=== PATIENT | male | born 1975 | race Two or more races ===

== ENCOUNTER 2020-07-02 16:34 | Outpatient (REF) | payer MEDICAID, SELFPAY | END 2020-07-02 16:35 | disposition home or self-care (01) | LOC: HO.LAB 16:34 | PROVIDERS: Visit Provider Internal Medicine | DX: Z20.828 Contact with and (suspected) exposure to other viral communicable diseases (principal) | CPT/HCPCS: C9803; U0003 ==

== ENCOUNTER → 2020-09-21 10:27 | Outpatient (BNV) | payer MEDICAID, SELFPAY | PROVIDERS: PCP Registered Nurse; Visit Provider Internal Medicine | DX: D86.9 Sarcoidosis, unspecified (principal); Z85.72 Personal history of non-Hodgkin lymphomas | CPT/HCPCS: 99213 ==

== ENCOUNTER 2021-03-05 08:11 | Inpatient (IN) | payer MEDICAID, SELFPAY ==
[2021-03-05] VITALS (8 sets, daily range): BP systolic 138–142; BP diastolic 86–88; PULSE 89–99; RESP 15–18; TEMP 36.8–37.1; O2SAT 88–95; BMI 34.2
--- NOTE | ~2021-03-05 | XR_ITS ---
EXAMINATION: XR CHEST CLINICAL INFORMATION: Chills, body aches, productive cough, shortness of breath COMPARISON: Chest radiographs 11/30/2017, 11/23/2017, CT chest 08/27/2017. TECHNIQUE: Portable upright AP view of the chest was obtained. FINDINGS: There is subtle bronchiolar thickening medial right upper zone and right infrahilar region similar to prior chest radiographs 11/2017. There is no correlate on CT chest 08/27/2017. There is no lobar or segmental airspace consolidation or new groundglass opacity. No effusion. The costophrenic sulci are clear. The heart is normal in size. The hilar and mediastinal contours and bony structures are unremarkable. XR/XR chest 1V IMPRESSION: Subtle coarsening bronchiolar markings medial right upper zone and right infrahilar region similar to chest radiographs November 2017. No airspace consolidation or effusion.
--- NOTE | ~2021-03-05 | CT_ITS ---
EXAMINATION: CT ANGIOGRAM OF THE CHEST WITH AND WITHOUT CONTRAST (CT PULMONARY ANGIOGRAM FOR PE) CLINICAL INFORMATION: Reason for Exam pt c hx of cancer/thrombosis c cough/sob ? PE COMPARISON: Prior CT examinations of the chest, most recently 08/27/2017. TECHNIQUE: Prior to contrast administration, noncontrast localization images were obtained. Subsequently, multidetector volumetric imaging was performed from the thoracic inlet to below the diaphragms following the administration of 80 mL Omnipaque 350 intravenous contrast. No contrast reaction reported Sagittal, coronal, and MIP oblique sagittal reformatted images were obtained on the CT workstation, uploaded to PACS, and reviewed. This CT examination was performed using dose optimization techniques as appropriate, variously including the following: *Automated exposure control *Adjustment of mA and/or kV according to patient size (this includes techniques or standardized protocols for targeted exams where dose is matched to indication/reason for exam; i.e. extremities or head) *Use of iterative reconstruction technique Total exam dose-length product 433 mGy-cm FINDINGS: QUALITY OF STUDY/CONTRAST BOLUS: Satisfactory. PULMONARY ARTERIES: No central or segmental pulmonary emboli. THORACIC AORTA: No aneurysm or dissection. LUNG: No focal consolidation, nodules or masses. PLEURA: No pleural effusion or pneumothorax. MEDIASTINUM: Normal heart size. No pericardial effusion. There is an enlarged subcarinal lymph node measuring 4.4 x 2.3 cm (5:26). On the CT examination of 08/27/2017, this measured 4.7 x 1.6 cm. There is a 2.0 x 1.8 cm right hilar lymph node. (5:23). This is decreased from prior measurements on 08/27/2017 of 2.4 x 2.3 cm (2:24). There are further shotty, nonpathologically enlarged mediastinal and left hilar lymph nodes. No evidence of septal bowing or right heart strain. CHEST WALL/AXILLA: There are multiple shotty, nonpathologically enlarged bilateral axillary lymph nodes. No axillary or internal mammary lymphadenopathy. OSSEOUS STRUCTURES: There is multi-level thoracic and upper lumbar spondylosis. No acute or aggressive osseous abnormality is seen. UPPER ABDOMEN: There is hepatic steatosis. A small exophytic mid left renal probable cyst is incompletely included in the [id number]. This is unchanged from 07/08/2012 (2:228), and it is considered benign. No reflux of contrast into the hepatic veins to suggest elevated right heart pressures. CT/CT angio chest PE protocol IMPRESSION: 1. No pulmonary embolus or thoracic aortic aneurysm or dissection is seen. 2. The lungs appear clear. 3. There is persistent mediastinal and right hilar lymphadenopathy, with dimensions diminished, as detailed above. 4. There are degenerative changes of the thoracolumbar spine. 5. There is hepatic steatosis. VTE: negative
[2021-03-05] MEDS: Albuterol Sulfate (0.083%) 2.5 MG/3 ML VIAL.NEB 10 MG INHALE (09:07)
[2021-03-05 09:11] LABS: MANUAL DIFF FLAG NO
[2021-03-05] MEDS: guaiFEN/Codeine SF 200/20/10ML 10 ML LIQUID PO (09:13)
[2021-03-05 09:14] LABS: Basophils Percent Auto 0.3 % (0-2); Eosinophils Absolute Auto 0.2 X10*3/uL (0.0-0.4); Hematocrit 46.3 % (42-52); Hemoglobin 15.7 g/dl (14.0-18.0); Imm Gran Abs Auto 0.04 X10*3/uL (0.00-0.03); Imm Gran Pct Auto 0.4 % (0.0-0.4); Lymphocytes Absolute Auto 0.8 X10*3/uL (1.2-4.9); Lymphocytes Percent Auto 7.8 % (20-40); Mean Corpuscular HGB Conc 33.9 g/dl (31.0-36.0); Mean Corpuscular Hemoglobin 29.5 pg (27.0-33.0); Mean Corpuscular Volume 86.9 fL (80-98); Mean Platelet Volume 9.8 fL (9.4-12.4); Monocytes Absolute Auto 0.9 X10*3/uL (0.1-1.2); Monocytes Percent Auto 9.2 % (2-11); Neutrophils Percent Auto 80.3 % (45-73); Platelet Count 166 X10*3/uL (160-400); Red Blood Count 5.33 X10*6/uL (4.60-5.80); Red Cell Distribution Width 13.6 % (11.0-16.0)
[2021-03-05 09:22] LABS: Strep A Nucleic Acid Negative (Negative)
[2021-03-05 09:37] LABS: Glucose Urine UA NEG (NEG); Leukocyte Esterase Urine NEG (NEG); Nitrite Urine NEG (NEG); Specific Gravity - Urine 1.025 (1.005-1.025); Urine Blood NEG (NEG); Urine Ketones NEG (NEG); Urine Protein NEG (NEG-TRACE)
[2021-03-05 09:39] LABS: Appearance Urine CLEAR; Color Urine YELLOW
[2021-03-05 09:48] LABS: Alanine Aminotransferase 41 U/L (0-40); Albumin Level 4.3 g/dL (3.5-5.0); Alkaline Phosphatase 124 U/L (39-117); Anion Gap 13 (12-20); Aspartate Amino Transferase 21 U/L (5-37); Bilirubin Total 0.9 mg/dL (0.0-1.0); Blood Urea Nitrogen 10 mg/dL (9-16); Calcium 9.1 mg/dL (8.4-10.2); Carbon Dioxide 26 mmol/L (22-29); Chloride 105 mmol/L (96-108); Estimated Glomerular Filt Rate > 60; Glucose Random 92 mg/dL (60-115); Magnesium 1.7 mg/dL (1.6-2.6); Sodium 140 mmol/L (135-145); Total Protein 6.8 g/dL (6.5-8.0)
[2021-03-05 09:49] LABS: B Type Natriuretic Peptide 77 pg/mL (<100)
[2021-03-05 09:59] LABS: Influenza A PCR NEGATIVE (Negative); Influenza B PCR NEGATIVE (Negative); Resp Syncy Virus RNA Qual PCR NEGATIVE (Negative); SARS COV2 PCR INHOUSE NEGATIVE (Negative)
--- NOTE | 2021-03-05 11:03 | ED.URI ---
HPI - URI/Sore Throat General Chief Complaint: General Medical Stated Complaint: flu like symptoms Time Seen by Provider: 03/05/21 08:34 Source: patient Mode of arrival: ambulatory Limitations: no limitations History of Present Illness HPI Narrative: 46-year-old male with a past medical history of B-cell lymphoma currently in remission, thrombosis, acid reflux, anxiety and asthma presenting to the ED with complaints of subjective fevers, chills, body aches, fatigue, sneezing, sore throat, nasal congestion, rhinorrhea, productive cough with chest tightness and shortness of breath for the past few days worse today. 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 Denies recent travel or sick contacts. Denies any headaches, dizziness, change in vision, nausea/vomiting, neck pain/stiffness, palpitations, chest pain, dyspnea on exertion, orthopnea, extremity edema, abdominal pain, diarrhea, constipation, black or bloody stools, dysuria, hematuria or any other symptoms complaints or concerns at this time. MD elicited complaint: fever, cough, sore throat, rhinorrhea and nasal congestion Pertinent past history: asthma Onset (ago): day(s) Consistency: constant and progressively worsening Severity: moderate Description of mucous: clear, watery, yellow and green Able to tolerate fluids by mouth: Yes Exacerbating factors: swallowing and deep breaths Relieving factors: nothing Associated symptoms: fever, chills, myalgias, rhinorrhea, nasal congestion, sore throat, cough and shortness of breath Treatments prior to arrival: cold medicine (No symptomatic relief) Related Data Home Medications Medication Instructions Recorded Confirmed albuterol sulfate 90 mcg/actuation 2 puff INHALATION Q4-6H PRN 09/21/20 09/21/20 aerosol inhaler (ProAir HFA) cholecalciferol (vitamin D3) 25 25 mcg PO DAILY 09/21/20 09/21/20 mcg (1,000 unit) capsule (Vitamin D3) clonazepam 1 mg tablet 1 mg PO Q6-8H PRN 09/21/20 09/21/20 gabapentin 300 mg tablet 300 mg PO BEDTIME 09/21/20 09/21/20 loratadine 10 mg capsule 10 mg PO DAILY 09/21/20 09/21/20 omeprazole 20 mg tablet,delayed 20 mg PO DAILY 09/21/20 09/21/20 release Allergies Allergy/AdvReac Type Severity Reaction Status Date / Time allantoin [From BLISTEX] Allergy Unknown LIP Unverified 04/05/20 15:07 SWELLING homosalate [From BLISTEX] Allergy Unknown LIP Unverified 04/05/20 15:07 SWELLING menthol [From BLISTEX] Allergy Unknown LIP Unverified 04/05/20 15:07 SWELLING octinoxate [From BLISTEX] Allergy Unknown LIP Unverified 04/05/20 15:07 SWELLING octyl salicylate Allergy Unknown LIP Unverified 04/05/20 15:07 [From BLISTEX] SWELLING oxybenzone [From BLISTEX] Allergy Unknown LIP Unverified 04/05/20 15:07 SWELLING padimate O [From BLISTEX] Allergy Unknown LIP Unverified 04/05/20 15:07 SWELLING sodium chloride Allergy Unknown GUM Unverified 04/05/20 15:07 SWELLING TO TABLE SALT ibuprofen [IBUPROFEN] AdvReac Unknown STOMACH Unverified 04/05/20 15:07 UPSET From BLISTEX Allergy Unknown LIP Uncoded 04/05/20 15:07 SWELLING ibuprofen Allergy Unknown gi upset Uncoded 09/18/17 00:00 Review of Systems Review of Systems: Constitutional : Positive malaise/fatigue/chills/subjective fevers, No Weight loss, No Night Sweats ENT/Mouth : Positive Sore throat/rhinorrhea/nasal congestion, Hearing loss, No Ear Pain, No Sinus Pain, No Hoarseness, No Swallowing Difficulty Eyes: No Eye Pain, No Swelling, No Redness, No Foreign Body, No Discharge, No Vision Changes Cardiovascular : Positive SOB, No Dyspnea on Exertion, No Orthopnea, No Edema, No Palpitations, No Chest Pain Respiratory : Positive Cough with sputum production and wheezing, No Smoke Exposure Gastrointestinal : No Nausea, No Vomiting, No Diarrhea, No Constipation, No abdominal Pain, No Hematochezia, No Melena Genitourinary : no irregular bleeding, No Dysuria, No Urinary Frequency, No Hematuria, No Urinary Incontinence, No Urgency, No Flank Pain, No Urinary Flow Changes, No Hesitancy Musculoskeletal : Positive myalgias, No joint pain, No Joint Swelling Skin : No Skin Lesions, No rash Neuro : No Weakness, No Numbness, No Paresthesias, No Loss of Consciousness, No Dizziness, No Headache Psych : No Anxiety/Panic, No Depression, No SI/HI/AH/VH, No Social Issues, Heme/Lymph: No Bruising, No Bleeding,No Lymphadenopathy Endocrine : No Polyuria, No Polydipsia, No Temperature Intolerance Yes all other systems are reviewed and are negative [facility] Past Medical History Attestation statement: The following information was validated with the patient. Medical History Acid reflux Anxiety B-cell chronic lymphocytic leukemia History of asthma Thrombosis Family History Family History Mother Liver cirrhosis Family/Other Thyroid cancer Breast cancer Social History Social History Alcohol intake: never Smoked in Last 30 Days: No Use of substances other than those prescribed or required for medical reasons: No Advance Directives: No Advance Directives Information Provided: No Physical Exam Vital Signs: Vital Signs: Last Vital Signs Temp 98.8 F 03/05/21 08:53 Pulse 99 03/05/21 12:41 Resp 15 03/05/21 08:53 BP 142/86 H 03/05/21 08:53 Pulse Ox 88 L 03/05/21 13:37 Body Mass Index 34.2 vital signs have been reviewed as normal and appeared to be correct. Blood pressure normal. Heart rate normal. Respiration rate normal. Temperature normal. Oxygen saturation normal. Appearance: Alert. Oriented X3. No acute distress. Head: Normal external exam. Normocephalic. Atraumatic. Eyes: PERRLA. EOMI. Conjunctiva and sclera normal. Eyelids normal. ENT: EAC normal. TM's Normal. Posterior pharynx erythematous although no exudate is noted. Uvula midline. Moist mucous membranes. No trismus noted. No drooling noted. No muffled voice noted. Neck: Normal inspection. Neck supple. FROM. No adenopathy. Thyroid Normal. No meningeal signs. No neck mass noted. CVS: Normal heart rate and rhythm. Heart sound normal. Pulses normal throughout. No murmurs/rales/gallops. Respiratory: No respiratory distress. Painless inspiration. Breath sounds normal. No wheezes/rales/rhonchi noted. Chest nontender. No accessory muscle usage noted or decreased air movement noted. Abdomen: Soft and nontender. Bowel sounds normal in all 4 quadrants. No distention noted. No organomegaly noted. No visible injury noted. Back: Full range of motion noted. No rashes/lesion/induration/fluctuance or signs of infection noted. Skin: Skin warm and dry. Normal skin color. Normal skin turgor. No rashes/lesions/lacerations noted. Extremities: No lower extremity edema. No calf tenderness npted. Extremities exhibit normal range of motion. Extremities nontender. Neuro: Oriented X 3. No motor deficit. No sensory deficit. Reflexes normal. Normal steady gait. No focal neuro deficits noted. Vascular: + radial pulses/+ 2 distal pedal pulses/+2 dorsalis pedis b/l. Normal cap refill. No cyanosis noted to upper extremity nails and lower extremity toes nails. Course Course Course Narrative: 8:35am - 46-year-old male with a past medical history of B-cell lymphoma currently in remission, thrombosis, acid reflux, anxiety and asthma presenting to the ED with complaints of subjective fevers, chills, body aches, fatigue, sneezing, sore throat, nasal congestion, rhinorrhea, productive cough with chest tightness and shortness of breath for the past few days worse today. Plan:Labs, chest x-ray, COVID/RSV/flu swab, rapid strep swab. Provided 10 mg of Robitussin with codeine and an hour long breathing treatment and re-evaluate. Reevaluation(s) Reevaluation #1: - labs reviewed and patient's ALT at 41. Alkaline phosphate 124. Otherwise all other labs are within normal limits. UA within normal limits no evidence of UTI. Patient negative for COVID/RSV/flu. Patient negative for strep. - CXR revealed Subtle coarsening bronchiolar markings medial right upper zone and right infrahilar region similar to chest radiographs November 2017. No airspace consolidation or effusion. - With walking pulse ox test patient's oxygen saturation stays at 92-94% on room air although patient reports no symptomatic relief after the hour long breathing treatment therefore will give IV Solu-Medrol and plan to admit for bronchitis with acute asthma exacerbation. - I attempted to admit although the hospitalist decline at this time and reported that the patient should receive another breathing treatment along with IV steroids and magnesium and should be sent home with a Z-Hugo will give another breathing treatment along with IV steroids and magnesium and re-evaluate. Time: 11:21 Reevaluation #2: - patient reported he was not feeling better and his oxygen saturation while he was sitting in his bed dropped to 88% while on room air with a good waveform despite receiving a 2nd breathing treatment along with 125 mg of Solu-Medrol IV and 2 g of magnesium IV - I added a respiratory panel and patient is positive for Entero/Rhino Virus - patient is in remission for B-cell lymphoma and has a history of thrombosis therefore I will obtain a CT of his chest to evaluate for possible PE - plan would be to attempt to admit to Dr. Franco Time: 13:42 MDM - URI/Sore Throat Medical Records Attestation: I reviewed the patient's medical records. Lab Data Attestation: I reviewed the patient's lab results. Result diagrams: 03/05/21 09:00 03/05/21 09:00 Labs: Lab Results 03/05/21 03/05/21 03/05/21 Range/Units 09:00 09:00 09:00 WBC 10.0 (4.8-10.8) X10*3/uL RBC 5.33 (4.60-5.80) X10*6/uL Hgb 15.7 (14.0-18.0) g/dl Hct 46.3 (42-52) % MCV 86.9 (80-98) fL MCH 29.5 (27.0-33.0) pg MCHC 33.9 (31.0-36.0) g/dl RDW 13.6 (11.0-16.0) % Plt Count 166 (160-400) X10*3/uL MPV 9.8 (9.4-12.4) fL Immature Gran % (Auto) 0.4 (0.0-0.4) % Neut % (Auto) 80.3 H (45-73) % Lymph % (Auto) 7.8 L (20-40) % [place] % (Auto) 9.2 (2-11) % Eos % (Auto) 2.0 (0-4) % Baso % (Auto) 0.3 (0-2) % Lymph # (Auto) 0.8 L (1.2-4.9) X10*3/uL [place] # (Auto) 0.9 (0.1-1.2) X10*3/uL Eos # (Auto) 0.2 (0.0-0.4) X10*3/uL Baso # (Auto) 0.0 (0.0-0.2) X10*3/uL Abs Immat Gran (auto) 0.04 H (0.00-0.03) X10*3/uL Absolute Neuts (auto) 8.0 (2.0-8.3) X10*3/uL Absolute Nucleated RBC 0.000 (0.0-0.012) X10*3/uL Nucleated RBC % (auto) 0.0 (0.0-0.2) /100WBC Hold Purple Top Sodium (135-145) mmol/L Potassium (3.3-5.1) mmol/L Chloride (96-108) mmol/L Carbon Dioxide (22-29) mmol/L Anion Gap (12-20) BUN (9-16) mg/dL Creatinine (0.5-1.4) mg/dL Estim Creat Clear Calc Estimated GFR Random Glucose (60-115) mg/dL Calcium (8.4-10.2) mg/dL Magnesium (1.6-2.6) mg/dL Total Bilirubin (0.0-1.0) mg/dL AST (5-37) U/L ALT (0-40) U/L Alkaline Phosphatase (39-117) U/L B-Natriuretic Peptide (<100) pg/mL Total Protein (6.5-8.0) g/dL Albumin (3.5-5.0) g/dL Urine Color Urine Appearance Urine pH (5.0-8.0) Ur Specific [place] (1.005-1.025) Urine Protein (NEG-TRACE) MG/DL Urine Glucose (UA) (NEG) MG/DL Urine Ketones (NEG) MG/DL Urine Blood (NEG) Urine Nitrite (NEG) Ur Leukocyte Esterase (NEG) Respiratory Panel [place] Adenovirus (Rapid PCR) (Not Detect.) B.pert (TEM-PCR) (Not Detect.) B.parapertussis DNA PCR (Not Detect.) C. pneumoniae DNA (PCR) (Not Detect.) Coronavirus (PCR) NEGATIVE (Negative) Coronavirus OC43 (PCR) (Not Detect.) Coronavirus HKU1 (PCR) (Not Detect.) Coronavirus 229E (PCR) (Not Detect.) Coronavirus NL63 (PCR) (Not Detect.) Human Metapneumovir PCR (Not Detect.) Influenza A (RT-PCR) (Not Detect.) Influenza Type A (PCR) NEGATIVE (Negative) Influenza B (RT-PCR) (Not Detect.) Influenza Type B (PCR) NEGATIVE (Negative) M. pneumoniae (PCR) (Not Detect.) Parainfluenza 1 (PCR) (Not Detect.) Parainfluenza 2 (PCR) (Not Detect.) Parainfluenza 3 (PCR) (Not Detect.) Parainfluenza 4 (PCR) (Not Detect.) RSV (PCR) (Not Detect.) RSV RNA Qual (PCR) NEGATIVE (Negative) Entero/Rhino (PCR) (Not Detect.) SARS-CoV-2 RNA (RT-PCR) (Not Detect.) S. pyogenes GrpA KURT Negative (Negative) 03/05/21 03/05/21 03/05/21 Range/Units 09:00 09:00 09:00 WBC (4.8-10.8) X10*3/uL RBC (4.60-5.80) X10*6/uL Hgb (14.0-18.0) g/dl Hct (42-52) % MCV (80-98) fL MCH (27.0-33.0) pg MCHC (31.0-36.0) g/dl RDW (11.0-16.0) % Plt Count (160-400) X10*3/uL MPV (9.4-12.4) fL Immature Gran % (Auto) (0.0-0.4) % Neut % (Auto) (45-73) % Lymph % (Auto) (20-40) % [place] % (Auto) (2-11) % Eos % (Auto) (0-4) % Baso % (Auto) (0-2) % Lymph # (Auto) (1.2-4.9) X10*3/uL [place] # (Auto) (0.1-1.2) X10*3/uL Eos # (Auto) (0.0-0.4) X10*3/uL Baso # (Auto) (0.0-0.2) X10*3/uL Abs Immat Gran (auto) (0.00-0.03) X10*3/uL Absolute Neuts (auto) (2.0-8.3) X10*3/uL Absolute Nucleated RBC (0.0-0.012) X10*3/uL Nucleated RBC % (auto) (0.0-0.2) /100WBC Hold Purple Top SEE NOTE Sodium 140 (135-145) mmol/L Potassium 4.0 (3.3-5.1) mmol/L Chloride 105 (96-108) mmol/L Carbon Dioxide 26 (22-29) mmol/L Anion Gap 13 (12-20) BUN 10 (9-16) mg/dL Creatinine 0.81 (0.5-1.4) mg/dL Estim Creat Clear Calc 125.0 Estimated GFR > 60 Random Glucose 92 (60-115) mg/dL Calcium 9.1 D (8.4-10.2) mg/dL Magnesium 1.7 (1.6-2.6) mg/dL Total Bilirubin 0.9 (0.0-1.0) mg/dL AST 21 (5-37) U/L ALT 41 H (0-40) U/L Alkaline Phosphatase 124 H (39-117) U/L B-Natriuretic Peptide 77 (<100) pg/mL Total Protein 6.8 (6.5-8.0) g/dL Albumin 4.3 (3.5-5.0) g/dL Urine Color Urine Appearance Urine pH (5.0-8.0) Ur Specific [place] (1.005-1.025) Urine Protein (NEG-TRACE) MG/DL Urine Glucose (UA) (NEG) MG/DL Urine Ketones (NEG) MG/DL Urine Blood (NEG) Urine Nitrite (NEG) Ur Leukocyte Esterase (NEG) Respiratory Panel [place] Adenovirus (Rapid PCR) (Not Detect.) B.pert (TEM-PCR) (Not Detect.) B.parapertussis DNA PCR (Not Detect.) C. pneumoniae DNA (PCR) (Not Detect.) Coronavirus (PCR) (Negative) Coronavirus OC43 (PCR) (Not Detect.) Coronavirus HKU1 (PCR) (Not Detect.) Coronavirus 229E (PCR) (Not Detect.) Coronavirus NL63 (PCR) (Not Detect.) Human Metapneumovir PCR (Not Detect.) Influenza A (RT-PCR) (Not Detect.) Influenza Type A (PCR) (Negative) Influenza B (RT-PCR) (Not Detect.) Influenza Type B (PCR) (Negative) M. pneumoniae (PCR) (Not Detect.) Parainfluenza 1 (PCR) (Not Detect.) Parainfluenza 2 (PCR) (Not Detect.) Parainfluenza 3 (PCR) (Not Detect.) Parainfluenza 4 (PCR) (Not Detect.) RSV (PCR) (Not Detect.) RSV RNA Qual (PCR) (Negative) Entero/Rhino (PCR) (Not Detect.) SARS-CoV-2 RNA (RT-PCR) (Not Detect.) S. pyogenes GrpA KURT (Negative) 03/05/21 03/05/21 Range/Units 09:00 09:31 WBC (4.8-10.8) X10*3/uL RBC (4.60-5.80) X10*6/uL Hgb (14.0-18.0) g/dl Hct (42-52) % MCV (80-98) fL MCH (27.0-33.0) pg MCHC (31.0-36.0) g/dl RDW (11.0-16.0) % Plt Count (160-400) X10*3/uL MPV (9.4-12.4) fL Immature Gran % (Auto) (0.0-0.4) % Neut % (Auto) (45-73) % Lymph % (Auto) (20-40) % [place] % (Auto) (2-11) % Eos % (Auto) (0-4) % Baso % (Auto) (0-2) % Lymph # (Auto) (1.2-4.9) X10*3/uL [place] # (Auto) (0.1-1.2) X10*3/uL Eos # (Auto) (0.0-0.4) X10*3/uL Baso # (Auto) (0.0-0.2) X10*3/uL Abs Immat Gran (auto) (0.00-0.03) X10*3/uL Absolute Neuts (auto) (2.0-8.3) X10*3/uL Absolute Nucleated RBC (0.0-0.012) X10*3/uL Nucleated RBC % (auto) (0.0-0.2) /100WBC Hold Purple Top Sodium (135-145) mmol/L Potassium (3.3-5.1) mmol/L Chloride (96-108) mmol/L Carbon Dioxide (22-29) mmol/L Anion Gap (12-20) BUN (9-16) mg/dL Creatinine (0.5-1.4) mg/dL Estim Creat Clear Calc Estimated GFR Random Glucose (60-115) mg/dL Calcium (8.4-10.2) mg/dL Magnesium (1.6-2.6) mg/dL Total Bilirubin (0.0-1.0) mg/dL AST (5-37) U/L ALT (0-40) U/L Alkaline Phosphatase (39-117) U/L B-Natriuretic Peptide (<100) pg/mL Total Protein (6.5-8.0) g/dL Albumin (3.5-5.0) g/dL Urine Color YELLOW Urine Appearance CLEAR Urine pH 6.0 (5.0-8.0) Ur Specific [place] 1.025 (1.005-1.025) Urine Protein NEG (NEG-TRACE) MG/DL Urine Glucose (UA) NEG (NEG) MG/DL Urine Ketones NEG (NEG) MG/DL Urine Blood NEG (NEG) Urine Nitrite NEG (NEG) Ur Leukocyte Esterase NEG (NEG) Respiratory Panel [place] See Note Adenovirus (Rapid PCR) Not Detected (Not Detect.) B.pert (TEM-PCR) Not Detected (Not Detect.) B.parapertussis DNA PCR Not Detected (Not Detect.) C. pneumoniae DNA (PCR) Not Detected (Not Detect.) Coronavirus (PCR) (Negative) Coronavirus OC43 (PCR) Not Detected (Not Detect.) Coronavirus HKU1 (PCR) Not Detected (Not Detect.) Coronavirus 229E (PCR) Not Detected (Not Detect.) Coronavirus NL63 (PCR) Not Detected (Not Detect.) Human Metapneumovir PCR Not Detected (Not Detect.) Influenza A (RT-PCR) Not Detected (Not Detect.) Influenza Type A (PCR) (Negative) Influenza B (RT-PCR) Not Detected (Not Detect.) Influenza Type B (PCR) (Negative) M. pneumoniae (PCR) Not Detected (Not Detect.) Parainfluenza 1 (PCR) Not Detected (Not Detect.) Parainfluenza 2 (PCR) Not Detected (Not Detect.) Parainfluenza 3 (PCR) Not Detected (Not Detect.) Parainfluenza 4 (PCR) Not Detected (Not Detect.) RSV (PCR) Not Detected (Not Detect.) RSV RNA Qual (PCR) (Negative) Entero/Rhino (PCR) Detected A (Not Detect.) SARS-CoV-2 RNA (RT-PCR) Not Detected (Not Detect.) S. pyogenes GrpA KURT (Negative) Imaging Data Chest x-ray: Attestation: I personally reviewed and interpreted this imaging study as follows: Radiologist's impression: FINDINGS: There is subtle bronchiolar thickening medial right upper zone and right infrahilar region similar to prior chest radiographs 11/2017. There is no correlate on CT chest 08/27/2017. There is no lobar or segmental airspace consolidation or new groundglass opacity. No effusion. The costophrenic sulci are clear. The heart is normal in size. The hilar and mediastinal contours and bony structures are unremarkable. XR/XR chest 1V IMPRESSION: Subtle coarsening bronchiolar markings medial right upper zone and right infrahilar region similar to chest radiographs November 2017. No airspace consolidation or effusion. ? CTA of chest : Attestation: I personally reviewed and interpreted this imaging study as follows: Radiologist's impression: FINDINGS: QUALITY OF STUDY/CONTRAST BOLUS: Satisfactory. PULMONARY ARTERIES: No central or segmental pulmonary emboli.? THORACIC AORTA: No aneurysm or dissection. LUNG: No focal consolidation, nodules or masses. PLEURA: No pleural effusion or pneumothorax. MEDIASTINUM: Normal heart size.? No pericardial effusion. There is an enlarged subcarinal lymph node measuring 4.4 x 2.3 cm (5:26). On the CT examination of 08/27/2017, this measured 4.7 x 1.6 cm. There is a 2.0 x 1.8 cm right hilar lymph node. (5:23). This is decreased from prior measurements on 08/27/2017 of 2.4 x 2.3 cm (2:24). There are further shotty, nonpathologically enlarged mediastinal and left hilar lymph nodes.? No evidence of septal bowing or right heart strain. CHEST WALL/AXILLA: There are multiple shotty, nonpathologically enlarged bilateral axillary lymph nodes. No axillary or internal mammary lymphadenopathy. OSSEOUS STRUCTURES: There is multi-level thoracic and upper lumbar spondylosis. No acute or aggressive osseous abnormality is seen.? UPPER ABDOMEN: There is hepatic steatosis. A small exophytic mid left renal probable cyst is incompletely included in the [id number]. This is unchanged from 07/08/2012 (2:228), and it is considered benign. No reflux of contrast into the hepatic veins to suggest elevated right heart pressures. CT/CT angio chest PE protocol IMPRESSION: ? 1. No pulmonary embolus or thoracic aortic aneurysm or dissection is seen. ? 2. The lungs appear clear. ? 3. There is persistent mediastinal and right hilar lymphadenopathy, with dimensions diminished, as detailed above. ? 4. There are degenerative changes of the thoracolumbar spine. ? 5. There is hepatic steatosis. ? VTE: negative ECG Data Attestation: I personally reviewed and interpreted this ECG as follows: ECG interpretation date: 03/05/21 ECG interpretation time: 12:19 Interpretation: Normal sinus rhythm with a ventricular rate of 93 with minimal voltage criteria for LVH nonspecific ST abnormalities no acute ischemic changes are noted. Similar when compared to prior EKG 03/25/2015. Critical Care Time Critical Care Time Critical Care Time: Yes Total Critical Care Time: 60 Attestation: I personally attest to this time spent taking care of the patient Discharge Plan Discharge Clinical Impression: Bronchitis, Asthma exacerbation, Acute viral syndrome Patient Disposition: Admitted As Inpatient
--- NOTE | 2021-03-05 11:27 | ECG_ITS ---
Test Reason : SOB Blood Pressure : / mmHG Vent. Rate : 093 BPM Atrial Rate : 093 BPM P-R Int : 144 ms QRS Dur : 094 ms QT Int : 356 ms P-R-T Axes : 050 031 -04 degrees QTc Int : 442 ms Normal sinus rhythm Minimal voltage criteria for LVH, may be normal variant T wave abnormality, consider inferior ischemia Abnormal ECG When compared with ECG of 25-MAR-2015 08:35, No significant change was found Referred By: Dottie Mitchell Electronically Signed By:TRICIA JACKSON
[2021-03-05 11:36] LABS: Adenovirus PCR Not Detected (Not Detect.); Bordetella parapertussis PCR Not Detected (Not Detect.); Bordetella pertussis PCR Not Detected (Not Detect.); Chlamydia pneumoniae PCR Not Detected (Not Detect.); Coronavirus 229E PCR Not Detected (Not Detect.); Coronavirus HKU1 PCR Not Detected (Not Detect.); Coronavirus NL63 PCR Not Detected (Not Detect.); Coronavirus OC43 PCR Not Detected (Not Detect.); Human metapneumovirus PCR Not Detected (Not Detect.); Influenza A PCR Not Detected (Not Detect.); Influenza B PCR Not Detected (Not Detect.); Mycoplasma pneumoniae PCR Not Detected (Not Detect.); Parainfluenza 1 PCR Not Detected (Not Detect.); Parainfluenza 2 PCR Not Detected (Not Detect.); Parainfluenza 3 PCR Not Detected (Not Detect.); Parainfluenza 4 PCR Not Detected (Not Detect.); RSV PCR Not Detected (Not Detect.); SARS-CoV-2 PCR Not Detected (Not Detect.)
[2021-03-05] MEDS: methylPREDNISolone Sod Succ 125 MG/2 ML VIAL IVPUSH (12:35)
[2021-03-05] MEDS: Magnesium Sulfate/H2O 2 GM/50 ML PIGGYBACK IV (12:38)
[2021-03-05] MEDS: Albuterol Sulfate (0.083%) 2.5 MG/3 ML VIAL.NEB 5 MG INHALE (12:41)
[2021-03-05 13:34] LABS: Rhino/Enterovirus PCR Detected (Not Detect.)
--- NOTE | 2021-03-05 14:17 | PC.NURSE ---
earlier pt sat 88% on room air. pt woken up, sat up in bed and sat henry to 96%. pt placed on 2l nc and maintaining 94% plus
[2021-03-05] MEDS: iohexoL 350 MG/ML 100 ML INFUS..BTL 71 ML IV (15:00)
--- NOTE | 2021-03-05 16:25 | P.HPHOSP_ITS ---
History of Present Illness Date of Service: 03/05/21 Chief Complaint: sob 46-year-old male history of asthma, anxiety, history of B-cell lymphoma recently in remission as per patient- Who came to the hospital because having few days of history of shortness of breath, productive cough, urinary and feverish feeling- patient is found to have up toxic on 88%, patient was given nebs, steroids and oxygen and admission was given due to asthma exacerbation, URI: Patient shortness of breath improving with the nebs, steroids, oxygen-ED added procalcitonin levels, blood cultures. CTA negative for pulmonary embolism, has lymphadenopathy question related to lymphoma. Patient denies any nausea or vomiting or abdominal pain or diarrhea or headache or chest pain or weakness or numbness. Past medical history as above, in addition GERD. Past surgical history: None. Allergy: Says he he has allergy to NSAIDs?-stomach upset. Please see allergy section for more details. Social history: Denies any alcohol or smoking, any recreational drug use. Lives with his father. Denies any sick contacts . Review of Systems Review of Systems: As above in HPI, Denies any rash or cyanosis. Denies any muscle pain Subjective feverish feeling Appears somewhat short of breath, speaking inch poor short sentences Patient denies any nausea or vomiting or abdominal pain or diarrhea or headache or chest pain or weakness or numbness. [facility] Medical History Acid reflux Anxiety B-cell chronic lymphocytic leukemia History of asthma Thrombosis Family History Mother Liver cirrhosis Family/Other Thyroid cancer Breast cancer Social History Household Members: Family Household Members Other:: father Housing: Apartment Do you presently have visiting nurse or other home services: No Alcohol intake: never Patient Tobacco Use Status: Current everyday Tobacco user Tobacco use type: Cigarette Cigarettes Per Day: 5 Years Smoked: 18 Smoked in Last 30 Days: Yes Patient Interested in Nicotine Replacement: Yes Patient Given Instructions on How to Stop Smoking: No Second Hand Smoke Exposure: No Use of substances other than those prescribed or required for medical reasons: No Currently Displaying Signs/Symptoms of Drug Intoxication Withdrawal: No Have you been hit, kicked, punched, or otherwise hurt by someone within the past year? If so, by whom?: No Do you feel safe in your current relationship?: Yes Is there a partner from a previous relationship who is making you feel unsafe now?: No Are you made to feel afraid or neglected: No Advance Directives: No Advance Directives Information Provided: No Do you have thoughts of harming others: None Do you have a plan to hurt others: No Plan Recently lost weight without trying: No How much weight loss: Not applicable Eating poorly because of decreased appetite: No Nutrition screen score: 0 Nutrition Risks: No Nutritional Risk Poor oral hygiene: No Meds Allergies Allergy/AdvReac Type Severity Reaction Status Date / Time allantoin [From BLISTEX] Allergy Unknown LIP Unverified 04/05/20 15:07 SWELLING homosalate [From BLISTEX] Allergy Unknown LIP Unverified 04/05/20 15:07 SWELLING menthol [From BLISTEX] Allergy Unknown LIP Unverified 04/05/20 15:07 SWELLING octinoxate [From BLISTEX] Allergy Unknown LIP Unverified 04/05/20 15:07 SWELLING octyl salicylate Allergy Unknown LIP Unverified 04/05/20 15:07 [From BLISTEX] SWELLING oxybenzone [From BLISTEX] Allergy Unknown LIP Unverified 04/05/20 15:07 SWELLING padimate O [From BLISTEX] Allergy Unknown LIP Unverified 04/05/20 15:07 SWELLING sodium chloride Allergy Unknown GUM Unverified 04/05/20 15:07 SWELLING TO TABLE SALT ibuprofen [IBUPROFEN] AdvReac Unknown STOMACH Unverified 04/05/20 15:07 UPSET From BLISTEX Allergy Unknown LIP Uncoded 04/05/20 15:07 SWELLING ibuprofen Allergy Unknown gi upset Uncoded 09/18/17 00:00 Active Medications: Current Medications Generic Name Dose Route Start Last Admin Trade Name Freq PRN Reason Stop Dose Admin Albuterol/Ipratropium 3 ml 03/05/21 16:20 Albuterol/Iprat 2.5/0.5mg 3 Ml Ampul.Neb INHALE Q3H PRN Shortness of Breath Albuterol/Ipratropium 3 ml 03/05/21 16:30 Albuterol/Iprat 2.5/0.5mg 3 Ml Ampul.Neb INHALE Q4H CHERYL Enoxaparin Sodium 40 mg 03/05/21 17:00 Enoxaparin Sodium 40 Mg/0.4 Ml Syringe SUBCUT Q24H [facility] Methylprednisolone Sodium Succinate 40 mg 03/05/21 21:00 Methylprednisolone Sod Succ 40 Mg/Ml Vial IVPUSH BID [facility] Pharmacy Consult 1 each 03/05/21 16:19 Consult Rx Perform Med Rec MISCELLANE ONCE PRN Consult order Sodium Chloride 3 ml 03/06/21 00:00 0.9 % Sodium Chloride Flush 3 Ml Syringe IVFLUSH QSHIFT [facility] Home Medications Medication Instructions Recorded Confirmed Last Taken Type albuterol sulfate 90 mcg/actuation 2 puff INHALATION Q4-6H PRN 09/21/20 03/05/21 03/05/21 History aerosol inhaler (ProAir HFA) clonazepam 1 mg tablet 1 tab PO DAILY PRN 03/05/21 03/05/21 Unknown History esomeprazole magnesium 20 mg 1 cap PO DAILY 03/05/21 03/05/21 Unknown History capsule,delayed release fluticasone propionate 110 2 puff INHALATION BID 03/05/21 03/05/21 Unknown History mcg/actuation HFA aerosol inhaler (Flovent HFA) fluticasone propionate 50 1 spray INTRANASAL BID 03/05/21 03/05/21 Unknown History mcg/actuation nasal spray,suspension gabapentin 300 mg capsule 3 cap PO BEDTIME 03/05/21 03/05/21 Unknown History levocetirizine 5 mg tablet 1 tab PO QPM 03/05/21 03/05/21 Unknown History Physical Exam Vital Signs and Narrative: Vital Signs: Last Vital Signs Temp 98.8 F 03/05/21 08:53 Pulse 99 03/05/21 12:41 Resp 15 03/05/21 08:53 BP 142/86 H 03/05/21 08:53 Pulse Ox 88 L 03/05/21 13:37 Body Mass Index 34.2 Physical exam: Constitutional : Positive malaise/fatigue/chills/subjective fevers. ENT/Mouth : Positive Sore throat/rhinorrhea/nasal congestion. Eyes: No Eye Pain, No RednessNo Discharge, No Vision Changes Cvs: rrr, [id number] , no murmur res: Grossly air entry diminished, has wheezing. abd: no rebound or guarding ,nt, bs present. ext pulses present , no cyanosis neuro: axo3 , nonfocal. ms: No pain, no deformity. Results Labs CBC and Chem 7: 03/05/21 09:00 03/05/21 09:00 Labs: Laboratory Results - last 24 hr 03/05/21 03/05/21 03/05/21 09:00 09:00 09:00 MCV 86.9 MCH 29.5 MCHC 33.9 RDW 13.6 Plt Count 166 MPV 9.8 Immature Gran % (Auto) 0.4 Neut % (Auto) 80.3 H Lymph % (Auto) 7.8 L [place] % (Auto) 9.2 Eos % (Auto) 2.0 Baso % (Auto) 0.3 Lymph # (Auto) 0.8 L [place] # (Auto) 0.9 Eos # (Auto) 0.2 Baso # (Auto) 0.0 Abs Immat Gran (auto) 0.04 H Absolute Neuts (auto) 8.0 Absolute Nucleated RBC 0.000 Nucleated RBC % (auto) 0.0 Hold Purple Top Anion Gap Estim Creat Clear Calc Estimated GFR Random Glucose Calcium Magnesium Total Bilirubin AST ALT Alkaline Phosphatase B-Natriuretic Peptide Total Protein Albumin Urine Color Urine Appearance Urine pH Ur Specific [place] Urine Protein Urine Glucose (UA) Urine Ketones Urine Blood Urine Nitrite Ur Leukocyte Esterase Respiratory Panel [place] Adenovirus (Rapid PCR) B.pert (TEM-PCR) B.parapertussis DNA PCR C. pneumoniae DNA (PCR) Coronavirus (PCR) NEGATIVE Coronavirus OC43 (PCR) Coronavirus HKU1 (PCR) Coronavirus 229E (PCR) Coronavirus NL63 (PCR) Human Metapneumovir PCR Influenza A (RT-PCR) Influenza Type A (PCR) NEGATIVE Influenza B (RT-PCR) Influenza Type B (PCR) NEGATIVE M. pneumoniae (PCR) Parainfluenza 1 (PCR) Parainfluenza 2 (PCR) Parainfluenza 3 (PCR) Parainfluenza 4 (PCR) RSV (PCR) RSV RNA Qual (PCR) NEGATIVE Entero/Rhino (PCR) SARS-CoV-2 RNA (RT-PCR) S. pyogenes GrpA KURT Negative 03/05/21 03/05/21 03/05/21 09:00 09:00 09:00 MCV MCH MCHC RDW Plt Count MPV Immature Gran % (Auto) Neut % (Auto) Lymph % (Auto) [place] % (Auto) Eos % (Auto) Baso % (Auto) Lymph # (Auto) [place] # (Auto) Eos # (Auto) Baso # (Auto) Abs Immat Gran (auto) Absolute Neuts (auto) Absolute Nucleated RBC Nucleated RBC % (auto) Hold Purple Top SEE NOTE Anion Gap 13 Estim Creat Clear Calc 125.0 Estimated GFR > 60 Random Glucose 92 Calcium 9.1 D Magnesium 1.7 Total Bilirubin 0.9 AST 21 ALT 41 H Alkaline Phosphatase 124 H B-Natriuretic Peptide 77 Total Protein 6.8 Albumin 4.3 Urine Color Urine Appearance Urine pH Ur Specific [place] Urine Protein Urine Glucose (UA) Urine Ketones Urine Blood Urine Nitrite Ur Leukocyte Esterase Respiratory Panel [place] Adenovirus (Rapid PCR) B.pert (TEM-PCR) B.parapertussis DNA PCR C. pneumoniae DNA (PCR) Coronavirus (PCR) Coronavirus OC43 (PCR) Coronavirus HKU1 (PCR) Coronavirus 229E (PCR) Coronavirus NL63 (PCR) Human Metapneumovir PCR Influenza A (RT-PCR) Influenza Type A (PCR) Influenza B (RT-PCR) Influenza Type B (PCR) M. pneumoniae (PCR) Parainfluenza 1 (PCR) Parainfluenza 2 (PCR) Parainfluenza 3 (PCR) Parainfluenza 4 (PCR) RSV (PCR) RSV RNA Qual (PCR) Entero/Rhino (PCR) SARS-CoV-2 RNA (RT-PCR) S. pyogenes GrpA KURT 03/05/21 03/05/21 09:00 09:31 MCV MCH MCHC RDW Plt Count MPV Immature Gran % (Auto) Neut % (Auto) Lymph % (Auto) [place] % (Auto) Eos % (Auto) Baso % (Auto) Lymph # (Auto) [place] # (Auto) Eos # (Auto) Baso # (Auto) Abs Immat Gran (auto) Absolute Neuts (auto) Absolute Nucleated RBC Nucleated RBC % (auto) Hold Purple Top Anion Gap Estim Creat Clear Calc Estimated GFR Random Glucose Calcium Magnesium Total Bilirubin AST ALT Alkaline Phosphatase B-Natriuretic Peptide Total Protein Albumin Urine Color YELLOW Urine Appearance CLEAR Urine pH 6.0 Ur Specific [place] 1.025 Urine Protein NEG Urine Glucose (UA) NEG Urine Ketones NEG Urine Blood NEG Urine Nitrite NEG Ur Leukocyte Esterase NEG Respiratory Panel [place] See Note Adenovirus (Rapid PCR) Not Detected B.pert (TEM-PCR) Not Detected B.parapertussis DNA PCR Not Detected C. pneumoniae DNA (PCR) Not Detected Coronavirus (PCR) Coronavirus OC43 (PCR) Not Detected Coronavirus HKU1 (PCR) Not Detected Coronavirus 229E (PCR) Not Detected Coronavirus NL63 (PCR) Not Detected Human Metapneumovir PCR Not Detected Influenza A (RT-PCR) Not Detected Influenza Type A (PCR) Influenza B (RT-PCR) Not Detected Influenza Type B (PCR) M. pneumoniae (PCR) Not Detected Parainfluenza 1 (PCR) Not Detected Parainfluenza 2 (PCR) Not Detected Parainfluenza 3 (PCR) Not Detected Parainfluenza 4 (PCR) Not Detected RSV (PCR) Not Detected RSV RNA Qual (PCR) Entero/Rhino (PCR) Detected A SARS-CoV-2 RNA (RT-PCR) Not Detected S. pyogenes GrpA KURT Imaging Radiologist's Impressions: Impressions Chest X-Ray 03/05/21 08:52 IMPRESSION: Subtle coarsening bronchiolar markings medial right upper zone and right infrahilar region similar to chest radiographs November 2017. No airspace consolidation or effusion. Chest CTA 03/05/21 13:19 IMPRESSION: 1. No pulmonary embolus or thoracic aortic aneurysm or dissection is seen. 2. The lungs appear clear. 3. There is persistent mediastinal and right hilar lymphadenopathy, with dimensions diminished, as detailed above. 4. There are degenerative changes of the thoracolumbar spine. 5. There is hepatic steatosis. VTE: negative Assessment and Plan (1) Asthma exacerbation: Status: Acute (2) URI (upper respiratory infection): Status: Acute (3) Acute hypoxemic respiratory failure: Status: Acute 1. Acute hypoxemic respiratory failure secondary to asthma exacerbation/URI. Started on nebs, steroids, supplement oxygen Supportive care Procalcitonin level, blood culture pending. Will hold off antibiotics since no fever or leukocytosis, and CT is does not show any pneumonia. 2.: Anxiety: Home per medication reconciliation is still pending. 3. GERD: Continue omeprazole. dvt prophylax: lovenox. Quality Stroke Does the patient have a stroke diagnosis?: No VTE Prior VTE?: Yes VTE Risk Level:: Medical - moderate - high VTE Device Contraindication: N/A - Device Ordered VTE Drug Contraindication: N/A - Med Ordered
[2021-03-05 16:28] LABS: Procalcitonin 0.04 ng/mL
--- NOTE | 2021-03-05 17:30 | PHA.MEDREC ---
Pharmacy Consult ? Medication Reconciliation Pharmacy has completed the medication reconciliation.
[2021-03-05] MEDS: Albuterol/Iprat 2.5/0.5MG 3 ML AMPUL.NEB INHALE (20:31)
--- NOTE | 2021-03-05 21:31 | PC.NURSE ---
report called to inpt RN Alison, pt transported to floor in stable condition w/ all belongings, 2L O2 NC
[2021-03-05] MEDS: methylPREDNISolone Sod Succ 40 MG/ML VIAL IVPUSH (22:31)
[2021-03-05] MEDS: Omeprazole 20 MG CAPSULE.DR PO (22:31)
[2021-03-05] MEDS: Enoxaparin Sodium 40 MG/0.4 ML SYRINGE SUBCUT (22:31)
[2021-03-05] MEDS: 0.9 % Sodium Chloride Flush 3 ML SYRINGE IVFLUSH (22:31)
[2021-03-05 22:50] LABS: D Dimer 492 NG/ML
[2021-03-06] VITALS (7 sets, daily range): BP systolic 117–146; BP diastolic 61–93; PULSE 76–92; RESP 16–20; TEMP 36–36.4; O2SAT 93–95
[2021-03-06] MEDS: Acetaminophen 325 MG TABLET 650 MG PO (01:56)
[2021-03-06] MEDS: 0.9 % Sodium Chloride Flush 3 ML SYRINGE IVFLUSH (07:17)
[2021-03-06] MEDS: Albuterol/Iprat 2.5/0.5MG 3 ML AMPUL.NEB INHALE ×2 (07:56→11:32)
--- NOTE | 2021-03-06 09:53 | MHC.CM.PN ---
EMR REVIEWED, PT ADMITTED W/ACUTE HYPOXEMIA AND RESPIRATORY FAILURE SEC TO ASTHMA EXAC, CM MET W/PT WHO IS A&0X4, PT REPORTS HE IS INDEPENDENT W/ALL CARE, NO DME AFTER CPAP HAD TO BE RETURNED D/T PT NOT USING IT WHILE HE WAS SICK, PT REPORTS HE WAS TOLD AFTER HE USES IT FOR TWO STRAIGHT WKS, HE WOULD BE ABLE TO KEEP IT HOWEVER AFTER ONE WEEK PT BECAME SICK AND REPORTS HE WAS HAVING DIFFICULTY BREATHING W/MASK ON, PT REPORTS HE WAS TOLD HE WOULD NEED A NEW SLEEP STUDY TO GET A NEW CPAP, PT REPORTS HE USES INHALERS FOR ASTHMA, PT DOES NOT HAVE A NEBULIZER AT HOME, PT CURRENTLY ON 2L O2 VIA NC AND APPEARS COMFORTABLE. PCP REPORTS HIS PCP AT [facility] LEFT PRACTICE AND HE WAS ASSIGNED A NEW ONE WHO IS ALSO LEAVING SO PT UNSURE WHO PCP WILL BE, CM CANVASS MANAGER WILL CALL AND VERIFY, PT DOES VERIFY HCP AND COPY HAS BEEN REQUESTED. D/C PLAN: HOME SELF-CARE, FAMILY FOR TRANSPORT PCP: SALLIE LEUKEMIA: DR RODRIGUEZ HCP: DOMINIQUE KAUFMAN [phone] ALTERNATE: BRAYAN CHU [phone]
[2021-03-06] MEDS: methylPREDNISolone Sod Succ 40 MG/ML VIAL IVPUSH (10:29)
--- NOTE | 2021-03-06 13:31 | PM.DS ---
DS: Providers Provider Date of Service: 03/06/21 Date of admission: 03/05/21 16:16 Date of discharge: 03/06/21 Primary care physician: Unknown Physician DS: Diagnosis Discharge Diagnosis (1) Asthma exacerbation: Status: Acute (2) URI (upper respiratory infection): Status: Acute (3) Acute hypoxemic respiratory failure: Status: Acute DS: Medications Discharge Medications Home Medications: Home Medications Medication Instructions Recorded Confirmed albuterol sulfate 90 mcg/actuation 2 puff INHALATION Q4-6H PRN 09/21/20 03/05/21 aerosol inhaler (ProAir HFA) clonazepam 1 mg tablet 1 tab PO DAILY PRN 03/05/21 03/05/21 esomeprazole magnesium 20 mg 1 cap PO DAILY 03/05/21 03/05/21 capsule,delayed release fluticasone propionate 110 2 puff INHALATION BID 03/05/21 03/05/21 mcg/actuation HFA aerosol inhaler (Flovent HFA) fluticasone propionate 50 1 spray INTRANASAL BID 03/05/21 03/05/21 mcg/actuation nasal spray,suspension gabapentin 300 mg capsule 3 cap PO BEDTIME 03/05/21 03/05/21 levocetirizine 5 mg tablet 1 tab PO QPM 03/05/21 03/05/21 Previous Rx's Medication Instructions Recorded azithromycin 250 mg tablet See Rx Instructions PO .COMPLEX #5 03/06/21 (Zithromax) tab prednisone 20 mg tablet 40 mg PO DAILY #8 tab 03/06/21 DS: Summary Hospital Course Hospital Course: Patient came with acute hypoxemic respiratory failure secondary to status asthma exacerbation/also has viral URI: Treated with supportive care including nebs, steroids-seems to be improving. Upon discharge patient is going home with p.o. steroids and Z-Hugo. Further management outpatient as per PCP. Status at Discharge Cognitive/behavioral status at discharge: Acute hypoxemic respiratory failure secondary to asthma exacerbation/URI: Time Spent with Patient Time attestation: Total time spent providing and/or coordinating discharge services: Discharge coordination time: Greater than 30 minutes Quality: Stroke Does the patient have a stroke diagnosis?: No Physical Exam Vital Signs: Vital Signs: Last Vital Signs Temp 97.6 F 03/06/21 11:23 Pulse 92 03/06/21 11:32 Resp 18 03/06/21 11:23 BP 117/63 03/06/21 11:23 Pulse Ox 93 03/06/21 12:45 Body Mass Index 34.2 ENT/Mouth :rhinorrhea/nasal congestion seems improving. Eyes: No Eye Pain, No RednessNo Discharge, No Vision Changes Cvs: rrr, [id number] , no murmur res:? air entry seems to be improved now, no rales or wheezing. abd: no rebound or guarding ,nt, bs present. ext pulses present , no cyanosis neuro: axo3 , nonfocal. ms:? No pain, no deformity. DS: Data Data Completed and Pending Labs on day of discharge: Laboratory Results - last 24 hr 03/05/21 03/05/21 03/05/21 09:00 09:00 22:20 D-Dimer 492 Procalcitonin 0.04 Respiratory Panel [place] See Note Adenovirus (Rapid PCR) Not Detected B.pert (TEM-PCR) Not Detected B.parapertussis DNA PCR Not Detected C. pneumoniae DNA (PCR) Not Detected Coronavirus OC43 (PCR) Not Detected Coronavirus HKU1 (PCR) Not Detected Coronavirus 229E (PCR) Not Detected Coronavirus NL63 (PCR) Not Detected Human Metapneumovir PCR Not Detected Influenza A (RT-PCR) Not Detected Influenza B (RT-PCR) Not Detected M. pneumoniae (PCR) Not Detected Parainfluenza 1 (PCR) Not Detected Parainfluenza 2 (PCR) Not Detected Parainfluenza 3 (PCR) Not Detected Parainfluenza 4 (PCR) Not Detected RSV (PCR) Not Detected Entero/Rhino (PCR) Detected A SARS-CoV-2 RNA (RT-PCR) Not Detected Discharge Plan Discharge Patient Disposition: Home, Self-Care Discharge Diagnosis: asthma excerebation Referrals: Physician,Unknown [Primary Care Provider] - 1 Week Discharge Medications: New prednisone 20 mg tablet 40 mg PO DAILY Qty: 8 RF: 0 azithromycin [Zithromax] 250 mg tablet See Rx Instructions PO .COMPLEX Qty: 5 RF: 0 Continued clonazepam 1 mg tablet 1 tab PO DAILY PRN (Reason: Allergy Symptoms) RF: 0 gabapentin 300 mg capsule 3 cap PO BEDTIME RF: 0 fluticasone propionate 50 mcg/actuation spray,suspension 1 spray intranasal BID RF: 0 Flovent HFA 110 mcg/actuation HFA aerosol inhaler 2 puff inhalation BID RF: 0 esomeprazole magnesium 20 mg capsule,delayed release(DR/EC) 1 cap PO DAILY RF: 0 levocetirizine 5 mg tablet 1 tab PO QPM RF: 0 albuterol sulfate [ProAir HFA] 90 mcg/actuation Hfa Aerosol Inhaler 2 puff INHALATION Q4-6H PRN (Reason: Wheezing) RF: 0 Discharge Orders: Discharge Order (Routine); Ordered 03/06/21 Ordered By: Tan Razo Diet: advance to usual diet Activity on Discharge: As tolerated Stand Alone Forms: Patient Portal Discharge page Care Plan Goals: Patient came with acute aspects anemic failure secondary to status asthma exacerbation/also has viral URI: Treated with supportive care including nebs, steroids-seems to be improving. Upon discharge patient is going home with p.o. steroids and Z-Hugo. Further management outpatient as per PCP. Health Concerns: As above. Plan of Treatment: As above. Assessment: As above. Discharge Date/Time: 03/06/21 14:32
--- NOTE | 2021-03-06 14:12 | MHC.CM.PN ---
PT DISCHARGING HOME SELF-CARE, FAMILY FOR TRANSPORT
== END 2021-03-06 14:32 | disposition home or self-care (01) | DRG 113 ==
LOC: HO.ED 11:38 → HO.EDOVER 16:28 → HO.S3 20:08
PROVIDERS: Physician Assistant Medical; Admitting Provider Internal Medicine; Emergency Provider Internal Medicine; PCP Registered Nurse; Visit Provider Internal Medicine
DX: J06.9 Acute upper respiratory infection, unspecified (principal); J96.01 Acute respiratory failure with hypoxia; J45.901 Unspecified asthma with (acute) exacerbation; K21.9 Gastro-esophageal reflux disease without esophagitis; Z20.822 Contact with and (suspected) exposure to COVID-19; Z85.72 Personal history of non-Hodgkin lymphomas; Z88.6 Allergy status to analgesic agent; Z79.899 Other long term (current) drug therapy
CPT/HCPCS: 0241U; 36415; 71045; 71275; 80053; 81003; 83735; 83880; 84145; 85025; 85379; 87040; 87633; 87651; 93005; 94640; 94644; 96365; 96366; 96375; 99218; 99285; 99291; J1650; J2920; J2930; J3475; Q9967

== ENCOUNTER 2021-06-13 20:59 | Emergency (ER) | payer MEDICAID, SELFPAY ==
--- NOTE | ~2021-06-13 | XR_ITS ---
EXAMINATION: XR LUMBOSACRAL SPINE CLINICAL INFORMATION: Lower back pain COMPARISON: 09/11/2016 TECHNIQUE: Three views of the lumbosacral spine. FINDINGS: Normal alignment and lumbar lordosis. Mild multilevel degenerative disc disease with small anterior endplate osteophytes. No significant change. No suspicious bone lesion or soft tissue calcification. XR/XR lumbar spine 2-3V IMPRESSION: Normal alignment with mild multilevel degenerative disc disease, not significantly changed.
[2021-06-13 21:02] VITALS: BP 146/81; PULSE 88; RESP 18; TEMP 36.8; O2SAT 98; BMI 36.3
--- NOTE | 2021-06-13 21:18 | ED.BACK ---
HPI - Back Pain/Injury General Chief Complaint: Back Pain/Injury Stated Complaint: back pain Time Seen by Provider: 06/13/21 21:18 Source: patient Mode of arrival: ambulatory Limitations: no limitations History of Present Illness HPI Narrative: patient has remote history of low back injury when he was in high school noticed pain in the lower back 4 days ago when he was trying to put his pants complaining of pain in the left lower back radiating to the left thigh no bladder or bowel involvement Related Data Home Medications Medication Instructions Recorded Confirmed albuterol sulfate 90 mcg/actuation 2 puff INHALATION Q4-6H PRN 09/21/20 03/05/21 aerosol inhaler (ProAir HFA) clonazepam 1 mg tablet 1 tab PO DAILY PRN 03/05/21 03/05/21 esomeprazole magnesium 20 mg 1 cap PO DAILY 03/05/21 03/05/21 capsule,delayed release fluticasone propionate 110 2 puff INHALATION BID 03/05/21 03/05/21 mcg/actuation HFA aerosol inhaler (Flovent HFA) fluticasone propionate 50 1 spray INTRANASAL BID 03/05/21 03/05/21 mcg/actuation nasal spray,suspension gabapentin 300 mg capsule 3 cap PO BEDTIME 03/05/21 03/05/21 levocetirizine 5 mg tablet 1 tab PO QPM 03/05/21 03/05/21 Previous Rx's Medication Instructions Recorded azithromycin 250 mg tablet See Rx Instructions PO .COMPLEX #5 03/06/21 (Zithromax) tab prednisone 20 mg tablet 40 mg PO DAILY #8 tab 03/06/21 cyclobenzaprine 10 mg tablet 10 mg PO Q8H #20 tab 06/13/21 oxycodone-acetaminophen 5 mg-325 1 tab PO Q6H PRN #20 tab 06/13/21 mg tablet (Percocet) Allergies Allergy/AdvReac Type Severity Reaction Status Date / Time allantoin [From BLISTEX] Allergy Unknown LIP Verified 06/13/21 21:02 SWELLING homosalate [From BLISTEX] Allergy Unknown LIP Verified 06/13/21 21:02 SWELLING menthol [From BLISTEX] Allergy Unknown LIP Verified 06/13/21 21:02 SWELLING octinoxate [From BLISTEX] Allergy Unknown LIP Verified 06/13/21 21:02 SWELLING octyl salicylate Allergy Unknown LIP Verified 06/13/21 21:02 [From BLISTEX] SWELLING oxybenzone [From BLISTEX] Allergy Unknown LIP Verified 06/13/21 21:02 SWELLING padimate O [From BLISTEX] Allergy Unknown LIP Verified 06/13/21 21:02 SWELLING sodium chloride Allergy Unknown GUM Verified 06/13/21 21:02 SWELLING TO TABLE SALT ibuprofen [IBUPROFEN] AdvReac Unknown STOMACH Verified 06/13/21 21:02 UPSET From BLISTEX Allergy Unknown LIP Uncoded 04/05/20 15:07 SWELLING ibuprofen Allergy Unknown gi upset Uncoded 09/18/17 00:00 Review of Systems Review of Systems: Yes all other systems are reviewed and are negative [facility] Past Medical History Medical History Acid reflux Anxiety B-cell chronic lymphocytic leukemia History of asthma Thrombosis Family History Family History Mother Liver cirrhosis Family/Other Thyroid cancer Breast cancer Social History Social History Household Members: Family Household Members Other:: father Housing: Apartment Do you presently have visiting nurse or other home services: No Alcohol intake: never Patient Tobacco Use Status: Current everyday Tobacco user Tobacco use type: Cigarette Cigarettes Per Day: 5 Years Smoked: 18 Second Hand Smoke Exposure: No Advance Directives: No Advance Directives Information Provided: Yes service: No Current occupational status: employed Physical Exam Vital Signs: Vital Signs: Last Vital Signs Temp 98.2 F 06/13/21 21:02 Pulse 88 06/13/21 21:02 Resp 18 06/13/21 21:02 BP 146/81 H 06/13/21 21:02 Pulse Ox 98 06/13/21 21:02 Body Mass Index 36.3 Const: General: no acute distress and well developed Orientation/consciousness: patient oriented x3 HENMT: Head: Yes normocephalic and Yes atraumatic Eyes: General: appearance normal, both eyes and all related structures Resp: Effort & Inspection: normal respiratory effort Auscultation: clear to auscultation bilaterally Cardio: Palpation: normal PMI Rate: regular rate Rhythm: regular rhythm Heart sounds: S1 normal heart sound present and S2 normal heart sound present GI: Inspection: Yes normal to inspection Palpation (GI): Soft to palpation and nontender Back/Spine/Pelvis: Back/spine/pelvis image: 1. tender left paraspinal area no focal spinal tenderness SLR positive at 60 degrees on left side , sacral sensations intact Neuro: General: patient oriented x3 and no focal motor deficits MDM - Back Pain/Injury MDM Narrative Medical decision making narrative: patient with left sciatica findings x-ray negative for any acute fracture discharge patient home on pain management and muscle relaxers Discharge Plan Discharge Clinical Impression: Strain of lumbar region Patient Disposition: Home, Self-Care Instructions: Acute Low Back Pain (ED) Additional Instructions: rest at home take pain medication as prescribed follow-up with PCP if not better Prescriptions: New cyclobenzaprine 10 mg tablet 10 mg PO Q8H Qty: 20 RF: 0 oxycodone-acetaminophen [Percocet] 5-325 mg tablet 1 tab PO Q6H PRN (Reason: pain) Qty: 20 RF: 0 No Action clonazepam 1 mg tablet 1 tab PO DAILY PRN (Reason: Allergy Symptoms) RF: 0 gabapentin 300 mg capsule 3 cap PO BEDTIME RF: 0 fluticasone propionate 50 mcg/actuation spray,suspension 1 spray intranasal BID RF: 0 Flovent HFA 110 mcg/actuation HFA aerosol inhaler 2 puff inhalation BID RF: 0 esomeprazole magnesium 20 mg capsule,delayed release(DR/EC) 1 cap PO DAILY RF: 0 levocetirizine 5 mg tablet 1 tab PO QPM RF: 0 prednisone 20 mg tablet 40 mg PO DAILY Qty: 8 RF: 0 azithromycin [Zithromax] 250 mg tablet See Rx Instructions PO .COMPLEX Qty: 5 RF: 0 albuterol sulfate [ProAir HFA] 90 mcg/actuation Hfa Aerosol Inhaler 2 puff INHALATION Q4-6H PRN (Reason: Wheezing) RF: 0 Interventions: ED Discharge Assessment Last Done: 06/13/21 22:27 Discharge Date/Time: 06/13/21 22:32
[2021-06-13] MEDS: Cyclobenzaprine HCl 10 MG TABLET PO (22:12)
[2021-06-13] MEDS: dexAMETHasone 2 MG TABLET 10 MG PO (22:12)
[2021-06-13] MEDS: oxyCODONE HCl Immed Release 5 MG TABLET 10 MG PO (22:12)
== END 2021-06-13 22:32 | disposition home or self-care (01) ==
PROVIDERS: Emergency Provider Internal Medicine
DX: M54.50 Low back pain, unspecified (principal); F17.210 Nicotine dependence, cigarettes, uncomplicated; Z71.6 Tobacco abuse counseling; Z79.899 Other long term (current) drug therapy
CPT/HCPCS: 72100; 99283; 99284; J8540

== ENCOUNTER 2021-07-16 09:13 | Outpatient (REF) | payer MEDICAID, SELFPAY ==
--- NOTE | ~2021-07-16 | XR_ITS ---
EXAMINATION: XR CHEST CLINICAL INFORMATION: Patient asymptomatic with positive quant COMPARISON: 03/05/2021 also 11/30/2017 TECHNIQUE: 2 views of the chest were obtained. FINDINGS: No acute finding. The lung markings are similar to previous. Likely chronic markings. No convincing evidence for an acute superimposed process. The cardiac silhouette is felt to be within normal limits. The hilar regions do not appear pathologically enlarged. XR/XR chest 2V IMPRESSION: No acute finding. Some chronic markings are noted
== END 2021-07-16 09:14 | disposition home or self-care (01) ==
LOC: HO.XRAY 09:13
PROVIDERS: PCP Nurse Practitioner Family; Visit Provider Nurse Practitioner Family
DX: R76.12 Nonspecific reaction to cell mediated immunity measurement of gamma interferon antigen response without active tuberculosis (principal)
CPT/HCPCS: 71046

== ENCOUNTER 2022-03-18 16:00 | Outpatient (REF) | payer MEDICAID, SELFPAY ==
--- NOTE | ~2022-03-18 | XR_ITS ---
EXAMINATION: XR FINGER, RIGHT CLINICAL INFORMATION: Pain in right finger. COMPARISON: No similar priors. TECHNIQUE: Three views of the right index finger. FINDINGS: Questionable very subtle nondisplaced fracture of the tuft of the distal second phalanx. No displaced fractures. No significant degenerative changes. Normal soft tissues. XR/XR finger RT min 2V IMPRESSION: Query nondisplaced fracture of the tuft of the distal second phalanx, correlate with point tenderness.
== END 2022-03-18 16:01 | disposition home or self-care (01) ==
LOC: HO.XRAY 16:00
PROVIDERS: PCP Nurse Practitioner Family; Visit Provider Nurse Practitioner Family
DX: M79.644 Pain in right finger(s) (principal)
CPT/HCPCS: 73140

== ENCOUNTER 2022-05-14 15:23 | Outpatient (REF) | payer MEDICAID, SELFPAY ==
--- NOTE | ~2022-05-14 | XR_ITS ---
EXAMINATION: XR HIP, RIGHT CLINICAL INFORMATION: Pain in the right hip. COMPARISON: None TECHNIQUE: Two views of the right hip. FINDINGS: Bones and soft tissues are normal. No fracture. Alignment is anatomic. Hip joint space is maintained. XR/XR hip RT min 2V IMPRESSION: Normal right hip.
== END 2022-05-14 15:24 | disposition home or self-care (01) ==
LOC: HO.XRAY 15:23
PROVIDERS: PCP Family Medicine; Visit Provider Family Medicine
DX: M25.551 Pain in right hip (principal)
CPT/HCPCS: 73502

== ENCOUNTER → 2022-10-13 12:56 | Outpatient (BNVA) | payer MEDICAID, SELFPAY | PROVIDERS: PCP Family Medicine; Visit Provider Nurse Practitioner Family | DX: N40.1 Benign prostatic hyperplasia with lower urinary tract symptoms (principal); R35.1 Nocturia; R35.0 Frequency of micturition | CPT/HCPCS: 51798; 99202 ==

== ENCOUNTER 2022-11-02 11:58 | Emergency (ER) | payer MEDICAID, SELFPAY ==
--- NOTE | ~2022-11-02 | CT_ITS ---
EXAMINATION: CT ABDOMEN AND PELVIS WITH CONTRAST CLINICAL INFORMATION: Low-back pain and dysuria COMPARISON: None available. TECHNIQUE: Multidetector volumetric images were obtained from the superior aspect of the liver through the pubic symphysis following administration 85 mL of Omnipaque 350 intravenous contrast. Sagittal and coronal reformatted images were obtained on the technologist's workstation. Oral contrast: No This CT examination was performed using dose optimization techniques as appropriate, variously including the following: *Automated exposure control *Adjustment of mA and/or kV according to patient size (this includes techniques or standardized protocols for targeted exams where dose is matched to indication/reason for exam; i.e. extremities or head) *Use of iterative reconstruction technique DLP: 7:15 mGy-cm FINDINGS: LUNG BASES: The visualized lung bases are unremarkable. LIVER, GALLBLADDER, AND BILIARY TREE: The liver is normal in size, shape, and attenuation. No focal hepatic lesion or biliary ductal dilatation is present. The gallbladder is unremarkable with no evidence of radiopaque gallstones, gallbladder wall thickening, or obvious pericholecystic inflammatory changes. PANCREAS: Unremarkable. SPLEEN: Spleen measured 15.2 cm, enlarged ADRENAL GLANDS: Unremarkable. KIDNEYS AND URETERS: 0.9 cm exophytic cyst in cortex of left kidney BLADDER: Unremarkable. GASTROINTESTINAL TRACT: The small and large bowel are unremarkable. The appendix is not identified ABDOMINAL WALL: No significant hernia is appreciated. LYMPH NODES: There are scattered subcentimeter mesenteric and retroperitoneal lymphadenopathy VASCULAR: Unremarkable. PELVIC VISCERA: The prostate is heterogeneous with hypertrophy of middle lobe OSSEOUS STRUCTURES: Unremarkable. CT/CT abdomen pelvis w IV con IMPRESSION: 1. No explanation for back pain. 2. Splenomegaly. 3. Small cyst in the left kidney. 4. Prostate hypertrophy. Fleischner guidelines were followed.
[2022-11-02 12:21] VITALS: BP 148/91; PULSE 82; RESP 16; TEMP 36.8; O2SAT 97; BMI 33.2
--- NOTE | 2022-11-02 12:23 | ED.BACK ---
HPI - Back Pain/Injury General Chief Complaint: General Medical <RICHARD Collins - Last Filed: 11/02/22 12:28> Stated Complaint: waist pain <RICHARD Collins - Last Filed: 11/02/22 12:28> Time Seen by Provider: 11/02/22 16:04 <RICHARD Collins - Last Filed: 11/02/22 12:28> Source: patient, RN notes reviewed and old records reviewed <Casper Arredondo - Last Filed: 11/02/22 17:07> Mode of arrival: ambulatory <Casper Arredondo - Last Filed: 11/02/22 17:07> Limitations: no limitations <aCsper Arredondo - Last Filed: 11/02/22 17:07> History of Present Illness HPI Narrative: 47-year-old male presents for evaluation of pain to his lower abdomen and back He reports for last 2 weeks he has had pain he describes a ?band like area around my waist. ? He states that he has tried taking Tylenol without any improvement of symptoms. Denies any nausea vomiting, diarrhea, constipation. He does endorse some burning with urination He also reports that he thinks he can feel a ?lump in my left lower abdomen. Patient reports his pain is 8/10, sharp, stabbing and constant <Casper Arredondo - Last Filed: 11/02/22 17:07> Related Data Home Medications: Home Medications Medication Instructions Recorded Confirmed albuterol sulfate 90 mcg/actuation 2 puff inhalation Q4-6H PRN 09/21/20 09/23/22 aerosol inhaler (ProAir HFA) Wheezing clonazepam 1 mg tablet 1 tab PO DAILY PRN Allergy Symptoms 03/05/21 09/23/22 esomeprazole magnesium 20 mg 1 cap PO DAILY 03/05/21 09/23/22 capsule,delayed release (Nexium) fluticasone propionate 110 2 puff inhalation BID 03/05/21 09/23/22 mcg/actuation HFA aerosol inhaler (Flovent HFA) fluticasone propionate 50 1 spray intranasal BID 03/05/21 09/23/22 mcg/actuation nasal spray,suspension gabapentin 300 mg capsule 3 cap PO BEDTIME 03/05/21 09/23/22 levocetirizine 5 mg tablet (24HR 1 tab PO QPM 03/05/21 09/23/22 Allergy Relief) Previous Rx's Medication Instructions Recorded cyclobenzaprine 10 mg tablet 10 mg PO Q8H #20 tabs 06/13/21 tamsulosin 0.4 mg capsule (Flomax) 0.4 mg PO BEDTIME 30 days #30 tabs 10/13/22 tramadol 50 mg tablet 50 mg PO TID PRN severe pain 11/02/22 (scale score 7-10) #14 tabs <RICHARD Collins - Last Filed: 11/02/22 12:28> Allergies/Adverse Reactions: Allergies Allergy/AdvReac Type Severity Reaction Status Date / Time allantoin [From BLISTEX] Allergy Unknown LIP Verified 11/02/22 12:21 SWELLING homosalate [From BLISTEX] Allergy Unknown LIP Verified 11/02/22 12:21 SWELLING menthol [From BLISTEX] Allergy Unknown LIP Verified 11/02/22 12:21 SWELLING octinoxate [From BLISTEX] Allergy Unknown LIP Verified 11/02/22 12:21 SWELLING octyl salicylate Allergy Unknown LIP Verified 11/02/22 12:21 [From BLISTEX] SWELLING oxybenzone [From BLISTEX] Allergy Unknown LIP Verified 11/02/22 12:21 SWELLING padimate O [From BLISTEX] Allergy Unknown LIP Verified 11/02/22 12:21 SWELLING sodium chloride Allergy Unknown GUM Verified 11/02/22 12:21 SWELLING TO TABLE SALT ibuprofen [IBUPROFEN] AdvReac Unknown STOMACH Verified 11/02/22 12:21 UPSET From BLISTEX Allergy Unknown LIP Uncoded 11/02/22 12:21 SWELLING ibuprofen Allergy Unknown gi upset Uncoded 11/02/22 12:21 <RICHARD Collins - Last Filed: 11/02/22 12:28> Review of Systems Constitutional: Constitutional: Reports as per HPI, Denies chills, Denies fatigue, Denies fever(s) and Denies headache(s) <Casper Arredondo - Last Filed: 11/02/22 17:07> ENT: Denies headache(s) <Casper Arredondo - Last Filed: 11/02/22 17:07> Cardiovascular: Cardiovascular: Denies chest pain and Denies dyspnea <Casper Miranda Last Filed: 11/02/22 17:07> Respiratory: Respiratory: Denies cough and Denies dyspnea <Casper Arredondo - Last Filed: 11/02/22 17:07> Gastrointestinal: Gastrointestinal: Denies constipation and Denies vomiting <Casper Arredondo - Last Filed: 11/02/22 17:07> Genitourinary: Genitourinary: Denies difficulty urinating <Casper Arredondo - Last Filed: 11/02/22 17:07> Neurologic: Denies headache(s) and Denies focal weakness <Casper Arredondo - Last Filed: 11/02/22 17:07> Endocrine: Endocrine: Denies fatigue <Casper Arredondo - Last Filed: 11/02/22 17:07> [facility] Past Medical History Medical History: Medical History Acid reflux Anxiety B-cell chronic lymphocytic leukemia History of asthma Thrombosis <RICHARD Collins - Last Filed: 11/02/22 12:28> Family History Family History: Family History Mother Liver cirrhosis Family/Other Thyroid cancer Breast cancer <RICHARD Collins - Last Filed: 11/02/22 12:28> Social History Social History: Social History Household Members: Family Household Members Other:: father Housing: Apartment Do you presently have visiting nurse or other home services: No Alcohol intake: current Alcohol intake frequency: a few times a month Patient Tobacco Use Status: Current everyday Tobacco user Tobacco use type: Cigarette Years Smoked: 18 Smoked in Last 30 Days: Yes Second Hand Smoke Exposure: No Use of substances other than those prescribed or required for medical reasons: No Advance Directives: No Advance Directives Information Provided: No service: No Current occupational status: employed <RICHARD Collins - Last Filed: 11/02/22 12:28> Physical Exam Vital Signs: Vital Signs: Last Vital Signs Temp 97.6 F 11/02/22 15:43 Pulse 75 11/02/22 15:43 Resp 17 11/02/22 15:43 BP 147/91 H 11/02/22 15:43 Pulse Ox 98 11/02/22 15:43 O2 Del Method Room Air 11/02/22 15:43 BMI result Body Mass Index 33.2 <RICHARD Collins - Last Filed: 11/02/22 12:28> Vital Signs: Last Vital Signs Temp 97.6 F 11/02/22 15:43 Pulse 75 11/02/22 15:43 Resp 17 11/02/22 15:43 BP 147/91 H 11/02/22 15:43 Pulse Ox 98 11/02/22 15:43 O2 Del Method Room Air 11/02/22 15:43 BMI result Body Mass Index 33.2 <Casper Arredondo - Last Filed: 11/02/22 17:07> Const: General: healthy appearing, comfortable, no acute distress, alert and awake <Casper Arredondo - Last Filed: 11/02/22 17:07> Nutritional Appearance: well nourished <Casper Arredondo - Last Filed: 11/02/22 17:07> Orientation/consciousness: patient oriented x3 <Casper Gannony - Last Filed: 11/02/22 17:07> HEENT: Head: Yes normocephalic and Yes atraumatic <Casper Arredondo - Last Filed: 11/02/22 17:07> Throat: Yes posterior oropharynx normal <Casper Arredondo - Last Filed: 11/02/22 17:07> Eyes: Eyelids: Yes eyelids normal <Casper Arredondo - Last Filed: 11/02/22 17:07> Conjunctivae: conjunctivae normal <Casper Gannony - Last Filed: 11/02/22 17:07> Sclerae: sclerae normal <Casper HaganMoise - Last Filed: 11/02/22 17:07> Corneas: corneas normal <Casper [place] - Last Filed: 11/02/22 17:07> Pupils: Equal, round and reactive pupils present <Casper Arredondo - Last Filed: 11/02/22 17:07> EOM: EOMs intact bilaterally <Casper Arredondo - Last Filed: 11/02/22 17:07> Neck: Neck: Yes full ROM <Casper [place] - Last Filed: 11/02/22 17:07> Resp: Effort & Inspection: normal respiratory effort, able to speak in complete sentences, no audible wheezes and not labored <Casper BentleyMoise - Last Filed: 11/02/22 17:07> Auscultation: clear to auscultation bilaterally <[place] - Last Filed: 11/02/22 17:07> Cardio: Rate: regular rate <[place] - Last Filed: 11/02/22 17:07> Rhythm: regular rhythm <Moise - Last Filed: 11/02/22 17:07> GI: Other: Palpable left inguinal hernia <Casper [place] Market[place] - Last Filed: 11/02/22 17:07> Inspection: No distended < - Last Filed: 11/02/22 17:07> Palpation (GI): Soft to palpation, not firm, nontender, no guarding and not rigid <Moise - Last Filed: 11/02/22 17:07> Auscultation: normoactive bowel sounds <[place]ise - Last Filed: 11/02/22 17:07> Skin: General skin exam: no rashes or lesions noted and elasticity normal <Moise - Last Filed: 11/02/22 17:07> Neuro: General: patient oriented x3 <Casper [place] - Last Filed: 11/02/22 17:07> Cranial nerves: Yes CN's II-XII intact bilaterally, Yes Equal, round and reactive pupils present and Yes Bilaterally intact EOM present <Casper BentleyMoise - Last Filed: 11/02/22 17:07> Cognition (Neuro): normal cognition <Casper [place] - Last Filed: 11/02/22 17:07> Course Course Course Narrative: RME-12:24 - 47yoM with a PMHx of asthma, anxiety, and history of B-cell lymphoma in remission, BPH who was started on Flomax being followed by Urology Aminah Jarrell last seen on 10/13/2022 who is presenting to the ER with complaints of waist pain that radiates around his entire back that has been present for the past 2 weeks with dysuria. He feels like there are 2 weight on his waist. He denies any fevers, abdominal pain, abnormal penile discharge or any other symptoms complaints or concerns at this time Plan: Labs, UA, CT scan abdomen pelvis with IV contrast ordered at this time. Patient sent back to the waiting room to be evaluated the ED. <RICHARD Collins - Last Filed: 11/02/22 12:28> Medications Administered Discontinued Medications Generic Name Dose Route Start Last Admin Trade Name Freq PRN Reason Stop Dose Admin Iohexol 100 ml 11/02/22 15:35 11/02/22 15:36 Iohexol 350 Mg/Ml 100 Ml Infus..Btl IV 11/02/22 15:36 85 ml ONCE ONE Administration Tramadol HCl 50 mg 11/02/22 16:10 11/02/22 16:38 Tramadol Hcl 50 Mg Tablet PO 11/02/22 16:11 50 mg ONCE ONE Administration <RICHARD Collins - Last Filed: 11/02/22 12:28> Medications Administered Discontinued Medications Generic Name Dose Route Start Last Admin Trade Name Freq PRN Reason Stop Dose Admin Iohexol 100 ml 11/02/22 15:35 11/02/22 15:36 Iohexol 350 Mg/Ml 100 Ml Infus..Btl IV 11/02/22 15:36 85 ml ONCE ONE Administration Tramadol HCl 50 mg 11/02/22 16:10 11/02/22 16:38 Tramadol Hcl 50 Mg Tablet PO 11/02/22 16:11 50 mg ONCE ONE Administration <Casper Arredondo - Last Filed: 11/02/22 17:07> Medical Decision Making Medical Decision Making MDM Narrative: 47-year-old male presents for evaluation of abdominal pain. No numbness, tingling, injury to suggest cauda equina syndrome. There is no lower extremity weakness. The patient was started on Flomax recently likely for BPH. There is no significant abdominal distention or tenderness. The patient does apparently have a left inguinal hernia palpable on exam. This could explain to the patient discomfort. Patient's labs are without significant abnormalities. UA did not appear to show infection. CT scan did not show any acute intra-abdominal abnormality. However he could have a small inguinal hernia that self reduces that was not picked up on CT scan. The patient will be referred to General surgery. He was treated with tramadol in the ER <Casper HaganRasy - Last Filed: 11/02/22 17:07> Differential Diagnosis Abdominal pain Back pain Radiculopathy Will hernia Constipation BPH Obstructive uropathy <Casper Arredondo - Last Filed: 11/02/22 17:07> Lab Data MDM Lab Attestation statement: I reviewed the patient's lab results. <Casper MacarioMoise - Last Filed: 11/02/22 17:07> Result Diagrams: 11/02/22 12:47 11/02/22 12:47 <RICHARD Collins - Last Filed: 11/02/22 12:28> Labs: Lab Results 11/02/22 11/02/22 11/02/22 Range/Units 12:47 12:47 12:47 WBC 7.3 (4.8-10.8) X10*3/uL RBC 5.58 (4.60-5.80) X10*6/uL Hgb 16.1 (14.0-18.0) g/dl Hct 48.1 (42.0-52.0) % MCV 86.2 (80.0-98.0) fL MCH 28.9 (27.0-33.0) pg MCHC 33.5 (31.0-36.0) g/dl RDW 13.3 (11.0-16.0) % Plt Count 210 (160-400) X10*3/uL MPV 9.2 L (9.4-12.4) fL Immature Gran % (Auto) 0.4 (0.0-0.4) % Neut % (Auto) 69.1 (45-73) % Lymph % (Auto) 19.9 L (20-40) % [place] % (Auto) 7.6 (2-11) % Eos % (Auto) 2.5 (0-4) % Baso % (Auto) 0.5 (0-2) % Lymph # (Auto) 1.5 (1.2-4.9) X10*3/uL [place] # (Auto) 0.6 (0.1-1.2) X10*3/uL Eos # (Auto) 0.2 (0.0-0.4) X10*3/uL Baso # (Auto) 0.0 (0.0-0.2) X10*3/uL Abs Immat Gran (auto) 0.03 (0.00-0.03) X10*3/uL Absolute Neuts (auto) 5.1 (2.0-8.3) x10*3/uL Absolute Nucleated RBC 0.000 (0.0-0.012) X10*3/uL Nucleated RBC % (auto) 0.0 (0.0-0.2) /100WBC PT 10.3 (10.0-13.1) SEC INR 0.9 (0.9-1.1) Sodium 141 (135-145) mmol/L Potassium 4.2 (3.3-5.1) mmol/L Chloride 107 (96-108) mmol/L Carbon Dioxide 26 (22-29) mmol/L Anion Gap 12 (12-20) BUN 11 (9-16) mg/dL Creatinine 0.78 (0.5-1.4) mg/dL Estim Creat Clear Calc 130.7 Estimated GFR > 60 Random Glucose 96 (60-115) mg/dL Calcium 9.2 (8.4-10.2) mg/dL Magnesium 1.8 (1.6-2.6) mg/dL Total Bilirubin 0.5 (0.0-1.0) mg/dL AST 26 (5-37) U/L ALT 51 H (0-40) U/L Alkaline Phosphatase 109 (39-117) U/L Total Protein 6.7 (6.5-8.0) g/dL Albumin 4.3 (3.5-5.0) g/dL Lipase 16 (8-78) U/L Urine Color Urine Appearance Urine pH (5.0-9.0) Ur Specific [place] (1.005-1.025) Urine Protein (Neg-Trace) mg/dL Urine Glucose (UA) (Negative) mg/dL Urine Ketones (Negative) mg/dL Urine Blood (Negative) Urine Nitrite (Negative) Ur Leukocyte Esterase (Negative) Urine RBC (0-2) /HPF Urine WBC (0-5) /HPF Ur Squamous Epith Cells (0-2) /HPF Urine Bacteria (None Seen) Hyaline Casts (0-2) /LPF 04/16/23 Range/Units 12:47 WBC (4.8-10.8) X10*3/uL RBC (4.60-5.80) X10*6/uL Hgb (14.0-18.0) g/dl Hct (42.0-52.0) % MCV (80.0-98.0) fL MCH (27.0-33.0) pg MCHC (31.0-36.0) g/dl RDW (11.0-16.0) % Plt Count (160-400) X10*3/uL MPV (9.4-12.4) fL Immature Gran % (Auto) (0.0-0.4) % Neut % (Auto) (45-73) % Lymph % (Auto) (20-40) % [place] % (Auto) (2-11) % Eos % (Auto) (0-4) % Baso % (Auto) (0-2) % Lymph # (Auto) (1.2-4.9) X10*3/uL [place] # (Auto) (0.1-1.2) X10*3/uL Eos # (Auto) (0.0-0.4) X10*3/uL Baso # (Auto) (0.0-0.2) X10*3/uL Abs Immat Gran (auto) (0.00-0.03) X10*3/uL Absolute Neuts (auto) (2.0-8.3) x10*3/uL Absolute Nucleated RBC (0.0-0.012) X10*3/uL Nucleated RBC % (auto) (0.0-0.2) /100WBC PT (10.0-13.1) SEC INR (0.9-1.1) Sodium (135-145) mmol/L Potassium (3.3-5.1) mmol/L Chloride (96-108) mmol/L Carbon Dioxide (22-29) mmol/L Anion Gap (12-20) BUN (9-16) mg/dL Creatinine (0.5-1.4) mg/dL Estim Creat Clear Calc Estimated GFR Random Glucose (60-115) mg/dL Calcium (8.4-10.2) mg/dL Magnesium (1.6-2.6) mg/dL Total Bilirubin (0.0-1.0) mg/dL AST (5-37) U/L ALT (0-40) U/L Alkaline Phosphatase (39-117) U/L Total Protein (6.5-8.0) g/dL Albumin (3.5-5.0) g/dL Lipase (8-78) U/L Urine Color Yellow Urine Appearance Clear Urine pH 5.5 (5.0-9.0) Ur Specific [place] 1.020 (1.005-1.025) Urine Protein Negative (Neg-Trace) mg/dL Urine Glucose (UA) Negative (Negative) mg/dL Urine Ketones Negative (Negative) mg/dL Urine Blood Negative (Negative) Urine Nitrite Negative (Negative) Ur Leukocyte Esterase Trace H (Negative) Urine RBC 0-2 (0-2) /HPF Urine WBC 0-5 (0-5) /HPF Ur Squamous Epith Cells 0-2 (0-2) /HPF Urine Bacteria None Seen (None Seen) Hyaline Casts 0-2 (0-2) /LPF <RICHARD Collins - Last Filed: 11/02/22 12:28> Lab Results 11/02/22 11/02/22 11/02/22 Range/Units 12:47 12:47 12:47 WBC 7.3 (4.8-10.8) X10*3/uL RBC 5.58 (4.60-5.80) X10*6/uL Hgb 16.1 (14.0-18.0) g/dl Hct 48.1 (42.0-52.0) % MCV 86.2 (80.0-98.0) fL MCH 28.9 (27.0-33.0) pg MCHC 33.5 (31.0-36.0) g/dl RDW 13.3 (11.0-16.0) % Plt Count 210 (160-400) X10*3/uL MPV 9.2 L (9.4-12.4) fL Immature Gran % (Auto) 0.4 (0.0-0.4) % Neut % (Auto) 69.1 (45-73) % Lymph % (Auto) 19.9 L (20-40) % [place] % (Auto) 7.6 (2-11) % Eos % (Auto) 2.5 (0-4) % Baso % (Auto) 0.5 (0-2) % Lymph # (Auto) 1.5 (1.2-4.9) X10*3/uL [place] # (Auto) 0.6 (0.1-1.2) X10*3/uL Eos # (Auto) 0.2 (0.0-0.4) X10*3/uL Baso # (Auto) 0.0 (0.0-0.2) X10*3/uL Abs Immat Gran (auto) 0.03 (0.00-0.03) X10*3/uL Absolute Neuts (auto) 5.1 (2.0-8.3) x10*3/uL Absolute Nucleated RBC 0.000 (0.0-0.012) X10*3/uL Nucleated RBC % (auto) 0.0 (0.0-0.2) /100WBC PT 10.3 (10.0-13.1) SEC INR 0.9 (0.9-1.1) Sodium 141 (135-145) mmol/L Potassium 4.2 (3.3-5.1) mmol/L Chloride 107 (96-108) mmol/L Carbon Dioxide 26 (22-29) mmol/L Anion Gap 12 (12-20) BUN 11 (9-16) mg/dL Creatinine 0.78 (0.5-1.4) mg/dL Estim Creat Clear Calc 130.7 Estimated GFR > 60 Random Glucose 96 (60-115) mg/dL Calcium 9.2 (8.4-10.2) mg/dL Magnesium 1.8 (1.6-2.6) mg/dL Total Bilirubin 0.5 (0.0-1.0) mg/dL AST 26 (5-37) U/L ALT 51 H (0-40) U/L Alkaline Phosphatase 109 (39-117) U/L Total Protein 6.7 (6.5-8.0) g/dL Albumin 4.3 (3.5-5.0) g/dL Lipase 16 (8-78) U/L Urine Color Urine Appearance Urine pH (5.0-9.0) Ur Specific [place] (1.005-1.025) Urine Protein (Neg-Trace) mg/dL Urine Glucose (UA) (Negative) mg/dL Urine Ketones (Negative) mg/dL Urine Blood (Negative) Urine Nitrite (Negative) Ur Leukocyte Esterase (Negative) Urine RBC (0-2) /HPF Urine WBC (0-5) /HPF Ur Squamous Epith Cells (0-2) /HPF Urine Bacteria (None Seen) Hyaline Casts (0-2) /LPF 11/02/22 Range/Units 12:47 WBC (4.8-10.8) X10*3/uL RBC (4.60-5.80) X10*6/uL Hgb (14.0-18.0) g/dl Hct (42.0-52.0) % MCV (80.0-98.0) fL MCH (27.0-33.0) pg MCHC (31.0-36.0) g/dl RDW (11.0-16.0) % Plt Count (160-400) X10*3/uL MPV (9.4-12.4) fL Immature Gran % (Auto) (0.0-0.4) % Neut % (Auto) (45-73) % Lymph % (Auto) (20-40) % [place] % (Auto) (2-11) % Eos % (Auto) (0-4) % Baso % (Auto) (0-2) % Lymph # (Auto) (1.2-4.9) X10*3/uL [place] # (Auto) (0.1-1.2) X10*3/uL Eos # (Auto) (0.0-0.4) X10*3/uL Baso # (Auto) (0.0-0.2) X10*3/uL Abs Immat Gran (auto) (0.00-0.03) X10*3/uL Absolute Neuts (auto) (2.0-8.3) x10*3/uL Absolute Nucleated RBC (0.0-0.012) X10*3/uL Nucleated RBC % (auto) (0.0-0.2) /100WBC PT (10.0-13.1) SEC INR (0.9-1.1) Sodium (135-145) mmol/L Potassium (3.3-5.1) mmol/L Chloride (96-108) mmol/L Carbon Dioxide (22-29) mmol/L Anion Gap (12-20) BUN (9-16) mg/dL Creatinine (0.5-1.4) mg/dL Estim Creat Clear Calc Estimated GFR Random Glucose (60-115) mg/dL Calcium (8.4-10.2) mg/dL Magnesium (1.6-2.6) mg/dL Total Bilirubin (0.0-1.0) mg/dL AST (5-37) U/L ALT (0-40) U/L Alkaline Phosphatase (39-117) U/L Total Protein (6.5-8.0) g/dL Albumin (3.5-5.0) g/dL Lipase (8-78) U/L Urine Color Yellow Urine Appearance Clear Urine pH 5.5 (5.0-9.0) Ur Specific [place] 1.020 (1.005-1.025) Urine Protein Negative (Neg-Trace) mg/dL Urine Glucose (UA) Negative (Negative) mg/dL Urine Ketones Negative (Negative) mg/dL Urine Blood Negative (Negative) Urine Nitrite Negative (Negative) Ur Leukocyte Esterase Trace H (Negative) Urine RBC 0-2 (0-2) /HPF Urine WBC 0-5 (0-5) /HPF Ur Squamous Epith Cells 0-2 (0-2) /HPF Urine Bacteria None Seen (None Seen) Hyaline Casts 0-2 (0-2) /LPF <Casper Arredondo - Last Filed: 11/02/22 17:07> Discharge Plan Discharge Clinical Impression: Inguinal hernia <RICHARD Collins - Last Filed: 11/02/22 12:28> Patient Disposition: Home, Self-Care <RICHARD Collins - Last Filed: 11/02/22 12:28> Instructions: Inguinal Hernia (ED) <RICHARD Collins - Last Filed: 11/02/22 12:28> Additional Instructions: Your blood work did not show any significant abnormalities. Your urine sample did not appear to show infection Your CT scan did not show any significant abnormalities On exam it appears that you have a left inguinal hernia. You can follow this up with General surgery, Dr. Doty You may take tramadol for severe or breakthrough pain. This may make you sleepy, did not drink alcohol or drive after taking <RICHARD Collins - Last Filed: 11/02/22 12:28> Prescriptions: New tramadol 50 mg tablet 50 mg PO TID PRN (Reason: severe pain (scale score 7-10)) Qty: 14 0RF No Action clonazepam 1 mg tablet 1 tab PO DAILY PRN (Reason: Allergy Symptoms) gabapentin 300 mg capsule 3 cap PO BEDTIME fluticasone propionate 50 mcg/actuation spray,suspension 1 spray intranasal BID fluticasone propionate [Flovent HFA] 110 mcg/actuation HFA aerosol inhaler 2 puff inhalation BID esomeprazole magnesium [Nexium] 20 mg capsule,delayed release(DR/EC) 1 cap PO DAILY levocetirizine [24HR Allergy Relief] 5 mg tablet 1 tab PO QPM albuterol sulfate [ProAir HFA] 90 mcg/actuation Hfa Aerosol Inhaler 2 puff INHALATION Q4-6H PRN (Reason: Wheezing) cyclobenzaprine 10 mg tablet 10 mg PO Q8H Qty: 20 0RF tamsulosin [Flomax] 0.4 mg capsule 0.4 mg PO BEDTIME 30 Days Qty: 30 1RF <RICHARD Collins - Last Filed: 11/02/22 12:28> Referrals: Siva Doty MD [Physician] - (left inguinal hernia) <RICHARD Collins - Last Filed: 11/02/22 12:28>
[2022-11-02 12:52] LABS: MANUAL DIFF FLAG NO
[2022-11-02 12:54] LABS: Appearance Urine Clear; Color Urine Yellow; Glucose Urine UA Negative (Negative); Leukocyte Esterase Urine Trace (Negative); Nitrite Urine Negative (Negative); PH 5.5 (5.0-9.0); UMIC TRIGGER UACC YES; Urine Blood Negative (Negative); Urine Ketones Negative (Negative); Urine Protein Negative (Neg-Trace)
[2022-11-02 12:56] LABS: Bacteria Urine None Seen (None Seen); Hyaline Casts Urine 0-2 /LPF (0-2); RBC Urine 0-2 /HPF (0-2); Squamous Epithelial Cell Urine 0-2 /HPF (0-2); WBC Urine 0-5 /HPF (0-5)
[2022-11-02 12:58] LABS: INTERNATIONAL NORM RATIO 0.9 (0.9-1.1); Prothrombin Time 10.3 SEC (10.0-13.1)
[2022-11-02 13:02] LABS: Basophils Percent Auto 0.5 % (0-2); Eosinophils Absolute Auto 0.2 X10*3/uL (0.0-0.4); Eosinophils Percent Auto 2.5 % (0-4); Hematocrit 48.1 % (42.0-52.0); Hemoglobin 16.1 g/dl (14.0-18.0); Imm Gran Abs Auto 0.03 X10*3/uL (0.00-0.03); Imm Gran Pct Auto 0.4 % (0.0-0.4); Lymphocytes Absolute Auto 1.5 X10*3/uL (1.2-4.9); Lymphocytes Percent Auto 19.9 % (20-40); Mean Corpuscular HGB Conc 33.5 g/dl (31.0-36.0); Mean Corpuscular Hemoglobin 28.9 pg (27.0-33.0); Mean Corpuscular Volume 86.2 fL (80.0-98.0); Mean Platelet Volume 9.2 fL (9.4-12.4); Monocytes Absolute Auto 0.6 X10*3/uL (0.1-1.2); Monocytes Percent Auto 7.6 % (2-11); Neutrophils Absolute Auto 5.1 x10*3/uL (2.0-8.3); Neutrophils Percent Auto 69.1 % (45-73); Platelet Count 210 X10*3/uL (160-400); Red Blood Count 5.58 X10*6/uL (4.60-5.80); Red Cell Distribution Width 13.3 % (11.0-16.0); White Blood Count 7.3 X10*3/uL (4.8-10.8)
[2022-11-02 13:10] LABS: Alanine Aminotransferase 51 U/L (0-40); Albumin Level 4.3 g/dL (3.5-5.0); Alkaline Phosphatase 109 U/L (39-117); Anion Gap 12 (12-20); Aspartate Amino Transferase 26 U/L (5-37); Bilirubin Total 0.5 mg/dL (0.0-1.0); Blood Urea Nitrogen 11 mg/dL (9-16); Calcium 9.2 mg/dL (8.4-10.2); Carbon Dioxide 26 mmol/L (22-29); Chloride 107 mmol/L (96-108); Creatinine Clr Calc Pharmacy 130.7; Estimated Glomerular Filt Rate > 60; Glucose Random 96 mg/dL (60-115); Lipase 16 U/L (8-78); Magnesium 1.8 mg/dL (1.6-2.6); Potassium 4.2 mmol/L (3.3-5.1); Sodium 141 mmol/L (135-145); Total Protein 6.7 g/dL (6.5-8.0)
[2022-11-02] MEDS: iohexoL 350 MG/ML 100 ML INFUS..BTL IV (15:36)
--- NOTE | 2022-11-02 15:41 | PC.NURSE ---
Patient complaining of pain that wraps around his waist. Patient has had lower back pain in the past and was diagnosed with degenerative disk disease. Patient sitting on side of stretcher looking uncomfortable, calm and cooperative.
[2022-11-02 15:43] VITALS: BP 147/91; PULSE 75; RESP 17; TEMP 36.4; O2SAT 98
[2022-11-02] MEDS: traMADoL HCL 50 MG TABLET PO (16:38)
[2022-11-02 17:31] VITALS: BP 139/96; PULSE 78; RESP 16; O2SAT 97
== END 2022-11-02 17:34 | disposition home or self-care (01) ==
PROVIDERS: Physician Assistant Medical; Emergency Provider Internal Medicine; PCP Family Medicine
DX: K40.90 Unilateral inguinal hernia, without obstruction or gangrene, not specified as recurrent (principal); R10.30 Lower abdominal pain, unspecified; M54.50 Low back pain, unspecified; F17.210 Nicotine dependence, cigarettes, uncomplicated; Z71.6 Tobacco abuse counseling; Z79.899 Other long term (current) drug therapy
CPT/HCPCS: 36415; 74177; 80053; 81001; 83690; 83735; 85025; 85610; 99284; Q9967

== ENCOUNTER → 2022-11-07 12:21 | Outpatient (BNVA) | payer MEDICAID, SELFPAY | PROVIDERS: PCP Family Medicine; Visit Provider Surgery | DX: M54.9 Dorsalgia, unspecified (principal); E66.9 Obesity, unspecified; C85.10 Unspecified B-cell lymphoma, unspecified site; C91.10 Chronic lymphocytic leukemia of B-cell type not having achieved remission; D86.9 Sarcoidosis, unspecified; I82.90 Acute embolism and thrombosis of unspecified vein; N40.0 Benign prostatic hyperplasia without lower urinary tract symptoms; Z68.34 Body mass index [BMI] 34.0-34.9, adult | CPT/HCPCS: 99202 ==

== ENCOUNTER 2022-11-12 14:54 | Outpatient (REF) | payer MEDICAID, SELFPAY ==
[2022-11-12 16:53] LABS: Prostate Specific Antigen 2.93 ng/mL (<0.05-4.0)
== END 2022-11-12 14:55 | disposition home or self-care (01) ==
LOC: HO.LAB 14:54
PROVIDERS: PCP Family Medicine; Visit Provider Nurse Practitioner Family
DX: Z12.5 Encounter for screening for malignant neoplasm of prostate (principal); N40.0 Benign prostatic hyperplasia without lower urinary tract symptoms; R35.0 Frequency of micturition; R35.1 Nocturia
CPT/HCPCS: 36415; 84153

== ENCOUNTER 2022-11-14 15:07 | Outpatient (REF) | payer MEDICAID, SELFPAY ==
--- NOTE | ~2022-11-14 | US_ITS ---
EXAMINATION: US RETROPERITONEAL COMPLETE (RENAL) CLINICAL INFORMATION: Benign prostatic hyperplasia without lower urinary tract symptoms. COMPARISON: CT abdomen and pelvis 11/02/2022. Renal ultrasound 05/06/2018. TECHNIQUE: Real-time imaging of the kidneys and bladder. FINDINGS: RIGHT KIDNEY: 12.2 x 4.5 x 5.8 cm (SAG x AP x TRV). The kidney is normal in size, contour, and echogenicity. Renal cortical thickness is normal. No calculi or focal parenchymal lesions. No hydronephrosis. LEFT KIDNEY: 10.9 x 5.1 x 5.0 cm (SAG x AP x TRV). The kidney is normal in size, contour, and echogenicity. Renal cortical thickness is normal. No calculi or focal parenchymal lesions. No hydronephrosis. BLADDER: Well distended and normal. Bilateral ureteral jets are demonstrated. Prevoid bladder volume is 195 mL. Postvoid bladder volume is 44.9 mL. ADDITIONAL FINDINGS: Prostate is enlarged with a volume of 58.0 mL. US/US retroperitoneal comp IMPRESSION: 1. Unremarkable kidneys. 2. Moderate prostate enlargement with small to moderate postvoid residual bladder volume. 3. Normal bilateral ureteral jets.
== END 2022-11-14 15:08 | disposition home or self-care (01) ==
LOC: HO.US 15:07
PROVIDERS: PCP Family Medicine; Visit Provider Nurse Practitioner Family
DX: N40.0 Benign prostatic hyperplasia without lower urinary tract symptoms (principal); R35.0 Frequency of micturition; R35.1 Nocturia
CPT/HCPCS: 76770

== ENCOUNTER → 2022-11-24 15:25 | Outpatient (BNVA) | payer MEDICAID, SELFPAY | PROVIDERS: PCP Family Medicine; Visit Provider Nurse Practitioner Family | DX: N40.1 Benign prostatic hyperplasia with lower urinary tract symptoms (principal); R35.0 Frequency of micturition; R35.1 Nocturia | CPT/HCPCS: 51798; 99212 ==

== ENCOUNTER 2023-04-16 06:58 | Outpatient (REF) | payer MEDICAID, SELFPAY ==
[2023-04-16 08:20] LABS: PSA,Total (Free>4and<10) 2.01 ng/mL (0.00-4.00)
== END 2023-04-16 06:59 | disposition home or self-care (01) ==
LOC: HO.LAB 06:58
PROVIDERS: PCP Family Medicine; Visit Provider Nurse Practitioner Family
DX: R35.1 Nocturia (principal); R35.0 Frequency of micturition; N40.0 Benign prostatic hyperplasia without lower urinary tract symptoms
CPT/HCPCS: 36415; 84153

== ENCOUNTER 2023-04-17 14:29 | Outpatient (AMB) | payer MEDICAID, SELFPAY ==
--- NOTE | 2023-04-17 14:32 | MHC.OFFVIS ---
Intake Intake Visit Reasons: 6m/PVR Intake Note: Patient is present for follow up BPH/psa labs (PSA ) Urology Medications: tamsulosin Blood Thinner: none PVR: Supervisory Historian Required: No Accompanied by: Self / Same As Patient Allergies allantoin [From BLISTEX] Allergy (Unknown, Verified 04/17/23 21:02) LIP SWELLING homosalate [From BLISTEX] Allergy (Unknown, Verified 04/17/23 21:02) LIP SWELLING menthol [From BLISTEX] Allergy (Unknown, Verified 04/17/23 21:02) LIP SWELLING octinoxate [From BLISTEX] Allergy (Unknown, Verified 04/17/23 21:02) LIP SWELLING octyl salicylate [From BLISTEX] Allergy (Unknown, Verified 04/17/23 21:02) LIP SWELLING oxybenzone [From BLISTEX] Allergy (Unknown, Verified 04/17/23 21:02) LIP SWELLING padimate O [From BLISTEX] Allergy (Unknown, Verified 04/17/23 21:02) LIP SWELLING sodium chloride Allergy (Unknown, Verified 04/17/23 21:02) GUM SWELLING TO TABLE SALT ibuprofen [IBUPROFEN] Adverse Reaction (Unknown, Verified 04/17/23 21:02) STOMACH UPSET From BLISTEX Allergy (Unknown, Uncoded 04/17/23 21:02) LIP SWELLING ibuprofen Allergy (Unknown, Uncoded 04/17/23 21:02) gi upset Medication List - Last Reconciled 04/17/23 by VIJI De La Cruz-PHILIPP clonazepam 1 tab PO DAILY PRN cyclobenzaprine 10 mg PO Q8H esomeprazole magnesium (Nexium) 1 cap PO DAILY finasteride 5 mg PO DAILY 90 days fluticasone propionate 110 mcg/actuation (Flovent HFA) 2 puffs inhalation BID fluticasone propionate 50 mcg/actuation 1 spray intranasal BID gabapentin 3 caps PO BEDTIME levocetirizine (24HR Allergy Relief) 1 tab PO QPM HPI HPI Comments History of Present Illness Details Brendan is a pleasant 48-year-old male patient of Dr. Pantoja with a past medical history of asthma, anxiety, and history of B-cell lymphoma in remission. He resents to the office today for follow-up. Of note, patient was previously seen approximately 4 months ago at which time he was started on Flomax and finasteride. When asked patient reports to be doing and feeling well. He reports feeling urinary symptoms are much improved. He reports previously experiencing urinary frequency and nocturia. He discusses at times feeling his urinary system is to relaxed . He also discusses noting urinary symptoms worsen when drinking coffee. Discussed at length bladder triggers/irritants. Recent PSA results reviewed with the patient today. PSAs are as follows: 11/09--2.9 04/11--2.0 Previous workup has included a retroperitoneal ultrasound noting bilateral kidneys with no calculi, lesions, and or hydronephrosis noted. The bladder is distended and normal. Pre void bladder volume is 195 mL. Postvoid bladder volume is 45 mL. Prostate is enlarged with a volume of 58 mL. In office urinalysis results reviewed with the patient today. PVR 32ml's. When asked he denies hematuria, dysuria, foul smelling urine, changes to urinary stream, flank pain, fever, and or chills. Patient otherwise denies any bothersome urinary issues or concerns at this time. [facility] Medical History Thrombosis Acid reflux Anxiety History of asthma B-cell chronic lymphocytic leukemia Family History Mother Liver cirrhosis Family/Other Thyroid cancer Breast cancer Social History Household Members: Family Household Members Other:: father Housing: Apartment Do you presently have visiting nurse or other home services: No Alcohol intake: current Alcohol intake frequency: a few times a month Patient Tobacco Use Status: Current everyday Tobacco user Tobacco use type: Cigarette Years Smoked: 18 Second Hand Smoke Exposure: No service: No Current occupational status: employed Review of Systems Const All systems reviewed & are unremarkable except as noted in HPI and below Reports as per HPI Eyes Reports no additional complaints ENT Reports no additional complaints Card Reports no additional complaints Resp Reports no additional complaints GI Reports no additional complaints Reports as per HPI Musc Reports no additional complaints Neuro Reports no additional complaints Psych Reports no additional complaints Endo Reports no additional complaints Lawrence/Lymph Reports as per HPI Aller/Immun Reports no additional complaints Physical Exam Const General: cooperative, healthy appearing, comfortable, no acute distress, well developed, alert and awake Orientation/consciousness: patient oriented x3 Limitations: no limitations HEENT Head: Yes normal to inspection, Yes normocephalic and Yes atraumatic Ears: hearing grossly normal bilaterally Eyes General: appearance normal, both eyes and all related structures Neck Neck: Yes normal visual inspection and Yes trachea midline Chest Chest palpation & inspection: normal inspection of the chest Resp Effort & Inspection: normal respiratory effort and able to speak in complete sentences Cardio Rate: regular rate GI Inspection: Yes normal to inspection Rectal Exam - Male: Yes deferred General: Yes no CVA tenderness Back/Spine/Pelvis Back: no CVA tenderness Skin General skin exam: no rashes or lesions noted Neuro General: patient oriented x3 Extrem General: Yes normal to inspection Psych Appearance: grossly normal and well kempt Mental Status: mental status grossly normal Speech and movement: Normal speech and movement present and Clear speech present Affect: normal affect Attitude: cooperative Thought process: Normal thought process present Thought content: Normal thought content present Office Procedures Post Void Residual Post Residual Void Post Void Residual (PVR): 32 [id number] Void Residual by ultrasound Results AMB Urinalysis, Automated UA Leukoctes 0 Ciara/uL Last Edit by [employer] on 04/17/23 15:00 UA Nitrite Negative Last Edit by [employer] on 04/17/23 15:00 UA Urobilinogen 0.2 mg/dL Last Edit by [employer] on 04/17/23 15:00 UA Protein 0 mg/dL Last Edit by [employer] on 04/17/23 15:00 UA pH 7.0 Last Edit by [employer] on 04/17/23 15:00 UA Blood 0 Phuc/uL Last Edit by [employer] on 04/17/23 15:00 UA Specific [place] 1.015 Last Edit by [employer] on 04/17/23 15:00 UA Ketone Negative Last Edit by [employer] on 04/17/23 15:00 UA Bilirubin 0 mg/dL Last Edit by [employer] on 04/17/23 15:00 UA Glucose 0 mg/dL Last Edit by [employer] on 04/17/23 15:00 Results Reviewed Results Reviewed: Laboratory Last Values Urine pH (Auto) 7.0 04/17/23 14:34 Specific [place] (Auto) 1.015 04/17/23 14:34 Urine Protein (Auto) 0 mg/dL 04/17/23 14:34 Glucose (UA)(Auto) 0 mg/dL 04/17/23 14:34 Urine Ketones (Auto) Negative 04/17/23 14:34 Urine Blood (Auto) 0 Phuc/uL 04/17/23 14:34 Urine Nitrite (Auto) Negative 04/17/23 14:34 Urine Bilirubin (Auto) 0 mg/dL 04/17/23 14:34 Urine Urobilinogen (Auto) 0.2 mg/dL 04/17/23 14:34 Leukocyte Esterase (Auto) 0 Ciara/uL 04/17/23 14:34 Assessment & Plan Assessment & Plan (1) Urinary frequency: Code(s): R35.0 - Frequency of micturition (2) Nocturia: Code(s): R35.1 - Nocturia (3) Enlarged prostate: Code(s): N40.0 - Benign prostatic hyperplasia without lower urinary tract symptoms Plan In office urinalysis results reviewed with the patient today PVR 32 mL. Continue finasteride as discussed and prescribed. Stop Flomax Discussed at length bladder triggers/irritants. Recent PSA results reviewed with the patient today. Follow-up in 3 months with PVR; or sooner with any issues, concerns, and or questions. Orders: Orders AMB Urinalysis Automated Today Z13.9 - Encounter for screening, unspecified AMB Post Void Residual by ultrasound Today R35.0 - Frequency of micturition Medications: Discontinued tamsulosin (Flomax) Discontinued Reason: Doctor's Order 0.4 mg PO BEDTIME 90 days 90 tabs 1RF Coding Level of Care Code Est Pt Level 3 (17298) Diagnoses Urinary frequency R35.0 Nocturia R35.1 Enlarged prostate N40.0 CPT Codes Post Residual Void - PVR CPT Code: 42601-Rftn Void Residual by ultrasound ([id number])
== END 2023-04-17 15:11 | disposition home or self-care (01) ==
PROVIDERS: PCP Family Medicine; Visit Provider Nurse Practitioner Family
DX: R35.0 Frequency of micturition (principal); R35.1 Nocturia; N40.0 Benign prostatic hyperplasia without lower urinary tract symptoms
CPT/HCPCS: 99213

== ENCOUNTER → 2023-04-17 14:29 | Outpatient (BNVA) | payer MEDICAID, SELFPAY | PROVIDERS: Visit Provider Nurse Practitioner Family | DX: N40.1 Benign prostatic hyperplasia with lower urinary tract symptoms (principal); R35.0 Frequency of micturition; R35.1 Nocturia | CPT/HCPCS: 51798; 81003; 99212 ==

== ENCOUNTER 2023-07-15 13:52 | Outpatient (AMB) | payer MEDICAID, SELFPAY ==
--- NOTE | 2023-07-15 14:06 | MHC.OFFVIS ---
Intake Intake Visit Reasons: 3M PVR Intake Note: Patient is present for follow up BPH/PVR Urology Medications: finasteride Blood Thinner: none PVR: 36ml's Switchboard Operator Assistant Required: No Accompanied by: Self / Same As Patient Allergies allantoin [From BLISTEX] Allergy (Unknown, Verified 07/15/23 15:42) LIP SWELLING homosalate [From BLISTEX] Allergy (Unknown, Verified 07/15/23 15:42) LIP SWELLING menthol [From BLISTEX] Allergy (Unknown, Verified 07/15/23 15:42) LIP SWELLING octinoxate [From BLISTEX] Allergy (Unknown, Verified 07/15/23 15:42) LIP SWELLING octyl salicylate [From BLISTEX] Allergy (Unknown, Verified 07/15/23 15:42) LIP SWELLING oxybenzone [From BLISTEX] Allergy (Unknown, Verified 07/15/23 15:42) LIP SWELLING padimate O [From BLISTEX] Allergy (Unknown, Verified 07/15/23 15:42) LIP SWELLING sodium chloride Allergy (Unknown, Verified 07/15/23 15:42) GUM SWELLING TO TABLE SALT ibuprofen [IBUPROFEN] Adverse Reaction (Unknown, Verified 07/15/23 15:42) STOMACH UPSET From BLISTEX Allergy (Unknown, Uncoded 07/15/23 15:42) LIP SWELLING ibuprofen Allergy (Unknown, Uncoded 07/15/23 15:42) gi upset Medication List - Last Reconciled 07/15/23 by VIJI De La Cruz-BC clonazepam 1 tab PO DAILY PRN cyclobenzaprine 10 mg PO Q8H esomeprazole magnesium (Nexium) 1 cap PO DAILY finasteride 5 mg PO DAILY 90 days fluticasone propionate 110 mcg/actuation (Flovent HFA) 2 puffs inhalation BID fluticasone propionate 50 mcg/actuation 1 spray intranasal BID gabapentin 3 caps PO BEDTIME levocetirizine (24HR Allergy Relief) 1 tab PO QPM terazosin 5 mg PO BEDTIME 30 days HPI HPI Comments History of Present Illness Details Brendan is a pleasant 48-year-old male patient of Dr. Pantoja with a past medical history of asthma, anxiety, and history of B-cell lymphoma in remission. He resents to the office today for follow-up. Of note, patient was previously seen approximately 3 months ago at which time Flomax was discontinued as patient was reporting urinary symptoms had improved significantly however remained on finasteride given previous retroperitoneal ultrasound noting enlarged prostate with a volume of 58 mL. In discussion with the patient today he reports feeling urinary symptoms have returned and he has since started his self back on tamsulosin for the last week however feels it has not been helpful at this time. He reports weak urinary stream. In office urinalysis results reviewed with the patient today. PVR 36 mL. Discussed further assessment evaluation with in office cystoscopy. Will trial 5 mg of terazosin and discontinue Flomax. He otherwise denies hematuria, dysuria, foul-smelling urine, flank pain, fever, and or chills. He also discusses noting urinary symptoms worsen when drinking coffee. Discussed at length bladder triggers/irritants. PSAs are as follows: 11/09--2.9 04/11--2.0 Previous workup has included a retroperitoneal ultrasound noting bilateral kidneys with no calculi, lesions, and or hydronephrosis noted. The bladder is distended and normal. Pre void bladder volume is 195 mL. Postvoid bladder volume is 45 mL. Prostate is enlarged with a volume of 58 mL. Discussed obtaining redraw of PSA. He otherwise offers no other issues or concerns at this time. [facility] Medical History Thrombosis Acid reflux Anxiety History of asthma B-cell chronic lymphocytic leukemia Family History Mother Liver cirrhosis Family/Other Thyroid cancer Breast cancer Social History Household Members: Family Household Members Other:: father Housing: Apartment Do you presently have visiting nurse or other home services: No Alcohol intake: current Alcohol intake frequency: a few times a month Patient Tobacco Use Status: Current everyday Tobacco user Tobacco use type: Cigarette Years Smoked: 18 Second Hand Smoke Exposure: No service: No Current occupational status: employed Review of Systems Const All systems reviewed & are unremarkable except as noted in HPI and below Reports as per HPI Eyes Reports no additional complaints ENT Reports no additional complaints Card Reports no additional complaints Resp Reports no additional complaints GI Reports no additional complaints Reports as per HPI Musc Reports no additional complaints Neuro Reports no additional complaints Psych Reports no additional complaints Endo Reports no additional complaints Lawrence/Lymph Reports as per HPI Aller/Immun Reports no additional complaints Physical Exam Const General: cooperative, healthy appearing, comfortable, no acute distress, well developed, alert and awake Orientation/consciousness: patient oriented x3 Limitations: no limitations HEENT Head: Yes normal to inspection, Yes normocephalic and Yes atraumatic Ears: hearing grossly normal bilaterally Eyes General: appearance normal, both eyes and all related structures Neck Neck: Yes normal visual inspection and Yes trachea midline Chest Chest palpation & inspection: normal inspection of the chest Resp Effort & Inspection: normal respiratory effort and able to speak in complete sentences Cardio Rate: regular rate GI Inspection: Yes normal to inspection Rectal Exam - Male: Yes deferred General: Yes no CVA tenderness Back/Spine/Pelvis Back: no CVA tenderness Skin General skin exam: no rashes or lesions noted Neuro General: patient oriented x3 Extrem General: Yes normal to inspection Psych Appearance: grossly normal and well kempt Mental Status: mental status grossly normal Speech and movement: Normal speech and movement present and Clear speech present Affect: normal affect Attitude: cooperative Thought process: Normal thought process present Thought content: Normal thought content present Insight: Fair insight present (Psych) Judgement: Fair judgement present (Psych) Office Procedures Post Void Residual Post Residual Void Post Void Residual (PVR): 36 [id number] Void Residual by ultrasound Results AMB Urinalysis, Automated UA Leukoctes 0 Ciara/uL Last Edit by [employer] on 07/15/23 14:32 UA Nitrite Negative Last Edit by [employer] on 07/15/23 14:32 UA Urobilinogen 0.2 mg/dL Last Edit by [employer] on 07/15/23 14:32 UA Protein 15 mg/dL Last Edit by [employer] on 07/15/23 14:32 UA pH 6.0 Last Edit by [employer] on 07/15/23 14:32 UA Blood 0 Phuc/uL Last Edit by [employer] on 07/15/23 14:32 UA Specific [place] 1.030 Last Edit by [employer] on 07/15/23 14:32 UA Ketone Negative Last Edit by [employer] on 07/15/23 14:32 UA Bilirubin 0 mg/dL Last Edit by Jacobo Dos Santos on 07/15/23 14:32 UA Glucose 0 mg/dL Last Edit by Jacobo Dos Santos on 07/15/23 14:32 Results Reviewed Results Reviewed: Laboratory Last Values Urine pH (Auto) 6.0 07/15/23 14:08 Specific [place] (Auto) 1.030 07/15/23 14:08 Urine Protein (Auto) 15 mg/dL 07/15/23 14:08 Glucose (UA)(Auto) 0 mg/dL 07/15/23 14:08 Urine Ketones (Auto) Negative 07/15/23 14:08 Urine Blood (Auto) 0 Phuc/uL 07/15/23 14:08 Urine Nitrite (Auto) Negative 07/15/23 14:08 Urine Bilirubin (Auto) 0 mg/dL 07/15/23 14:08 Urine Urobilinogen (Auto) 0.2 mg/dL 07/15/23 14:08 Leukocyte Esterase (Auto) 0 Ciara/uL 07/15/23 14:08 Assessment & Plan Assessment & Plan (1) BPH (benign prostatic hyperplasia): Code(s): N40.0 - Benign prostatic hyperplasia without lower urinary tract symptoms (2) Enlarged prostate: Code(s): N40.0 - Benign prostatic hyperplasia without lower urinary tract symptoms (3) Urinary frequency: Code(s): R35.0 - Frequency of micturition (4) Nocturia: Code(s): R35.1 - Nocturia (5) Elevated PSA: Code(s): R97.20 - Elevated prostate specific antigen [PSA] Plan In office urinalysis results reviewed with the patient today; as noted above PVR 36ml's Continue Finasteride Stop flomax Start Terazosin 5mg as discussed and prescribed Will arrange for in office cystoscopy for further assessment and evaluation. Discussed bladder triggers/irritants. Will obtain PSA for further assessment and evaluation; discussed history of elevated PSA given patients age discussed prostate biopsy versus continuation of Finasteride and surveillance monitoring Follow up in 6 weeks with PVR and PSA to be completed prior; or sooner with any issues, concerns, or questions. Orders: Orders AMB Urinalysis Automated Today Z13.9 - Encounter for screening, unspecified AMB Post Void Residual by ultrasound Today R35.0 - Frequency of micturition Prostate Specific Antigen Today N40.0 - Benign prostatic hyperplasia without lower urinary tract symptoms Medications: New terazosin 5 mg PO BEDTIME 30 days 30 caps 1RF N40.1 - Benign prostatic hyperplasia with lower urinary tract symptoms, R35.0 - Frequency of micturition Patient Instructions: The patient had an opportunity to ask questions regarding the treatment plan. All questions were answered. Physical exam, labs, and imaging were discussed and reviewed in detail. As well as risks, benefits, and discussion of treatment choices. No major barriers to understanding were identified. The patient expressed understanding and agreement with the above treatment plan. The patient was made aware they should contact our office by phone for worsening of their current condition, the appearance of new symptoms, or with any questions or concerns. Compliance is encouraged with any medications and follow up testing that is ordered. It is a privilege to be allowed the opportunity to participate in? your urological care.? Again, if you have any questions or concerns If you have any questions or concerns please do not hesitate to contact me. The office is [phone]. This note is constructed using voice recognition software. While every effort has been made to ensure accuracy survey research analyst errors may have been included. Yours sincerely, MIKE De La Cruz Coding Level of Care Code Est Pt Level 4 (65372) Diagnoses BPH (benign prostatic hyperplasia) N40.0 Enlarged prostate N40.0 Urinary frequency R35.0 Nocturia R35.1 Elevated PSA R97.20 CPT Codes Post Residual Void - PVR CPT Code: 42164-Xutf Void Residual by ultrasound ([id number])
== END 2023-07-15 15:43 | disposition home or self-care (01) ==
PROVIDERS: PCP Family Medicine; Visit Provider Nurse Practitioner Family
DX: N40.0 Benign prostatic hyperplasia without lower urinary tract symptoms (principal); R35.0 Frequency of micturition; R35.1 Nocturia; R97.20 Elevated prostate specific antigen [PSA]; Z13.9 Encounter for screening, unspecified
CPT/HCPCS: 99214

== ENCOUNTER → 2023-07-15 13:52 | Outpatient (BNVA) | payer MEDICAID, SELFPAY | PROVIDERS: PCP Family Medicine; Visit Provider Nurse Practitioner Family | DX: N40.1 Benign prostatic hyperplasia with lower urinary tract symptoms (principal); R35.0 Frequency of micturition; R35.1 Nocturia; R97.20 Elevated prostate specific antigen [PSA] | CPT/HCPCS: 51798; 81003; 99212 ==

== ENCOUNTER 2023-08-20 15:38 | Outpatient (REF) | payer MEDICAID, SELFPAY ==
[2023-08-20 16:44] LABS: Prostate Specific Antigen 1.95 ng/mL (<0.05-4.0)
== END 2023-08-20 15:39 | disposition home or self-care (01) ==
LOC: HO.LAB 15:38
PROVIDERS: PCP Family Medicine; Visit Provider Nurse Practitioner Family
DX: Z12.5 Encounter for screening for malignant neoplasm of prostate (principal); N40.0 Benign prostatic hyperplasia without lower urinary tract symptoms
CPT/HCPCS: 36415; 84153

== ENCOUNTER 2023-08-26 15:02 | Outpatient (AMB) | payer MEDICAID, SELFPAY ==
--- NOTE | 2023-08-26 15:41 | MHC.OFFVIS ---
Intake Intake Visit Reasons: 6w/PSA/PVR Intake Note: Patient is present for follow up BPH/PVR/labs PSA: 2.0 Urology Medications: finasteride, terazosin Blood Thinner: none PVR: 37ml's Toolroom Clerk Required: No Accompanied by: Self / Same As Patient Allergies allantoin [From BLISTEX] Allergy (Unknown, Verified 08/30/23 13:38) LIP SWELLING homosalate [From BLISTEX] Allergy (Unknown, Verified 08/30/23 13:38) LIP SWELLING menthol [From BLISTEX] Allergy (Unknown, Verified 08/30/23 13:38) LIP SWELLING octinoxate [From BLISTEX] Allergy (Unknown, Verified 08/30/23 13:38) LIP SWELLING octyl salicylate [From BLISTEX] Allergy (Unknown, Verified 08/30/23 13:38) LIP SWELLING oxybenzone [From BLISTEX] Allergy (Unknown, Verified 08/30/23 13:38) LIP SWELLING padimate O [From BLISTEX] Allergy (Unknown, Verified 08/30/23 13:38) LIP SWELLING sodium chloride Allergy (Unknown, Verified 08/30/23 13:38) GUM SWELLING TO TABLE SALT ibuprofen [IBUPROFEN] Adverse Reaction (Unknown, Verified 08/30/23 13:38) STOMACH UPSET From BLISTEX Allergy (Unknown, Uncoded 08/30/23 13:38) LIP SWELLING ibuprofen Allergy (Unknown, Uncoded 08/30/23 13:38) gi upset Medication List - Last Reconciled 08/30/23 by VIJI De La Cruz-PHILIPP clonazepam 1 tab PO DAILY PRN cyclobenzaprine 10 mg PO Q8H esomeprazole magnesium (Nexium) 1 cap PO DAILY finasteride 5 mg PO DAILY 90 days fluticasone propionate 110 mcg/actuation (Flovent HFA) 2 puffs inhalation BID fluticasone propionate 50 mcg/actuation 1 spray intranasal BID gabapentin 3 caps PO BEDTIME levocetirizine (24HR Allergy Relief) 1 tab PO QPM terazosin 5 mg PO BEDTIME 90 days HPI HPI Comments History of Present Illness Details Brendan is a pleasant 48-year-old male patient of Dr. Pantoja with a past medical history of asthma, anxiety, and history of B-cell lymphoma in remission. He resents to the office today for follow-up. In discussion with the patient today reports to be doing and feeling well. He reports compliance with terazosin and finasteride as prescribed. Recent PSA results reviewed with the patient today as noted and trended below. Previous workup has included a retroperitoneal ultrasound noting enlarged prostate with a volume of 58 mL. Bilateral kidneys with no calculi, lesions, and or hydronephrosis. The bladder is well distended and normal. Bilateral ureteral jets are demonstrated. Prevoid bladder volume is approximately 200 mL. Postvoid bladder volume is approximately 45 mL. In office urinalysis results reviewed with the patient today. PVR 37mls'. He does continue to report weak urinary stream. Discussed further assessment evaluation with in office cystoscopy. He otherwise denies hematuria, dysuria, foul-smelling urine, flank pain, fever, and or chills. He also discusses noting urinary symptoms worsen when drinking coffee. Discussed at length bladder triggers/irritants. Discussed continuation of Finasteride versus prostate biopsy given PSA remains same in 3 months and patient reports compliance with medication. Discussed risks and benefits of prostate biopsy versus continuation of finasteride. Previously trialed Flomax at 0.4 and 0.8 mg with somewhat improvement in lower urinary tract symptoms. He otherwise denies any other issues or concerns at this time. PSAs are as follows: 11/09--2.9 04/11--2.0 07/11--2.0 PFSH Medical History Thrombosis Acid reflux Anxiety History of asthma B-cell chronic lymphocytic leukemia Family History Mother Liver cirrhosis Family/Other Thyroid cancer Breast cancer Social History Household Members: Family Household Members Other:: father Housing: Apartment Do you presently have visiting nurse or other home services: No Alcohol intake: current Alcohol intake frequency: a few times a month Patient Tobacco Use Status: Current everyday Tobacco user Tobacco use type: Cigarette Years Smoked: 18 Second Hand Smoke Exposure: No service: No Current occupational status: employed Review of Systems Const All systems reviewed & are unremarkable except as noted in HPI and below Reports as per HPI Eyes Reports no additional complaints ENT Reports no additional complaints Card Reports no additional complaints Resp Reports no additional complaints GI Reports no additional complaints Reports as per HPI Musc Reports no additional complaints Neuro Reports no additional complaints Psych Reports no additional complaints Endo Reports no additional complaints Lawrence/Lymph Reports as per HPI Aller/Immun Reports no additional complaints Physical Exam Const General: cooperative, healthy appearing, comfortable, no acute distress, well developed, alert and awake Orientation/consciousness: patient oriented x3 Limitations: no limitations HEENT Head: Yes normal to inspection, Yes normocephalic and Yes atraumatic Ears: hearing grossly normal bilaterally Eyes General: appearance normal, both eyes and all related structures Neck Neck: Yes normal visual inspection and Yes trachea midline Chest Chest palpation & inspection: normal inspection of the chest Resp Effort & Inspection: normal respiratory effort and able to speak in complete sentences Cardio Rate: regular rate GI Inspection: Yes normal to inspection Rectal Exam - Male: Yes deferred General: Yes no CVA tenderness Back/Spine/Pelvis Back: no CVA tenderness Skin General skin exam: no rashes or lesions noted Neuro General: patient oriented x3 Extrem General: Yes normal to inspection Psych Appearance: grossly normal and well kempt Mental Status: mental status grossly normal Speech and movement: Normal speech and movement present and Clear speech present Affect: normal affect Attitude: cooperative Thought process: Normal thought process present Thought content: Normal thought content present Insight: Fair insight present (Psych) Judgement: Fair judgement present (Psych) Office Procedures Post Void Residual Post Residual Void Post Void Residual (PVR): 37 [id number] Void Residual by ultrasound Results AMB Urinalysis, Automated UA Leukoctes 0 Ciara/uL Last Edit by Raising [employer] on 08/26/23 15:58 UA Nitrite Negative Last Edit by Raising [employer] on 08/26/23 15:58 UA Urobilinogen 0.2 mg/dL Last Edit by Raising [employer] on 08/26/23 15:58 UA Protein 15 mg/dL Last Edit by Raising [employer] on 08/26/23 15:58 UA pH 6.0 Last Edit by Raising [employer] on 08/26/23 15:58 UA Blood 0 Phuc/uL Last Edit by Raising [employer] on 08/26/23 15:58 UA Specific [place] 1.020 Last Edit by Raising [employer] on 08/26/23 15:58 UA Ketone Negative Last Edit by Jacobo Dos Santos on 08/26/23 15:58 UA Bilirubin 0 mg/dL Last Edit by Jacobo Dos Santos on 08/26/23 15:58 UA Glucose 0 mg/dL Last Edit by Jacobo Dos Santos on 08/26/23 15:58 Results Reviewed Results Reviewed: Laboratory Last Values Urine pH (Auto) 6.0 08/26/23 15:46 Specific [place] (Auto) 1.020 08/26/23 15:46 Urine Protein (Auto) 15 mg/dL 08/26/23 15:46 Glucose (UA)(Auto) 0 mg/dL 08/26/23 15:46 Urine Ketones (Auto) Negative 08/26/23 15:46 Urine Blood (Auto) 0 Phuc/uL 08/26/23 15:46 Urine Nitrite (Auto) Negative 08/26/23 15:46 Urine Bilirubin (Auto) 0 mg/dL 08/26/23 15:46 Urine Urobilinogen (Auto) 0.2 mg/dL 08/26/23 15:46 Leukocyte Esterase (Auto) 0 Ciara/uL 08/26/23 15:46 Assessment & Plan Assessment & Plan (1) BPH (benign prostatic hyperplasia): Code(s): N40.0 - Benign prostatic hyperplasia without lower urinary tract symptoms (2) Enlarged prostate: Code(s): N40.0 - Benign prostatic hyperplasia without lower urinary tract symptoms (3) Urinary frequency: Code(s): R35.0 - Frequency of micturition (4) Nocturia: Code(s): R35.1 - Nocturia (5) Elevated PSA: Code(s): R97.20 - Elevated prostate specific antigen [PSA] (6) Weak urinary stream: Code(s): R39.12 - Poor urinary stream Plan In office urinalysis results reviewed with the patient today; as noted above PVR 37ml's Continue Finasteride and terazosin as discussed and prescribed. Discussed at length bladder triggers/irritants. Recent PSA results reviewed with the patient today; as noted above. Discussed continuation of finasteride versus prostate biopsy; this is discussed at length; risks and benefits of these interventions were discussed. Follow-up in office cystoscopy for further assessment evaluation; or sooner with any issues, concerns, and or questions. Orders: Orders AMB Urinalysis Automated 08/26/23 Z13.9 - Encounter for screening, unspecified AMB Post Void Residual by ultrasound 08/26/23 R35.0 - Frequency of micturition Medications: Refilled terazosin 5 mg PO BEDTIME 30 days 30 caps 1RF N40.1 - Benign prostatic hyperplasia with lower urinary tract symptoms, R35.0 - Frequency of micturition finasteride 5 mg PO DAILY 90 days 90 tabs 1RF N32.0 - Bladder-neck obstruction Patient Instructions: The patient had an opportunity to ask questions regarding the treatment plan. All questions were answered. Physical exam, labs, and imaging were discussed and reviewed in detail. As well as risks, benefits, and discussion of treatment choices. No major barriers to understanding were identified. The patient expressed understanding and agreement with the above treatment plan. The patient was made aware they should contact our office by phone for worsening of their current condition, the appearance of new symptoms, or with any questions or concerns. Compliance is encouraged with any medications and follow up testing that is ordered. It is a privilege to be allowed the opportunity to participate in? your urological care.? Again, if you have any questions or concerns If you have any questions or concerns please do not hesitate to contact me. The office is [phone]. This note is constructed using voice recognition software. While every effort has been made to ensure accuracy race and sports book writer errors may have been included. Yours sincerely, SHABANA De La Cruz Coding Level of Care Code Est Pt Level 3 (25542) Diagnoses BPH (benign prostatic hyperplasia) N40.0 Enlarged prostate N40.0 Urinary frequency R35.0 Nocturia R35.1 Elevated PSA R97.20 Weak urinary stream R39.12 CPT Codes Post Residual Void - PVR CPT Code: 49103-Haou Void Residual by ultrasound ([id number])
== END 2023-08-26 16:18 | disposition home or self-care (01) ==
PROVIDERS: PCP Family Medicine; Visit Provider Nurse Practitioner Family
DX: N40.0 Benign prostatic hyperplasia without lower urinary tract symptoms (principal); R35.0 Frequency of micturition; R35.1 Nocturia; R97.20 Elevated prostate specific antigen [PSA]; R39.12 Poor urinary stream
CPT/HCPCS: 99213

== ENCOUNTER → 2023-08-26 15:02 | Outpatient (BNVA) | payer MEDICAID, SELFPAY | PROVIDERS: PCP Family Medicine; Visit Provider Nurse Practitioner Family | DX: N40.1 Benign prostatic hyperplasia with lower urinary tract symptoms (principal); R35.0 Frequency of micturition; R35.1 Nocturia; R39.12 Poor urinary stream; R97.20 Elevated prostate specific antigen [PSA] | CPT/HCPCS: 51798; 81003; 99212 ==

== ENCOUNTER 2023-09-16 14:51 | Outpatient (AMB) | payer MEDICAID, SELFPAY ==
--- NOTE | 2023-09-16 15:09 | MHC.OFFVIS ---
Intake Intake Visit Reasons: cysto(Confirmed) Intake Note: Patient presents today for a Cysto Meds- Terazosin, Finasteride Allergies to Antibiotic- No Known Allergies Blood Thinner- None Urinalysis test clear for Cysto? Yes Disposable Uro-G Cystoscope Cannula: Lot: [id number] Exp: 11/30/2024 Ball Truing Machine Operator Required: No Accompanied by: Self / Same As Patient Allergies allantoin [From BLISTEX] Allergy (Unknown, Verified 09/16/23 15:17) LIP SWELLING homosalate [From BLISTEX] Allergy (Unknown, Verified 09/16/23 15:17) LIP SWELLING menthol [From BLISTEX] Allergy (Unknown, Verified 09/16/23 15:17) LIP SWELLING octinoxate [From BLISTEX] Allergy (Unknown, Verified 09/16/23 15:17) LIP SWELLING octyl salicylate [From BLISTEX] Allergy (Unknown, Verified 09/16/23 15:17) LIP SWELLING oxybenzone [From BLISTEX] Allergy (Unknown, Verified 09/16/23 15:17) LIP SWELLING padimate O [From BLISTEX] Allergy (Unknown, Verified 09/16/23 15:17) LIP SWELLING sodium chloride Allergy (Unknown, Verified 09/16/23 15:17) GUM SWELLING TO TABLE SALT ibuprofen [IBUPROFEN] Adverse Reaction (Unknown, Verified 09/16/23 15:17) STOMACH UPSET From BLISTEX Allergy (Unknown, Uncoded 09/16/23 15:17) LIP SWELLING ibuprofen Allergy (Unknown, Uncoded 09/16/23 15:17) gi upset HPI HPI Comments History of Present Illness Details Brendan is a pleasant male. He is a patient of Dr. Perkins. He seen for the following urologic conditions - lower urinary tract symptoms Here for cystoscopy Trilobar prostate Offered GreenLight laser Currently on combination therapy Lower urinary tract symptoms Progressive weakness of stream Noted to have enlarged prostate Trial of combination therapy Renal bladder ultrasound prostate volume 60 cc Cystoscopy with a large prostate PSA 11/09 2.8 PFSH Medical History Thrombosis Acid reflux Anxiety History of asthma B-cell chronic lymphocytic leukemia Family History Mother Liver cirrhosis Family/Other Thyroid cancer Breast cancer Social History Household Members: Family Household Members Other:: father Housing: Apartment Do you presently have visiting nurse or other home services: No Alcohol intake: current Alcohol intake frequency: a few times a month Patient Tobacco Use Status: Current everyday Tobacco user Tobacco use type: Cigarette Years Smoked: 18 Second Hand Smoke Exposure: No service: No Current occupational status: employed Review of Systems Const Denies chills and Denies fever(s) Card Reports no additional complaints and Denies syncope Resp Denies cough GI Denies abdominal pain and Denies heartburn Reports as per HPI and Denies change in libido Neuro Denies syncope Psych Denies change in libido Endo Denies change in libido Physical Exam Const General: cooperative, healthy appearing, comfortable and no acute distress Orientation/consciousness: patient oriented x3 HEENT Face and sinus: Yes normal facial exam Mouth: moist mucous membranes Neck Neck: Yes normal visual inspection, Yes full ROM and Yes trachea midline Chest Chest palpation & inspection: normal inspection of the chest Resp Effort & Inspection: normal respiratory effort, able to speak in complete sentences and no respiratory distress GI Inspection: Yes normal to inspection Back/Spine/Pelvis Cervical Spine: normal cervical lordosis Thoracic/Lumbar Spine: thoracic and lumbar spine normal to inspection Skin General skin exam: no rashes or lesions noted Neuro General: patient oriented x3, gait normal, tone normal and moves all extremities Extrem General: Yes normal to inspection and Yes capillary refill normal Office Procedures Cystoscopy Consent Discussed risk and benefit or proposed procedure with the patient. Information consent for procedure given to the patient. Discussed technical aspects, risks, benefits and alternatives in full. Addressed all of the patient's questions and concerns regarding the procedure. The patient demonstrated knowledge and understanding. They wish to proceed with this procedure. Preparation The patient was prepped in the usual manner. A coat check attendant was present and in the room. Genitalia was prepped with betadine solution in a sterile manner. Lidocaine Jelly 2% was placed into the urethra and 16Fr flexible Olympus cystoscope was inserted into the meatus after adequate lubrication. Procedure Meatus normal position Urethra anterior and posterior urethra normal Prostatic Urethra trilobar hypertrophy Bladder examination with retroflexion of cystoscope Bladder Orifices normal shape and position Bladder Capacity medium Trabeculations - Cellule Formation - Diverticulum Formation - Mucosal Erythema - Bladder Tumor - [id number]-[id number] DISPOSABLE SCOPE URO-G FLEXIBLE SCOPE Procedure code (CPT) selection complete Office Meds lidocaine HCl 2 % mucosal jelly in applicator Performing Provider: Russell Lopez MD Performing Location: [facility] Administered by: James Smith LPN on 09/16/23 15:15 Dose Route Admin Location Dispensed Lot Number Expiration Date ND Stock House Worker 10 mL intra-urethral 10 mL nitrofurantoin monohydrate/macrocrystals 100 mg capsule Performing Provider: Russell Lopez MD Performing Location: [facility] Administered by: James Smith LPN on 09/16/23 15:15 Dose Route Admin Location Dispensed Lot Number Expiration Date ND Stock House Worker 100 mg PO 1 cap naproxen 500 mg tablet Performing Provider: Russell Lopez MD Performing Location: [facility] Administered by: James Smith LPN on 09/16/23 15:15 Dose Route Admin Location Dispensed Lot Number Expiration Date ND Stock House Worker 500 mg PO 1 tab Results AMB Urinalysis, Automated UA Leukoctes 0 Ciara/uL Last Edit by Jayde Sawant [facility] on 09/16/23 15:19 UA Nitrite Negative [facility] on 09/16/23 15:19 UA Urobilinogen 0.2 mg/dL Last Edit by Jayde Sawantestefani Sawant [facility] on 09/16/23 15:19 UA Protein 0 mg/dL [facility] on 09/16/23 15:19 UA pH 6.0 [facility] on 09/16/23 15:19 UA Blood 0 Phuc/uL Last Edit by Jayde Sawantestefani Sawant [facility] on 09/16/23 15:19 UA Specific [place] 1.015 Last Edit by Jayde Sawantestefani Sawant [facility] on 09/16/23 15:19 UA Ketone Negative Last Edit by Jayde Sawantestefani Sawatn [facility] on 09/16/23 15:19 UA Bilirubin 0 mg/dL Last Edit by Jayde Sawantestefani Sawant [facility] on 09/16/23 15:19 UA Glucose 0 mg/dL Last Edit by Jayde Sawantestefani Sawant [facility] on 09/16/23 15:19 Assessment & Plan Assessment & Plan (1) Elevated PSA: Code(s): R97.20 - Elevated prostate specific antigen [PSA] (2) Enlarged prostate: Code(s): N40.0 - Benign prostatic hyperplasia without lower urinary tract symptoms Plan We discussed the nature of the decision and reasonable options for performing a prostate intervention. Interventions include TURP, GreenLight laser enucleation of the prostate, GreenLight laser ablation of the prostate, transurethral incision of the prostate, and I-Tend prostate procedure. Options such as medical therapy were discussed. The relative uncertainties and benefits related to each alternate procedure were adequately discussed. General surgical risks including, but not limited to, pain, bleeding, infection, myocardial infarction, pulmonary embolus, deep vein thrombosis and cerebrovascular accident which may result in further hospitalization were discussed. Full disclosure of the procedure as well as all major risks, benefits and complications were discussed including but not limited to damage to the urethra or bladder neck, recurrent BPH, retrograde ejaculation, bladder infection, urge, de jose manuel frequency, incomplete emptying, dysuria, remote chance of erectile dysfunction, epididymitis, and meatal stenosis. The success rate of the procedure was discussed. Success of the procedure in the short-term does not necessarily guarantee that long-term success will be maintained. Suitable follow up will need to be maintained. The patient showed understanding of discussion. An opportunity was provided for questions to be answered and wishes to proceed with the following procedure. - GreenLight laser prostate Orders: Orders AMB Urinalysis Automated Today R33.9 - Retention of urine, unspecified AMB Cystoscopy Today N40.0 - Benign prostatic hyperplasia without lower urinary tract symptoms, R35.0 - Frequency of micturition, R35.1 - Nocturia Patient Instructions: Imaging studies, laboratory and physical exam results were discussed and reviewed in detail. No major barriers to patient understanding were identified. An opportunity to ask questions regarding the treatment plan was provided. All questions were answered. The patient expressed understanding and agreement with the above treatment plan. The patient is aware they should contact our office by phone for worsening of their current condition or the appearance of new urologic symptoms. Compliance is encouraged with any medications and followup testing that is ordered. It is a privilege to participate in the urologic care of your patient. If you have any questions or concerns regarding treatment for the above conditions, or other urologic issues, please do not hesitate to contact me. The office telephone contact is [phone]. This note is constructed using voice recognition software. While every effort has been made to ensure accuracy hide sorter errors may have been included. Yours sincerely, Dr Russell Lopez MD, [facility] - Urology Providers of Expert, Compassionate Care for the Genitourinary System Coding Level of Care Code Est Pt Level 4 (69094) Diagnoses Elevated PSA R97.20 Enlarged prostate N40.0 CPT Codes Cystoscopy - CPT: 74352-[id number] ([id number])
== END 2023-09-16 15:41 | disposition home or self-care (01) ==
PROVIDERS: PCP Family Medicine; Visit Provider Urology
DX: N40.0 Benign prostatic hyperplasia without lower urinary tract symptoms (principal); R97.20 Elevated prostate specific antigen [PSA]; R39.12 Poor urinary stream
CPT/HCPCS: 52000; 99214

== ENCOUNTER → 2023-09-16 14:51 | Outpatient (BNVA) | payer MEDICAID, SELFPAY | PROVIDERS: PCP Family Medicine; Visit Provider Urology | DX: N40.0 Benign prostatic hyperplasia without lower urinary tract symptoms (principal); R97.20 Elevated prostate specific antigen [PSA] | CPT/HCPCS: 52000; 81003; 99212 ==

== ENCOUNTER 2023-10-11 22:32 | Emergency (ER) | payer MEDICAID, SELFPAY ==
--- NOTE | ~2023-10-11 | XR_ITS ---
EXAMINATION: XR LUMBOSACRAL SPINE CLINICAL INFORMATION: Low back pain. COMPARISON: None available. TECHNIQUE: Three views of the lumbosacral spine. FINDINGS: The alignment is within normal limits. There is mild diffuse thoracolumbar disc degenerative change with mild loss of disc space, mild endplate change and mild osteophyte formation. The bone mineralization is normal. There is no fracture. The soft tissues are unremarkable. XR/XR lumbar spine 2-3V IMPRESSION: Mild degenerative disc disease. No fracture.
[2023-10-11 22:35] VITALS: BP 132/84; PULSE 75; RESP 18; TEMP 36.6; O2SAT 98; BMI 35.8
--- NOTE | 2023-10-12 02:05 | PC.NURSE ---
Pt noted to be ambulating to and from wheelchair in bathroom area with steady gait
--- NOTE | 2023-10-12 02:40 | PC.NURSE ---
Pt remains in ED at this time - LWBS worksheet completed in error by this RN
--- NOTE | 2023-10-12 03:42 | ED_ITS ---
HPI - General Adult General Chief complaint: Back Pain/Injury Stated complaint: lwr nack pain/leg numb/just happened pinched nerve Time Seen by Provider: 10/12/23 03:31 History of Present Illness HPI narrative: The patient is a 48-year-old male with a history of low back pain who says that he has been having worsening low back pain over the last 3 days. He says that this evening things got much worse when he bent over from a standing position to pick something up off a chair. He says that he felt something pop in his lower back and then had severe pain and felt a sense of numbness in both legs. Related Data Home Medications Medication Instructions Recorded Confirmed clonazepam 1 mg tablet 1 tab PO DAILY PRN Allergy Symptoms 03/05/21 09/30/23 esomeprazole magnesium 20 mg 1 cap PO DAILY 03/05/21 09/30/23 capsule,delayed release (Nexium) fluticasone propionate 110 2 puff inhalation BID 03/05/21 09/30/23 mcg/actuation HFA aerosol inhaler (Flovent HFA) fluticasone propionate 50 1 spray intranasal BID 03/05/21 09/30/23 mcg/actuation nasal spray,suspension gabapentin 300 mg capsule 3 cap PO BEDTIME 03/05/21 09/30/23 levocetirizine 5 mg tablet (24HR 1 tab PO QPM 03/05/21 09/30/23 Allergy Relief) Previous Rx's Medication Instructions Recorded cyclobenzaprine 10 mg tablet 10 mg PO Q8H #20 tabs 06/13/21 finasteride 5 mg tablet 5 mg PO DAILY 90 days #90 tabs 08/26/23 terazosin 5 mg capsule 5 mg PO BEDTIME 90 days #90 caps 08/27/23 Allergies Allergy/AdvReac Type Severity Reaction Status Date / Time allantoin [From BLISTEX] Allergy Unknown LIP Verified 10/11/23 22:39 SWELLING homosalate [From BLISTEX] Allergy Unknown LIP Verified 10/11/23 22:39 SWELLING menthol [From BLISTEX] Allergy Unknown LIP Verified 10/11/23 22:39 SWELLING octinoxate [From BLISTEX] Allergy Unknown LIP Verified 10/11/23 22:39 SWELLING octyl salicylate Allergy Unknown LIP Verified 10/11/23 22:39 [From BLISTEX] SWELLING oxybenzone [From BLISTEX] Allergy Unknown LIP Verified 10/11/23 22:39 SWELLING padimate O [From BLISTEX] Allergy Unknown LIP Verified 10/11/23 22:39 SWELLING sodium chloride Allergy Unknown GUM Verified 10/11/23 22:39 SWELLING TO TABLE SALT ibuprofen [IBUPROFEN] AdvReac Unknown STOMACH Verified 10/11/23 22:39 UPSET From BLISTEX Allergy Unknown LIP Uncoded 09/30/23 15:42 SWELLING Review of Systems Review of Systems: Yes all other systems are reviewed and are negative [facility] Past Medical History Medical History Thrombosis Acid reflux Anxiety History of asthma B-cell chronic lymphocytic leukemia Family History Family History Mother Liver cirrhosis Family/Other Thyroid cancer Breast cancer Social History Social History Household Members: Family Household Members Other:: father Housing: Apartment Do you presently have visiting nurse or other home services: No Alcohol intake: current Alcohol intake frequency: a few times a month Patient Tobacco Use Status: Current everyday Tobacco user Tobacco use type: Cigarette Years Smoked: 18 Smoked in Last 30 Days: No Second Hand Smoke Exposure: No Use of substances other than those prescribed or required for medical reasons: No Advance Directives: No Advance Directives Information Provided: No service: No Current occupational status: employed Physical Exam ED Vital Signs: Vital Signs - 24 hr 10/11/23 22:35 10/12/23 06:29 10/12/23 07:38 Temperature 97.9 F 98.6 F 97.2 F Pulse Rate 75 76 61 Respiratory Rate 18 18 14 Blood Pressure 132/84 135/90 H 121/81 Pulse Oximetry 98 99 94 Oxygen Delivery Method Room Air Room Air Room Air BMI result Body Mass Index 35.8 Const Other: The patient is a somewhat chronically ill-appearing 48-year-old. He is awake and alert. He looks somewhat uncomfortable HENMT Other: Face is symmetrical. Mucous membranes moist Eyes Other: Pupils are round equal, conjunctivae are clear Neck Other: Moving his neck easily Resp Effort & Inspection: normal respiratory effort Auscultation: clear to auscultation bilaterally Cardio Rate: regular rate Rhythm: regular rhythm Heart sounds: S1 normal heart sound present and S2 normal heart sound present GI Other: Abdomen is soft and nontender Back/Spine/Pelvis Other: The patient is diffusely tender in the region of the lower lumbar spine and surrounding paraspinous tissues. Skin Other: Skin is dry and unremarkable Neuro Other: The patient is awake and alert with a normal mental status. Cranial nerves are grossly intact. He is able to move both of his legs but movement seems to some degree limited by pain rather than weakness. He is 2+ reflexes of the knees and ankles. Toes go down bilaterally. Sensation is intact in the lower extremities and also in the region. The patient was able to walk a little bit but seemed extremely uncomfortable. No footdrop. Extrem Other: No peripheral edema. No calf swelling or tenderness. Able to move the knees and ankles and hips. Medications Administered Discontinued Medications Generic Name Dose Route Start Last Admin Trade Name Freq PRN Reason Stop Dose Admin Acetaminophen 975 mg 10/12/23 03:40 10/12/23 04:19 Acetaminophen 325 Mg Tablet PO 10/12/23 03:41 975 mg ONCE ONE Administration Diazepam 5 mg 10/12/23 06:21 10/12/23 06:34 Diazepam 2 Mg Tablet PO 10/12/23 06:22 5 mg ONCE ONE Administration Hydromorphone HCl 1 mg 10/12/23 03:38 10/12/23 04:19 Hydromorphone Hcl 1 Mg/Ml Syringe IM 10/12/23 03:39 1 mg ONCE ONE Administration Protocol Ketorolac Tromethamine 30 mg 10/12/23 03:37 10/12/23 04:19 Ketorolac Tromethamine 30 Mg/Ml Vial IM 10/12/23 03:38 30 mg ONCE ONE Administration Lidocaine 2 patch 10/12/23 07:36 10/12/23 07:46 Lidocaine 4 % Patch Adh..Patch TRANSDERMA 10/12/23 07:37 2 patch ONCE ONE Administration Protocol Oxycodone HCl 5 mg 10/12/23 06:21 10/12/23 06:34 Oxycodone Hcl Immed Release 5 Mg Tablet PO 10/12/23 06:22 5 mg ONCE ONE Administration Oxycodone HCl 5 mg 10/12/23 07:33 10/12/23 07:43 Oxycodone Hcl Immed Release 5 Mg Tablet PO 10/12/23 07:34 5 mg ONCE ONE Administration Medical Decision Making Medical Decision Making [facility] Narrative: The patient presents for an acute exacerbation of low back pain that occurred when he bent while standing to pick something off a chair. There was no significant amount of force involved in the activity. He described having a sense of pain going down both legs. He has not showing any findings suggestive of cauda equina syndrome. He is able to void. A bladder scan was done with 140 mL volume. He then voided and his postvoid residual was essentially 0. He has no saddle anesthesia. Some weakness of the lower extremities that seems to be related more to pain than actual weakness. He has no associated fevers. He does not use IV drugs. The patient has ibuprofen listed as an allergy. He has not actually allergic to ibuprofen. He says that in 1996 he had been taking a lot of ibuprofen because of frequent headaches and he had a GI bleed. The patient was given an injection of IM ketorolac as well as an injection of IM hydromorphone as well as oral acetaminophen. He had only moderate improvement in his pain. He was then given 5 mg of diazepam orally and 5 mg of oxycodone orally. This again seemed to help somewhat but not to the point where he was able to walk easily. He was given another 5 mg of oxycodone and lidocaine patches. I have ordered a physical therapy consult because the patient lives in an apartment 1 floor up and I think it is not clear he would be able to function given his degree of pain. Also a case management consult. The patient will be signed out to the oncoming emergency physician pending a physical therapy evaluation. Lab Data Labs: Lab Results 10/12/23 Range/Units 06:41 Urine Color Dark Yellow Urine Appearance Clear Urine pH 5.5 (5.0-9.0) Ur Specific [place] >= 1.030 H (1.005-1.025) Urine Protein Negative (Neg-Trace) mg/dL Urine Glucose (UA) Negative (Negative) mg/dL Urine Ketones Negative (Negative) mg/dL Urine Blood Negative (Negative) Urine Nitrite Negative (Negative) Ur Leukocyte Esterase Negative (Negative) Discharge Plan Discharge Clinical Impression: Severe low back pain Patient Disposition: Still a Patient Prescriptions: No Action terazosin 5 mg capsule 5 mg PO BEDTIME 90 Days Qty: 90 0RF clonazepam 1 mg tablet 1 tab PO DAILY PRN (Reason: Allergy Symptoms) gabapentin 300 mg capsule 3 cap PO BEDTIME fluticasone propionate 50 mcg/actuation spray,suspension 1 spray intranasal BID fluticasone propionate [Flovent HFA] 110 mcg/actuation HFA aerosol inhaler 2 puff inhalation BID esomeprazole magnesium [Nexium] 20 mg capsule,delayed release(DR/EC) 1 cap PO DAILY levocetirizine [24HR Allergy Relief] 5 mg tablet 1 tab PO QPM cyclobenzaprine 10 mg tablet 10 mg PO Q8H Qty: 20 0RF finasteride 5 mg tablet 5 mg PO DAILY 90 Days Qty: 90 1RF Interventions: LWBS Worksheet Last Done: 10/12/23 02:35
[2023-10-12] MEDS: Ketorolac Tromethamine 30 MG/ML VIAL IM ×2 (04:19→09:38)
[2023-10-12] MEDS: Acetaminophen 325 MG TABLET 975 MG PO (04:19)
[2023-10-12] MEDS: HYDROmorphone HCl 1 MG/ML SYRINGE IM (04:19)
[2023-10-12 06:29] VITALS: BP 135/90; PULSE 76; RESP 18; TEMP 37; O2SAT 99
[2023-10-12] MEDS: oxyCODONE HCl Immed Release 5 MG TABLET PO ×2 (06:34→07:43)
[2023-10-12] MEDS: diazePAM 2 MG TABLET 5 MG PO (06:34)
[2023-10-12 07:20] LABS: Appearance Urine Clear; Color Urine Dark Yellow; Glucose Urine UA Negative (Negative); Leukocyte Esterase Urine Negative (Negative); Nitrite Urine Negative (Negative); PH 5.5 (5.0-9.0); Specific Gravity - Urine >= 1.030 (1.005-1.025); Urine Blood Negative (Negative); Urine Ketones Negative (Negative); Urine Protein Negative (Neg-Trace)
[2023-10-12 07:38] VITALS: BP 121/81; PULSE 61; RESP 14; TEMP 36.2; O2SAT 94
[2023-10-12] MEDS: Lidocaine 4 % Patch ADH..PATCH 2 PATCH TRANSDERMA (07:46)
--- NOTE | 2023-10-12 09:33 | PC.NURSE ---
sleeping and easily woken, states pain still severe with any movement
[2023-10-12 09:43] VITALS: BP 109/69; PULSE 61; RESP 19; O2SAT 91
[2023-10-12 10:22] LABS: COVID-19 Test Negative (Negative); IDNOW Serial# 152EDE1D
[2023-10-12 12:02] VITALS: BP 121/67; PULSE 69; RESP 20; TEMP 36.4; O2SAT 98
[2023-10-12 12:58] VITALS: BP 121/67; PULSE 69; RESP 20; TEMP 36.4; O2SAT 98
--- NOTE | 2023-10-12 13:17 | MHC.CM.ED ---
Received case management consult from Dr Foster. Patient came to the ER due to back pain. Work up essentially negative. Physical therapy eval completed. Outpatient therapy is recommended. Attempted to meet with patient in regards to discharge planning. Patient already d/c'd from ER. dietetic assistant has been asked to arragne follow up PCP appointment so that outpatient physical therapy can be arranged. Continue to monitor for d/c needs.
== END 2023-10-12 12:59 | disposition home or self-care (01) ==
PROVIDERS: Emergency Provider Emergency Medicine; PCP Family Medicine
DX: M54.50 Low back pain, unspecified (principal); Z11.52 Encounter for screening for COVID-19
CPT/HCPCS: 72100; 81003; 87635; 96372; 97161; 99285; J1170; J1885

== ENCOUNTER 2023-12-02 14:55 | Outpatient (AMB) | payer MEDICAID, SELFPAY ==
--- NOTE | 2023-12-02 14:55 | A.OFFVIS_ITS ---
Intake Visit Reasons: H&P [facility] Intake Note: Patient is presents today via telephone for a follow up [facility]P [facility] Medications: finasteride, terazosin Blood Thinner: none Direct Marketing Executive Required: No Accompanied by: Self / Same As Patient Allergies allantoin [From BLISTEX] Allergy (Unknown, Verified 12/07/23 06:21) LIP SWELLING homosalate [From BLISTEX] Allergy (Unknown, Verified 12/07/23 06:21) LIP SWELLING menthol [From BLISTEX] Allergy (Unknown, Verified 12/07/23 06:21) LIP SWELLING octinoxate [From BLISTEX] Allergy (Unknown, Verified 12/07/23 06:21) LIP SWELLING octyl salicylate [From BLISTEX] Allergy (Unknown, Verified 12/07/23 06:21) LIP SWELLING oxybenzone [From BLISTEX] Allergy (Unknown, Verified 12/07/23 06:21) LIP SWELLING padimate O [From BLISTEX] Allergy (Unknown, Verified 12/07/23 06:21) LIP SWELLING sodium chloride Allergy (Unknown, Verified 12/07/23 06:21) GUM SWELLING TO TABLE SALT ibuprofen [IBUPROFEN] Adverse Reaction (Unknown, Verified 12/07/23 06:21) STOMACH UPSET From BLISTEX Allergy (Unknown, Uncoded 12/07/23 06:21) LIP SWELLING HPI Comments Details: Brendan is a pleasant male. He is a patient of Dr. Perkins. He seen for the following urologic conditions - lower urinary tract symptoms Telemedicine Evaluation 15 min Consultation [employer] James Video Findings on cystoscopy - Trilobar prostate He would like to be scheduled for GreenLight laser Lower urinary tract symptoms Progressive weakness of stream Noted to have enlarged prostate Trial of combination therapy Renal bladder ultrasound prostate volume 60 cc Cystoscopy with a large prostate PSA 11/09 2.8 PFSH Medical History (Updated 01/11/24 @ 21:30 by Russell Lopez MD) BPH (benign prostatic hyperplasia) Hyperlipidemia Sleep apnea Thrombosis Acid reflux Anxiety History of asthma B-cell chronic lymphocytic leukemia Surgical History History of bronchoscopy Family History Mother Liver cirrhosis Family/Other Thyroid cancer Breast cancer Social History Household Members: Family Household Members Other:: father Housing: Apartment Do you presently have visiting nurse or other home services: No Alcohol intake: current Alcohol intake frequency: holidays/special occasions only Patient Tobacco Use Status: Former Tobacco user Tobacco use type: Cigarette Years Smoked: 18 Second Hand Smoke Exposure: No service: No Current occupational status: employed Review of Systems Const All systems reviewed & are unremarkable except as noted in HPI and below Reports no additional complaints Resp Reports no additional complaints GI Reports no additional complaints Reports as per HPI Musc Reports no additional complaints Physical Exam Telemedicine evaluation Appropriate responses Regular breathing rate and rhythm HEENT Head: Yes normal to inspection Ears: hearing grossly normal bilaterally Eyes General: appearance normal, both eyes and all related structures Neck Neck: Yes normal visual inspection Chest Chest palpation & inspection: normal inspection of the chest Resp Effort & Inspection: normal respiratory effort and able to speak in complete sentences Telehealth Telehealth Telehealth Platform: [facility] Location of provider rendering services: practice address Location of patient: address on file Patient Identification confirmed using: Name, : Yes Telehealth method: video Patient verbally consented to treatment: Yes Patient verbally consented to billing insurance company: Yes Patient informed of any privacy concerns related to visit: Yes Minutes spent on Phone/Video with Pt.: 15 Assessment & Plan Assessment & Plan (1) Weak urinary stream: Code(s): R39.12 - Poor urinary stream Category: Medical (2) Elevated PSA: Code(s): R97.20 - Elevated prostate specific antigen [PSA] Category: Medical (3) Bladder outlet obstruction: Code(s): N32.0 - Bladder-neck obstruction Category: Medical Plan We discussed the nature of the decision and reasonable options for performing a prostate intervention. Interventions include TURP, GreenLight laser enucleation of the prostate, GreenLight laser ablation of the prostate, transurethral incision of the prostate, and I-Tend prostate procedure. Options such as medical therapy were discussed. The relative uncertainties and benefits related to each alternate procedure were adequately discussed. General surgical risks including, but not limited to, pain, bleeding, infection, myocardial infarction, pulmonary embolus, deep vein thrombosis and cerebrovascular accident which may result in further hospitalization were discussed. Full disclosure of the procedure as well as all major risks, benefits and complications were discussed including but not limited to damage to the urethra or bladder neck, recurrent BPH, retrograde ejaculation, bladder infection, urge, de jose amnuel frequency, incomplete emptying, dysuria, remote chance of erectile dysf unction, epididymitis, and meatal stenosis. The success rate of the procedure was discussed. Success of the procedure in the short-term does not necessarily guarantee that long-term success will be maintained. Suitable follow up will need to be maintained. The patient showed understanding of discussion. An opportunity was provided for questions to be answered and wishes to proceed with the following procedure. - GreenLight laser Patient Instructions: Imaging studies, laboratory and physical exam results were discussed and reviewed in detail. No major barriers to patient understanding were identified. An opportunity to ask questions regarding the treatment plan was provided. All questions were answered. The patient expressed understanding and agreement with the above treatment plan. The patient is aware they should contact our office by phone for worsening of their current condition or the appearance of new urologic symptoms. Compliance is encouraged with any medications and followup testing that is ordered. It is a privilege to participate in the urologic care of your patient. If you have any questions or concerns regarding treatment for the above conditions, or other urologic issues, please do not hesitate to contact me. The office telephone contact is [phone]. This note is constructed using voice recognition software. While every effort has been made to ensure accuracy hoop maker helper machine errors may have been included. Yours sincerely, Dr Russell Lopez MD, [facility] - Urology Providers of Expert, Compassionate Care for the Genitourinary System Coding Level of Care Code Tele Est Pt Level 4 (50776) Diagnoses Weak urinary stream R39.12 Elevated PSA R97.20 Bladder outlet obstruction N32.0
== END 2023-12-02 15:42 | disposition home or self-care (01) ==
LOC: HO.HUSH 14:55
PROVIDERS: PCP Family Medicine; Visit Provider Urology
DX: R39.12 Poor urinary stream (principal); R97.20 Elevated prostate specific antigen [PSA]; N32.0 Bladder-neck obstruction
CPT/HCPCS: 99213

== ENCOUNTER → 2023-12-02 14:55 | Outpatient (BNVA) | payer MEDICAID, SELFPAY | PROVIDERS: PCP Family Medicine; Visit Provider Urology ==

== ENCOUNTER 2023-12-03 15:24 | Outpatient (REF) | payer MEDICAID, SELFPAY ==
--- NOTE | ~2023-12-03 | MR_ITS ---
EXAMINATION: MR LUMBAR SPINE WITHOUT CONTRAST CLINICAL INFORMATION: Low back pain COMPARISON: MRI lumbar spine on 12/25/2009 TECHNIQUE: MRI of the lumbar spine was obtained using routine sequences without contrast. FINDINGS: The visualized lumbar vertebrae are intact with normal alignment. No focal bone lesion with abnormal signal can be seen. Evaluation of the intervertebral discs show: T12/L1: Intervertebral disc height is normal, with normal T2 signal. No focal disc herniation is seen. Bilateral T12/L1 neuroforamina are patent. Bilateral apophyseal joints are intact with normal alignment. L-1/L-2: Intervertebral disc height is normal, with normal T2 signal. No focal disc herniation is seen. Bilateral L1-L2 neuroforamina are patent. Bilateral apophyseal joints are intact with normal alignment. L2/L3: Intervertebral disc height is normal, with normal T2 signal. No focal disc herniation is seen. Bilateral L2-L3 neuroforamina are patent. Bilateral apophyseal joints are intact with normal alignment. L3/L4: Intervertebral disc height is mildly decreased, with mild loss of T2 signal. Mild posterior disc protrusion is seen. Bilateral L3-L4 neuroforamina are patent. Bilateral apophyseal joints are intact with normal alignment. L4/L5: Intervertebral disc height is normal, with normal T2 signal. No focal disc herniation is seen. Bilateral L4-L5 neuroforamina are markedly stenosed. Bilateral apophyseal joints are intact with normal alignment. Bilateral apophyseal joints show loss of joint space, sclerosis, facet hypertrophy and osteophytosis. L5/S1: Intervertebral disc height is normal, with moderate loss of T2 signal. Mild posterior disc protrusion is seen. Bilateral L5-S1 neuroforamina are patent. Bilateral apophyseal joints are intact with normal alignment. Conus medullaris is seen normally at L1 level. MR/MR lumbar spine wo con IMPRESSION: 1. Interval development of Mild degenerative disc disease at L3-L4 and L5-S1. 2. Interval development of Marked bilateral L4-L5 neural foraminal stenosis. 3. 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
== END 2023-12-03 15:25 | disposition home or self-care (01) ==
LOC: HO.MRI 15:24
PROVIDERS: PCP Family Medicine; Visit Provider Internal Medicine
DX: M54.50 Low back pain, unspecified (principal); G89.29 Other chronic pain
CPT/HCPCS: 72148

== ENCOUNTER 2023-12-07 06:06 | Day surgery (SDC) | payer MEDICAID, SELFPAY ==
[2023-12-03 08:09] VITALS: BMI 35.8
--- NOTE | 2023-12-03 13:55 | P.CONAN_ITS ---
HPI - Anesthesia Eval Consult details Narrative: 48yo M for Laser Ablation Prostate w/Green Light [place] [facility] [place] for: 1.) Small lymphocytic leukemia SLL, presenting with neck adenopathy in 2008, status post treatment with R-CVP regimen. He is doing well and remains asymptomatic. No evidence of disease recurrence. 2.) Sarcoidosis presenting as diffuse mediastinal lymphadenopathy. EBUS at [facility], biopsy showed nonnecrotizing granuloma in a subcarinal lymph node suggestive of sarcoidosis. Flow cytometry and immunophenotype did not show evidence of lymphoproliferative disorder. Last imaging in February 2021 shows stable mediastinal lymphadenopathy. [facility] Active Problems Active Problems: All Active Problems Weak urinary stream (Acute) Elevated PSA (Acute) Enlarged prostate (Acute) Obesity (BMI 30-39.9) (Acute) Back pain (Acute) Sarcoidosis (Acute) BPH (benign prostatic hyperplasia) (Acute) Urinary frequency (Acute) Nocturia (Acute) Acute hypoxemic respiratory failure (Acute) URI (upper respiratory infection) (Acute) Acute viral syndrome (Acute) Asthma exacerbation (Acute) Bronchitis (Acute) B-cell lymphoma (Chronic) Thrombosis (Acute) History of asthma (Acute) B-cell chronic lymphocytic leukemia (Acute) Anxiety (Acute) Acid reflux (Acute) Past Medical History Medical History Hyperlipidemia Sleep apnea Thrombosis Acid reflux Anxiety History of asthma B-cell chronic lymphocytic leukemia Family History Family History Mother Liver cirrhosis Family/Other Thyroid cancer Breast cancer Surgical History Surgical History History of bronchoscopy Social History Social History Household Members: Family Household Members Other:: father Housing: Apartment Do you presently have visiting nurse or other home services: No Alcohol intake: current Alcohol intake frequency: holidays/special occasions only Patient Tobacco Use Status: Former Tobacco user Quit Date: 4mos ago (Aug 2023) Tobacco use type: Cigarette Years Smoked: 18 Second Hand Smoke Exposure: No service: No Current occupational status: employed Meds Allergies Allergy/AdvReac Type Severity Reaction Status Date / Time allantoin [From BLISTEX] Allergy Unknown LIP Verified 12/07/23 06:21 SWELLING homosalate [From BLISTEX] Allergy Unknown LIP Verified 12/07/23 06:21 SWELLING menthol [From BLISTEX] Allergy Unknown LIP Verified 12/07/23 06:21 SWELLING octinoxate [From BLISTEX] Allergy Unknown LIP Verified 12/07/23 06:21 SWELLING octyl salicylate Allergy Unknown LIP Verified 12/07/23 06:21 [From BLISTEX] SWELLING oxybenzone [From BLISTEX] Allergy Unknown LIP Verified 12/07/23 06:21 SWELLING padimate O [From BLISTEX] Allergy Unknown LIP Verified 12/07/23 06:21 SWELLING sodium chloride Allergy Unknown GUM Verified 12/07/23 06:21 SWELLING TO TABLE SALT ibuprofen [IBUPROFEN] AdvReac Unknown STOMACH Verified 12/07/23 06:21 UPSET From BLISTEX Allergy Unknown LIP Uncoded 12/07/23 06:21 SWELLING Home Medications ?Medication ?Instructions ?Recorded ?Confirmed ?Last Taken ?Type clonazepam 1 mg tablet 1 tab PO DAILY PRN Allergy Symptoms 03/05/21 12/07/23 Unknown History esomeprazole magnesium 20 mg 1 cap PO DAILY 03/05/21 12/07/23 Unknown History capsule,delayed release (Nexium) fluticasone propionate 110 2 puff inhalation BID 03/05/21 12/07/23 Unknown History mcg/actuation HFA aerosol inhaler (Flovent HFA) fluticasone propionate 50 1 spray intranasal BID 03/05/21 12/07/23 Unknown History mcg/actuation nasal spray,suspension gabapentin 300 mg capsule 3 cap PO BEDTIME 03/05/21 12/07/23 Unknown History levocetirizine 5 mg tablet (24HR 1 tab PO QPM 03/05/21 12/07/23 Unknown History Allergy Relief) Exam Height,Weight and Vital Signs: Height 5 ft 6 in Weight 100.698 kg Pertinent Lab Results Pertinent Lab Results: Laboratory Tests 09/30/23 15:38 WBC 8.3 Hgb 15.2 Hct 43.4 Plt Count 201 Sodium 139 Potassium 3.9 Chloride 106 Carbon Dioxide 27 BUN 15 Creatinine 0.74 Assessment and Plan Assessment Anesthesia Assessment: Chart Reviewed
[2023-12-07 06:36] VITALS: BMI 35.5
[2023-12-07 06:37] VITALS: BP 137/79; PULSE 82; RESP 18; TEMP 36.9; O2SAT 96
[2023-12-07] MEDS: Lactated Ringers 1,000 ML 100 ML IVCONT (06:50)
--- NOTE | 2023-12-07 07:35 | MHC.SHP ---
Pre-Procedural Eval Section A - 24 Hr Update-Section A only Date of Service: 12/07/23 The patient is an INPATIENT: No Changes since office visit: No Cold of Flu in the past 2 weeks, No New Medical Problems, No Changes in Medication and No Patient answered all questions The patient has been examined within 24 hours of the surgical procedure. The History & Physical has been completed within 30 days and I have reviewed it.: Yes Section B - Complete if H&P > 30 days Chief Complaint: Benign prostatic hyperplasia without lower urinary Allergies: Allergies Allergy/AdvReac Type Severity Reaction Status Date / Time allantoin [From BLISTEX] Allergy Unknown LIP Verified 12/07/23 06:21 SWELLING homosalate [From BLISTEX] Allergy Unknown LIP Verified 12/07/23 06:21 SWELLING menthol [From BLISTEX] Allergy Unknown LIP Verified 12/07/23 06:21 SWELLING octinoxate [From BLISTEX] Allergy Unknown LIP Verified 12/07/23 06:21 SWELLING octyl salicylate Allergy Unknown LIP Verified 12/07/23 06:21 [From BLISTEX] SWELLING oxybenzone [From BLISTEX] Allergy Unknown LIP Verified 12/07/23 06:21 SWELLING padimate O [From BLISTEX] Allergy Unknown LIP Verified 12/07/23 06:21 SWELLING sodium chloride Allergy Unknown GUM Verified 12/07/23 06:21 SWELLING TO TABLE SALT ibuprofen [IBUPROFEN] AdvReac Unknown STOMACH Verified 12/07/23 06:21 UPSET From BLISTEX Allergy Unknown LIP Uncoded 12/07/23 06:21 SWELLING Plan Diagnosis/Plan: Unchanged (GreenLight laser prostate enucleation) I have reviewed the history and physical and performed a pertinent physical examination on my patient. No changes have occurred unless specified. Time Spent With Patient Time: Total time managing care of this patient today ____ minutes.
--- NOTE | 2023-12-07 08:06 | P.CONAN_ITS ---
[facility] Active Problems Active Problems: All Active Problems Weak urinary stream (Acute) Elevated PSA (Acute) Enlarged prostate (Acute) Obesity (BMI 30-39.9) (Acute) Back pain (Acute) Sarcoidosis (Acute) BPH (benign prostatic hyperplasia) (Acute) Urinary frequency (Acute) Nocturia (Acute) Acute hypoxemic respiratory failure (Acute) URI (upper respiratory infection) (Acute) Acute viral syndrome (Acute) Asthma exacerbation (Acute) Bronchitis (Acute) B-cell lymphoma (Chronic) Thrombosis (Acute) History of asthma (Acute) B-cell chronic lymphocytic leukemia (Acute) Anxiety (Acute) Acid reflux (Acute) Past Medical History Medical History Hyperlipidemia Sleep apnea Thrombosis Acid reflux Anxiety History of asthma B-cell chronic lymphocytic leukemia Functional capacity: independent ambulation Family History Family History Mother Liver cirrhosis Family/Other Thyroid cancer Breast cancer Family history of problems with anesthesia: No Surgical History Surgical History History of bronchoscopy History of Problems with Anesthesia: No Social History Social History Household Members: Family Household Members Other:: father Housing: Apartment Do you presently have visiting nurse or other home services: No Alcohol intake: current Alcohol intake frequency: holidays/special occasions only Patient Tobacco Use Status: Former Tobacco user Quit Date: 4mos ago (Aug 2023) Tobacco use type: Cigarette Years Smoked: 18 Second Hand Smoke Exposure: No Use of substances other than those prescribed or required for medical reasons: No Are you DNR?: No Advance Directives: No Advance Directives Information Provided: Yes service: No Current occupational status: employed Meds Allergies Allergy/AdvReac Type Severity Reaction Status Date / Time allantoin [From BLISTEX] Allergy Unknown LIP Verified 12/07/23 06:21 SWELLING homosalate [From BLISTEX] Allergy Unknown LIP Verified 12/07/23 06:21 SWELLING menthol [From BLISTEX] Allergy Unknown LIP Verified 12/07/23 06:21 SWELLING octinoxate [From BLISTEX] Allergy Unknown LIP Verified 12/07/23 06:21 SWELLING octyl salicylate Allergy Unknown LIP Verified 12/07/23 06:21 [From BLISTEX] SWELLING oxybenzone [From BLISTEX] Allergy Unknown LIP Verified 12/07/23 06:21 SWELLING padimate O [From BLISTEX] Allergy Unknown LIP Verified 12/07/23 06:21 SWELLING sodium chloride Allergy Unknown GUM Verified 12/07/23 06:21 SWELLING TO TABLE SALT ibuprofen [IBUPROFEN] AdvReac Unknown STOMACH Verified 12/07/23 06:21 UPSET From BLISTEX Allergy Unknown LIP Uncoded 12/07/23 06:21 SWELLING Active Medications: Current Medications Albuterol Sulfate (Albuterol Sulfate (0.083%) 2.5 Mg/3 Ml Vial.Neb) 2.5 mg INHALE ONCE PRN PRN Reason: Shortness of Breath/Wheezing Lactated Ringer's (Lr) 1,000 mls @ 100 mls/hr IVCONT .Q10H CHERYL Last Admin: 12/07/23 06:50 Dose: 100 mls/hr Levofloxacin (Levaquin) 500 mg in 100 mls @ 100 mls/hr IV PREOP ONE Stop: 12/07/23 08:33 Home Medications ?Medication ?Instructions ?Recorded ?Confirmed ?Last Taken ?Type clonazepam 1 mg tablet 1 tab PO DAILY PRN Allergy Symptoms 03/05/21 12/07/23 Unknown History esomeprazole magnesium 20 mg 1 cap PO DAILY 03/05/21 12/07/23 Unknown History capsule,delayed release (Nexium) fluticasone propionate 110 2 puff inhalation BID 03/05/21 12/07/23 Unknown History mcg/actuation HFA aerosol inhaler (Flovent HFA) fluticasone propionate 50 1 spray intranasal BID 03/05/21 12/07/23 Unknown History mcg/actuation nasal spray,suspension gabapentin 300 mg capsule 3 cap PO BEDTIME 03/05/21 12/07/23 Unknown History levocetirizine 5 mg tablet (24HR 1 tab PO QPM 03/05/21 12/07/23 Unknown History Allergy Relief) Exam Height,Weight and Vital Signs: Height 5 ft 6 in Weight 99.79 kg Last Vital Signs Temp 98.5 F 12/07/23 06:37 Pulse 82 12/07/23 06:37 Resp 18 12/07/23 06:37 BP 137/79 12/07/23 06:37 Pulse Ox 96 12/07/23 06:37 O2 Del Method Room Air 12/07/23 06:37 Airway Mallampati Class: III TM Dist: >3cm Neck ROM: Full Heart: RRR Lungs: CTA Assessment and Plan Assessment Anesthesia Assessment: Anesthesia Plan Discussed Final Anesthetic Review Family History of Problems with Anesthesia: No History of Problems with Anesthesia: No ASA Class: III Final Preanesthetic Review: Meds/Allgs Chart Reviewed, Consent Obtained/Reviewed and Anes Risks/Benef Reviewed Patient Risk: Intermediate Procedure Risk: Low Anesthetic Plan Anesthetic Plan: GA Disposition: Standard PACU
--- NOTE | 2023-12-07 08:34 | W.PM.OPN ---
Operative Note Operative Note Date of Service: 12/07/23 Narrative: PreOperative Diagnosis: Bladder outlet obstruction Post Operative Diagnosis: Bladder outlet obstruction Procedure: GreenLight Laser Enucleation of the prostate CPT 05355 Surgeon: Dr Russell Lopez Anesthesia: General History of bladder outlet obstruction. Treated with alpha-loki and other medications. Still with symptoms. On cystoscopy in office has trilobar prostate 60gm. Recommendation for prostate procedure with laser enucleation of prostate. Risks and benefits have been discussed. Focus was placed on development of retrograde ejaculation which is a normal part of this procedure. Procedure: After informed consent was verified the patient was brought to the operating room and placed in a supine position. Anesthesia was administered per protocol. Patient was placed in modified dorsal lithotomy position and prepped and draped in a sterile fashion. Safety pause time-out was confirmed. Antibiotics have been given. A Twenty-four Austrian laser cystoscope was inserted per urethra. No abnormalities were found of the anterior and bulbar urethra. The bladder was examined and both ureteric orifices were seen in their normal positions away from the area of interest. Using a GreenLight laser with settings of 80 w incisions were made at the 5 and 7 o'clock position. The incisions were taken down from the bladder neck down to the level of the veru. These were gradually deepened in order to define the lateral aspects of the median lobe area. Once clearly defined they will also extended in the lateral directions in order to create a deep groove. The median lobe was then ablated and enucleated tissue released into the bladder with the laser power increased to 120 W. Once the median lobe area had been cleared attention was directed to the lateral lobes. Starting with the patient's left lateral lobe. First the 05:00 o'clock groove was further developed. This was moved in the lateral direction to undermine the tissue on the lateral side running from the bladder neck to the prostate apex. Focus was then placed on the laser at the 1 o'clock position to developing a secondary groove down to the level of bladder fibers. The creation of a second deep groove defined a segment of intervening tissue similar to a slice of orange. At the apex of the prostate the 2 grooves were linked the us releasing the intervening tissue. This tissue was then removed with a combination of enucleation and ablation working from the apex toward the bladder neck. A similar procedure was repeated on the patient's right-hand side. The only differences being the position of the lateral groove at he 7 'oclock positioin and the secondary groove at the 11 o'clock position, Otherwise the procedure was developed in a mirror fashion. After the majority of tissue had been debulked remnant tissue was ablated with the side fire laser and the curve of the prostate followed up each side wall clearly defining the anterior remnant strip that remained between the 11 and 1 o'clock positions. When this was had been completed debris and pieces of prostate were removed from the bladder with irrigation. Both ureteric orifices were reviewed again in shown to be patent in away from any areas of energy damage. The apical area was reviewed in any stray ooze was controlled. A 22 Austrian 30 cc balloon Olguin catheter was placed over a stylet into the bladder. Clear efflux was obtained upopn irrigation with a Pillo piston syringe. 30 cc was placed in the balloon and gentle traction was placed. A snap was used to hold tension on the catheter to control bleeding during patient moved and transported. A drainage bag was placed. Once transportation is complete to the PACU the snap will be removed. The patient tolerated the procedure well, he was extubated in the operating and transferred in a stable condition to the recovery area. Total Power 124 kW Lasing time 18:51 Pathology: Prostate tissue Drains: Olguin catheter
[2023-12-07 08:43] VITALS: BP 117/76; PULSE 113; RESP 16; TEMP 36.7; O2SAT 95
[2023-12-07 08:48] VITALS: BP 114/84; PULSE 98; RESP 18; O2SAT 96
[2023-12-07 08:53] VITALS: BP 135/80; PULSE 100; RESP 18; O2SAT 96
[2023-12-07 08:58] VITALS: BP 142/82; PULSE 98; RESP 18; O2SAT 97
[2023-12-07 09:15] VITALS: BP 136/84; PULSE 85; RESP 18; O2SAT 95
--- NOTE | 2023-12-07 14:57 | HO.POSTANES ---
Post Anesthesia Evaluation Post Anesthesia Evaluation Date of Service: 12/07/23 Vital Signs: Vital Signs Temp Pulse Resp BP Pulse Ox O2 Del Method 12/07/23 09:15 85 18 136/84 95 Room Air 12/07/23 08:58 98 18 142/82 H 97 12/07/23 08:53 100 18 135/80 96 12/07/23 08:48 98 18 114/84 96 Room Air 12/07/23 08:43 98.1 F 113 H 16 117/76 95 Room Air 12/07/23 06:37 98.5 F 82 18 137/79 96 Room Air Anesthesia: General LMA Mental Status: Awake Pain Control: Satisfactory Nausea/Vomiting: None Hydration: Adequate Anesthesia-Related Issues: No Anes. Related Issues
== END 2023-12-07 10:17 | disposition home or self-care (01) ==
PROVIDERS: PCP Family Medicine; Visit Provider Urology
PROC: (CPT 52648; principal; 2023-12-07 07:30)
DX: N40.0 Benign prostatic hyperplasia without lower urinary tract symptoms (principal); N32.0 Bladder-neck obstruction; C91.10 Chronic lymphocytic leukemia of B-cell type not having achieved remission; Z79.899 Other long term (current) drug therapy; Z88.6 Allergy status to analgesic agent; Z88.8 Allergy status to other drugs, medicaments and biological substances
CPT/HCPCS: 52649; 88305; J1100; J1956; J2250; J2405; J2704; J3010

== ENCOUNTER → 2023-12-07 06:06 | Outpatient (BNV) | payer MEDICAID, SELFPAY | PROVIDERS: PCP Family Medicine; Visit Provider Urology | DX: N32.0 Bladder-neck obstruction (principal) | CPT/HCPCS: 52649 ==

== ENCOUNTER → 2023-12-10 08:47 | Outpatient (BNVA) | payer MEDICAID, SELFPAY | PROVIDERS: PCP Family Medicine; Visit Provider Urology | DX: N40.0 Benign prostatic hyperplasia without lower urinary tract symptoms (principal) | CPT/HCPCS: 51700; 51798 ==

== ENCOUNTER 2023-12-31 15:29 | Outpatient (REF) | payer MEDICAID, SELFPAY ==
[2023-12-31 16:26] LABS: Estimated Average Glucose 111 mg/dL; Hemoglobin A1c % 5.5 % (<6.0)
[2023-12-31 16:35] LABS: Alanine Aminotransferase 43 U/L (0-40); Albumin Level 4.2 g/dL (3.5-5.0); Alkaline Phosphatase 112 U/L (39-117); Anion Gap 11 (12-20); Aspartate Amino Transferase 24 U/L (5-37); Bilirubin Total 0.5 mg/dL (0.0-1.0); Blood Urea Nitrogen 14 mg/dL (9-16); Calcium 9.3 mg/dL (8.4-10.2); Carbon Dioxide 27 mmol/L (22-29); Chloride 106 mmol/L (96-108); Cholesterol 176 mg/dL (<200); Estimated Glomerular Filt Rate > 60; Glucose Random 119 mg/dL (60-115); HDL Cholesterol 50 mg/dL (>40); LDL Cholesterol Calculated 92 mg/dL (<100); Potassium 4.5 mmol/L (3.3-5.1); Sodium 139 mmol/L (135-145); Total Protein 7.1 g/dL (6.5-8.0); Triglycerides 174 mg/dL (<150)
[2023-12-31 16:49] LABS: TSH reflex Free T4 1.32 uIU/mL (0.32-4.0)
[2023-12-31 17:43] LABS: Reflex LDLD? No
== END 2023-12-31 15:30 | disposition home or self-care (01) ==
LOC: HO.HHCL 15:29
PROVIDERS: Visit Provider Family Medicine
DX: E78.2 Mixed hyperlipidemia (principal)
CPT/HCPCS: 36415; 80053; 80061; 83036; 84443

== ENCOUNTER 2024-02-03 15:28 | Outpatient (AMB) | payer MEDICAID, SELFPAY ==
--- NOTE | 2024-02-03 16:00 | MHC.OFFVIS ---
Intake Visit Reasons: PVR-GreenLight(12/06) Intake Note: Patient is Present for PVR/ Urology Med:Terazosin, Finasteride Antibiotic Allergy: None Blood Thinner: None Todays PVR: 29 Rubber Compounder Mixer Required: No Allergies allantoin [From BLISTEX] Allergy (Unknown, Verified 02/03/24 16:01) LIP SWELLING homosalate [From BLISTEX] Allergy (Unknown, Verified 02/03/24 16:01) LIP SWELLING menthol [From BLISTEX] Allergy (Unknown, Verified 02/03/24 16:01) LIP SWELLING octinoxate [From BLISTEX] Allergy (Unknown, Verified 02/03/24 16:01) LIP SWELLING octyl salicylate [From BLISTEX] Allergy (Unknown, Verified 02/03/24 16:01) LIP SWELLING oxybenzone [From BLISTEX] Allergy (Unknown, Verified 02/03/24 16:01) LIP SWELLING padimate O [From BLISTEX] Allergy (Unknown, Verified 02/03/24 16:01) LIP SWELLING sodium chloride Allergy (Unknown, Verified 02/03/24 16:01) GUM SWELLING TO TABLE SALT ibuprofen [IBUPROFEN] Adverse Reaction (Unknown, Verified 02/03/24 16:01) STOMACH UPSET From BLISTEX Allergy (Unknown, Uncoded 02/03/24 16:01) LIP SWELLING HPI Comments Details: Brendan is a pleasant male. He is a patient of Dr. Perkins. He seen for the following urologic conditions - lower urinary tract symptoms Recent GreenLight laser Six week follow-up PVR 30 cc May stop medications 6m f/u Lower urinary tract symptoms Progressive weakness of stream Noted to have enlarged prostate Trial of combination therapy Renal bladder ultrasound prostate volume 60 cc Cystoscopy with a large prostate PSA 11/09 2.8 [facility] Medical History BPH (benign prostatic hyperplasia) Hyperlipidemia Sleep apnea Thrombosis Acid reflux Anxiety History of asthma B-cell chronic lymphocytic leukemia Surgical History History of bronchoscopy Family History Mother Liver cirrhosis Family/Other Thyroid cancer Breast cancer Social History (Reviewed 02/03/24 @ 16:01 by BUDDY Cabrera Household Members: Family Household Members Other:: father Housing: Apartment Do you presently have visiting nurse or other home services: No Alcohol intake: current Alcohol intake frequency: holidays/special occasions only Patient Tobacco Use Status: Former Tobacco user Tobacco use type: Cigarette Years Smoked: 18 Second Hand Smoke Exposure: No service: No Current occupational status: employed Review of Systems Const Denies chills and Denies fever(s) Card Reports no additional complaints and Denies syncope Resp Denies cough GI Denies abdominal pain and Denies heartburn Reports as per HPI and Denies change in libido Neuro Denies syncope Psych Denies change in libido Endo Denies change in libido Physical Exam Const General: cooperative, healthy appearing, comfortable and no acute distress Orientation/consciousness: patient oriented x3 HEENT Face and sinus: Yes normal facial exam Mouth: moist mucous membranes Neck Neck: Yes normal visual inspection, Yes full ROM and Yes trachea midline Chest Chest palpation & inspection: normal inspection of the chest Resp Effort & Inspection: normal respiratory effort, able to speak in complete sentences and no respiratory distress GI Inspection: Yes normal to inspection Back/Spine/Pelvis Cervical Spine: normal cervical lordosis Thoracic/Lumbar Spine: thoracic and lumbar spine normal to inspection Skin General skin exam: no rashes or lesions noted Neuro General: patient oriented x3, gait normal, tone normal and moves all extremities Extrem General: Yes normal to inspection and Yes capillary refill normal Office Procedures Post Void Residual Post Residual Void Post Void Residual (PVR): 29 29113-Cdmo Void Residual by ultrasound Assessment & Plan Assessment & Plan (1) Bladder outlet obstruction: Code(s): N32.0 - Bladder-neck obstruction Category: Medical (2) Weak urinary stream: Code(s): R39.12 - Poor urinary stream Category: Medical Plan 6m f/u PVR and PSA Orders: Orders AMB Post Void Residual by ultrasound 02/03/24 R39.12 - Poor urinary stream Prostate Specific Antigen 6 Months N32.0 - Bladder-neck obstruction Patient Instructions: Imaging studies, laboratory and physical exam results were discussed and reviewed in detail. No major barriers to patient understanding were identified. An opportunity to ask questions regarding the treatment plan was provided. All questions were answered. The patient expressed understanding and agreement with the above treatment plan. The patient is aware they should contact our office by phone for worsening of their current condition or the appearance of new urologic symptoms. Compliance is encouraged with any medications and followup testing that is ordered. It is a privilege to participate in the urologic care of your patient. If you have any questions or concerns regarding treatment for the above conditions, or other urologic issues, please do not hesitate to contact me. The office telephone contact is [phone]. This note is constructed using voice recognition software. While every effort has been made to ensure accuracy geology instructor errors may have been included. Yours sincerely, Dr Russell Lopez MD, [facility] - Urology Providers of Expert, Compassionate Care for the Genitourinary System Coding Level of Care Code Est Pt Level 3 (69343) Diagnoses Bladder outlet obstruction N32.0 Weak urinary stream R39.12 CPT Codes Post Residual Void - PVR CPT Code: 95177-Xgjt Void Residual by ultrasound ([id number])
== END 2024-02-03 16:25 | disposition home or self-care (01) ==
PROVIDERS: PCP Family Medicine; Referring Provider Family Medicine; Visit Provider Urology
DX: N32.0 Bladder-neck obstruction (principal); R39.12 Poor urinary stream
CPT/HCPCS: 99024

== ENCOUNTER → 2024-02-03 15:28 | Outpatient (BNVA) | payer MEDICAID, SELFPAY | PROVIDERS: PCP Family Medicine; Visit Provider Urology | DX: N32.0 Bladder-neck obstruction (principal); R39.12 Poor urinary stream; Z79.899 Other long term (current) drug therapy | CPT/HCPCS: 51798; 99212 ==

== ENCOUNTER 2024-08-02 06:54 | Outpatient (REF) | payer MEDICAID, SELFPAY ==
[2024-08-02 09:08] LABS: Prostate Specific Antigen 0.84 ng/mL (<0.05-4.0)
[2024-08-05 17:38] LABS: TS Negative Control Passed; TS Panel A 0; TS Panel B 0; TS Positive Control Passed; TSpotTB Negative (Negative)
== END 2024-08-02 06:55 | disposition home or self-care (01) ==
LOC: HO.LAB 06:54
PROVIDERS: Absent Provider Family Medicine; PCP Family Medicine; Visit Provider Nurse Practitioner Family
DX: N32.0 Bladder-neck obstruction (principal); R76.12 Nonspecific reaction to cell mediated immunity measurement of gamma interferon antigen response without active tuberculosis
CPT/HCPCS: 36415; 84153; 86481

== ENCOUNTER 2024-08-03 15:15 | Outpatient (AMB) | payer MEDICAID, SELFPAY ==
--- NOTE | 2024-08-03 15:48 | MHC.OFFVIS ---
Intake Visit Reasons: 6m/PSA/PVR Intake Note: Pt presents to the office today for a 6 month/PSA/PVR. PVR:16mL Allergies allantoin [From BLISTEX] Allergy (Unknown, Verified 08/03/24 19:52) LIP SWELLING homosalate [From BLISTEX] Allergy (Unknown, Verified 08/03/24 19:52) LIP SWELLING menthol [From BLISTEX] Allergy (Unknown, Verified 08/03/24 19:52) LIP SWELLING octinoxate [From BLISTEX] Allergy (Unknown, Verified 08/03/24 19:52) LIP SWELLING octyl salicylate [From BLISTEX] Allergy (Unknown, Verified 08/03/24 19:52) LIP SWELLING oxybenzone [From BLISTEX] Allergy (Unknown, Verified 08/03/24 19:52) LIP SWELLING padimate O [From BLISTEX] Allergy (Unknown, Verified 08/03/24 19:52) LIP SWELLING sodium chloride Allergy (Unknown, Verified 08/03/24 19:52) GUM SWELLING TO TABLE SALT ibuprofen [IBUPROFEN] Adverse Reaction (Unknown, Verified 08/03/24 19:52) STOMACH UPSET From BLISTEX Allergy (Unknown, Uncoded 08/03/24 19:52) LIP SWELLING Medication List - Last Reconciled 08/03/24 by MIKE De La Cruz clonazepam 1 tab PO DAILY PRN cyclobenzaprine 10 mg PO TID PRN esomeprazole magnesium (Nexium) 1 cap PO DAILY fluticasone propionate 110 mcg/actuation (Flovent HFA) 2 puffs inhalation BID fluticasone propionate 50 mcg/actuation 1 spray intranasal BID gabapentin 3 caps PO BEDTIME ketorolac 10 mg PO TID PRN 5 days levocetirizine (24HR Allergy Relief) 1 tab PO QPM lidocaine 5% 1 patch topical DAILY HPI Comments Details: Brendan is a very pleasant 49-year-old male patient of Dr. Perkins. He has a past medical history of BPH, hyperlipidemia, sleep apnea, acid reflux, anxiety, asthma, and B-cell chronic lymphatic leukemia. He presents to the office today for follow-up. Of note, patient underwent GreenLight laser procedure with Dr. Lopez 12/10. In discussion with the patient today he reports he has been doing and feeling well. He denies any bothersome urological issues or concerns. He discusses his main concern is his ongoing back pain and arthritis he was recently diagnosed with. He does report compliance with finasteride and terazosin as prescribed. We discussed discontinuation of these medications given patient has had surgical procedure and having no bothersome urinary issues or concerns. In office urinalysis results reviewed with the patient today. 2+ proteinuria noted however patient reports to be following up with stenographer secretary in [place]. He reports typically he follows up every 6 months and had recently had a visit with his stenographer secretary. PSAs are as follows: 11/09 2.9, 09/12 2.0, 08/12 0.8 When asked he denies urinary urgency, urinary frequency, incontinence, nocturia, hematuria, dysuria, foul smelling urine, changes to urinary stream, flank pain, fever, and or chills. He is happy with his current voiding parameters. [facility] Medical History BPH (benign prostatic hyperplasia) Hyperlipidemia Sleep apnea Thrombosis Acid reflux Anxiety History of asthma B-cell chronic lymphocytic leukemia Surgical History History of bronchoscopy Family History Mother Liver cirrhosis Family/Other Thyroid cancer Breast cancer Social History Household Members: Family Household Members Other:: father Housing: Apartment Do you presently have visiting nurse or other home services: No Alcohol intake: current Alcohol intake frequency: holidays/special occasions only Patient Tobacco Use Status: Former Tobacco user Tobacco use type: Cigarette Years Smoked: 18 Second Hand Smoke Exposure: No service: No Current occupational status: employed Review of Systems Const All systems reviewed & are unremarkable except as noted in HPI and below Reports as per HPI Eyes Reports no additional complaints ENT Reports no additional complaints Card Reports no additional complaints Resp Reports no additional complaints GI Reports no additional complaints Reports as per HPI Musc Reports no additional complaints Neuro Reports no additional complaints Psych Reports no additional complaints Endo Reports no additional complaints Lawrence/Lymph Reports as per HPI Aller/Immun Reports no additional complaints Physical Exam Const General: cooperative, healthy appearing, comfortable, no acute distress, well developed, alert and awake Orientation/consciousness: patient oriented x3 Limitations: no limitations HEENT Head: Yes normal to inspection, Yes normocephalic and Yes atraumatic Ears: hearing grossly normal bilaterally Eyes General: appearance normal, both eyes and all related structures Neck Neck: Yes normal visual inspection and Yes trachea midline Chest Chest palpation & inspection: normal inspection of the chest Resp Effort & Inspection: normal respiratory effort and able to speak in complete sentences Cardio Rate: regular rate GI Inspection: Yes normal to inspection Rectal Exam - Male: Yes deferred General: Yes no CVA tenderness Back/Spine/Pelvis Back: no CVA tenderness Skin General skin exam: no rashes or lesions noted Neuro General: patient oriented x3 Extrem General: Yes normal to inspection Psych Appearance: grossly normal and well kempt Mental Status: mental status grossly normal Speech and movement: Normal speech and movement present and Clear speech present Affect: normal affect Attitude: cooperative Thought process: Normal thought process present Thought content: Normal thought content present Insight: Fair insight present (Psych) Judgement: Fair judgement present (Psych) Office Procedures Post Void Residual Post Residual Void Post Void Residual (PVR): 16 [id number] Void Residual by ultrasound Results AMB Urinalysis, Automated UA Leukoctes 0 Ciara/uL Last Edit by Mili Albright CMA on 08/03/24 15:55 UA Nitrite Negative Last Edit by Mili Albright CMA on 08/03/24 15:55 UA Urobilinogen 0.2 mg/dL Last Edit by Mili Albright CMA on 08/03/24 15:55 UA Protein 100 mg/dL Last Edit by Mili Albright CMA on 08/03/24 15:55 UA pH 6.0 Last Edit by Mili Albright CMA on 08/03/24 15:55 UA Blood 200 Phuc/uL Last Edit by Mili Albright CMA on 08/03/24 15:55 UA Specific [place] 1.025 Last Edit by Mili Albright CMA on 08/03/24 15:55 UA Ketone Positive Last Edit by Mili Albright CMA on 08/03/24 15:55 UA Bilirubin 1 mg/dL Last Edit by Mili Albrihgt CMA on 08/03/24 15:55 UA Glucose 0 mg/dL Last Edit by Mili Albright CMA on 08/03/24 15:55 Results Reviewed Results Reviewed: Laboratory Last Values Urine pH (Auto) 6.0 08/03/24 15:49 Specific [place] (Auto) 1.025 08/03/24 15:49 Urine Protein (Auto) 100 mg/dL 08/03/24 15:49 Glucose (UA)(Auto) 0 mg/dL 08/03/24 15:49 Urine Ketones (Auto) Positive 08/03/24 15:49 Urine Blood (Auto) 200 Phuc/uL 08/03/24 15:49 Urine Nitrite (Auto) Negative 08/03/24 15:49 Urine Bilirubin (Auto) 1 mg/dL 08/03/24 15:49 Urine Urobilinogen (Auto) 0.2 mg/dL 08/03/24 15:49 Leukocyte Esterase (Auto) 0 Ciara/uL 08/03/24 15:49 Assessment & Plan Assessment & Plan (1) Bladder outlet obstruction: Code(s): N32.0 - Bladder-neck obstruction Category: Medical (2) Weak urinary stream: Code(s): R39.12 - Poor urinary stream Category: Medical (3) Elevated PSA: Code(s): R97.20 - Elevated prostate specific antigen [PSA] Category: Medical (4) Enlarged prostate: Code(s): N40.0 - Benign prostatic hyperplasia without lower urinary tract symptoms Category: Medical (5) Urinary frequency: Code(s): R35.0 - Frequency of micturition Category: Medical (6) Nocturia: Code(s): R35.1 - Nocturia Category: Medical Plan In office urinalysis results reviewed with the patient today; as noted above. PVR 16 mL. Continue to follow-up with nephrology regarding proteinuria. Patient currently denies any bothersome urinary issues or concerns. He reports be happy with current voiding parameters. Recent PSA results with the patient today; as noted above. Stop finasteride stopped terazosin. Follow-up in 6 months with PVR; or sooner with any issues, concerns, and or questions. Orders: Orders Prostate Specific Antigen 08/02/24 N32.0 - Bladder-neck obstruction AMB Urinalysis Automated Today N32.0 - Bladder-neck obstruction AMB Post Void Residual by ultrasound Today N32.0 - Bladder-neck obstruction Medications: Discontinued terazosin Discontinued Reason: Doctor's Order 5 mg PO BEDTIME 90 days 90 caps 0RF N40.1 - Benign prostatic hyperplasia with lower urinary tract symptoms, R35.0 - Frequency of micturition finasteride Discontinued Reason: Doctor's Order 5 mg PO DAILY 90 days 90 tabs 1RF N32.0 - Bladder-neck obstruction Patient Instructions: The patient had an opportunity to ask questions regarding the treatment plan. All questions were answered. Physical exam, labs, and imaging were discussed and reviewed in detail. As well as risks, benefits, and discussion of treatment choices. No major barriers to understanding were identified. The patient expressed understanding and agreement with the above treatment plan. The patient was made aware they should contact our office by phone for worsening of their current condition, the appearance of new symptoms, or with any questions or concerns. Compliance is encouraged with any medications and follow up testing that is ordered. It is a privilege to be allowed the opportunity to participate in? your urological care.? Again, if you have any questions or concerns If you have any questions or concerns please do not hesitate to contact me. The office is [phone]. This note is constructed using voice recognition software. While every effort has been made to ensure accuracy crm marketing specialist errors may have been included. Yours sincerely, MIKE De La Cruz Coding Level of Care Code Est Pt Level 3 (12924) Diagnoses Bladder outlet obstruction N32.0 Weak urinary stream R39.12 Elevated PSA R97.20 Enlarged prostate N40.0 Urinary frequency R35.0 Nocturia R35.1 CPT Codes Post Residual Void - PVR CPT Code: 77359-[id number] Void Residual by ultrasound ([id number])
== END 2024-08-03 16:22 | disposition home or self-care (01) ==
PROVIDERS: PCP Family Medicine; Visit Provider Nurse Practitioner Family
DX: N32.0 Bladder-neck obstruction (principal); R39.12 Poor urinary stream; R97.20 Elevated prostate specific antigen [PSA]; N40.0 Benign prostatic hyperplasia without lower urinary tract symptoms; R35.0 Frequency of micturition; R35.1 Nocturia
CPT/HCPCS: 99213

== ENCOUNTER → 2024-08-03 15:15 | Outpatient (BNVA) | payer MEDICAID, SELFPAY | PROVIDERS: PCP Family Medicine; Visit Provider Nurse Practitioner Family | DX: R80.9 Proteinuria, unspecified (principal); N40.1 Benign prostatic hyperplasia with lower urinary tract symptoms; N32.0 Bladder-neck obstruction; R39.12 Poor urinary stream; R97.20 Elevated prostate specific antigen [PSA]; R35.0 Frequency of micturition; R35.1 Nocturia | CPT/HCPCS: 51798; 81003; 99212 ==

== ENCOUNTER 2024-08-23 14:37 | Outpatient (AMB) | payer MEDICAID, SELFPAY ==
--- NOTE | 2024-08-23 14:39 | A.OFFVIS_ITS ---
Vital Signs 08/23/24 14:40 Height 5 ft 6 in Weight 223 lb 1.725 oz BMI 36.0 BP 122/62 Blood Pressure Location Rt brachial Position Sitting Pulse 92 Pulse Source Pulse Oximeter Pulse Oximetry (%) 96 Oxygen Delivery Method Room Air Intake Visit Reasons: Colonoscopy screening Intake Note: NEW PATIENT for Initial colo screening Chief Complaint; No GI concerns per pt Hose Finisher Required: No Accompanied by: Self / Same As Patient Allergies allantoin [From BLISTEX] Allergy (Unknown, Verified 08/23/24 14:40) LIP SWELLING homosalate [From BLISTEX] Allergy (Unknown, Verified 08/23/24 14:40) LIP SWELLING menthol [From BLISTEX] Allergy (Unknown, Verified 08/23/24 14:40) LIP SWELLING octinoxate [From BLISTEX] Allergy (Unknown, Verified 08/23/24 14:40) LIP SWELLING octyl salicylate [From BLISTEX] Allergy (Unknown, Verified 08/23/24 14:40) LIP SWELLING oxybenzone [From BLISTEX] Allergy (Unknown, Verified 08/23/24 14:40) LIP SWELLING padimate O [From BLISTEX] Allergy (Unknown, Verified 08/23/24 14:40) LIP SWELLING sodium chloride Allergy (Unknown, Verified 08/23/24 14:40) GUM SWELLING TO TABLE SALT ibuprofen [IBUPROFEN] Adverse Reaction (Unknown, Verified 08/23/24 14:40) STOMACH UPSET HPI HPI Colonoscopy screening: Details: 47 year old? male with past medical history of prediabetes, hyperlipidemia, GERD, asthma, sarcoidosis, B-cell lymphoma, thrombosis, sleep apnea, BPH, status post partial prostatectomy is here today for pre colonoscopy screening.? Patient was sent to us by his PCP.? This is his first colonoscopy screening.? Patient reports severe acid reflux and dyspepsia, placed on PPI twice a day. Reports that symptoms better, however occasionally patient continues to have epigastric pain and acid reflux depending on what he eats. Patient usually 3-4 bowel movements a day now patient reports bowel movements once or twice a day, feels like he is not emptying his bowels completely. Denies any personal or family history of gastrointestinal disease, colon polyps, or CRC.? Denies history of difficulty with sedation or anesthesia in the past.? History of sleep apnea.? Denies any history of cardiac, renal, pulmonary, or hepatic disease.?? No history of infectious? diseases like hepatitis A, B, C, HIV or tuberculosis.? Patient is not on any anticoagulation [facility] Medical History (Updated 08/25/24 @ 16:20 by Carrie Minor [facility]) BPH (benign prostatic hyperplasia) Hyperlipidemia Sleep apnea Thrombosis Acid reflux Anxiety History of asthma B-cell chronic lymphocytic leukemia Surgical History (Updated 08/23/24 @ 14:53 by JEFFERY Harman) History of prostate surgery (~11/2023) History of bronchoscopy Family History Mother Liver cirrhosis Family/Other Thyroid cancer Breast cancer Social History Household Members: Family Household Members Other:: father Housing: Apartment Do you presently have visiting nurse or other home services: No Alcohol intake: current Alcohol intake frequency: holidays/special occasions only Patient Tobacco Use Status: Former Tobacco user Tobacco use type: Cigarette Years Smoked: 18 Second Hand Smoke Exposure: No service: No Current occupational status: employed Review of Systems Const Denies weight gain and Denies weight loss ENT Reports no additional complaints, Denies dysphagia and Denies odynophagia Card Reports no additional complaints Resp Reports no additional complaints GI Reports abdominal pain (Epigastric), Denies belching, Denies melena, Reports bloating, Denies change in bowel habits, Reports constipation, Denies dysphagia, Denies excessive flatus, Reports dyspepsia, Reports heartburn, Denies diarrhea, Denies loose stools, Denies nausea, Denies odynophagia and Denies vomiting Reports no additional complaints Musc Reports no additional complaints Neuro Reports no additional complaints Psych Reports no additional complaints Endo Reports no additional complaints Physical Exam Vital Signs: Last Vital Signs Pulse 92 08/23/24 14:40 BP 122/62 08/23/24 14:40 Pulse Ox 96 08/23/24 14:40 Oxygen Delivery Method Room Air 08/23/24 14:40 BMI result Body Mass Index 36.0 Const General: healthy appearing and no acute distress Nutritional Appearance: obese Orientation/consciousness: patient oriented x3 Resp Effort & Inspection: normal respiratory effort, able to speak in complete sentences, no tracheal deviation and symmetric chest movement Auscultation: clear to auscultation bilaterally Cardio Rate: regular rate GI Inspection: Yes normal to inspection, No distended and Yes obesity Palpation (GI): Soft to palpation, not firm, nontender and No hepatosplenomegaly present Auscultation: normal bowel sounds General: Yes no CVA tenderness Back/Spine/Pelvis Back: no CVA tenderness Skin General skin exam: elasticity normal, turgor normal and dry skin Neuro General: patient oriented x3 Psych Appearance: grossly normal Mental Status: mental status grossly normal Assessment & Plan Assessment & Plan (1) Screen for colon cancer: Code(s): Z12.11 - Encounter for screening for malignant neoplasm of colon (2) Acid reflux: Code(s): K21.9 - Gastro-esophageal reflux disease without esophagitis Category: Medical Qualifiers: Esophagitis presence: esophagitis presence not specified Qualified Code(s): K21.9 - Gastro-esophageal reflux disease without esophagitis (3) Postprandial epigastric pain: Code(s): R10.13 - Epigastric pain (4) Abdominal bloating: Code(s): R14.0 - Abdominal distension (gaseous) (5) Constipation: Code(s): K59.00 - Constipation, unspecified Qualifiers: Constipation type: slow transit constipation Qualified Code(s): K59.01 - Slow transit constipation Plan Patient denies any cardiac or respiratory symptoms.? Denies any issues with anesthesia in the past.? No history infectious diseases in the past or prese nt.? Not on any anticoagulation therapy.? Patient reports epigastric pain and acid reflux postprandially. Will send for upper GI with barium swallow. Check for celiac and chronic pancreatitis. Will check liver and lipid panel. Patient will continue taking his PPI at this time. Avoid dietary triggers and late night snacking. Staying upright for minimum 3 hours after meals discussed with patient. Patient will take Senokot daily to help him move his bowels better. Increase fluid intake and activity to promote better bowel motility. Patient will return in the office in 2-3 months to discuss going for colonoscopy and upper endoscopy. Message sent to surgical schedulers to book upper endoscopy and colonoscopy for patient. He will call our office if he will have any GI concerning symptoms. Patient is agreeable to this plan and verbalizes understanding of instructions. He was given the opportunity to ask questions and all questions answered. Thank you for allowing me to participate in his care Orders: Orders Transglutaminase IgA 08/23/24 R10.9 - Unspecified abdominal pain Liver Panel 08/23/24 R74.01 - Elevation of levels of liver transaminase levels [place] upper GI w Ba Swallow 08/23/24 K21.9 - Gastro-esophageal reflux disease without esophagitis Lipase 08/23/24 R10.9 - Unspecified abdominal pain Lipid Panel 08/23/24 I25.10 - Atherosclerotic heart disease of [place] coronary artery without angina pectoris Medications: New sennosides (Natural Senna Laxative) 17.2 mg (2 x 8.6 mg) PO BEDTIME 60 tabs 3RF constipation K59.00 - Constipation, unspecified Coding Level of Care Code New Pt Level 4 (63375) Diagnoses Screen for colon cancer Z12.11 Gastroesophageal reflux disease, unspecified whether esophagitis present K21.9 Esophagitis presence: esophagitis presence not specified Postprandial epigastric pain R10.13 Abdominal bloating R14.0 Slow transit constipation K59.01 Constipation type: slow transit constipation Time Spent (min) 45 Comment 35 minutes spent with patient and additional 10 minutes spent reviewing his records
--- NOTE | 2024-08-23 14:39 | MHC.OFFVIS ---
Vital Signs 08/23/24 14:40 Height 5 ft 6 in Weight 223 lb 1.725 oz BMI 36.0 BP 122/62 Blood Pressure Location Rt brachial Position Sitting Pulse 92 Pulse Source Pulse Oximeter Pulse Oximetry (%) 96 Oxygen Delivery Method Room Air Intake Visit Reasons: Colonoscopy screening Intake Note: NEW PATIENT for Initial colo screening Chief Complaint; No GI concerns per pt Chicle Grinder Feeder Required: No Accompanied by: Self / Same As Patient Allergies allantoin [From BLISTEX] Allergy (Unknown, Verified 08/23/24 14:40) LIP SWELLING homosalate [From BLISTEX] Allergy (Unknown, Verified 08/23/24 14:40) LIP SWELLING menthol [From BLISTEX] Allergy (Unknown, Verified 08/23/24 14:40) LIP SWELLING octinoxate [From BLISTEX] Allergy (Unknown, Verified 08/23/24 14:40) LIP SWELLING octyl salicylate [From BLISTEX] Allergy (Unknown, Verified 08/23/24 14:40) LIP SWELLING oxybenzone [From BLISTEX] Allergy (Unknown, Verified 08/23/24 14:40) LIP SWELLING padimate O [From BLISTEX] Allergy (Unknown, Verified 08/23/24 14:40) LIP SWELLING sodium chloride Allergy (Unknown, Verified 08/23/24 14:40) GUM SWELLING TO TABLE SALT ibuprofen [IBUPROFEN] Adverse Reaction (Unknown, Verified 08/23/24 14:40) STOMACH UPSET HPI HPI Colonoscopy screening: Details: 47 year old? male with past medical history of prediabetes, hyperlipidemia, GERD, asthma, BPH, status post mastectomy is here today for pre colonoscopy screening.? Patient was sent to us by his PCP.? This is his first colonoscopy screening.? Patient reports severe acid reflux and dyspepsia, placed on PPI twice a day. Reports that symptoms better, however occasionally patient continues to have epigastric pain and acid reflux depending on what he eats. Patient usually 3-4 bowel movements a day now patient reports bowel movements once or twice a day, feels like he is not emptying his bowels completely. Denies any personal or family history of gastrointestinal disease, colon polyps, or CRC.? Denies history of difficulty with sedation or anesthesia in the past.? Negative for history of sleep apnea.? Denies any history of cardiac, renal, pulmonary, or hepatic disease.?? No history of infectious? diseases like hepatitis A, B, C, HIV or tuberculosis.? Patient is not on any anticoagulation [facility] Medical History BPH (benign prostatic hyperplasia) Hyperlipidemia Sleep apnea Thrombosis Acid reflux Anxiety History of asthma B-cell chronic lymphocytic leukemia Surgical History (Updated 08/23/24 @ 14:53 by JEFFERY Harman) History of prostate surgery (~11/2023) History of bronchoscopy Family History Mother Liver cirrhosis Family/Other Thyroid cancer Breast cancer Social History Household Members: Family Household Members Other:: father Housing: Apartment Do you presently have visiting nurse or other home services: No Alcohol intake: current Alcohol intake frequency: holidays/special occasions only Patient Tobacco Use Status: Former Tobacco user Tobacco use type: Cigarette Years Smoked: 18 Second Hand Smoke Exposure: No service: No Current occupational status: employed Physical Exam Vital Signs: Last Vital Signs Pulse 92 08/23/24 14:40 BP 122/62 08/23/24 14:40 Pulse Ox 96 08/23/24 14:40 Oxygen Delivery Method Room Air 08/23/24 14:40 BMI result Body Mass Index 36.0 Assessment & Plan Assessment & Plan (1) Screen for colon cancer: Code(s): Z12.11 - Encounter for screening for malignant neoplasm of colon Plan Patient denies any cardiac or respiratory symptoms.? Denies any issues with anesthesia in the past.? Denies any history of sleep apnea.? No history infectious diseases in the past or present.? Not on any anticoagulation therapy.? Orders: Orders Transglutaminase IgA Today R10.9 - Unspecified abdominal pain Liver Panel Today R74.01 - Elevation of levels of liver transaminase levels FL upper GI w Ba Swallow Today K21.9 - Gastro-esophageal reflux disease without esophagitis Lipase Today R10.9 - Unspecified abdominal pain Lipid Panel Today I25.10 - Atherosclerotic heart disease of alutiiq coronary artery without angina pectoris Medications: New sennosides (Natural Senna Laxative) 17.2 mg (2 x 8.6 mg) PO BEDTIME 60 tabs 3RF constipation K59.00 - Constipation, unspecified Coding Diagnoses Screen for colon cancer Z12.11
--- OUTSIDE RECORDS SUMMARY | 2024-08-23 14:39 | XMS_ITS | Encounter Summary ---
Author Organization [employer] Address [address] [facility] [address] [place] [address] Care Team Providers Care Director Of Respiratory Therapy Name Role Phone Izzy Pantoja MD Primary Care Provider [phone] Ilana Gaming Unavailable Unavailable Tomeka Mclain RN Unavailable [phone] Reason for Visit * Reason Onset Date Comments Referral 08/20/2022 Encounter Details Date Type Department Care Team (Late st Contact Info) Description 08/20/2022 Telephone [facility] [address] [place], [place] [phone] Izzy Pantoja MD [address] [place], [place] [phone] Referral Social History Tobacco Use Types Packs/Day Years Used Date Smoking Tobacco: Every Day Cigarettes Passive Smoke Exposure: Current Smokeless Tobacco: Never Depression Answer Date Recorded Patient Health Questionnaire-2 Score 2 08/11/2022 Sex and Gender Information Value Date Recorded Sex Assigned at Male 05/19/2022 10:14 AM EDT Legal Sex Male 10:14 AM EDT Gender Identity Male 05/19/2022 10:14 AM EDT Sexual Orientation Straight 05/19/2022 10 :14 AM EDT COVID-19 Exposure Response Date Recorded In the last 10 days, have yo u been in contact with someone who was confirmed or suspected to have Coronavirus/COVID-19? No / Unsure 08/11/2022 3:05 PM EST documented as of this encounter Miscellaneous Notes * Telephone Encounter - Mickey Ferrera - 08/20/2022 10:46 AM EST Tc from pt requesting a [facility] documented in this encounter Plan of Treatment Not on file documented as of this encounter Visit Diagnoses Not on filedocumented in this encounter Care Teams Director Of Respiratory Therapy Relationship Specialty Start Date End Date Izzy Pantoja MD [address] [place] [id number] PCP - General Family Medicine 03/17/22 Ilana Gaming Community Health Worker 10/26/23 Tomeka Mclain RN [address] [place] [id number] Sdc Teacher 10/26/23 01/24/24 documented as of this encounter
--- OUTSIDE RECORDS SUMMARY | 2024-08-23 14:39 | XMS_ITS | Encounter Summary ---
Author Organization [employer] Address [address] [facility] [address] [place] [address] Care Team Providers Care Court Registry Officer Name Role Phone Izzy Pantoja MD Primary Care Provider Ilana Gaming Unavailable Unavailable Encounter Details Date Type Department Care Team (Late st Contact Info) Description 07/26/2024 3:15 PM EST Office Visit [facility] [address], [place] [phone] Izzy Pantoja MD [address] [place], [place] [phone] Obstructive sleep apnea syndrome (Primary Dx); Benign prostatic hyperplasia with urinary obstruction; Lower urinary tract symptoms (LUTS); Gastroesophageal reflux disease, unspecified whether esophagitis present; Chronic lymphocytic leukemia (CMS/HCC); Mixed hyperlipidemia; Tobacco use disorder; Chronic bilateral low back pain, unspecified whether sciatica present; Bilateral tinnitus; 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; Encounter for immunization; Dietary counseling; Exercise counseling; Class 2 obesity due to excess calories with body mass index (BMI) of 39.0 to 39.9 in adult, unspecified whether serious comorbidity present; Moderate persistent asthma without complication; Pulmonary sarcoidosis (CMS/HCC); Elevated BP without diagnosis of hypertension; Meniere's disease of left ear Social History Tobacco Use Types Packs/Day Years Used Date Smoking Tobacco: Former Cigarettes Passive Smoke Exposure: Past Smokeless Tobacco: Never Depression Answer Date Recorded Patient Health Questionnaire-9 Score 1 07/26/2024 Patient Health Questionnaire-9 Score 1 07/26/2024 Last PHQ-9: Questionnaire Data Not on file 0 07/26/2024 Housing Stability Answer Date Recorded What is your housing situation today? I have [facility] 10/21/[address] you li ve. Do you have problems with any of the following? None of the above 10/21/2023 Food Insecurity Answer Date Recorded Within the past 12 months, y ou worried that your food would run out before you got money to buy more: Never True 10/21/2023 Within the past 12 months,th e food you bought just didn't last and you didn't have enough money to get more: Never True 09/2023 Transportation Answer Date Recorded In the past 12 months, has l ack of transportation kept you from medical appts, meetings, work or from getting things needed for daily living? No 10/21/2023 Utilities Answer Date Recorded In the past 12 months, has t he electric, gas, oil or water company threatened to shut off services in your home? No 10/21/2023 Depression Answer Date Recorded Patient Health Questionnaire-2 Score 1 07/26/2024 Sex and Gender Information Value Date Recorded Sex Assigned at Male 05/19/2022 10:14 AM EDT Legal Sex Male 10:14 AM EDT Gender Identity Male 05/19/2022 10:14 AM EDT Sexual Orientation Straight 05/19/2022 10 :14 AM EDT documented as of this encounter Last Filed Vital Signs Vital Sign Reading Time Taken Comments Blood Pressure 134/86 07/26/2024 3:21 PM EST Pulse 81 07/26/2024 3:21 PM EST Temperature 36.3 ??C (97.3 ??F) 07/26/2024 3:21 PM ES T Respiratory Rate 15 07/26/2024 3:21 PM EST Oxygen Saturation 97% 07/26/2024 3:21 PM EST Inhaled Oxygen Concentration - - Weight 103 kg (227 lb 9.6 oz) 07/26/2024 3:21 PM EST Height - - Body Mass Index 36.96 12/24/2023 11:03 AM EDT documented in this encounter Progress Notes * Izzy Pantoja MD - 07/26/2024 3:15 PM EST Subjective Brendan Ferrera is a 49 y.o. male who has asthma, LEANDRA, CLL on remission, pulmonary sarcoidosis, and BPH with LUTS, and patient presents for follow up of chronic conditions. Background: Our last encounter was 12/24/2023. He reported some improvement in his leg and back pain. He had beenkeeping up with appointments with specialists. He had not smoked cigarettes since Jul 2023. He wanted to have a humidification with CPAP. Referred to GI for GERD and colon cancer screening, and PT for back pain. Interval history: Following with Dr. Howard at [facility] closely. Lattice degeneration of bilateral retinas, chorioretinal scar of bilateral eyes, RPE mottling of macula, bilateral dry eyes, severe myopia of bilateral eyes. Seen by urologist, Dr. Lopez, on 02/03/24. BPH. LUTS. S/p GreenLight Laser treatment. May stop terazosin and finasteride. 6 mo follow up for cystoscopy. Seen by ENT in Mar 2024 for left sided tinnitus, hearing loss, and dizziness. Possible Meniere's disease. Scheduled a follow up with Dr. Donovan in Jul 2024. Considering MRI evaluation and recommendedamplification. Today: Patient presents today for follow up. His past history of tinnitus was discussed as he has had somerecent dizziness and headaches with his auditory symptoms. He states he has an upcoming appointmentwith ENT specialist. Patient has a history of heartburn and has rescheduled colonoscopy multiple times. He currently notes his acid reflux symptoms are still present, but less bothersome. Patient points out remarkable itching and swelling of a finger and notes increased use of hand garnetter. Patient has a history of sarcoidosis and has not seen lung specialist since his biopsy. Review of Systems Constitutional: Negative for activity change, appetite change and fever. Respiratory: Negative for shortness of breath. Cardiovascular: Negative for chest pain. Objective Vitals: 07/26/24 1521 BP: 134/86 Pulse: 81 Resp: 15 Temp: 97.3 ??F (36.3 ??C) TempSrc: Temporal SpO2: 97% Weight: 227 lb 9.6 oz (103 kg) Physical Exam Constitutional: General: He is not in acute distress. Appearance: Normal appearance. He is not ill-appearing. HENT: Head: Normocephalic and atraumatic. Mouth/Throat: Mouth: Mucous membranes are moist. Eyes: Extraocular Movements: Extraocular movements intact. Pupils: Pupils are equal, round, and reactive to light. Cardiovascular: Rate and Rhythm: Normal rate and regular rhythm. Heart sounds: No murmur heard. Pulmonary: Effort: Pulmonary effort is normal. No respiratory distress. Breath sounds: Normal breath sounds. No wheezing or rhonchi. Skin: General: Skin is warm. Neurological: Mental Status: He is alert. Mental status is at baseline. Psychiatric: Mood and Affect: Mood normal. Results: Recent Results (from the past 18 weeks) PSA,Total Collection Time: 08/02/24 7:03 AM Result Value Ref Range Prostate Specific Antigen 0.84 <0.05 - 4.0 ng/mL Lab Results Component Value Date NA 139 12/31/2023 K 4.5 12/31/2023 CL 106 12/31/2023 CO2 27 12/31/2023 BUN 14 12/31/2023 CREATININE 0.93 12/31/2023 CRCLCALCPH 130.7 11/02/2022 EGFR >60 12/31/2023 GLUCOSE 119 (H) 12/31/2023 TOTALBILIRUB 0.5 12/31/2023 AST 24 12/31/2023 ALT 43 (H) 12/31/2023 TOTPROTEIN 7.1 12/31/2023 ALB 4.2 12/31/2023 ALP 112 12/31/2023 Lab Results Component Value Date TRIG 174 (H) 12/31/2023 CHOL 176 12/31/2023 LDLCHOLCAL 92 12/31/2023 HDL 50 12/31/2023 Lab Results Component Value Date HGBA1C 5.5 12/31/2023 MICROALBUR 3.6 07/01/2021 CREATUR 206 07/01/2021 Lab Results Component Value Date WBC 7.3 11/02/2022 HGB 16.1 11/02/2022 HCT 48.1 11/02/2022 PLT 210 11/02/2022 MCV 86.2 11/02/2022 The 10-year ASCVD risk score (Shabnam ROY, et al., 2019) is: 2.5% Values used to calculate the score: Age: 49 years Sex: Male Is Non- : No Diabetic: No Tobacco smoker: No Systolic Blood Pressure: 134 mmHg Is BP treated: No HDL Cholesterol: 50 mg/dL Total Cholesterol: 176 mg/dL Screening and Health Care Maintenance: PHQ-2/9 Score: Patient Health Questionnaire-9 Score: 1 (07/26/2024 4:08 PM) Patient Health Questionnaire-2 Score: 1 (07/26/2024 4:08 PM) Thoughts that you would be better off or hurting yourself in some way: Not at all (07/26/2024 4:08 PM) BRIDGETTE-7 Score: BRIDGETTE-7 Total Score: 0 (07/26/2024 4:08 PM) Health Maintenance Due Topic Date Due Colorectal Cancer Screening Never done Zoster Vaccines (1 of 2) Never done Assessment/Plan 1. Obstructive sleep apnea syndrome (Primary) Assessment & Plan: - last sleep study in Apr 2021, Sleep Medicine clinic in [place] - recommended auto-PAP 5-15 cm H2O - patient has a CPAP. Will check if patient can have a humidification device, especially during dryseason. 2. Benign prostatic hyperplasia with urinary obstruction Assessment & Plan: - Following with urologist - BPH with KING (bladder outlet obstruction) - currently on finasteride and terazosin 3. Lower urinary tract symptoms (LUTS) Assessment & Plan: - following with urologist at [facility]. Last seen in November 2023. KING Upcoming appointment in Jul 2024 - continue tamsulosin 4. Gastroesophageal reflux disease, unspecified whether esophagitis present Assessment & Plan: Continue esomeprazole Add famotidine Upcoming appt with GI for colonoscopy and possible EGD evaluation Avoid irritants, especially smoking 5. Chronic lymphocytic leukemia (CMS/HCC) Assessment & Plan: -Dx October 2008 -Oncology, [facility]. Last seen by Dr. Lee in September 2023, annual follow up. -Tx 6 cycles of R-CVP, completed in Jul 2009 -No sign of recurrence 6. Mixed hyperlipidemia Assessment & Plan: Current medication: atorvastatin 10 mg qhs Check lipid profile Orders: - Hemoglobin A1c; Future - Comprehensive Metabolic Panel; Future - Lipid Panel with Reflex to Direct LDL; Future - Hemoglobin A1c - Comprehensive Metabolic Panel - Lipid Panel with Reflex to Direct LDL 7. Tobacco use disorder Assessment & Plan: Quit date 08/04/23 Continue smoking cessation effort and remain a non-smoker 8. Chronic bilateral low back pain, unspecified whether sciatica present Assessment & Plan: - MRI on 12/03/23 1. Interval development of Mild degenerative disc disease at L3-L4 and L5-S1. 2. Interval development of Marked bilateral L4-L5 neural foraminal stenosis. 3. 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 - refer to PT - continue judicious use of muscle relaxant - continue staying physically active 9. Bilateral tinnitus 10. 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 Encounter for immunization - COVID-19 VACCINE ([employer]) [phone] 12 yrs + - FLU VACCINE TRIVALENT ([employer]) 6 mo + 12. Dietary counseling 13. Exercise counseling 14. Class 2 obesity due to excess calories with body mass index (BMI) of 39.0 to 39.9 in adult, unspecified whether serious comorbidity present - TSH with Reflex to Free T4; Future - Hemoglobin A1c; Future - TSH with Reflex to Free T4 - Hemoglobin A1c 15. Moderate persistent asthma without complication Assessment & Plan: - Continue Flovent 110 2 puffs BID, with Albuterol MDI 2 puffs every 4 hours as needed - Consider switching to ICS / LABA prn - Began smoking cessation on 08/04/2023, continue to work on smoking cessation 16. Pulmonary sarcoidosis ([facility]/HCC) Assessment & Plan: - Following with [facility] pulmonology, currently asymptomatic - Most recent CT scan in January 2022 showed no mediastinal lymphadenopathy 17. Elevated BP without diagnosis of hypertension Assessment & Plan: -Goal BP < 140/90 per JNC-8 and < 130/80 per ACC/AHA guideline (Treatment threshold >=140/90) -BP borderline -Continue working on lifestyle modifications -Recommended self-monitoring BP. -Patient is taking terazosin for BPH with KING -Follow up in 3-6 mo, sooner if any problem arises 18. Meniere's disease of left ear Assessment & Plan: - following with ENT - possible Meniere's disease Other orders - triamcinolone (Kenalog) 0.1 % cream; Apply topically if needed in the morning and at bedtime (pain and swelling). - Blood Pressure Monitor misc; Check BP daily Allergies Allergen Reactions Blistex Medicated [Cold Sore Products] Ibuprofen Other reaction(s): Discomfort Low-Salt Diet Current Outpatient Medications Medication Instructions Acetaminophen 500 MG capsule take 2 capsule by oral route every 6 hours as needed albuterol (Ventolin HFA) 108 (90 Base) MCG/ACT inhaler INHALE 2 PUFFS BY INHALATION ROUTE EVERY 4 HOURS IF NEEDED atorvastatin (LIPITOR) 10 mg, Oral, Nightly Blood Pressure Monitor misc Check BP daily cholecalciferol (Vitamin D-3) 50 MCG (1999 UT) capsule take 1 by oral route every day clonazePAM (KlonoPIN) 1 MG tablet take 1 tab by mouth daily as needed for anxiety cyclobenzaprine (FLEXERIL) 10 mg, Oral, Nightly diclofenac (CATAFLAM) 50 mg, Oral, 3 times daily esomeprazole (NexIUM) [address] capsule take 1 capsule by oral route every day at least 1 hour before a meal swallowing whole. Do not crush or chew granules. famotidine (PEPCID) 20 mg, Oral, Nightly fluticasone (Flonase) 50 MCG/ACT nasal spray Administer 1 spray into each nostril 1 (one) time eachday fluticasone (Flovent) 110 MCG/ACT inhaler take 2 puffs by Inhalation route 2 times every day gabapentin (Neurontin) 300 MG capsule take 3 capsule by oral route at bedtime levocetirizine (Xyzal) 5 MG tablet take 1 tablet by oral route every day in the evening nicotine polacrilex (Commit) 2 MG lozenge take 1 tablet by oral route every 8 hours dissolved slowly in the mouth as needed omeprazole (PRILOSEC) 40 mg, Oral, 2 times daily triamcinolone (Kenalog) 0.1 % cream Topical, 2 times daily PRN Follow-up: 3 months or sooner if any problem arises. Scribe attestation: Charu Olivares, am serving as a scribe to document services personally performed by Izzy Pulliam on the patient's response to questions by provider and providers statements to me. Physicians Attestation: Izzy Olivares, have reviewed the information by the scribe, Charu Ness, for accuracy and agree with its content. documented in this encounter Miscellaneous Notes * Assessment & Plan Note - Izzy Pantoja MD - 08/05/2024 11:33 AM ESTAssociated Problem(s): Meniere's disease of left ear - following with ENT - possible Meniere's disease * Assessment & Plan Note - Izzy Pantoja MD - 08/05/2024 11:32 AM ESTAssociated Problem(s): Elevated BP without diagnosis of hypertension -Goal BP < 140/90 per JNC-8 and < 130/80 per ACC/AHA guideline (Treatment threshold >=140/90) -BP borderline -Continue working on lifestyle modifications -Recommended self-monitoring BP. -Patient is taking terazosin for BPH with KING -Follow up in 3-6 mo, sooner if any problem arises * Assessment & Plan Note - Izzy Pantoja MD - 08/05/2024 11:26 AM ESTAssociated Problem(s): Asthma - Continue Flovent 110 2 puffs BID, with Albuterol MDI 2 puffs every 4 hours as needed - Consider switching to ICS / LABA prn - Began smoking cessation on 08/04/2023, continue to work on smoking cessation * Assessment & Plan Note - Izzy Pantoja MD - 08/05/2024 11:26 AM ESTAssociated Problem(s): Pulmonary sarcoidosis (CMS/HCC) - Following with [facility] pulmonology, currently asymptomatic - Most recent CT scan in January 2022 showed no mediastinal lymphadenopathy * Assessment & Plan Note - Charu Ness - 07/29/2024 5:34 AM ESTAssociated Problem(s): Chronic bilateral low back pain - MRI on 12/03/23 1. Interval development of Mild degenerative disc disease at L3-L4 and L5-S1. 2. Interval development of Marked bilateral L4-L5 neural foraminal stenosis. 3. 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 - refer to PT - continue judicious use of muscle relaxant - continue staying physically active * Assessment & Plan Note - Charu Ness - 07/29/2024 5:34 AM ESTAssociated Problem(s): Chronic lymphocytic leukemia (CMS/HCC) -Dx October 2008 -Oncology, [facility]. Last seen by Dr. Lee in September 2023, annual follow up. -Tx 6 cycles of R-CVP, completed in Jul 2009 -No sign of recurrence * Assessment & Plan Note - Charu Ness - 07/29/2024 5:34 AM ESTAssociated Problem(s): Hyperlipidemia Current medication: atorvastatin 10 mg qhs Check lipid profile * Assessment & Plan Note - Charu Ness - 07/29/2024 5:34 AM ESTAssociated Problem(s): Tobacco use disorder Quit date 08/04/23 Continue smoking cessation effort and remain a non-smoker * Assessment & Plan Note - Charu Ness - 07/29/2024 5:33 AM ESTAssociated Problem(s): BPH (benign prostatic hyperplasia) - Following with urologist - BPH with KING (bladder outlet obstruction) - currently on finasteride and terazosin * Assessment & Plan Note - Charu Ness - 07/29/2024 5:33 AM ESTAssociated Problem(s): Lower urinary tract symptoms (LUTS) - following with urologist at [facility]. Last seen in November 2023. KING Upcoming appointment in Jul 2024 - continue tamsulosin * Assessment & Plan Note - Charu Ness - 07/29/2024 5:33 AM ESTAssociated Problem(s): Gastroesophageal reflux disease Continue esomeprazole Add famotidine Upcoming appt with GI for colonoscopy and possible EGD evaluation Avoid irritants, especially smoking * Assessment & Plan Note - Charu Ness - 07/29/2024 5:33 AM ESTAssociated Problem(s): Obstructive sleep apnea syndrome - last sleep study in Apr 2021, Sleep Medicine clinic in [place] - recommended auto-PAP 5-15 cm H2O - patient has a CPAP. Will check if patient can have a humidification device, especially during dryseason. documented in this encounter Plan of Treatment Scheduled Orders Name Type Priority Associated Diagnoses Orde r Schedule TSH with Reflex to Free T4 Lab Routine Class 2 obesity due to excess calories with body mass index (BMI) of 39.0 to 39.9 in adult, unspecified whether serious comorbidity present Expected: 08/05/2024 (Approximate), Expires: 08/05/2025 Hemoglobin A1c Lab Routine Mixed hyperlipidemia Class 2 obesity due to excess calories with body mass index (BMI) of 39.0 to 39.9 in adult, unspecified whether serious comorbidity present Expected: 08/05/2024 (Approximate), Expires: 08/05/2025 Comprehensive Metabolic Panel Lab Routine Mixed hyperlipidemia Expected: 08/05/2024 (Approximate), Expires: 08/05/2025 Lipid Panel with Reflex to Direct LDL Lab Routine Mixed hyperlipidemia Expected: 08/05/2024 (Approximate), Expires: 08/05/2025 documented as of this encounter Procedures Procedure Name Priority Date/Time Associated Diagnosis Comments T-SPOT(R).TB Routine 08/02/2024 7:03 AM EST 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 tuberculosis). Patients with recentexposure to TB infected individuals exhibiting anegative T-SPOT.TB result should be considered forretesting within 6 weeks or if other relevant clinicalsymptoms indicate. Results from T-SPOT.TB testing mustbe used in conjunction with each individual'sepidemiological history, current medical status,and results of other diagnostic evaluations.The T-SPOT.TB test is qualitative and results arereported as positive, borderline, or negative, giventhat the test controls perform as expected. In linewith the Centers for Disease Control and Prevention's2010 recommendation to report quantitative measurementsalongside the qualitative result, the laboratoryprovides spot counts for informational purposes only.The T-SPOT.TB test should not be interpreted as aquantitative test. TS PANEL A 0 [facility] TS PANEL B 0 [facility] Negative Control Passed [facility] Positive Control Passed [facility] Comment:For additional infor neha, please refer tohttp://education.[employer]/faq/IQT806(This link is being provided for informational/educational purposes only.)THIS TEST WAS PERFORMED AT:[id number] [place] [id number] DONOVAN MD,PHD 08/02/2024 7:03 AM EST 08/02/2024 7:07 AM EST Izzy Pantoja MD LAB BLOOD ORDERABLES Final Resul t [facility] [address] [place] [phone] documented in this encounter Visit Diagnoses Diagnosis Obstructive sleep apnea syndrome- Primary Obstructive sleep apnea (adult) (pediatric) Benign prostatic hyperplasia with urinary obstruction Lower urinary tract symptoms (LUTS) Gastroesophageal reflux disease, unspecified whether esophagitis present Chronic lymphocytic leukemia (CMS/HCC) Chronic lymphoid leukemia, without mention of having achieved remission Mixed hyperlipidemia Tobacco use disorder Chronic bilateral low back pain, unspecified whether sciatica present Bilateral tinnitus 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 Encounter for immunization Dietary counseling Dietary surveillance and counseling Exercise counseling Class 2 obesity due to excess calories with body mass index (BMI) of 39.0 to 39.9 in adult, unspecified whether serious comorbidity present Moderate persistent asthma without complication Pulmonary sarcoidosis (CMS/HCC) Sarcoidosis Elevated BP without diagnosis of hypertension Meniere's disease of left ear documented in this encounter Additional Health Concerns Assessment Noted Time PHQ-9 Depression Total Score: 1 07/26/19 25 4:08 PM EST documented as of this encounter Care Teams Court Registry Officer Relationship Specialty Start Date End Date Izzy Pantoja MD [address] [place] [id number] PCP - General Family Medicine 03/17/22 Ilana Gaming Community Health Worker 10/26/23 documented as of this encounter
[2024-08-23 14:40] VITALS: BP 122/62; PULSE 92; O2SAT 96; BMI 36.0
--- OUTSIDE RECORDS SUMMARY | 2024-08-23 14:40 | XMS_ITS | Data Portability ---
Author Organization [place] - [facility], Allergy Address [address] [address] Care Team Providers Care Grab Driver Name Role Phone [facility] Primary Care Provider Assessment Encounter Date Assessment Date Assessment LastModified by Organization Details LastModified Time 04/08/2024 04/08/2024 49-year-old male presents for evaluation of left-sided tinnitus, fluctuating hearing loss, and dizziness. On exam, bilateral tympanic membranes are intact with well aerated middle ear spaces. Audiometric testing demonstrated normal sloping to mild high-frequency sensorineural hearing loss on the right and moderately severe low-frequency rising to mild sloping to severe sensorineural hearing loss on the left. Patient's history and audiogram are concerning for Meniere's disease. Recommended low-sodium diet less than 2000 mg per day and avoidance of caffeine and alcohol. Masking techniques recommended for tinnitus. I also recommended MRI of the IACs to rule out retrocochlear pathology. We will arrange consult with Dr. Donovan with repeat audiometric testing at that time. Patient would benefit from left sided amplification and he will consider this. [email or web address] Not available 04/08/2024 15:17:00 08/09/2024 08/09/2024 Patient with apparent left-sided M??ni??re's type phenomenon associated with fluctuating tinnitus, fluctuating low-frequency hearing loss and episodic vertigo. Fortunately his vertigo spells are quite short-lived. There is also the possibility that this could be an underlying cochlear migraine phenomenon. Audiometric testing today shows significant improvement in the low-frequency sensorineural hearing loss in comparison to his last audiogram back in March. Today we went over the M??ni??re's disease brochure in detail. We discussed the importance of maintaining low-sodium diet between 1500 and 2000 mg a day. We discussed the importance of eliminating caffeine and alcohol. All of these measures will hopefully lead to stability in his hearing and tinnitus. Recommend follow-up in 6 months. If the patient continues to have significant flareups of fluctuating hearing loss, tinnitus, and vertigo we could consider adding triamterene/hydr ochlorothiazide to his medication regimen, but this would need to be managed in the context of his current blood pressure medication regimen. [email or web address] Not available 08/09/2024 15:01:02 Plan of Treatment Reminders Order Date Submit Date Provider Last Modified By Organization Details Last Modified Time Details Appointments Hearing Test 2024 03:00P M Hearing Test Not available Not available Not available Establish ed 10 2024 03:30P M TAYLOR DONOVAN MD Not available Not available Not available Lab None recorded. Referral None recorded. Procedures None recorded. Surgeries None recorded. Imaging MRI, brain + internal auditory canal, w/wo contrast - next available ....IAC protocol 2023 024 [facility] ([facility]), [address], [place], [address], 04/20/2024 15:14:22 Medication Orders None recorded. Patient TargetsNo targets recorded. Patient InstructionsNo instructions recorded. Reason for Referral None Reported. Results Created Date Observation Date Name Description Value Unit Range Abnormal Flag Note LastModifiedBy Organization Detail LastModifiedTime 04/12/20 24 audio gram No observ ation record ed. [email or web address] Not Available 03/21 12:02:44 04/20/2004/18/2024 MRI, brain + brain stem, w/wo contr ast [facility] Access ion Number : [id number] Darion rodriguez Name: Brendan Ferrera rodri Record Number : [id number] Date of : 1974 Date of Exam: 2023 Referr ing Physic clinton: Elida Nava [facility] d [address], [address] [facility] [place] [address] Exam: MR Brain (C-/C+ ) CPT 94349 Room Descri ption: [place] GE Pion 3T INDICA TION: Sensor ineura l hearin g loss, worse on the left. TECHNI QUE: Multip lanar multis equenc e MRI of the brain using an IAC protoc ol was perfor med before and after the admini strati on of 20 mL of Dotare m. COMPAR ARIES: No prior FINDIN GS: The bilate ral crania l nerves VII and VIII comple xes are symmet maria victoria. There is normal T2 signal in the bilate ral cochle a and semici rcular canals . The bilate ral security intern al audito ry canals are not enlarg ed. The cister nal segmen ts of the trigem inal nerves are symmet maria victoria. The bilate ral Meckel caves are normal . There is no eviden ce of mass or abnorm al enhanc ement. The cerebe llopon rigo angle cister ns are normal . The visual ized brain is unrema rkable . The midlin e the struct ures, main vascul ar flow voids, and basal cister ns are normal . There are low-ly ing cerebe llar tonsil s. The orbits and globes are unrema rkable . There is patchy mucosa l thicke baljinder of the parana rebecca sinuse s. A small amount of fluid in inferi or right and trace of fluid in inferi or left mastoi d air cells is noted. The extrac ranial soft tissue s, calvar ium, and skull base are normal . IMPRES GIA: Unrema rkable bilate ral security intern al audito ry canals . No mass or abnorm al enhanc ement. Parana rebecca sinus diseas e as descri bed. Electr onical ly Signed By: Mary [email or web address] [facility] ([facility]) [address], [place], [address], 04/20/2024 16:11:08 04/20/20 24 04/18/2024 MRI, brain + inter nal audit ory canal , w/wo contr ast No observ ation record ed. [email or web address] [facility] ([facility]) [address] [place], [address], 04/21/2024 09:28:36 08/10/19 25 audio gram No observ ation record ed. BARCODE Not Available 2024 13:53:07 Result Notes None recorded. Problems Name Problem SNOMED Code Status Onset Date Resolution Date Notes Provider Name and Address Organization Details Recorded Time Sensorineur al hearing loss of bilateral ears 333415587 Active 2023 HONORIO BETNON , ТАТЬЯНА [address] [facility],[place] [address], [place], [address], [facility] - [facility] 4 13:24:12 Tinnitus of left ear 2168665306504 Active 2023 ELIDA BLAKE PA-C [address] [place] [address], [place], [address], [facility] - [facility] 4 14:43:22 Dizziness and giddiness 914665044 [facility] 2023 ELIDA BLAKE PA-C [address] [place] [address],[place] [address], [place], [address], [facility] - [facility] 4 14:43:26 Meniere's disease of left inner ear 0124305100367 107 Active 2024 TAYLOR DONOVAN MD [address] [facility],[place] [address], [place], [address], [facility] - [facility] 5 14:58:02 Problem Notes None recorded. Procedures Surgical History Date Name Laterality Status Provider Name and Address Organization Details Recorded Time 08/09/2024 Comp Audio with Tymps (50394 & 48522) completed DANI SANCHEZ, AUD [address] [facility],[address], [address], [facility] - [facility] 08/09/2024 14:14:08 04/08/2024 Comp Audio with Tymps (02897 & 86396) completed HONORIO BENTON, AUD [address] [facility],[address], [address], [facility] - [facility] 04/08/2024 13:24:03 Imaging Results Imaging Date Name Status LastModified by Organiz ation Details LastModified Time 04/12/2024 audiogram completed [email or web address] Information n ot available 04/12/2024 12:02:44 04/18/2024 MRI, brain + brain stem, w/wo contrast completed [email or web address] [facility] ([facility]) [address], [place], [address], 04/20/2024 16:11:08 04/18/2024 MRI, brain + internal auditory canal, w/wo contrast completed [email or web address] [facility] ([facility]) [address], [place], [address], 04/21/2024 09:28:36 08/10/2024 audiogram completed BARCODE Information no t available 08/10/2024 13:53:07 Procedure Notes None recorded. Medical Equipment None Reported. Allergies No known drug allergies Medications Name Sig Start Date Stop Date Status Note LastModified by Organization Details LastModified Time atorvastatin 10 mg tablet Take 1 tablet every day by oral route. active Not Available Not Available No t Available clonazepam 1 mg tablet Take 1 tablet 3 times a day by oral route. active Not Available Not Available No t Available omeprazole 40 mg capsule,hardeep yed release TAKE 1 CAPSULE (40 MG TOTAL) BY MOUTH IN THE MORNING AND 1 CAPSULE (40 MG TOTAL) IN THE EVENING. active Not Available Not Available No t Available Mapap (acetaminoph en) 500 mg capsule Take 2 capsules every 6 hours by oral route. active Not Available Not Available Not Available Flovent 110 mcg/actuatio n aerosol inhaler Inhale 1 puff twice a day by inhalation route. active Not Available Not Available No t Available gabapentin 300 mg capsule Take 1 capsule 3 times a day by oral route. active Not Available Not Available No t Available albuterol sulfate active Not Available Not Available Not Available multivitamin active Not Available Not Available Not Available blood pressure test kit-large cuff USE TO CHECK BLOOD PRESSURE DAILY active Not Available Not Available No t Available Vitals Date Recorded Body height Body mass index (BMI) Body weight Provider Name and Address Organization Details Last Updated DateTime 04/08/2024 168.91 cm 35.8 kg/m2 778931.28 g Janell Oracio [place] - [facility] 04/08/2024 13:37:32 Date Recorded Body height Body weight Provider Name and Address Organization Details Last Updated DateTime 08/09/2024 168.91 cm 979949.28 g Shelly Jack [place] - [facility] 08/09/2024 14:31:33 Social History None recorded. Functional Status None recorded. Mental Status None recorded. Family History Nothing Reported. Medical History Condition Response Cancer Y Arthritis Y Anxiety Y Depression Y Asthma Y Past Encounters Encounter ID Performer Location Encounter Start Date Encounter Closed Date Diagnosis/Indication Diagnosis SNOMED-CT Code Diagnosis ICD10 Code Diagnosis Note [id number] ELIDA BLAKE PA-C [facility] [address] [address] 04/08/2024 12:27:29 04/08/2024 14:25:45 Sensorineural hearing loss of bilateral ears 254549238 H90.3 Audiologic al evaluation results: Right ear: {{Normal* Normal through 2 kHz Mild M oderate Mo derately-s evere Tania re Profoun d}} {{hearing sloping to a mild* slop ing to a moderate s loping to moderately severe slo ping to severe slo ping to profound f lat high frequency low frequency mid frequency cookie bite beltre curve}} {{with sen sorineural hearing loss with* cond uctive hearing loss with mixed hearing loss with}} {{excellen t* good fa ir poor no measurable }} word recognitio n. Left ear: {{Normal N ormal through 2 kHz Mild M oderate Mo derately-s evere Tania re Profoun d Moderate ly-severe low frequency SNHL rising to mild #}} {{hearing sloping to a mild slopi ng to a moderate s loping to moderately severe slo ping to severe* sl oping to profound f lat high frequency low frequency mid frequency cookie bite beltre curve}} {{with sen sorineural hearing loss with* cond uctive hearing loss with mixed hearing loss with}} {{excellen t* good fa ir poor no measurable }} word recognitio n. Tympanomet ry: Right Ear:{{Type A* Type As Type Ad Type C Type C, shallow & rounded Ty pe B Type B with large volume Cou ld not maintain a hermetic seal}} Left Ear:{{Type A* Type As Type Ad Type C Type C, shallow & rounded Ty pe B Type B with large volume Cou ld not maintain a hermetic seal}} Tinnitus of left ear 084 4871836 106 H93.12 Dizziness and giddiness 272041828 R42 [id number] TAYLOR DONOVAN MD [facility] [address] [place] [address] 08/09/2024 13:47:00 08/09/2024 15:01:35 Sensorineural hearing loss of bilateral ears 035517776 H90.3 Audiologic al evaluation results: 08/09/2024 Right ear: {{Normal* Normal through 2 kHz Mild M oderate Mo derately-s evere Tania re Profoun d}} {{hearing hearing. s loping to a mild* slop ing to a moderate s loping to moderately severe slo ping to severe slo ping to profound f lat high frequency low frequency mid frequency cookie bite beltre curve}} {{with sen sorineural hearing loss with* cond uctive hearing loss with mixed hearing loss with}} {{excellen t* good fa ir poor no measurable }} word recognitio n. Left ear: {{Normal N ormal through 2 kHz Mild M oderate Mo derately-s evere Tania re Profoun d Borderli ne normal#}} {{hearing hearing. s loping to a mild slopi ng to a moderate* sloping to moderately severe slo ping to severe slo ping to profound f lat high frequency low frequency mid frequency cookie bite beltre curve}} {{with sen sorineural hearing loss with* cond uctive hearing loss with mixed hearing loss with}} {{excellen t* good fa ir poor no measurable }} word recognitio n. Tympanomet ry: Right Ear:{{Type A Type As Type Ad* Type C Type C, shallow & rounded Ty pe B Type B with large volume Cou ld not maintain a hermetic seal}} Left Ear:{{Type A Type As Type Ad* Type C Type C, shallow & rounded Ty pe B Type B with large volume Cou ld not maintain a hermetic seal}} Tinnitus of left ear 587 9531540 106 H93.12 Meniere's disease of left inner ear 5816763538 507220 H81.02 Health Concerns Section Related Observation LastModified by Organization Detai ls LastModified Time None Recorded Concern Status LastModified by Organization Details LastModified Time None Recorded Advance Directives Directive None Recorded Payers Encounter Date Sequence Insurance Name Policy Number Policy Chirinos Covered Member ID Chirinos Member ID Guarantor Name 04/08/2024 1 [place] [facility] Brendan Ferrera [id number] Brendan Ferrera 08/09/2024 1 [place] [facility] Brendan Ferrera [id number] Brendan Ferrera Notes Date Note Type Note Provider Name and Address Organization Details Recorded Time 04/08/2024 text/html 49-year-old male presents for evaluation of hearing loss. He reports longstanding hearing loss that has gradually worsened L>R. He also notes longstanding tinnitus that has now become constant in the left ear. Admits to episodes of dizziness that are not described as room spinning, fluctuating hearing loss on the left, and aural fullness. He reports history of chronic ear infections as a child but not as an adult. Denies otalgia and otorrhea. He reports his mother and father both have hearing loss. His mother had otologic surgery for hearing loss in her 40s. ELIDA BLAKE PA-C [address] [place] [address], [address], [facility] 04/08/2024 15:19:07 08/09/2024 text/html 49-year-old male previously seen by Elida Blake PA-C patient has fluctuating left-sided tinnitus hearing loss and episodic dizziness with some concern for left-sided M??ni??re's disease. MRI scan of the brain and internal auditory canals was ordered, and was negative for retrocochlear pathology. Patient was given recommendations to maintain low-sodium diet, and avoid caffeine and alcohol. Patient returns for follow-up audiometric testing and assessment of response to above-mentioned recommendations. He did not work on low-sodium diet. He drinks 1 cup of coffee a day. Alcohol use on the weekends only.Since his last visit, he had 2 very short-lived episodes of dizziness lasting only a few seconds at a time. He thinks the hearing is better on the left but the tinnitus persists. Patient also has diagnosis of sarcoidosis as well as chronic lymphocytic leukemia. TAYLOR DONOVAN MD [address] [place] [address], [place], [address], [facility] - [facility] 08/09/2024 15:01:26
--- OUTSIDE RECORDS SUMMARY | 2024-08-23 14:40 | XMS_ITS | Encounter Summary ---
Author Organization [employer] Address [address] [place] [address] Care Team Providers Care Fiberglasser Name Role Phone Izzy Pantoja MD Primary Care Provider [phone] Ilana Gaming Unavailable Unavailable Encounter Details Date Type Department Care Team ([facility] st Contact Info) Description 08/02/2024 Orders Only GENERIC EXTERNAL DATA DEPARTMENT Provider, Generic External Data Social History Tobacco Use Types Packs/Day Years [...] AM EDT documented as of this encounter Plan of Treatment Not on file documented as of this encounter Procedures Procedure Name Priority Date/Time Associated Diagnosis Comments PSA, TOTAL Routine 08/02/2024 7:03 AM EST documented in this encounter Results * PSA,Total (08/02/2024 7:03 AM EST) Prostate Specific Antigen 0.84 <0.05 - 4.0 ng/mL [facility] Comment:PSA methodology: Saima Crandall i ChemiluminescentMicroparticle Immunoassay (CMIA) 08/02/2024 7:03 AM EST 08/02/2024 7:07 AM EST us Generic External Data Provider LAB BLOOD ORDERAB LES Final Result [facility] [address] [place] [phone] documented in this encounter Visit Diagnoses Not on filedocumented in this encounter Additional Health Concerns Assessment Noted Time PHQ-9 Depression Total Score: 1 07/26/19 25 4:08 PM EST documented as of this encounter Care Teams Fiberglasser Relationship Specialty Start Date End Date Izzy Pantoja MD [address] [place] [address] PCP - General Family Medicine 03/17/22 Ilana Gaming Community Health Worker 10/26/23 documented as of this encounter
--- OUTSIDE RECORDS SUMMARY | 2024-08-23 14:40 | XMS_ITS | Encounter Summary ---
Author Organization [employer] Address [address] [place] [address] [address] Care Team Providers Care Cardiopulmonary Supervisor Name Role Phone Izzy Pantoja MD Primary Care Provider [phone] Ilana Gaming Unavailable Unavailable Tomeka Mclain RN Unavailable [phone] Encounter Details Date Type Department Care Team (Late st Contact Info) Description 06/03/2022 [facility] [employer] Information Management [address] [place], [place] [id number] Izzy Pantoja MD [address] [place] [address] Social History Tobacco Use Types Packs/Day Years Used Date Smoking Tobacco: Never Assessed Sex and Gender Information Value Date Recorded Sex Assigned at Male 05/19/2022 10:14 AM EDT Legal Sex Male 10:14 AM EDT Gender Identity Male 05/19/2022 10:14 AM EDT Sexual Orientation Straight 05/19/2022 10 :14 AM EDT documented as of this encounter Plan of Treatment Not on file documented as of this encounter Visit Diagnoses Not on filedocumented in this encounter Care Teams Cardiopulmonary Supervisor Relationship Specialty Start Date End Date Izzy Pantoja MD [address] [place], [place] [phone] PCP - General Family Medicine 03/17/22 Ilana Gaming Community Health Worker 10/26/23 Tomeka Mclain, MAURIZIO [address] [place] [address] Concessionist 10/26/23 01/24/24 documented as of this encounter
--- OUTSIDE RECORDS SUMMARY | 2024-08-23 14:40 | XMS_ITS | Clinical Summary ---
Author Organization [facility], Address [address] [place] [address] [place] [address] Phone Care Team Providers Care Cable Rigger Name Role Phone Izzy Pantoja MD Primary Care Provider [phone] Allergies Active Allergy Reactions Criticality Noted Date Comments Ibuprofen Other (see comments) 02/02/2020 discomfort Medications Acetaminophen (Tylenol) 325 MG capsule Take 1 capsule by mouth 4 (four) times a day Active loratadine (Claritin) 10 MG tablet Take 1 tablet by mouth 1 (one) time each day Active albuterol HFA (ProAir HFA) 108 (90 Base) MCG/ACT inhaler Acti ve clonazePAM (KlonoPIN) 1 MG tablet Take 1 mg by mouth 1 (one) time each day Active fluticasone (FLONASE) 50 MCG/ACT nasal spray Administer 1 spray into each nostril 1 (one) time each day Active gabapentin (NEURONTIN) 300 MG capsule Take 300 mg by mouth 3 (three) times a day Take 3 tabs at bedtime if needed Active Cholecalciferol (Vitamin D) 25 MCG (1000 UT) tablet Take by mouth Active atorvastatin (LIPITOR) 10 MG tablet Take 10 mg by mouth 4 Active cyclobenzaprine (FLEXERIL) 10 MG tablet Take 10 mg by mouth 4 Active omeprazole (PriLOSEC) [address] capsule Take 1 capsule (40 mg total) by mouth in the morning and 1 capsule (40 mg total) in the evening. 180 capsule 3 4 Active Diclofenac Sodium 1 % cream Apply 1 Dose topically 2 (two) times a day 30 g 1 4 Active Active Problems Problem Noted Date Diagnosed Date Vitamin D deficiency 05/20/2021 Chronic kidney disease stage 2 02/02/2020 Proteinuria 02/02/2020 Resolved Problems Problem Noted Date Diagnosed Date Resolved Date Asthma 02/02/2020 05/20/2021 Depressive disorder 02/02/2020 05/20/20 21 Obesity 02/02/2020 05/20/2021 Gastroesophageal reflux disease 02/02/2020 05/20/2021 Leukemia 02/02/2020 05/20/2021 Encounters Date Type Department Care Team Description 07/06/2024 4:30 PM EST Office Visit [facility], [address] [place] [address] Simon Torres MD Chronic kidney disease stage 2 (Primary Dx) from Last 3 Months Family History Relation Status Comments Father Unknown Mother Unknown Social History Tobacco Use Types Packs/Day Years Used Date Smoking Tobacco: Every Day Cigarettes Tobacco Cessation:Ready to Q uit: Not Asked; Counseling Given: Not Answered Alcohol Use Standard Drinks/Week Comments No 0 (1 standard drink = 0.6 oz pur e alcohol) Sex and Gender Information Value Date Recorded Sex Assigned at Not on file Legal Sex Male 4:31 PM EST Gender Identity Not on file Sexual Orientation Not on file Last Filed Vital Signs Vital Sign Reading Time Taken Comments Blood Pressure 124/82 05/26/2022 4:57 PM EST Pulse 74 05/09/2019 12:00 PM EDT Temperature - - Respiratory Rate 16 05/09/2019 12:00 PM EDT Oxygen Saturation - - Inhaled Oxygen Concentration - - Weight 101 kg (222 lb) 05/26/2022 4:57 PM EST Height 167.6 cm (5' 6 ) 05/26/2022 4:57 PM EST Body Mass Index 35.83 05/26/2022 4:57 PM EST Plan of Treatment Health Maintenance Due Date Last Done Comments Hepatitis B Vaccine (1 of 3 - 19+ 3-dose series) 01/05/1995 02/10/2019, 03/07/2009, 01/10/2009 Influenza Vaccine (#1) 2024 2, 04/15/2021, 04/18/2020, Additional history exists Pneumococcal Vaccine: Pediat rics (0 to 5 Years) and At-Risk Patients (6 to 64 Years) Completed 08/11/2022, 05/20/2018, 07/08/2012, Additional history exists Insurance [place]ICAID [place] Care Teams Cable Rigger Relationship Specialty Start Date End Date Izzy Pantoja MD [address] [place] [id number] PCP - General Family Medicine 07/06/24
--- OUTSIDE RECORDS SUMMARY | 2024-08-23 14:40 | XMS_ITS | Clinical Summary ---
Author Organization [employer] Address [address] [facility] [address] [place] [address] Care Team Providers Care Sas Bi Developer Name Role Phone Izzy Pantoja MD Primary Care Provider [phone] Ilana Gaming Unavailable Unavailable Allergies Active Allergy Reactions Criticality Noted Date Comments Cold Sore Products 10/30/2023 Ibuprofen 05/29/2014 Other reaction(s): Discomfort Low-Salt Diet 10/30/2023 Medications cholecalciferol (Vitamin D-3) 50 MCG (2000 UT) capsule take 1 by oral route every day 2 Active clonazePAM (KlonoPIN) 1 MG tablet take 1 tab by mouth daily as needed for anxiety Active fluticasone (Flonase) 50 MCG/ACT nasal spray Administer 1 spray into each nostril 1 (one) time each day 2 Active fluticasone (Flovent) 110 MCG/ACT inhaler take 2 puffs by Inhalation route 2 times every day 2 Active gabapentin (Neurontin) 300 MG capsule take 3 capsule by oral route at bedtime Active nicotine polacrilex (Commit) 2 MG lozenge take 1 tablet by oral route every 8 hours dissolved slowly in the mouth as needed 2 Active famotidine (Pepcid) 20 MG tabletIndication s:Heartburn Take 1 tablet (20 mg) by mouth at bedtime. 90 tablet 3 3 Active albuterol (Ventolin HFA) 108 (90 Base) MCG/ACT inhaler INHALE 2 PUFFS BY INHALATION ROUTE EVERY 4 HOURS IF NEEDED 18 g 3 Active levocetirizine (Xyzal) 5 MG tablet take 1 tablet by oral route every day in the evening 90 tablet 1 3 Active esomeprazole (NexIUM) [address] capsule take 1 capsule by oral route every day at least 1 hour before a meal swallowing whole. Do not crush or chew granules. 90 capsule 1 3 Active diclofenac (Cataflam) 50 MG tabletIndication s:Chronic bilateral low back pain, unspecified whether sciatica present Take 1 tablet (50 mg) by mouth 3 times daily. 30 tablet 4 10/30/19 25 Active Acetaminophen 500 MG capsuleIndicatio ns:Pain take 2 capsule by oral route every 6 hours as needed 60 capsule 3 4 Active cyclobenzaprine (Flexeril) 10 MG tabletIndication s:Chronic bilateral low back pain, unspecified whether sciatica present Take 1 tablet (10 mg) by mouth at bedtime for 10 days. 10 tablet 4 Active omeprazole (PriLOSEC) [address] capsule Take 40 mg by mouth 2 times daily. 4 Active atorvastatin (Lipitor) 10 MG tablet Take 1 tablet (10 mg) by mouth at bedtime. 30 tablet 3 4 10/05/19 25 Active triamcinolone (Kenalog) 0.1 % cream Apply topically if needed in the morning and at bedtime (pain and swelling). 30 g 2 5 Active Blood Pressure Monitor misc Check BP daily 1 each 5 Active Active Problems Patient Care Coordination No te Formatting of this note migh t be different from the original. C3/CM Isis Orona RN, TC Progress Note Problem Noted Date Diagnosed Date Elevated BP without diagnosis of hypertension Assessment & Plan (08/05/2024 11:32 AM EST): -Goal BP < 140/90 per JNC-8 and < 130/80 per ACC/AHA guideline (Treatment threshold >=140/90) -BP borderline -Continue working on lifestyle modifications -Recommended self-monitoring BP. 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 Interval development of Mild degenerative disc disease at L3-L4 and L5-S1. 2. Interval development of Marked bilateral L4-L5 neural foraminal stenosis. 3. 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 - refer to PT - continue judicious use of muscle relaxant - continue staying physically active Assessment & Plan (12/27/2023 5:34 PM EDT): - MRI on 12/03/23 1. Interval development of Mild degenerative disc disease at L3-L4 and L5-S1. 2. Interval development of Marked bilateral L4-L5 neural foraminal stenosis. 3. 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 - refer to PT - continue judicious use of muscle relaxant - continue staying physically active Assessment & Plan (10/30/2023 3:29 PM EDT): Apply heat on affected area MRI ordered today Referral to pain management Muscle relaxare and diclofenac prescribed F/u with pain management and PCP Bilateral tinnitus 10/30/2023 Positive QuantiFERON-TB Gold test 08/15/2022 Assessment & Plan (08/15/2022 6:32 PM EST): - Seen by TB clinic provider, last appt on 05/06/22 - CXR and CT in January 2022 were normal - 2nd IGRA was negative - No LTBI and no need for Tx. Allergic rhinitis 08/15/2022 Assessment & Plan (08/15/2022 6:40 PM EST): continue levocetirizine Systemic venous anomaly 08/15/2022 Assessment & Plan (12/25/2023 3:34 PM EDT): Chest CT on 02/12/22 showed that there is reflux of contrast from a right upper extremity injection into multiple chest wall collaterals. Left-sided collaterals fill the left subclavian and brachiocephalic vein. Right-sided collaterals fill the SVC. The right subclavian and brachial veins are not well delineated. -Further evaluation with right upper extremity doppler was recommended. -Check the status of right UE venous doppler, which was ordered in Apr 2022 Assessment & Plan (08/15/2022 6:43 PM EST): Chest CT on 02/12/22 showed that there is reflux of contrast from a right upper extremity injection into multiple chest wall collaterals. Left-sided collaterals fill the left subclavian and brachiocephalic vein. Right-sided collaterals fill the SVC. The right subclavian and brachial veins are not well delineated. -Further evaluation with right upper extremity doppler was recommended. -Check the status of right UE venous doppler, which was ordered in Apr 2022 Lower urinary tract symptoms (LUTS) 08/15/2022 Assessment & Plan (08/05/2024 11:28 AM EST): - following with urologist at [facility]. Last seen in November 2023. 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 - consider trial of alpha loki Hyperlipidemia 07/03/2021 Assessment & Plan (07/29/2024 5:34 AM EST): Current medication: atorvastatin 10 mg qhs Check lipid profile Assessment & Plan (12/25/2023 3:35 PM EDT): Current medication: atorvastatin 10 mg qhs Check lipid profile Assessment & Plan (08/15/2022 6:42 PM EST): Current medication: atorvastatin 10 mg qhs Check lipid profile Pulmonary sarcoidosis 07/01/2021 Assessment & Plan (08/05/2024 11:26 AM EST): - Following with [facility] pulmonology, currently asymptomatic - Most recent CT scan in January 2022 showed no mediastinal lymphadenopathy Assessment & Plan (12/27/2023 5:27 PM EDT): - Following with [facility] pulmonology, currently asymptomatic - Most recent CT scan in January 2022 showed no mediastinal lymphadenopathy Assessment & Plan (08/15/2022 6:30 PM EST): - Most recent CT scan in January 2022 showed no mediastinal lymphadenopathy Obstructive sleep apnea syndrome 05/29/2021 Assessment & Plan (07/29/2024 5:33 AM EST): - last sleep study in Apr 2021, Sleep Medicine clinic in [place] - recommended auto-PAP 5-15 cm H2O - patient has a CPAP. Will check if patient can have a humidification device, especially during dry season. Assessment & Plan (12/27/2023 5:27 PM EDT): - last sleep study in Apr 2021, Sleep Medicine clinic in [place] - recommended auto-PAP 5-15 cm H2O - patient has a CPAP. Will check if patient can have a humidification device, especially during dry season. Assessment & Plan (08/15/2022 6:36 PM EST): - last sleep study in Apr 2021, Sleep Medicine clinic in [place] - recommended auto-PAP 5-15 cm H2O - pt is waiting for a new CPAP Tobacco use disorder 10/13/2012 Assessment & Plan (07/29/2024 5:34 AM EST): Quit date 08/04/23 Continue smoking cessation effort and remain a non-smoker Assessment & Plan (12/27/2023 5:04 PM EDT): Quit date 08/04/23 Continue smoking cessation effort and remain a non-smoker Assessment & Plan (08/15/2022 6:41 PM EST): Continue working on smoking cessation Referred to smoking cessation group Consider referral to [facility] Obesity 04/19/2012 Assessment & Plan (08/15/2022 6:41 PM EST): - LEANDRA - Continue working on lifestyle modification Gastroesophageal reflux disease 04/19/2012 Assessment & Plan (07/29/2024 5:33 AM EST): Continue esomeprazole Add famotidine Upcoming appt with GI for colonoscopy and possible EGD evaluation Avoid irritants, especially smoking Assessment & Plan (12/25/2023 3:34 PM EDT): Continue esomeprazole Add famotidine Upcoming appt with GI for colonoscopy and possible EGD evaluation Avoid irritants, especially smoking Assessment & Plan (08/15/2022 6:48 PM EST): Continue esomeprazole Add famotidine Upcoming appt with GI for colonoscopy and possible EGD evaluation Avoid irritants, especially smoking Chronic lymphocytic leukemia 04/19/2012 Assessment & Plan (07/29/2024 5:34 AM EST): -Dx October 2008 -Oncology, [facility]. Last seen by Dr. Lee in September 2023, annual follow up. -Tx 6 cycles of R-CVP, completed in Jul 2009 -No sign of recurrence Assessment & Plan (12/27/2023 5:33 PM EDT): -Dx October 2008 -Oncology, [facility]. Last seen by Dr. Lee in September 2023, annual follow up. 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 Lee, no sign of recurrence of CLL at this time. - Last seen 09/2021 Asthma 01/16/2012 Assessment & Plan (08/05/2024 11:26 AM EST): - Continue Flovent 110 2 puffs BID, with Albuterol MDI 2 puffs every 4 hours as needed - Consider switching to ICS / LABA prn - Began smoking cessation on 08/04/2023, continue to work on smoking cessation Assessment & Plan (12/25/2023 3:33 PM EDT): - Continue Flovent 110 2 puffs BID, with Albuterol MDI 2 puffs every 4 hours as needed - Consider switching to ICS / LABA prn - Began smoking cessation on 08/04/2023, continue to work on smoking cessation Assessment & Plan (08/15/2022 6:34 PM EST): - Continue Flovent 110 2 puffs BID, with Albuterol MDI 2 puffs every 4 hours as needed - Consider switching to ICS / LABA prn - work on smoking cessation Depressive disorder 01/16/2012 Assessment & Plan (08/15/2022 6:38 PM EST): - current [facility] provider: [facility] - continue judicious and responsible use of gabapentin and clonazepam Encounters Date Type Department Care Team Description 08/02/2024 Orders Only GENERIC EXTERNAL DATA DEPARTMENT Provider, Generic External Data 07/26/2024 3:15 PM EST Office Visit [facility] [address] [place] [phone] Izzy Pantoja MD Obstructive sleep apnea syndrome (Primary Dx); Benign [...] of hypertension; Meniere's disease of left ear 07/26/2024 Travel 07/06/2024 Refill [facility] [address] [place] [address] Izzy Pantoja MD 06/01/2024 Outside Procedure [facility] [address] [place] [address] Kristen Howard, OD Myopia of both eyes (Primary Dx); Regular astigmatism of both eyes from Last 3 Months Immunizations Name Administration Dates Next Due Hep B, adult 02/10/2019,03/07/2009,01/10/2009 Influenza injectable quadriv alent IIV4 with preservative 08/27/2017,05/07/2016 Influenza injectable quadriv alent preservative free 05/12/2022,04/15/2021,04/18/2020,06/01,04/02/2015 Influenza, IIV3, injectable 06/05/2011 Influenza, Split (incl. alex fied surface antigen) 04/19/2012 Influenza, seasonal, injecta ble, preservative free 07/26/2024 Moderna Covid-19 Vaccine 6+ Bivalent 08/11/2022 Pfizer Covid-19 Vaccine 12+ 07/26/2024, 4 Pneumococcal Conjugate PCV 20 08/11/2022 Pneumococcal Polysaccharide PPSV23 05/20/2018,,01/10/2009 TD (adult), 2 Lf tetanus tox oid, preservative free, adsorbed 05/12/2022,01/10/2009,04/09/1999 Tdap 04/19/2012 Family History Medical History Relation Name Comments Hypertension Father Cirrhosis Mother Stroke Mother's Brother Relation Name Status Comments Father Mother Mother's Brother Social History Tobacco Use Types Packs/Day Years Used Date Smoking Tobacco: Former Cigarettes Passive Smoke Exposure: Past Smokeless Tobacco: Never Tobacco Cessation:Counseling Given: Not Answered Depression Answer Date Recorded Patient Health Questionnaire-9 [...] Orientation Straight 05/19/2022 10 :14 AM EDT Last Filed Vital Signs Vital Sign Reading [...] 9.6 oz) 07/26/2024 3:21 PM EST Height 167.1 cm (5' 5.8 ) 12/24/2023 11:03 AM ED T Body Mass Index 36.96 12/24/2023 11:03 AM EDT Plan of Treatment Health Maintenance Due Date Last Done Comments CT Colonography 1976 Colonoscopy 1976 Colorectal Cancer Screening 1976 FIT DNA/Cologuard 1976 FIT 1976 FOBT 1976 Sigmoidoscopy 1976 Family Planning (PISQ) 01/05/1991 Zoster Vaccines (1 of 2) 01/05/1995 COVID-19 Vaccine ( season) 2024 07/26/2024, 12/24/2023, 08/11/2022, Additional history exists SDOH Screening 10/25/2024 10/26/2023 Alcohol/Substance Use Screening 12/23/2024 12/24/2023 Depression Screening 07/26/2025 07/26/2024, 07/26/19 Tobacco Screening 08/05/2025 08/05/2024 Lipid Panel 12/30/2028 12/31/2023, 07/21, 07/01/2021 DTaP/Tdap/Td Vaccines (3 - Td or Tdap) 05/12/2032 05/12/2022, 04/19/2012, 01/10/2009, Additional history exists RSV Patients and Patients Aged 60 years or older (1 - 1-dose 75+ series) 01/05/2051 Hepatitis B Vaccines Completed 02/10/2019, 03/07/2009, 01/10/2009 HIV Screening Completed 07/01/2021 Hepatitis C Screening Completed 07/01/2021 Pneumococcal Vaccine: Pediatrics (0 to 5 Years) and At-Risk Patients (6 to 49) Years) Completed 08/11/2022, 05/20/2018, 07/08/2012, Additional history exists Influenza Vaccine Completed 07/26/2024, , 04/15/2021, Additional history exists HIB Vaccines Aged Out No longer eligi ble based on patient's age to complete this topic HPV Vaccines Aged Out No longer eligi ble based on patient's age to complete this topic Hepatitis A Vaccines Aged Out No long er eligible based on patient's age to complete this topic IPV Vaccines Aged Out No longer eligi ble based on patient's age to complete this topic Meningococcal Vaccine Aged Out No janie ester eligible based on patient's age to complete this topic RSV under 20 months Aged Out No longe r eligible based on patient's age to complete this topic Rotavirus Vaccines Aged Out No longer eligible based on patient's age to complete this topic Procedures Procedure Name Priority Date/Time Associated Diagnosis Comments PSA, TOTAL Routine 08/02/2024 7:03 AM EST T-SPOT(R).TB Routine 08/02/2024 7:03 AM EST 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 LIPID PANEL WITH REFLEX TO DIRECT LDL Routine 12/31/2023 3:31 PM EDT Mixed hyperlipidemia ZZZ HISTORICAL HEPATITIS C AB W/REFL TO HCV RNA, QN, PCR Routine 07/01/2021 3:34 PM EST HIV 1/2 ANTIGEN/ANTIBODY, FOURTH GENERATION W/RFL Routine 07/01/2021 3:34 PM EST from Last 3 Months or Most Recently Relevant to Health Maintenance Results * T-SPOT??.TB (08/02/2024 7:03 AM EST) [facility] T Spot TB Negative Negative [facility] Comment:A negative test resu lt does [...] as aquantitative test. TS PANEL A 0 [facility] TS PANEL B 0 [facility] Negative Control Passed [facility] Positive Control Passed [facility] Comment:For additional infor neha, please refer tohttp://education.Buzztala/faq/MYO627(This link is being provided for informational/educational purposes only.)THIS TEST WAS PERFORMED AT:[employer]/TRAN [id number] [place] [id number] Beth DONOVAN MD,PHD 08/02/2024 7:03 AM EST 08/02/2024 7:07 AM EST us Izzy Pantoja MD LAB BLOOD ORDERABLES Final Resul t Performing Organization Address [facility] Co de Phone Number [facility] [address] [place] [phone] * PSA,Total (08/02/2024 7:03 AM EST) Prostate Specific Antigen 0.84 <0.05 - 4.0 ng/mL [facility] Comment:PSA methodology: Saima Crandall i ChemiluminescentMicroparticle Immunoassay (CMIA) 08/02/2024 7:03 AM EST 08/02/2024 7:07 AM EST us Generic External Data Provider LAB BLOOD ORDERAB LES Final Result Performing Organization Address [facility]/ZIP Co de Phone Number [facility] [address] [place] [phone] * (ABNORMAL) Lipid Panel with Reflex to Direct LDL (12/31/2023 3:31 PM EDT) Triglycerides 174(H) <150 mg/dL [facility] Comment:Desirable Triglyceri de: less than 150 mg/dLBorderline High Triglyceride 150-199 mg/dLHigh Triglyceride: 200-499 mg/dLVery High Triglyceride: greater than or equal to 5OO mg/dL Cholesterol 176 <200 mg/dL [facility] Comment:Desirable Cholestero l: less than 200 mg/dLBorderline High Cholesterol: 200-239 mg/dLHigh Cholesterol: greater than 239 mg/dL LDL Cholesterol Calculated 92 <100 mg/dL [facility] Comment:Desirable LDL: less than 100 mg/dLNear Optimal/Above Optimal LDL: 110- 129 mg/dLBorderline High LDL: 130-159 mg/dLHigh LDL: 160-189 mg/dLVery High LDL: greater than or equal to 190 mg/dL HDL Cholesterol 50 >40 mg/dL [facility] Comment:Desirable HDL: great er than 40 mg/dL Note: This HDL assay may give artificially low results in patients with liver disease. Blood 12/31/2023 3:31 PM EDT 12/31/2023 3:51 PM EDT Izzy Pantoja MD LAB BLOOD ORDERABLES Final Resul t Performing Organization Address City/[facility]/ZIP Co de Phone Number [facility] [address] [place] [phone] * HEPATITIS C AB W/REFL TO HCV RNA, QN, PCR (07/01/2021 3:34 PM EST) HEPATITIS C ANTIBODY NON-REACT JIMENEZ NON-REACT JIMENEZ [facility] INDEX 0.02 <1.00 [facility] Comment: ?? HCV antibody was non-reactive. There is no laboratory ?? evidence of HCV infection. ?? In most cases, no further action is required. However, if recent HCV exposure is suspected, a test for HCV RNA (test code 14772) is suggested. ?? For additional information please refer to http://education.[employer].MEDNAX/faq/XRF53k8 (This link is being provided for informational/ educational purposes only.) ?? 07/01/2021 3:34 PM EST us Loulou [facility] HISTORICAL/NON ORDERABLE LABS Final Result [facility] [address] [place] [address], * HIV 1/2 ANTIGEN/ANTIBODY,FOURTH GENERATION W/RFL (07/01/2021 3:34 PM EST) HIV-1/2 ANTIGEN AND ANTIBODIES, 4TH GENERATION W/ REFLEX NON-REACT JIMENEZ NON-REACT JIMENEZ [facility] Comment: HIV-1 antigen and HIV-1/HIV-2 antibodies were not detected. There is no laboratory evidence of HIV infection. ?? PLEASE NOTE: This information has been disclosed to you from records whose confidentiality may be protected by state law. ??If your state requires such protection, then the state law prohibits you from making any further disclosure of the information without the specific written consent of the person to whom it pertains, or as otherwise permitted by law. A general authorization for the release of medical or other information is NOT sufficient for this purpose. ? For additional information please refer to http://education.Buzztala/faq/RBF860 (This link is being provided for informational/ educational purposes only.) ? The performance of this assay has not been clinically validated in patients less than 2 years old. ?? 07/01/2021 3:34 PM EST us Loulou Cruz [facility] LAB BLOOD ORDERABLES Final Res ult [facility] [address] from Last 3 Months or Most Recently Relevant to Health Maintenance Insurance [facility] C3 Care Teams Sas Bi Developer Relationship Specialty Start Date End Date Izzy Pantoja MD [address] [place] [phone] PCP - General Family Medicine 03/17/22 Ilana Gaming Community Health Worker 10/26/23
--- OUTSIDE RECORDS SUMMARY | 2024-08-23 14:40 | XMS_ITS | Encounter Summary ---
Author Organization [facility] Address [address] [place] [address] Phone Care Team Providers Care Court Officer Name Role Phone Izzy Pantoja MD Primary Care Provider [phone] Encounter Details Date Type Department Care Team (Late st Contact Info) Description 05/20/2022 Documentation Only [facility], [address] [place] [address] Tessa Alejandra PA Social History Tobacco Use Types Packs/Day Years Used Date Smoking Tobacco: Every Day Cigarettes Alcohol Use Standard Drinks/Week Comments No 0 (1 standard drink = 0.6 oz pur e alcohol) Sex and Gender Information Value Date Recorded Sex Assigned at Not on file Legal Sex Male 4:31 PM EST Gender Identity Not on file Sexual Orientation Not on file documented as of this encounter Plan of Treatment Not on file documented as of this encounter Visit Diagnoses Not on filedocumented in this encounter Care Teams Court Officer Relationship Specialty Start Date End Date Izzy Pantoja MD [address] [place] [phone] PCP - General Family Medicine 07/06/24 documented as of this encounter
--- OUTSIDE RECORDS SUMMARY | 2024-08-23 14:40 | XMS_ITS | Encounter Summary ---
Author Organization [employer] Address [address] [place] [address] Care Team Providers Care Aircraft Cabin Cleaner Name Role Phone Izzy Pantoja MD Primary Care Provider [phone] Ilana Gaming Unavailable Unavailable Encounter Details Date Type Department Care Team (Latest Contact Info) Description 07/26/2024 Travel Social History Tobacco Use Types Packs/Day Years [...] documented as of this encounter Care Teams Aircraft Cabin Cleaner Relationship Specialty Start Date End Date Izzy Pantoja MD [address] [place] [address] PCP - General Family Medicine 03/17/22 Ilana Gaming Community Health Worker 10/26/23 documented as of this encounter
== END 2024-08-23 15:13 | disposition home or self-care (01) ==
PROVIDERS: PCP Family Medicine; Visit Provider Nurse Practitioner Family
DX: K21.9 Gastro-esophageal reflux disease without esophagitis (principal); K59.01 Slow transit constipation; R10.13 Epigastric pain; Z12.11 Encounter for screening for malignant neoplasm of colon
CPT/HCPCS: 99204

== ENCOUNTER → 2024-08-23 14:37 | Outpatient (BNVA) | payer MEDICAID, SELFPAY | PROVIDERS: PCP Family Medicine; Visit Provider Nurse Practitioner Family | DX: Z12.11 Encounter for screening for malignant neoplasm of colon (principal); K21.9 Gastro-esophageal reflux disease without esophagitis; K59.01 Slow transit constipation; R10.13 Epigastric pain; R14.0 Abdominal distension (gaseous) | CPT/HCPCS: 99212 ==

== ENCOUNTER 2024-10-31 07:53 | Outpatient (REF) | payer MEDICAID, SELFPAY ==
--- OUTSIDE RECORDS SUMMARY | 2024-10-31 07:56 | XMS_ITS | Encounter Summary ---
Author Organization [facility] Address 75 [facility] 7t [place] [address] Care Team Providers Care Clinical Biochemical Geneticist Name Role Phone Izzy Pantoja MD Primary Care Provider [phone] Ilana Gaming Unavailable Unavailable Tomeka Mclain RN Unavailable [phone] Reason for Visit * Reason Onset Date Comments Referral 08/20/2022 Encounter Details Date Type Department Care Team (Late st Contact Info) Description 08/20/2022 Telephone [facility] [address] [place], [place] [phone] Izzy Pantoja MD [address] [place], [place] [phone] Referral Social History Tobacco Use Types Packs/Day [...] documented in this encounter Plan of Treatment Upcoming Encounters Date Type Department Care Team (Late st Contact Info) Description 11/22/2024 3:15 PM EDT Office Visit [facility] [address] [place] [address] [phone] Izzy Pantoja MD [address] [place] [address] [phone] documented as of this encounter Visit Diagnoses Not on filedocumented in this encounter Care Teams Clinical Biochemical Geneticist Relationship Specialty Start Date End Date Izzy Pantoja MD [address] [place] [address] [phone] PCP - General Family Medicine 03/17/22 Ilana Gaming Community Health Worker 10/26/23 Tomeka Mclain, MAURIZIO [address] [place] [address] Plsql Developer 10/26/23 01/24/24 documented as of this encounter
--- OUTSIDE RECORDS SUMMARY | 2024-10-31 07:56 | XMS_ITS | Encounter Summary ---
Author Organization [employer] Address [address] [place] [address] [address] [address] Care Team Providers Care Paper Supervisor Name Role Phone Izzy Pantoja MD Primary Care Provider [phone] Ilana Gaming Unavailable Unavailable Tomeka Mclain RN Unavailable [phone] Encounter Details Date Type Department Care Team (Late st Contact Info) Description 06/03/2022 [facility] [employer] Management 230 [place], [place] [phone] Izzy Pantoja MD [address] [place] [address] [phone] Social History Tobacco Use Types Packs/Day Years Used Date Smoking Tobacco: Never Assessed Sex and Gender Information Value Date Recorded Sex Assigned at Male 05/19/2022 10:14 AM EDT Legal Sex Male 10:14 AM EDT Gender Identity Male 05/19/2022 10:14 AM EDT Sexual Orientation Straight 05/19/2022 10 :14 AM EDT documented as of this encounter Plan of Treatment Upcoming Encounters Date Type Department Care Team (Late st Contact Info) Description 11/22/2024 3:15 PM EDT Office Visit [facility] 230 [place], [place] [phone] Izzy Pantoja MD 230 [place] [address] documented as of this encounter Visit Diagnoses Not on filedocumented in this encounter Care Teams Paper Supervisor Relationship Specialty Start Date End Date Izzy Pantoja MD [address] [place] [phone] PCP - General Family Medicine 03/17/22 Ilana Gaming Community Health Worker 10/26/23 Tomeka Mclain RN [address] [place] [address] Turner Splitter Machine Operator 10/26/23 01/24/24 documented as of this encounter
--- OUTSIDE RECORDS SUMMARY | 2024-10-31 07:57 | XMS_ITS | Encounter Summary ---
Author Organization [facility] Address [address] [place] [address] Phone Care Team Providers Care Film Color Tester Name Role Phone Izzy Pantoja MD Primary Care Provider [phone] Encounter Details Date Type Department Care Team (Late st Contact Info) Description 05/20/2022 Documentation Only [facility], [address] [place] [address] Tessa Alejandra PA Social History [...] on filedocumented in this encounter Care Teams Film Color Tester Relationship Specialty Start Date End Date Izzy Pantoja MD [address] [place] [phone] PCP - General Family Medicine 07/06/24 documented as of this encounter
--- OUTSIDE RECORDS SUMMARY | 2024-10-31 07:57 | XMS_ITS | Data Portability ---
Author Organization [place] [facility] Address [address] [address] Care Team Providers Care Medical Records Receptionist Name Role Phone [facility] Primary Care Provider Assessment Encounter Date Assessment [...] sided amplification and he will consider this. 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 Fortunately his vertigo spells are quite short-lived. There is also the possibility that this could be an underlying cochlear migraine phenomenon. Audiometric testing today shows significant improvement in the low-frequency sensorineural hearing loss in comparison to his last audiogram back in March. Today we went over the M? ? ?ni? ? ?re's disease brochure in detail. We discussed the [...] of his current blood pressure medication regimen. [email or web address] Not available 08/09/2024 15:01:02 Plan of Treatment [...] - next available ....IAC protocol 2023 024 [facility] ([facility]), [address], [place], [address], 04/20/2024 15:14:22 Medication Orders None recorded. Patient TargetsNo targets recorded. Patient InstructionsNo instructions recorded. Reason for Referral None Reported. Results Created Date Observation Date Name Description Value Unit Range Abnormal Flag Note LastModifiedBy Organization Detail LastModifiedTime 04/12/20 24 audio gram No observ ation record ed. [email or web address] Not Available 03/21 12:02:44 04/20/2004/18/2024 MRI, brain + brain stem, w/wo contr ast [facility] Access ion Number : [id number] Darion rodriguez Name: Brendan Ferrera Record Number : [id number] Date of : 1974 Date of Exam: 2023 Referr ing Physic clinton: Elida Nava [facility] d [address], [address] [facility] [place] [address] Exam: MR Brain (C-/C+ ) CPT 83520 Room Descri ption: Monona GE Pion 3T INDICA TION: Sensor ineura [...] semici rcular canals . The bilate ral engineer intern al audito ry canals are not [...] . IMPRES GIA: Unrema rkable bilate ral engineer intern al audito ry canals . No mass or abnorm al enhanc ement. Parana rebecca sinus diseas e as descri bed. Electr onical ly Signed By: Mary [email or web address] [facility] ([facility]) [address] [place], [address], 04/20/2024 16:11:08 04/20/20 24 04/18/2024 MRI, brain + inter nal audit ory canal , w/wo contr ast No observ ation record ed. [facility] ([facility]) [address] [place], [address], 04/21/2024 09:28:36 08/10/19 25 audio gram No observ ation record ed. BARCODE Not Available 2024 13:53:07 Result Notes None recorded. Problems Name Problem SNOMED Code Status Onset Date Resolution Date Notes Provider Name and Address Organization Details Recorded Time Sensorineur al hearing loss of bilateral ears 464354045 Active 2023 HONORIO BENTON , ТАТЬЯНА [address], [address], [facility] 4 13:24:12 Tinnitus of left ear 6432921154780 Active 2023 ELIDA BLAKE PA-C [address] [place] [address], [phone], [facility] 4 14:43:22 Dizziness and giddiness 342580690 Active 2023 ELIDA BLAKE PA-C [address] [place] [address], [place], [address], [facility] - [facility] 4 14:43:26 Meniere's disease of left inner ear 4847295565375 107 Active 2024 TAYLOR DONOVAN MD [address], [address], [facility] - [facility] 5 14:58:02 Problem Notes None recorded. Procedures Surgical History Date Name Laterality Status Provider Name and Address Organization Details Recorded Time 08/09/2024 Comp Audio with Tymps (45984 & 66989) completed DANI SANCHEZ, AUD [address] [facility],[address], [address], [facility] 08/09/2024 14:14:08 04/08/2024 Comp Audio with Tymps (22778 & 05599) completed HONORIO BENTON, AUD [address] [employer],[address], [address], [facility] - [facility] 04/08/2024 13:24:03 Imaging Results Imaging Date Name Status LastModified by Organiz ation Details LastModified Time 04/12/2024 audiogram completed [email or web address] Information n ot available 04/12/2024 12:02:44 04/18/2024 MRI, brain + brain stem, w/wo contrast completed [email or web address] [facility] ([facility]) [address], [place], [address], 04/20/2024 16:11:08 04/18/2024 MRI, brain + internal auditory canal, w/wo contrast completed [facility] ([facility]) [address], [place], [address], 04/21/2024 09:28:36 08/10/2024 audiogram completed BARCODE Information [...] Updated DateTime 04/08/2024 168.91 cm 35.8 kg/m2 211856.28 g Janell Oracio [place] [facility] 04/08/2024 13:37:32 Date Recorded Body height Body weight Provider Name and Address Organization Details Last Updated DateTime 08/09/2024 168.91 cm 158864.28 g Shelly Armendarizues [place] [facility] 08/09/2024 14:31:33 Social History None recorded. Functional Status None recorded. Mental Status None recorded. Family History Nothing Reported. Medical History Condition Response Cancer Y Arthritis Y Anxiety Y Depression Y Asthma Y Past Encounters Encounter ID Performer Location Encounter Start Date Encounter Closed Date Diagnosis/Indication Diagnosis SNOMED-CT Code Diagnosis ICD10 Code Diagnosis Note [id number] ELIDA BLAKE PA-C [facility] [address] [address] 04/08/2024 12:27:29 04/08/2024 14:25:45 Sensorineural hearing loss of bilateral ears 689975020 H90.3 Audiologic al evaluation results: Right ear: [...] a hermetic seal}} Tinnitus of left ear 805 2420601 106 H93.12 Dizziness and giddiness 960371786 R42 [id number] TAYLOR DONOVAN MD [facility] [address] [place] [address] 08/09/2024 13:47:00 08/09/2024 15:01:35 Sensorineural hearing loss of bilateral ears 570535228 H90.3 Audiologic al evaluation results: 08/09/2024 Right [...] a hermetic seal}} Tinnitus of left ear 329 6248200 106 H93.12 Meniere's disease of left inner ear 2268936097 205523 H81.02 Health Concerns Section Related Observation LastModified by Organization Detai ls LastModified Time None Recorded Concern Status LastModified by Organization Details LastModified Time None Recorded Advance Directives Directive None Recorded Payers Encounter Date Sequence Insurance Name Policy Number Policy Chirinos Covered Member ID Chirinos Member ID Guarantor Name 04/08/2024 1 [place] [facility] Brendan Ferrera [id number] Brendan Ferrera 08/09/2024 1 [place] [facility] Brendan Ferrera [id number] Brendan Ferrera Notes Date Note Type Note [...] loss in her 40s. ELIDA BLAKE PA-C [address] [place] [address], [phone], [facility] 04/08/2024 15:19:07 08/09/2024 text/html 49-year-old male previously seen by Elida Blake PA-C patient has fluctuating left-sided tinnitus hearing loss and episodic dizziness with some concern for left-sided M? ? ?ni? ? ?re's disease. MRI scan of the brain and [...] as chronic lymphocytic leukemia. TAYLOR DONOVAN MD [address] [place] [address], [place], [address], [facility] 08/09/2024 15:01:26
--- OUTSIDE RECORDS SUMMARY | 2024-10-31 07:57 | XMS_ITS | Clinical Summary ---
Author Organization [employer] Address 75 [facility] 7t [place] [address] Care Team Providers Care Hydrogenation Operator Name Role Phone Izzy Pantoja MD Primary Care Provider [phone] Ilana Gaming Unavailable Unavailable Allergies Active Allergy [...] chew granules. 90 capsule 1 3 Active Acetaminophen 500 MG capsuleIndicatio ns:Pain take [...] mouth at bedtime. 30 tablet 3 4 Active triamcinolone (Kenalog) 0.1 % cream Apply topically if needed in the morning and at bedtime (pain and swelling). 30 g [address] [facility] Check BP daily 1 each 5 Active diclofenac (Cataflam) 50 MG tabletIndication s:Chronic bilateral low back pain, unspecified whether sciatica present Take 1 tablet (50 mg) by mouth 3 times daily. 30 tablet 4 10/30/19 25 Active Problems Patient Care Coordination No te [...] AM EST): - following with urologist at [facility]. Last seen in November 2023. KING Upcoming [...] (08/05/2024 11:26 AM EST): - Following with [facility] pulmonology, currently asymptomatic - Most recent CT scan in January 2022 showed no mediastinal lymphadenopathy Assessment & Plan (12/27/2023 5:27 PM EDT): - Following with [facility] pulmonology, currently asymptomatic - Most recent CT scan in January 2022 showed no mediastinal lymphadenopathy Assessment & Plan (08/15/2022 6:30 PM EST): - Most recent CT scan in January 2022 showed no mediastinal lymphadenopathy Obstructive sleep apnea syndrome 05/29/2021 Assessment & Plan (07/29/2024 5:33 AM EST): - last sleep study in Apr 2021, Sleep Medicine clinic in [place] - recommended auto-PAP 5-15 cm H2O - patient has a CPAP. Will check if patient can have a humidification device, especially during dry season. Assessment & Plan (12/27/2023 5:27 PM EDT): - last sleep study in Apr 2021, Sleep Medicine clinic in [place] - recommended auto-PAP 5-15 cm H2O - patient has a CPAP. Will check if patient can have a humidification device, especially during dry season. Assessment & Plan (08/15/2022 6:36 PM EST): - last sleep study in Apr 2021, Sleep Medicine clinic in [place] - recommended auto-PAP 5-15 cm H2O - [...] 5:34 AM EST): -Dx October 2008 -Oncology, [facility]. Last seen by Dr. Lee in September 2023, annual follow up. 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. Last seen by Dr. Lee in September [...] Plan (08/15/2022 6:38 PM EST): - current [facility] provider: [facility] - continue judicious and responsible use of gabapentin and clonazepam Encounters Date Type Department Care Team Description 09/30/2024 Population Health Risk Score [facility] Department [address] [facility] [address] [place] [address] Provider, Population Health Generic 09/09/[address] [facility] [address] [place] [address] Sirena Gaming [place] may recall 08/02/2024 Orders Only GENERIC EXTERNAL DATA DEPARTMENT Provider, Generic External Data from Last 3 Months Immunizations Name Administration Dates Next Due Hep B, adult 02/10/2019,03/07/2009,01/10/2009 Influenza injectable quadriv alent IIV4 with preservative 08/27/2017,05/07/2016 Influenza injectable quadriv alent preservative free 05/12/2022,04/15/2021,04/18/2020,06/01,04/02/2015 Influenza, IIV3, injectable 06/05/2011 Influenza, Split (incl. alex fied surface antigen) 04/19/2012 Influenza, seasonal, injecta ble, preservative free 07/26/2024 Moderna Covid-19 Vaccine 6+ Bivalent 08/11/2022 Pfizer Covid-19 Vaccine 12+ 07/26/2024, Pneumococcal Conjugate PCV 20 08/11/2022 Pneumococcal Polysaccharide [...] 12/24/2023 11:03 AM EDT Plan of Treatment Upcoming Encounters Date Type Department Care Team (Late st Contact Info) Description 11/22/2024 3:15 PM EDT Office Visit [facility] [address] [place] [address] Izzy Pantoja MD [address] [place] [address] Health Maintenance Due Date Last Done Comments [...] Results * T-SPOT??.TB (08/02/2024 7:03 AM EST) Pathologist [facility] T Spot TB Negative Negative [facility] Comment:A negative test resu lt [...] as aquantitative test. TS PANEL A 0 [facility] TS PANEL B 0 [facility] Negative Control Passed [facility] Positive Control Passed [facility] Comment:For additional infor neha, please refer tohttp://education.fitaborate/faq/ZOE682(This link is being provided for informational/educational purposes only.)THIS TEST WAS PERFORMED AT:[id number] [place] [address]SUDJASWDUSTIN DONOVAN MD,PHD 08/02/2024 7:03 AM EST 08/02/2024 7:07 AM EST us Izzy Pantoja MD LAB BLOOD ORDERABLES Final Resul t Performing Organization Address City/[facility]/ZIP Co de Phone Number [facility] [address] [place] [phone] * PSA,Total (08/02/2024 7:03 AM EST) Prostate Specific Antigen 0.84 <0.05 - 4.0 ng/mL [facility] Comment:PSA methodology: Saima Crandall i ChemiluminescentMicroparticle Immunoassay (CMIA) 08/02/2024 7:03 AM EST 08/02/2024 7:07 AM EST us Generic External Data Provider LAB BLOOD ORDERAB LES Final Result Performing Organization Address City/[facility]/ZIP Co de Phone Number [facility] [address] [place] [phone] * (ABNORMAL) Lipid Panel with Reflex to Direct LDL (12/31/2023 3:31 PM EDT) Triglycerides 174(H) <150 mg/dL [facility] Comment:Desirable Triglyceri de: less than 150 mg/dLBorderline High Triglyceride 150-199 mg/dLHigh Triglyceride: 200-499 mg/dLVery High Triglyceride: greater than or equal to 5OO mg/dL Cholesterol 176 <200 mg/dL [facility] Comment:Desirable Cholestero l: less than 200 mg/dLBorderline High Cholesterol: 200-239 mg/dLHigh Cholesterol: greater than 239 mg/dL LDL Cholesterol Calculated 92 <100 mg/dL [facility] Comment:Desirable LDL: less than 100 mg/dLNear Optimal/Above Optimal LDL: 110- 129 mg/dLBorderline High LDL: 130-159 mg/dLHigh LDL: 160-189 mg/dLVery High LDL: greater than or equal to 190 mg/dL HDL Cholesterol 50 >40 mg/dL [facility] Comment:Desirable HDL: great er than 40 mg/dL Note: This HDL assay may give artificially low results in patients with liver disease. Blood 12/31/2023 3:31 PM EDT 12/31/2023 3:51 PM EDT Izzy Pantoja MD LAB BLOOD ORDERABLES Final Resul t Performing Organization Address City/[facility]/ZIP Co de Phone Number [facility] [address] [place] [phone] * HEPATITIS C AB W/REFL TO HCV RNA, QN, PCR (07/01/2021 3:34 PM EST) HEPATITIS C ANTIBODY NON-REACT JIMENEZ NON-REACT JIMENEZ [facility] INDEX 0.02 <1.00 [facility] Comment: ?? HCV antibody was non-reactive. There is no laboratory ?? evidence of HCV infection. ?? In most cases, no further action is required. However, if recent HCV exposure is suspected, a test for HCV RNA (test code 83487) is suggested. ?? For additional information please refer to http://education.fitaborate/faq/INM58n0 (This link is being provided for informational/ educational purposes only.) ?? 07/01/2021 3:34 PM EST L[facility]ISTORICAL/NON ORDERABLE LABS Final Result Performing Organization Address City/[facility] Co de Phone Number [facility] [address] * HIV 1/2 ANTIGEN/ANTIBODY,FOURTH GENERATION W/RFL (07/01/2021 3:34 PM EST) HIV-1/2 ANTIGEN AND ANTIBODIES, 4TH GENERATION W/ REFLEX NON-REACT JIMENEZ NON-REACT JIMENEZ [facility] Comment: HIV-1 antigen and HIV-1/HIV-2 [...] ? For additional information please refer to http://Lumeta.fitaborate/faq/PXC566 (This link is being provided for informational/ educational purposes only.) ? The performance of this assay has not been clinically validated in patients less than 2 years old. ?? 07/01/2021 3:34 PM EST us Loulou Cruz [facility] LAB BLOOD ORDERABLES Final Res ult [facility] [address] from Last 3 Months or Most Recently Relevant to Health Maintenance Insurance C3 Care Teams Hydrogenation Operator Relationship Specialty Start Date End Date Izzy Pantoja MD [address] [place] [phone] PCP - General Family Medicine 03/17/22 Ilana Gaming Community Health Worker 10/26/23
--- OUTSIDE RECORDS SUMMARY | 2024-10-31 07:57 | XMS_ITS | Clinical Summary ---
Author Organization [facility], Address [address] [place] [address] [place] [address] Phone Care Team Providers Care Switchboard Operator Assistant Name Role Phone Izzy Pantoja MD Primary Care Provider [phone] Allergies Active Allergy Reactions Criticality Noted Date [...] reflux disease 02/02/2020 05/20/2021 Leukemia 02/02/2020 05/20/2021 Family History Relation Status Comments Father Unknown [...] series) 01/05/1995 02/10/2019, 03/07/2009, 01/10/2009 Influenza Vaccine (Season Ended) 2025 05/12/2022, 04/15/2021, 04/18/2020, Additional history exists Pneumococcal Vaccine: 50+ Years Discontinued 08/11/2022, 05/20/2018, 07/08/2012, Additional history exists Pneumococcal Vaccine: Peds ( 0 to 5 Years) and At-Risk Patients (6 to 49 Years) Completed 08/11/2022, 05/20/2018, 07/08/2012, Additional history exists Insurance Medicaid [place] Care Teams Switchboard Operator Assistant Relationship Specialty Start Date End Date Izzy Pantoja MD [address] [place] [phone] PCP - General Family Medicine 07/06/24
[2024-10-31 09:01] LABS: Estimated Average Glucose 117 mg/dL; Hemoglobin A1C 146.9206 umol/L; Hemoglobin A1c % 5.7 % (<6.0); Total Hemoglobin (HGBA1C) 3810.5149 umol/L
[2024-10-31 10:05] LABS: Alanine Aminotransferase 51 U/L (0-40); Alkaline Phosphatase 127 U/L (39-117); Anion Gap 10 (12-20); Aspartate Amino Transferase 25 U/L (5-37); Bilirubin Direct 0.1 mg/dL (0.0-0.5); Bilirubin Total 0.3 mg/dL (0.0-1.0); Blood Urea Nitrogen 13 mg/dL (9-16); Calcium 8.8 mg/dL (8.4-10.2); Carbon Dioxide 26 mmol/L (22-29); Chloride 110 mmol/L (96-108); Cholesterol 133 mg/dL (<200); Estimated Glomerular Filt Rate > 60; Glucose Random 112 mg/dL (60-115); HDL Cholesterol 49 mg/dL (>40); LDL Cholesterol Calculated 73 mg/dL (<100); Lipase 21 U/L (8-78); Potassium 3.8 mmol/L (3.3-5.1); Sodium 142 mmol/L (135-145); Total Protein 6.6 g/dL (6.5-8.0); Triglycerides 59 mg/dL (<150)
[2024-10-31 10:22] LABS: TSH reflex Free T4 2.07 uIU/mL (0.32-4.0)
[2024-10-31 10:49] LABS: Reflex LDLD? No
[2024-11-01 22:33] LABS: Transglutaminase IgA <1.0 U/mL
== END 2024-10-31 07:54 | disposition home or self-care (01) ==
LOC: HO.LAB 07:53
PROVIDERS: PCP Family Medicine; Visit Provider Nurse Practitioner Family
DX: R10.9 Unspecified abdominal pain (principal); R74.01 Elevation of levels of liver transaminase levels; E66.812 Obesity, class 2; E66.09 Other obesity due to excess calories; Z68.39 Body mass index [BMI] 39.0-39.9, adult; E78.2 Mixed hyperlipidemia; I25.10 Atherosclerotic heart disease of native coronary artery without angina pectoris
CPT/HCPCS: 36415; 80053; 80061; 80076; 82248; 83036; 83690; 84443; 86364

== ENCOUNTER 2024-11-01 15:03 | Outpatient (AMB) | payer MEDICAID, SELFPAY ==
[2024-11-01 15:08] VITALS: BP 138/82; PULSE 72; O2SAT 96; BMI 36.0
--- NOTE | 2024-11-01 15:08 | A.OFFVIS_ITS ---
Vital Signs 11/01/24 15:08 Height 5 ft 6 in Weight 223 lb 4 oz BMI 36.0 BP 138/82 Blood Pressure Location Lt brachial Position Sitting Pulse 72 Pulse Source Pulse Oximeter Pulse Oximetry (%) 96 Oxygen Delivery Method Room Air Intake Visit Reasons: Gerd Intake Note: ESTABLISHED PATIENT for mgmt of GERD. Called pt and reminded of appt and outstanding labs on 10/28/2024 Chief Complaint; C/O worsening reflux despite efforts in avoiding triggers as well as following current tx plan religiously . Pt reports that he seemed to be under better control when he was on nexium. Pt denies any additional sx at this time. Bundle Person Required: No Accompanied by: Self / Same As Patient Allergies allantoin [From BLISTEX] Allergy (Unknown, Verified 11/01/24 15:09) LIP SWELLING homosalate [From BLISTEX] Allergy (Unknown, Verified 11/01/24 15:09) LIP SWELLING menthol [From BLISTEX] Allergy (Unknown, Verified 11/01/24 15:09) LIP SWELLING octinoxate [From BLISTEX] Allergy (Unknown, Verified 11/01/24 15:09) LIP SWELLING octyl salicylate [From BLISTEX] Allergy (Unknown, Verified 11/01/24 15:09) LIP SWELLING oxybenzone [From BLISTEX] Allergy (Unknown, Verified 11/01/24 15:09) LIP SWELLING padimate O [From BLISTEX] Allergy (Unknown, Verified 11/01/24 15:09) LIP SWELLING sodium chloride Allergy (Unknown, Verified 11/01/24 15:09) GUM SWELLING TO TABLE SALT ibuprofen [IBUPROFEN] Adverse Reaction (Unknown, Verified 11/01/24 15:09) STOMACH UPSET HPI HPI Gerd: Details: LAST VISIT: Screen for colon cancer Acid reflux Postprandial epigastric pain Abdominal bloating Constipation Plan Patient denies any cardiac or respiratory symptoms.? Denies any issues with anesthesia in the past.? No history infectious diseases in the past or present.? Not on any anticoagulation therapy.? Patient reports epigastric pain and acid reflux postprandially. Will send for upper GI with barium swallow. Check for celiac and chronic pancreatitis. Will check liver and lipid panel. Patient will continue taking his PPI at this time. Avoid dietary triggers and late night snacking. Staying upright for minimum 3 hours after meals discussed with patient. Patient will take Senokot daily to help him move his bowels better. Increase fluid intake and activity to promote better bowel motility. Patient will return in the office in 2-3 months to discuss going for colonoscopy and upper endoscopy. Message sent to surgical schedulers to book upper endoscopy and colonoscopy for patient. He will call our office if he will have any GI concerning symptoms. Patient is agreeable to this plan and verbalizes understanding of instructions. He was given the opportunity to ask questions and all questions answered. ? Thank you for allowing me to participate in his care Orders Orders Transglutaminase IgA 08/23/24 R10.9 Liver Panel 08/23/24 R74.01 FL upper GI w Ba Swallow 08/23/24 K21.9 Lipase 08/23/24 R10.9 Lipid Panel 08/23/24 I25.10 Medications New sennosides (Natural Senna Laxative) 17.2 mg (2 x 8.6 mg) PO BEDTIME 60 tabs 3RF constipation K59.00 TODAY'S VISIT Patient is here today for follow-up. Patient reports that he continues to have acid reflux. PCP placed patient on omeprazole that he takes twice a day. He continues have symptoms. Reports postprandial acid reflux that is starts usua lly in the afternoon. Patient reports acid reflux and dyspepsia during the night. Patient does admit to eating late at night sometimes. Patient denies any melena, hematochezia, unintentional weight loss or ribbon like stools. Patient reports occasional dyspepsia without dysphagia or odynophagia. Patient reports that he is moving his bowels well now that he is taking Senokot daily. Reports abdominal bloating postprandially with almost anything that he eats. Patient is not on any particular diet. Eating [place] food for the most part. Admits to be eating fast food occasionally. [facility], [facility] Medical History BPH (benign prostatic hyperplasia) Hyperlipidemia Sleep apnea Thrombosis Acid reflux Anxiety History of asthma B-cell chronic lymphocytic leukemia Surgical History History of prostate surgery (~11/2023) History of bronchoscopy Family History Mother Liver cirrhosis Family/Other Thyroid cancer Breast cancer Social History Household Members: Family Household Members Other:: father Housing: Apartment Do you presently have visiting nurse or other home services: No Alcohol intake: current Alcohol intake frequency: holidays/special occasions only Patient Tobacco Use Status: Former Tobacco user Tobacco use type: Cigarette Years Smoked: 18 Second Hand Smoke Exposure: No service: No Current occupational status: employed Review of Systems Const Denies weight gain and Denies weight loss ENT Reports no additional complaints, Denies dysphagia and Denies odynophagia Card Reports no additional complaints Resp Reports no additional complaints GI Reports abdominal pain (Epigastric), Denies belching, Denies melena, Reports bloating, Denies change in bowel habits, Reports constipation, Denies dysphagia, Denies excessive flatus, Reports dyspepsia, Reports heartburn, Denies diarrhea, Denies loose stools, Denies nausea, Denies odynophagia and Denies vomiting Reports no additional complaints Musc Reports no additional complaints Neuro Reports no additional complaints Psych Reports no additional complaints Endo Reports no additional complaints Physical Exam Vital Signs: Last Vital Signs Pulse 72 11/01/24 15:08 BP 138/82 11/01/24 15:08 Pulse Ox 96 11/01/24 15:08 Oxygen Delivery Method Room Air 11/01/24 15:08 BMI result Body Mass Index 36.0 Const General: healthy appearing and no acute distress Nutritional Appearance: obese Orientation/consciousness: patient oriented x3 Resp Effort & Inspection: normal respiratory effort, able to speak in complete sentences, no tracheal deviation and symmetric chest movement Auscultation: clear to auscultation bilaterally Cardio Rate: regular rate GI Inspection: Yes normal to inspection, No distended and Yes obesity Palpation (GI): Soft to palpation, not firm, nontender and No hepatosplenomegaly present Auscultation: normal bowel sounds General: Yes no CVA tenderness Back/Spine/Pelvis Back: no CVA tenderness Skin General skin exam: elasticity normal, turgor normal and dry skin Neuro General: patient oriented x3 Psych Appearance: grossly normal Mental Status: mental status grossly normal Results Reviewed Results Reviewed: Laboratory Tests 09/30/24 10/31/24 15:27 08:00 AST 22 25 ALT 32 51 H Alkaline Phosphatase 122 H 127 H Assessment & Plan Assessment & Plan (1) Acid reflux: Code(s): K21.9 - Gastro-esophageal reflux disease without esophagitis Category: Medical Qualifiers: Esophagitis presence: esophagitis presence not specified Qualified Code(s): K21.9 - Gastro-esophageal reflux disease without esophagitis (2) Screen for colon cancer: Code(s): Z12.11 - Encounter for screening for malignant neoplasm of colon (3) Postprandial epigastric pain: Code(s): R10.13 - Epigastric pain (4) Abdominal bloating: Code(s): R14.0 - Abdominal distension (gaseous) (5) Constipation: Code(s): K59.00 - Constipation, unspecified Qualifiers: Constipation type: slow transit constipation Qualified Code(s): K59.01 - Slow transit constipation Plan Patient will start taking pantoprazole in the morning and stop omeprazole. Patient will take sucralfate at bedtime. Avoid dietary triggers and late night snacking. Staying upright for minimum 3 hours after meals discussed with patient. Continue taking Senokot daily. Increase fluid intake and activity to promote better bowel motility. Patient reports postprandial abdominal bloating. Patient will try to follow low FODMAP diet. List of food recommended as well as list of food to avoid given to patient. Patient will return in 3 months we will recheck liver enzymes. Patient was encouraged to try to lose weight, try to exercise. Follow low fat, low carb low-salt and high-protein diet. Patient is agreeable to current plan of care and verbalizes understanding of instructions. He was given the opportunity to ask questions and all questions answered. Thank you for allowing me to participate in his care (patient has upper GI series November 11 at 09:30). Medications: New pantoprazole take one tablet half an hour before breakfast 40 mg PO DAILY 30 tabs 3RF K21.9 - Gastro-esophageal reflux disease without esophagitis sucralfate 1 g PO BEDTIME 30 tabs 4RF R19.7 - Diarrhea, unspecified Coding Level of Care Code Est Pt Level 4 (83647) Complex EM visit Add On G2211 Diagnoses Gastroesophageal reflux disease, unspecified whether esophagitis present K21.9 Esophagitis presence: esophagitis presence not specified Screen for colon cancer Z12.11 Postprandial epigastric pain R10.13 Abdominal bloating R14.0 Slow transit constipation K59.01 Constipation type: slow transit constipation Time Spent (min) 35 Comment 25 minutes spent with patient and additional 10 minutes spent reviewing his records
--- OUTSIDE RECORDS SUMMARY | 2024-11-01 18:21 | XMS_ITS | Encounter Summary ---
Author Organization [email or web address] Address [address] [facility] 7t [place] [address] Care Team Providers Care Special Machine Operator Name Role Phone Izzy Pantoja MD Primary Care Provider [phone] Ilana Gaming Unavailable Unavailable Tomeka Mclain RN Unavailable [phone] Reason for Visit * Reason Onset Date Comments Referral 08/20/2022 Encounter Details Date Type Department Care Team (Late st Contact Info) Description 08/20/2022 Telephone [facility] [address] [place], [place] [phone] Izzy Pantoja MD [address] [place], [place] [phone] Referral Social History Tobacco Use Types Packs/Day [...] Description 11/22/2024 3:15 PM EDT Office Visit [facility] [address] [place] [address] [phone] Izzy Pantoja MD [address] [place] [address] [phone] documented as of this encounter Visit Diagnoses Not on filedocumented in this encounter Care Teams Special Machine Operator Relationship Specialty Start Date End Date Izzy Pantoja MD [address] [place] [address] [phone] PCP - General Family Medicine 03/17/22 Ilana Gaming Community Health Worker 10/26/23 Tomeka Mclain, MAURIZIO [address] [place] [phone] Ingot Car Operator 10/26/23 01/24/24 documented as of this encounter
--- OUTSIDE RECORDS SUMMARY | 2024-11-01 18:21 | XMS_ITS | Encounter Summary ---
Author Organization [facility] Address [address] [place] [address] Phone Care Team Providers Care Laser Machine Operator Name Role Phone Izzy Pantoja MD Primary Care Provider Encounter Details Date Type Department Care Team (Late st Contact Info) Description 05/20/2022 Documentation Only [facility] [place], [address] [place] [address] Tessa Alejandra PA Social History [...] on filedocumented in this encounter Care Teams Laser Machine Operator Relationship Specialty Start Date End Date Izzy Pantoja MD [address] [place] [phone] PCP - General Family Medicine 07/06/24 documented as of this encounter
--- OUTSIDE RECORDS SUMMARY | 2024-11-01 18:21 | XMS_ITS | Encounter Summary ---
Author Organization [employer] Address [address] [place] [address] [address], [place] [address] Care Team Providers Care Rn Radiation Oncology Name Role Phone Izzy Pantoja MD Primary Care Provider [phone] Ilana Gaming Unavailable Unavailable Tomeka Mclain RN Unavailable [phone] Encounter Details Date Type Department Care Team (Late st Contact Info) Description 06/03/2022 [facility] [employer] Information Management [address] [place], [place] [phone] Izzy Pantoja MD [address] [place] [address] [phone] Social History Tobacco Use Types Packs/Day Years [...] Description 11/22/2024 3:15 PM EDT Office Visit [facility] [address] [place], [place] [phone] Izzy Pantoja MD [address] [place] [address] documented as of this encounter Visit Diagnoses Not on filedocumented in this encounter Care Teams Rn Radiation Oncology Relationship Specialty Start Date End Date Izzy Pantoja MD [address] [place] [phone] PCP - General Family Medicine 03/17/22 Ilana Gaming Community Health Worker 10/26/23 Tomeka Mclain RN [address] [place] [address] Composition Tile Layer 10/26/23 01/24/24 documented as of this encounter
--- OUTSIDE RECORDS SUMMARY | 2024-11-01 18:21 | XMS_ITS | Clinical Summary ---
Author Organization [facility] [place], Address [address] [place] [address] [place] [address] Phone Care Team Providers Care Disc Ruler Operator Name Role Phone Izzy Pantoja MD Primary Care Provider [phone] Allergies Active Allergy Reactions Criticality Noted Date [...] history exists Insurance Medicaid [place] Care Teams Disc Ruler Operator Relationship Specialty Start Date End Date Izzy Pantoja MD [address] [place] [phone] PCP - General Family Medicine 07/06/24
--- OUTSIDE RECORDS SUMMARY | 2024-11-01 18:21 | XMS_ITS | Encounter Summary ---
Author Organization [employer] Address [address] [facility] [address] 7t [place] [address] Care Team Providers Care Horticultural Nursery Assistant Name Role Phone Izzy Pantoja MD Primary Care Provider [phone] Ilana Gaming Unavailable Unavailable Encounter Details Date Type Department Care Team ([facility] st Contact Info) Description 10/31/2024 Orders Only GENERIC EXTERNAL DATA DEPARTMENT Provider, [...] 11/22/2024 3:15 PM EDT Office Visit [facility] [address] [place] [address] Izzy Pantoja MD [address] [place], [place] [phone] documented as of this encounter Procedures Procedure Name Priority Date/Time Associated Diagnosis Comments TSH W/REFLEX TO FT4 Routine 10/31/2024 8 :00 AM EDT LIPID PANEL WITH REFLEX TO DIRECT LDL Routine 10/31/2024 8:00 AM EDT LIPASE Routine 10/31/2024 8:00 AM EDT HEPATIC FUNCTION PANEL Routine 10/31/2024 8:00 AM EDT documented in this encounter Results * TSH with Reflex to Free T4 (10/31/2024 8:00 AM EDT) TSH reflex Free T4 2.07 0.32 - 4.0 uIU/mL [facility] 10/31/2024 8:00 AM EDT 10/31/2024 8:05 AM EDT us Generic External Data Provider LAB BLOOD ORDERAB LES Final Result [facility] [address] [place] [phone] [phone] * Lipase (10/31/2024 8:00 AM EDT) Lipase 21 8 - 78 U/L [facility] 10/31/2024 8:00 AM EDT 10/31/2024 8:05 AM EDT Generic External Data Provider LAB BLOOD ORDERAB LES Final Result Performing Organization Address [facility] Co de Phone Number [facility] [address] [place] [phone] * Lipid Panel with Reflex to Direct LDL (10/31/2024 8:00 AM EDT) Triglycerides 59 <150 mg/dL [facility] Comment:Desirable Triglyceri de: less than 150 mg/dLBorderline High Triglyceride 150-199 mg/dLHigh Triglyceride: 200-499 mg/dLVery High Triglyceride: greater than or equal to 5OO mg/dL Cholesterol 133 <200 mg/dL [facility] Comment:Desirable Cholestero l: less than 200 mg/dLBorderline High Cholesterol: 200-239 mg/dLHigh Cholesterol: greater than 239 mg/dL LDL Cholesterol Calculated 73 <100 mg/dL [facility] Comment:Desirable LDL: less than 100 mg/dLNear Optimal/Above Optimal LDL: 110- 129 mg/dLBorderline High LDL: 130-159 mg/dLHigh LDL: 160-189 mg/dLVery High LDL: greater than or equal to 190 mg/dL HDL Cholesterol 49 >40 mg/dL [facility] Comment:Desirable HDL: great er than 40 mg/dL Note: This HDL assay may give artificially low results in patients with liver disease. 10/31/2024 8:00 AM EDT 10/31/2024 8:05 AM EDT us Generic External Data Provider LAB BLOOD ORDERAB LES Final Result Performing Organization Address [facility] Co de Phone Number [facility] [address] [place] [phone] * Hepatic Function Panel (10/31/2024 8:00 AM EDT) Bilirubin, Direct 0.1 0.0 - 0.5 mg/dL [facility] 10/31/2024 8:00 AM EDT 10/31/2024 8:05 AM EDT us Generic External Data Provider LAB BLOOD ORDERAB LES Final Result [facility] [address] [place] [phone] [phone] documented in this encounter Visit Diagnoses Not on filedocumented in this encounter Additional Health Concerns Assessment Noted Time PHQ-9 Depression Total Score: 1 07/26/19 25 4:08 PM EST documented as of this encounter Care Teams Horticultural Nursery Assistant Relationship Specialty Start Date End Date Izzy Pantoja MD [address] [place] [address] PCP - General Family Medicine 03/17/22 Ilana Gaming Community Health Worker 10/26/23 documented as of this encounter
--- OUTSIDE RECORDS SUMMARY | 2024-11-01 18:21 | XMS_ITS | Data Portability ---
Author Organization [place] [facility] Address [address] [address] Care Team Providers Care Translator Name Role Phone [facility] Primary Care Provider Assessment Encounter Date [...] sided amplification and he will consider this. [email or web address] Not available 04/08/2024 15:17:00 08/09/2024 08/09/2024 Patient [...] of his current blood pressure medication regimen. [email or web address] Not available 08/09/2024 15:01:02 Plan of Treatment [...] - next available ....IAC protocol 2023 024 [facility] ([facility]), [address], [place], [address], 04/20/2024 15:14:22 Medication Orders None recorded. Patient TargetsNo targets recorded. Patient InstructionsNo instructions recorded. Reason for Referral None Reported. Results Created Date Observation Date Name Description Value Unit Range Abnormal Flag Note LastModifiedBy Organization Detail LastModifiedTime 04/12/20 24 audio gram No observ ation record ed. [email or web address] Not Available 03/21 12:02:44 04/20/2004/18/2024 MRI, brain + brain stem, w/wo contr ast [facility] Access ion Number : [id number] Darion rodriguez Name: Brendan Ferrera Record Number : [id number] Date of : 1974 Date of Exam: 2023 Referr ing Physic clinton: Eilda Nava [facility] d [address], [address] [facility] [place] [address] Exam: MR Brain (C-/C+ ) CPT 94419 Room Descri ption: [place] GE Pion 3T INDICA TION: Sensor ineura [...] semici rcular canals . The bilate ral internet sales director al audito ry canals are not enlarg [...] . IMPRES GIA: Unrema rkable bilate ral internet sales director al audito ry canals . No mass or abnorm al enhanc ement. Parana rebecca sinus diseas e as descri bed. Electr onical ly Signed By: Mary [email or web address] [facility] ([facility]) [address] [place], [address], 04/20/2024 16:11:08 04/20/20 24 04/18/2024 MRI, brain + inter nal audit ory canal , w/wo contr ast No observ ation record ed. [facility] ([facility]) [address] [place], [address], 04/21/2024 09:28:36 08/10/19 25 audio gram No observ ation record ed. [email or web address] Not Available 2024 13:53:07 Result Notes None recorded. Problems Name Problem SNOMED Code Status Onset Date Resolution Date Notes Provider Name and Address Organization Details Recorded Time Sensorineur al hearing loss of bilateral ears 184060476 Active 2023 HONORIO BENTON , ТАТЬЯНА [address], [phone], [facility] 4 13:24:12 Tinnitus of left ear 3735582333211 Active 2023 ELIDA BLAKE PA-C [address] [place] [address], [phone], [facility] 4 14:43:22 Dizziness and giddiness 107741612 Active 2023 ELIDA BLKAE PA-C [address] [place] [address], [place], [address], [facility] 4 14:43:26 Meniere's disease of left inner ear 8651964690809 107 Active 2024 TAYLOR DONOVAN MD [address], [phone], [facility] 5 14:58:02 Problem Notes None recorded. Procedures Surgical History Date Name Laterality Status Provider Name and Address Organization Details Recorded Time 08/09/2024 Comp Audio with Tymps (35122 & 03838) completed DANI SANCHEZ, AUD 100 [facility],[address], [address], [facility] 08/09/2024 14:14:08 04/08/2024 Comp Audio with Tymps (72800 & 13044) completed HONORIO BENTON, AUD 100 [facility],[address], [address], [facility] - [facility] 04/08/2024 13:24:03 Imaging Results Imaging Date Name Status LastModified by Organiz ation Details LastModified Time 04/12/2024 audiogram completed [email or web address] Information n ot available 04/12/2024 12:02:44 04/18/2024 MRI, brain + brain stem, w/wo contrast completed [email or web address] [facility] ([facility]) [address], [place], [address], 04/20/2024 16:11:08 04/18/2024 MRI, brain + internal auditory canal, w/wo contrast completed [email or web address] [facility] ([facility]) [address], [place], [address], 04/21/2024 09:28:36 08/10/2024 audiogram completed BARCODE Information [...] Updated DateTime 04/08/2024 168.91 cm 35.8 kg/m2 784662.28 g Janell Oracio [place] [facility] 04/08/2024 13:37:32 Date Recorded Body height Body weight Provider Name and Address Organization Details Last Updated DateTime 08/09/2024 168.91 cm 449714.28 g Shelly Armendarizues [place] [facility] 08/09/2024 14:31:33 Social History None recorded. Functional Status None recorded. Mental Status None recorded. Family History Nothing Reported. Medical History Condition Response Cancer Y Arthritis Y Anxiety Y Depression Y Asthma Y Past Encounters Encounter ID Performer Location Encounter Start Date Encounter Closed Date Diagnosis/Indication Diagnosis SNOMED-CT Code Diagnosis ICD10 Code Diagnosis Note [id number] ELIDA BLAKE PA-C [facility] [address] [address] 04/08/2024 12:27:29 04/08/2024 14:25:45 Sensorineural hearing loss of bilateral ears 063180884 H90.3 Audiologic al evaluation results: Right ear: [...] a hermetic seal}} Tinnitus of left ear 248 4535908 106 H93.12 Dizziness and giddiness 259384863 R42 [id number] TAYLOR DONOVAN MD [facility] [address] [place] [address] 08/09/2024 13:47:00 08/09/2024 15:01:35 Sensorineural hearing loss of bilateral ears 725663975 H90.3 Audiologic al evaluation results: 08/09/2024 Right [...] a hermetic seal}} Tinnitus of left ear 824 0177284 106 H93.12 Meniere's disease of left inner ear [id number] 206552 H81.02 Health Concerns Section Related Observation LastModified by Organization Detai ls LastModified Time None Recorded Concern Status LastModified by Organization Details LastModified Time None Recorded Advance Directives Directive None Recorded Payers Encounter Date Sequence Insurance Name Policy Number Policy Chirinos Covered Member ID Chirinos Member ID Guarantor Name 04/08/2024 1 [place] [facility] Brendan Ferrera [id number] Brendan Ferrera 08/09/2024 1 [place] [facility] Brendan Ferrera [id number] Brendan Ferrera Notes Date Note Type Note [...] loss in her 40s. ELIDA BLAKE PA-C [address] [place] [address], [phone], [facility] 04/08/2024 15:19:07 08/09/2024 text/html 49-year-old male [...] as chronic lymphocytic leukemia. TAYLOR DONOVAN MD [address] [place] [address], [place], [address], [facility] 08/09/2024 15:01:26
--- OUTSIDE RECORDS SUMMARY | 2024-11-01 18:21 | XMS_ITS | Clinical Summary ---
Author Organization [facility] Address [address] 7t [place] [address] Care Team Providers Care Preschool Associate Teacher Name Role Phone Izzy Pantoja MD Primary Care Provider [phone] Ilana Gaming Unavailable Unavailable Allergies Active Allergy [...] g 2 5 Active Blood Pressure Monitor [facility] Check BP daily 1 each 5 Active [...] AM EST): - following with urologist at [facility]. Last seen in November 2023. [place] Upcoming [...] 11:26 AM EST): - Following with [facility] pulmonology, currently asymptomatic - Most recent CT scan in January 2022 showed no mediastinal lymphadenopathy Assessment & Plan (12/27/2023 5:27 PM EDT): - Following with [facility] pulmonology, currently asymptomatic - Most recent CT scan in January 2022 showed no mediastinal lymphadenopathy Assessment & Plan (08/15/2022 6:30 PM EST): - Most recent CT scan in January 2022 showed no mediastinal lymphadenopathy Obstructive sleep apnea syndrome 05/29/2021 Assessment & Plan (07/29/2024 5:33 AM EST): - last sleep study in Apr 2021, Sleep Medicine clinic in [place] - recommended auto-PAP 5-15 cm H2O - patient has a CPAP. Will check if patient can have a humidification device, especially during dry season. Assessment & Plan (12/27/2023 5:27 PM EDT): - last sleep study in Apr 2021, Sleep Medicine clinic in [place] - recommended auto-PAP 5-15 cm H2O - patient has a CPAP. Will check if patient can have a humidification device, especially during dry season. Assessment & Plan (08/15/2022 6:36 PM EST): - last sleep study in Apr 2021, Sleep Medicine clinic in [place] - recommended auto-PAP 5-15 cm H2O - [...] 5:34 AM EST): -Dx October 2008 -Oncology, [facility]. Last seen by Dr. Lee in September 2023, annual follow up. 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 Last seen by Dr. Lee in September 2023, annual follow up. 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 eLe, no sign of recurrence of CLL at [...] Plan (08/15/2022 6:38 PM EST): - current [facility] provider: [facility] - continue judicious and responsible use of gabapentin and clonazepam Encounters Date Type Department Care Team Description 10/31/2024 Orders Only GENERIC EXTERNAL DATA DEPARTMENT Provider, Generic External Data 09/30/2024 Population Health Risk Score [facility] Department [address] [place] [address] Provider, Population Health Generic 09/09/2024 Telephone [facility] [address] [place] [address] Sirena Gaming [place] may recall from Last 3 Months Immunizations Name Administration [...] Description 11/22/2024 3:15 PM EDT Office Visit [facility] [address] [place] [address] Izzy Pantoja MD [address] [place] [address] Health Maintenance Due Date Last Done Comments [...] 07/26/2025 07/26/2024, 07/26/19 Tobacco Screening 08/05/2025 08/05/2024 Diabetes: Hemoglobin A1C 10/31/2025 025, 12/31/2023, 08/11/2022, Additional history exists Lipid Panel 10/31/2029 10/31/2024, 12/18, 08/11/2022, Additional history exists DTaP/Tdap/Td Vaccines (3 - Td or Tdap) [...] FT4 Routine 10/31/2024 8 :00 AM EDT LIPASE Routine 10/31/2024 8:00 AM EDT LIPID PANEL WITH REFLEX TO DIRECT LDL Routine 10/31/2024 8:00 AM EDT HEPATIC FUNCTION PANEL Routine 10/31/2024 8:00 AM EDT COMPREHENSIVE METABOLIC PANEL Routine 10/31/2024 8:00 AM EDT Mixed hyperlipidemia HEMOGLOBIN A1C Routine 10/31/2024 8:00 AM EDT Mixed hyperlipidemia Class 2 obesity due to excess calories with body mass index (BMI) of 39.0 to 39.9 in adult, unspecified whether serious comorbidity present ZZZ HISTORICAL HEPATITIS C AB W/REFL TO HCV RNA, QN, PCR Routine 07/01/2021 3:34 PM EST HIV 1/2 ANTIGEN/ANTIBODY, FOURTH GENERATION W/RFL Routine 07/01/2021 3:34 PM EST from Last 3 Months or Most Recently Relevant to Health Maintenance Results * TSH with Reflex to Free T4 (10/31/2024 8:00 AM EDT) TSH reflex Free T4 2.07 0.32 - 4.0 uIU/mL [facility] 10/31/2024 8:00 AM EDT 10/31/2024 8:05 AM EDT us Generic External Data Provider LAB BLOOD ORDERAB LES Final Result [facility] [address] [place] [phone] * Lipid Panel with Reflex to Direct LDL (10/31/2024 8:00 AM EDT) Triglycerides 59 <150 mg/dL [facility] Comment:Desirable Triglyceri de: less than [...] 190 mg/dL HDL Cholesterol 49 >40 mg/dL [facility] Comment:Desirable HDL: great er than 40 mg/dL Note: This HDL assay may give artificially low results in patients with liver disease. 10/31/2024 8:00 AM EDT 10/31/2024 8:05 AM EDT us Generic External Data Provider LAB BLOOD ORDERAB LES Final Result Performing Organization Address City/[facility] Hospital/ZIP Co de Phone Number [facility] [address] [place] [phone] * Lipase (10/31/2024 8:00 AM EDT) Lipase 21 8 - 78 U/L [facility] 10/31/2024 8:00 AM EDT 10/31/2024 8:05 AM EDT Generic External Data Provider LAB BLOOD ORDERAB LES Final Result Performing Organization Address [facility]/ZIP Co de Phone Number [facility] [address] [place] [phone] * Hemoglobin A1c (10/31/2024 8:00 AM EDT) Hemoglobin A1c 5.7 <6.0 % [facility] Comment:Hemoglobin A1C Refer ence Range Adults: 4.8 - 6.0 % Non diabetic: < 6.0 % Goal: < 7.0 %Additional Action Suggested: > 8.0 %Note: Hemoglobin A1c results are invalid for patients with abnormal amounts of HbF. Blood transfusions may impact the HbA1c concentration in the patient sample. Estimated Average Glucose 117 mg/dL [facility] Comment:eAG = Estimated ave rage glucose which is %A1C expressed asaverage glucose, using the formula of the G2Q-OixmjcdEewoeoq Glucose study (ADAG), Diabetes Care, Vol.31,#8,Feb. 2007 Blood Venous blood specimen / Unknown 10/31/2024 8:00 AM EDT 10/31/2024 8:05 AM EDT us Izzy Pantoja MD LAB BLOOD ORDERABLES Final Resul t Performing Organization Address City/[facility] Hospital/ZIP Co de Phone Number [facility] [address] [place] [phone] * Hepatic Function Panel (10/31/2024 8:00 AM EDT) Bilirubin, Direct 0.1 0.0 - 0.5 mg/dL [facility] 10/31/2024 8:00 AM EDT 10/31/2024 8:05 AM EDT us Generic External Data Provider LAB BLOOD ORDERAB LES Final Result Performing Organization Address [facility]/ZIP Co de Phone Number [facility] [address] [place] [phone] * (ABNORMAL) Comprehensive Metabolic Panel (10/31/2024 8:00 AM EDT) Sodium 142 135 - 145 mmol/L [facility] Potassium 3.8 3.3 - 5.1 mmol/L [facility] Chloride 110(H) 96 - 108 mmol/L [facility] Carbon Dioxide 26 22 - 29 mmol/L [facility] Anion Gap 10(L) 12 - 20 [facility] Urea Nitrogen (BUN) 13 9 - 16 mg/dL [facility] Creatinine, Serum 0.76 0.5 - 1.4 mg/dL [facility] Estimated Glomerular Filt Rate >60 [facility] Comment:Chronic Kidney Disea se: Estimated GFR < 60 mL/min/1.85h4Efgrfv Kidney Disease: Estimated GFR < 15 mL/min/1.73m2 Glucose 112 60 - 115 mg/dL [facility] Calcium 8.8 8.4 - 10.2 mg/dL [facility] Bilirubin, Total 0.3 0.0 - 1.0 mg/dL [facility] Aspartate Amino Transferase 25 5 - 37 U/L [facility] Alanine Aminotransferase 51(H) 0 - 40 U/L [facility] Total Protein 6.6 6.5 - 8.0 g/dL [facility] Albumin Level 4.0 3.5 - 5.0 g/dL [facility] Alkaline Phosphatase 127(H) 39 - 117 U/L [facility] Blood Venous blood specimen / Unknown 10/31/2024 8:00 AM EDT 10/31/2024 8:05 AM EDT us Izzy Pantoja MD LAB BLOOD ORDERABLES Final Resul t [facility] [address] [place] [phone] * HEPATITIS C AB W/REFL TO HCV RNA, QN, PCR (07/01/2021 3:34 PM EST) HEPATITIS C ANTIBODY NON-REACT [facility] NON-REACT [facility] INDEX 0.02 <1.00 [facility] Comment: ?? HCV antibody was non-reactive. There is no laboratory ?? evidence of HCV infection. ?? In most cases, no further action is required. However, if recent HCV exposure is suspected, a test for HCV RNA (test code 10669) is suggested. ?? For additional information please refer to http://education.Framebridge/faq/DMD25k3 (This link is being provided for informational/ educational purposes only.) ?? 07/01/2021 3:[address] PM EST [address] VENDOR HISTORICAL/NON ORDERABLE LABS Final Result Performing Organization Address [facility] Phone Number [facility] [address] * HIV 1/2 ANTIGEN/ANTIBODY,FOURTH GENERATION W/RFL (07/01/2021 3:34 PM EST) HIV-1/2 ANTIGEN AND ANTIBODIES, 4TH GENERATION W/ REFLEX NON-REACT [facility] NON-REACT [facility]Z [facility] Comment: HIV-1 antigen and HIV-1/HIV-2 [...] ? For additional information please refer to http://education.[employer].doForms/faq/GEM549 (This link is being provided for informational/ educational purposes only.) ? The performance of this assay has not been clinically validated in patients less than 2 years old. ?? 07/01/2021 3:34 PM EST [address] VENDOR LAB BLOOD ORDERABLES Final Res ult Performing Organization Address [facility] de Phone Number [facility] [address] from Last 3 Months or Most Recently Relevant to Health Maintenance Insurance C3 Care Teams Preschool Associate Teacher Relationship Specialty Start Date End Date Izzy Pantoja MD [address] [place] [phone] PCP - General Family Medicine 03/17/22 Ilana Gaming Community Health Worker 10/26/23
== END 2024-11-01 15:38 | disposition home or self-care (01) ==
LOC: HO.HGI 15:03
PROVIDERS: PCP Family Medicine; Visit Provider Nurse Practitioner Family
DX: K21.9 Gastro-esophageal reflux disease without esophagitis (principal); K59.01 Slow transit constipation
CPT/HCPCS: 99213

== ENCOUNTER → 2024-11-01 15:03 | Outpatient (BNVA) | payer MEDICAID, SELFPAY | PROVIDERS: PCP Family Medicine; Visit Provider Nurse Practitioner Family | DX: K21.9 Gastro-esophageal reflux disease without esophagitis (principal); K59.01 Slow transit constipation; R19.7 Diarrhea, unspecified; R10.13 Epigastric pain; R14.0 Abdominal distension (gaseous) | CPT/HCPCS: 99212 ==

== ENCOUNTER 2024-11-15 07:13 | Outpatient (REF) | payer MEDICAID, SELFPAY ==
--- NOTE | ~2024-11-15 | FL_ITS ---
EXAMINATION: XR UPPER GI SERIES WITH SMALL BOWEL CLINICAL INFORMATION: Gastroesophageal reflux disease without esophagitis. COMPARISON: None available. TECHNIQUE: Routine upper GI air contrast study was performed in upright and lying position. FINDINGS: Following oral administration of thick barium and effervescent granules and upright view there is normal propagation bolus from the oral cavity through the pharynx, esophagus into stomach without any evidence of obstruction, narrowing or stricture. There is no extrinsic compression visualized. No laryngeal penetration or aspiration seen. No retention of barium in the valleculae or piriform sinuses. On placing patient in supine and prone lying course there are increased gastric secretions. The stomach is distended. No mucosal abnormality seen. The course and caliber is normal. The duodenal bulb and sweep is normal. Incidental finding of moderate gastroesophageal reflux without hiatal hernia is noted. On oral administration of barium tablet in upright lateral view there is spontaneous passage of tablet from the oral cavity through the pharynx into stomach without any evidence of obstruction, narrowing or stricture. FLUOROSCOPY TIME: 2 minutes and 7 seconds DOSE AREA PRODUCT: 2402 0 uGy-m2 (microgray-meter squared) FL/FL upper GI w air w Ba Swallow IMPRESSION: Moderate gastroesophageal reflux is unremarkable upper GI air contrast study and barium swallow. Electronically signed by: Zachery Babcock MD 11/15/2024 02:02 PM EDT
--- OUTSIDE RECORDS SUMMARY | 2024-11-15 07:15 | XMS_ITS | Data Portability ---
Author Organization [place] - [facility] Address [address] [address] Care Team Providers Care Skin Care Instructor Name Role Phone [facility] Primary Care Provider Assessment Encounter Date Assessment [...] sided amplification and he will consider this. [email or web address] Not available 04/08/2024 15:17:00 08/09/2024 08/09/2024 Patient [...] of his current blood pressure medication regimen. Not available 08/09/2024 15:01:02 Plan of Treatment [...] - next available ....IAC protocol 2023 024 [facility] ([facility]), [address], [place], [address], 04/20/2024 15:14:22 Medication Orders None recorded. Patient TargetsNo targets recorded. Patient InstructionsNo instructions recorded. Reason for Referral None Reported. Results Created Date Observation Date Name Description Value Unit Range Abnormal Flag Note LastModifiedBy Organization Detail LastModifiedTime 04/12/20 24 audio gram No observ ation record ed. [email or web address] Not Available 03/21 12:02:44 04/20/2004/18/2024 MRI, brain + brain stem, w/wo contr ast [facility] Access ion Number : [id number] Darion rodriguez Name: Brendan Ferrera Record Number : [id number] Date of : 1974 Date of Exam: 2023 Referr ing Physic clinton: Elida Nava [facility] Alexandre d [address], [address] [facility] [place] [address] Exam: MR Brain (C-/C+ ) CPT 53061 Room Descri ption: [place] GE Pion 3T INDICA TION: Sensor ineura [...] VII and VIII comple xes are symmet amria victoria. There is normal T2 signal in the bilate ral cochle a and semici rcular canals . The bilate ral administration intern al audito ry canals are not [...] . IMPRES GIA: Unrema rkable bilate ral administration intern al audito ry canals . No mass or abnorm al enhanc ement. Parana rebecca sinus diseas e as descri bed. Electr onical ly Signed By: Mary [email or web address] [facility] ([facility]) [address] [place], [address], 04/20/2024 16:11:08 04/20/20 24 04/18/2024 MRI, brain + inter nal audit ory canal , w/wo contr ast No observ ation record ed. [email or web address] [facility] ([facility]) [address] [place], [address], 04/21/2024 09:28:36 08/10/19 25 audio gram No observ ation record ed. BARCODE Not Available 2024 13:53:07 Result Notes None recorded. Problems Name Problem SNOMED Code Status Onset Date Resolution Date Notes Provider Name and Address Organization Details Recorded Time Sensorineur al hearing loss of bilateral ears 974837166 Active 2023 HONORIO BENTON , ТАТЬЯНА [address], [address], [facility] - [facility] 4 13:24:12 Tinnitus of left ear 1763076948295 Active 2023 ELIDA BLAKE PA-C [address] [place] [address], [phone], [facility] - [facility] 4 14:43:22 Dizziness and giddiness 794083740 Active 2023 ELIDA BLAKE PA-C [address] [place] [address], [place], [address], [facility] - [facility] 4 14:43:26 Meniere's disease of left inner ear 0466255907761 107 Active 2024 TAYLOR DONOVAN MD [address], [address], [facility] - [facility] 5 14:58:02 Problem Notes None recorded. Procedures Surgical History Date Name Laterality Status Provider Name and Address Organization Details Recorded Time 08/09/2024 Comp Audio with Tymps (43910 & 36610) completed DANI SANCHEZ, AUD 100 [facility],[address], [address], [facility] - [facility] 08/09/2024 14:14:08 04/08/2024 Comp Audio with Tymps (99829 & 93813) completed HONORIO BENTON, AUD 100 [facility],[address], [address], [facility] - [facility] 04/08/2024 13:24:03 Imaging Results Imaging Date Name Status LastModified by Organiz ation Details LastModified Time 04/12/2024 audiogram completed [email or web address] Information n ot available 04/12/2024 12:02:44 04/18/2024 MRI, brain + brain stem, w/wo contrast completed [email or web address] [facility] ([facility]) [address], [place], [address], 04/20/2024 16:11:08 04/18/2024 MRI, brain + internal auditory canal, w/wo contrast completed [email or web address] [facility] ([facility] [address], [place], [address], 04/21/2024 09:28:36 08/10/2024 audiogram completed BARCODE Information [...] Updated DateTime 04/08/2024 168.91 cm 35.8 kg/m2 476477.28 g Janell Oracio [place] - [facility] 04/08/2024 13:37:32 Date Recorded Body height Body weight Provider Name and Address Organization Details Last Updated DateTime 08/09/2024 168.91 cm 111115.28 g Shelly Armendarizues [place] [facility] 08/09/2024 14:31:33 Social History None recorded. Functional Status None recorded. Mental Status None recorded. Family History Nothing Reported. Medical History Condition Response Anxiety Y Depression Y Arthritis Y Cancer Y Asthma Y Past Encounters Encounter ID Performer Location Encounter Start Date Encounter Closed Date Diagnosis/Indication Diagnosis SNOMED-CT Code Diagnosis ICD10 Code Diagnosis Note [id number] ELIDA BLAKE PA-C [facility] [address] [address] 04/08/2024 12:27:29 04/08/2024 14:25:45 Sensorineural hearing loss of bilateral ears 737550245 H90.3 Audiologic al evaluation results: Right ear: [...] a hermetic seal}} Tinnitus of left ear 768 3446012 106 H93.12 Dizziness and giddiness 189978727 R42 [id number] TAYLOR DONOVAN MD [facility] [address] [place] [address] 08/09/2024 13:47:00 08/09/2024 15:01:35 Sensorineural hearing loss of bilateral ears 307284357 H90.3 Audiologic al evaluation results: 08/09/2024 Right [...] a hermetic seal}} Tinnitus of left ear 541 7598077 106 H93.12 Meniere's disease of left inner ear 5147602923 548267 H81.02 Health Concerns Section Related Observation LastModified by Organization Detai ls LastModified Time None Recorded Concern Status LastModified by Organization Details LastModified Time None Recorded Advance Directives Directive None Recorded Payers Encounter Date Sequence Insurance Name Policy Number Policy Chirinos Covered Member ID Chirinos Member ID Guarantor Name 04/08/2024 1 [place] [facility] Brendan Ferrera [id number] Brendan Ferrera 08/09/2024 1 [place] [facility] [facility] Brendan Ferrera [id number] Brendan Ferrera Notes Date Note Type Note [...] loss in her 40s. ELIDA BLAKE PA-C [address] [place] [address], [address], [place] [facility] 04/08/2024 15:19:07 08/09/2024 text/html 49-year-old male previously [...] as chronic lymphocytic leukemia. TAYLOR DONOVAN MD [address] [place] [address], [place], [address], [facility] - [facility] 08/09/2024 15:01:26
--- OUTSIDE RECORDS SUMMARY | 2024-11-15 07:15 | XMS_ITS | Encounter Summary ---
Author Organization [employer] Address [address] [place] [address] Care Team Providers Care Water Resources Business Segment Leader Name Role Phone Izzy Pantoja MD Primary Care Provider [phone] Ilana Gaming Unavailable Unavailable Encounter Details Date Type Department Care Team ([facility] st Contact Info) Description 11/04/2024 Orders Only [facility] [address] [place], [place] [phone] Filipe Coburn MD [address] [place] [address] Social History Tobacco Use Types Packs/Day Years [...] Description 11/22/2024 3:15 PM EDT Office Visit [facility] [address] [place] [address] Izzy Pantoja MD [address] [place] [address] documented as of this encounter Visit Diagnoses Not on filedocumented in this encounter Additional Health Concerns Assessment Noted Time PHQ-9 Depression Total Score: 1 07/26/19 25 4:08 PM EST documented as of this encounter Care Teams Water Resources Business Segment Leader Relationship Specialty Start Date End Date Izzy Pantoja MD [address] [place] [address] PCP - General Family Medicine 03/17/22 Ilana Gaming Community Health Worker 10/26/23 documented as of this encounter
--- OUTSIDE RECORDS SUMMARY | 2024-11-15 07:15 | XMS_ITS | Encounter Summary ---
Author Organization [facility] Address [address] [place] [address] Phone Care Team Providers Care Teaching Specialists Name Role Phone Izzy Pantoja MD Primary Care Provider [phone] Encounter Details Date Type Department Care Team (Late st Contact Info) Description 05/20/2022 Documentation Only [facility], [address] [place] [address] Tessa Alejandra PA Social History [...] on filedocumented in this encounter Care Teams Teaching Specialists Relationship Specialty Start Date End Date Izzy Pantoja MD [address] [place] [address] PCP - General Family Medicine 07/06/24 documented as of this encounter
--- OUTSIDE RECORDS SUMMARY | 2024-11-15 07:15 | XMS_ITS | Encounter Summary ---
Author Organization [employer] Address [address] [place] [address] [place] [address] Care Team Providers Care Sample Maker Hand Name Role Phone Izzy Pantoja MD Primary Care Provider [phone] Ilana Gaming Unavailable Unavailable Tomeka Mclain RN Unavailable [phone] Encounter Details Date Type Department Care Team (Late st Contact Info) Description 06/03/2022 [facility] [employer] [address] [place], [place] [phone] Izzy Pantoja MD [address] [place] [phone] Social History Tobacco Use Types Packs/Day Years [...] Description 11/22/2024 3:15 PM EDT Office Visit [facility] [address] [place], [place] [phone] Izzy Pantoja MD [address] [place] [phone] documented as of this encounter Visit Diagnoses Not on filedocumented in this encounter Care Teams Sample Maker Hand Relationship Specialty Start Date End Date Izzy Pantoja MD [address] [place] [address] PCP - General Family Medicine 03/17/22 Ilana Gaming Community Health Worker 10/26/23 Tomeka Mclain RN [address] [place] [address] Concrete Float Maker 10/26/23 01/24/24 documented as of this encounter
--- OUTSIDE RECORDS SUMMARY | 2024-11-15 07:15 | XMS_ITS | Clinical Summary ---
Author Organization [employer] Address [address] [facility] 7t [place] [address] Care Team Providers Care Research Laboratory Specialist Name Role Phone Izzy Pantoja MD Primary Care Provider Ilana Gaming Unavailable Unavailable Allergies Active Allergy [...] needed 2 Active famotidine (Pepcid) 20 MG tabletIndicatio ns:Heartburn Take 1 tablet (20 mg) by mouth [...] capsule 1 3 Active Acetaminophen 500 MG capsuleIndicati ons:Pain take 2 capsule by oral route every 6 hours as needed 60 capsule 3 4 Active cyclobenzaprine (Flexeril) 10 MG tabletIndicatio ns:Chronic bilateral low back pain, unspecified whether sciatica present Take 1 tablet (10 mg) by mouth at bedtime for 10 days. 10 tablet 4 Active atorvastatin (Lipitor) 10 MG tablet Take 1 tablet (10 mg) by mouth at bedtime. 30 tablet 3 4 Active triamcinolone (Kenalog) 0.1 % cream Apply topically if needed in the morning and at bedtime (pain and swelling). 30 g 2 [address] [facility] Check BP daily 1 each 5 Active pantoprazole (ProtoNix) 40 MG EC tablet Take 40 mg by mouth before breakfast. Do not crush, chew, or split. Active sucralfate (Carafate) 1 g tablet Take 1 g by mouth at bedtime. Active diclofenac (Cataflam) 50 MG tabletIndicatio ns:Chronic bilateral low back pain, unspecified whether sciatica present Take 1 tablet (50 mg) by mouth 3 times daily. 30 tablet 4 025 omeprazole (PriLOSEC) [address] capsule Take 40 mg by mouth 2 times daily. 4 025 Discontinu ed(Discont inued by another clinician) Active Problems Patient Care Coordination No te [...] AM EST): - following with urologist at [facility]. Last seen in November 2023. [place] Upcoming [...] (08/05/2024 11:26 AM EST): - Following with [facility] pulmonology, currently asymptomatic - Most recent CT scan in January 2022 showed no mediastinal lymphadenopathy Assessment & Plan (12/27/2023 5:27 PM EDT): - Following with [facility] pulmonology, currently asymptomatic - Most recent CT scan in January 2022 showed no mediastinal lymphadenopathy Assessment & Plan (08/15/2022 6:30 PM EST): - Most recent CT scan in January 2022 showed no mediastinal lymphadenopathy Obstructive sleep apnea syndrome 05/29/2021 Assessment & Plan (07/29/2024 5:33 AM EST): - last sleep study in Apr 2021, Sleep Medicine clinic in [place] - recommended auto-PAP 5-15 cm H2O - patient has a CPAP. Will check if patient can have a humidification device, especially during dry season. Assessment & Plan (12/27/2023 5:27 PM EDT): - last sleep study in Apr 2021, Sleep Medicine clinic in [place] - recommended auto-PAP 5-15 cm H2O - patient has a CPAP. Will check if patient can have a humidification device, especially during dry season. Assessment & Plan (08/15/2022 6:36 PM EST): - last sleep study in Apr 2021, Sleep Medicine clinic in [place] - recommended auto-PAP 5-15 cm H2O - [...] 5:34 AM EST): -Dx October 2008 -Oncology, [facility]. Last seen by Dr. Lee in September 2023, annual follow up. 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 Last seen by Dr. Lee in September [...] Plan (08/15/2022 6:38 PM EST): - current [facility] provider: [facility] - continue judicious and responsible use of gabapentin and clonazepam Encounters Date Type Department Care Team Description 11/04/2024 Orders Only [facility] [address] [address] Filipe Coburn MD 10/31/2024 Orders Only GENERIC EXTERNAL DATA DEPARTMENT Provider, Generic External Data 09/30/2024 Population Health Risk Score [facility] (C3) Department [address] [facility] [address] [place] [address] Provider, Population Health Generic 09/09/2024 Telephone [facility] [address] [place] [address] Sirena Gaming [place] may recall [...] Description 11/22/2024 3:15 PM EDT Office Visit [facility] [address] [place] [address] Izzy Pantoja MD [address] [place] [address] Health Maintenance Due Date Last Done Comments [...] Procedure Name Priority Date/Time Associated Diagnosis Comments TISSUE TRANSGLUTAMINASE AB, IGA Routine 10/31/2024 8:00 AM EDT TSH W/REFLEX TO FT4 Routine 10/31/2024 8 :00 AM EDT LIPASE Routine 10/31/2024 8:00 AM EDT LIPID PANEL WITH REFLEX TO DIRECT LDL Routine 10/31/2024 8:00 AM EDT HEPATIC FUNCTION PANEL Routine 8:00 AM EDT COMPREHENSIVE METABOLIC PANEL Routine [...] Free T4 2.07 0.32 - 4.0 uIU/mL [facility] 10/31/2024 8:00 AM EDT 10/31/2024 8:05 AM EDT Generic External Data Provider LAB BLOOD ORDERAB LES Final Result Performing Organization Address City/[facility]/ZIP Co de Phone Number [facility] [address] [place] [phone] * Lipid Panel with Reflex to Direct LDL (10/31/2024 8:00 AM EDT) Triglycerides 59 <150 mg/dL [facility] Comment:Desirable Triglyceri de: less than 150 mg/dLBorderline High Triglyceride 150-199 mg/dLHigh Triglyceride: 200-499 mg/dLVery High Triglyceride: greater than or equal to 5OO mg/dL Cholesterol 133 <200 mg/dL [facility] Comment:Desirable Cholestero l: less than 200 mg/dLBorderline High Cholesterol: 200-239 mg/dLHigh Cholesterol: greater than 239 mg/dL LDL Cholesterol Calculated 73 <100 mg/dL [facility] Comment:Desirable LDL: less than 100 mg/dLNear Optimal/Above Optimal LDL: 110- 129 mg/dLBorderline High LDL: 130-159 mg/dLHigh LDL: 160-189 mg/dLVery High LDL: greater than or equal to 190 mg/dL HDL Cholesterol 49 >40 mg/dL [facility] Comment:Desirable HDL: great er than 40 mg/dL Note: This HDL assay may give artificially low results in patients with liver disease. 10/31/2024 8:00 AM EDT 10/31/2024 8:05 AM EDT us Generic External Data Provider LAB BLOOD ORDERAB LES Final Result Performing Organization Address City/[facility]/ZIP Co de Phone Number [facility] [address] [place] [address] [phone] * Tissue Transglutaminase Antibody, IgA (10/31/2024 8:00 AM EDT) Transglutaminase IgA <1.0 U/mL [facility] Comment:Value Interpretation ----- <15.0 Antibody not detected> or = 15.0 Antibody detectedTHIS TEST WAS PERFORMED AT:[employer] [place] [id number] GUILLAUME MD 10/31/2024 8:00 AM EDT 10/31/2024 8:05 AM EDT Generic External Data Provider LAB BLOOD ORDERAB LES Final Result Performing Organization Address City/[facility]/ZIP Co de Phone Number [facility] [address] [place] [phone] * Lipase (10/31/2024 8:00 AM EDT) Lipase 21 8 - 78 U/L [facility] 10/31/2024 8:00 AM EDT 10/31/2024 8:05 AM EDT Generic External Data Provider LAB BLOOD ORDERAB LES Final Result Performing Organization Address [facility] de Phone Number [facility] [address] [place] [phone] * Hemoglobin A1c (10/31/2024 8:00 AM EDT) Hemoglobin A1c 5.7 <6.0 % [facility] Comment:Hemoglobin A1C Refer ence Range Adults: 4.8 - 6.0 % Non diabetic: < 6.0 % Goal: < 7.0 %Additional Action Suggested: > 8.0 %Note: Hemoglobin A1c results are invalid for patients with abnormal amounts of HbF. Blood transfusions may impact the HbA1c concentration in the patient sample. Estimated Average Glucose 117 mg/dL [facility] Comment:eAG = Estimated ave rage glucose which is %A1C expressed asaverage glucose, using the formula of the X8D-UljsxthKwiaavg Glucose study (ADAG), Diabetes Care, Vol.31,#8,2007 Blood Venous blood specimen / Unknown 10/31/2024 8:00 AM EDT 10/31/2024 8:05 AM EDT us Izzy Pantoja MD LAB BLOOD ORDERABLES Final Resul t Performing Organization Address City/[facility]/ZIP Co de Phone Number [facility] [address] [place] [phone] * Hepatic Function Panel (10/31/2024 8:00 AM EDT) Bilirubin, Direct 0.1 0.0 - 0.5 mg/dL [facility] 10/31/2024 8:00 AM EDT 10/31/2024 8:05 AM EDT us Generic External Data Provider LAB BLOOD ORDERAB LES Final Result Performing Organization Address [facility] de Phone Number [facility] [address] [place] [phone] * (ABNORMAL) Comprehensive Metabolic Panel (10/31/2024 8:00 AM EDT) Sodium 142 135 - 145 mmol/L [facility] Potassium 3.8 3.3 - 5.1 mmol/L [facility] Chloride 110(H) 96 - 108 mmol/L [facility] Carbon Dioxide 26 22 - 29 mmol/L [facility] Anion Gap 10(L) 12 - 20 [facility] Urea Nitrogen (BUN) 13 9 - 16 mg/dL [facility] Creatinine, Serum 0.76 0.5 - 1.4 mg/dL [facility] Estimated Glomerular Filt Rate >60 [facility] Comment:Chronic Kidney Disea se: Estimated GFR < 60 mL/min/1.07l2Hectxm Kidney Disease: Estimated GFR < 15 mL/min/1.73m2 Glucose 112 60 - 115 mg/dL [facility] Calcium 8.8 8.4 - 10.2 mg/dL [facility] Bilirubin, Total 0.3 0.0 - 1.0 mg/dL [facility] Aspartate Amino Transferase 25 5 - 37 U/L [facility] Alanine Aminotransferase 51(H) 0 - 40 U/L [facility] Total Protein 6.6 6.5 - 8.0 g/dL [facility] Albumin Level 4.0 3.5 - 5.0 g/dL [facility] Alkaline Phosphatase 127(H) 39 - 117 U/L [facility] Blood Venous blood specimen / Unknown 10/31/2024 8:00 AM EDT 10/31/2024 8:05 AM EDT Izzy Pantoja MD LAB BLOOD ORDERABLES Final Resul t Performing Organization Address City/[facility]/ZIP Co de Phone Number [facility] [address] [place] [phone] * HEPATITIS C AB W/REFL TO HCV RNA, QN, PCR (07/01/2021 3:34 PM EST) HEPATITIS C ANTIBODY NON-REACT [facility] NON-REACT [facility] INDEX 0.02 <1.00 [facility] Comment: ?? HCV antibody was non-reactive. There is no laboratory ?? evidence of HCV infection. ?? In most cases, no further action is required. However, if recent HCV exposure is suspected, a test for HCV RNA (test code 90035) is suggested. ?? For additional information please refer to http://education.Yun Yun/faq/WXA36z7 (This link is being provided for informational/ educational purposes only.) ?? 07/01/2021 3:34 PM EST us Loulou Cruz DIETARY TECH HISTORICAL/NON ORDERABLE LABS Final Result Performing Organization Address City/[facility]/ZIP Co de Phone Number [facility] [address] * HIV 1/2 ANTIGEN/ANTIBODY,FOURTH GENERATION W/RFL (07/01/2021 3:34 PM EST) HIV-1/2 ANTIGEN AND ANTIBODIES, 4TH GENERATION W/ REFLEX NON-REACT [facility] NON-REACT [facility] Comment: HIV-1 antigen and HIV-1/HIV-2 [...] ? For additional information please refer to http://education.Yun Yun/faq/FEM139 (This link is being provided for informational/ educational purposes only.) ? The performance of this assay has not been clinically validated in patients less than 2 years old. ?? 07/01/2021 3:34 PM EST Loulou Cruz [facility] LAB BLOOD ORDERABLES Final Res ult [facility] [address] from Last 3 Months or Most Recently Relevant to Health Maintenance Insurance C3 Care Teams Research Laboratory Specialist Relationship Specialty Start Date End Date Izzy Pantoja MD [address] [place] [phone] PCP - General Family Medicine 03/17/22 Ilana Gaming Community Health Worker 10/26/23
--- OUTSIDE RECORDS SUMMARY | 2024-11-15 07:15 | XMS_ITS | Clinical Summary ---
Author Organization [facility], Address [address] [place] [address] [place] [phone] Phone Care Team Providers Care Mangle Roller Name Role Phone Izzy Pantoja MD Primary Care Provider [phone] Allergies Active Allergy Reactions Criticality Noted Date [...] history exists Insurance Medicaid [place] Care Teams Mangle Roller Relationship Specialty Start Date End Date Izzy Pantoja MD [address] [place] [phone] PCP - General Family Medicine 07/06/24
== END 2024-11-15 07:14 | disposition home or self-care (01) ==
LOC: HO.XRAY 07:13
PROVIDERS: PCP Family Medicine; Visit Provider Nurse Practitioner Family
DX: K21.9 Gastro-esophageal reflux disease without esophagitis (principal)
CPT/HCPCS: 74240; 74246

== ENCOUNTER → 2024-11-15 07:14 | Outpatient (BNV) | payer MEDICAID, SELFPAY | PROVIDERS: PCP Family Medicine; Visit Provider Radiology Diagnostic Radiology | DX: K21.9 Gastro-esophageal reflux disease without esophagitis (principal) | CPT/HCPCS: 74246 ==

== ENCOUNTER 2024-11-23 15:29 | Outpatient (REF) | payer MEDICAID, SELFPAY ==
--- OUTSIDE RECORDS SUMMARY | 2024-11-23 16:22 | XMS_ITS | Encounter Summary ---
Author Organization [facility] Address [address] [place] [address] Phone Care Team Providers Care Roll Cutter Name Role Phone Izzy Pantoja MD Primary Care Provider [phone] Encounter Details Date Type Department Care Team (Late st Contact Info) Description 05/20/2022 Documentation Only [facility], [address] [place] [address] Tessa Alejandra PA Social History [...] on filedocumented in this encounter Care Teams Roll Cutter Relationship Specialty Start Date End Date Izzy Pantoja MD [address] [place] [phone] PCP - General Family Medicine 07/06/24 documented as of this encounter
--- OUTSIDE RECORDS SUMMARY | 2024-11-23 16:22 | XMS_ITS | Encounter Summary ---
Author Organization [email or web address] Address 75 [facility] 7t [place] [address] Care Team Providers Care Open End Spinning Operator Name Role Phone Izzy Pantoja MD Primary Care Provider [phone] Ilana Gaming Unavailable Tomeka Mclain RN Unavailable [phone] Reason for Visit * Reason Onset Date Comments Referral 08/20/2022 Encounter Details Date Type Department Care Team (Late st Contact Info) Description 08/20/2022 Telephone [facility] MEDICINE [address] [place] [phone] Izzy Pantoja MD [address] [place], [place] [phone] Referral Social History Tobacco Use Types Packs/Day [...] Care Team (Late st Contact Info) Description 12/13/2024 3:30 PM EDT Clinical Support [facility] [address] [place] [phone] documented as of this encounter Visit Diagnoses Not on filedocumented in this encounter Care Teams Open End Spinning Operator Relationship Specialty Start Date End Date Izzy Pantoja MD [address] [place] [address] PCP - General Family Medicine 03/17/22 Ilana Gaming Community Health Worker 10/26/23 Tomeka Mclain RN [address] [place] [phone] Catshovel Driver 10/26/23 01/24/24 documented as of this encounter
--- OUTSIDE RECORDS SUMMARY | 2024-11-23 16:22 | XMS_ITS | Encounter Summary ---
Author Organization [employer] Address [address] [facility] [address] 7[address] [place] [address] Care Team Providers Care Outpatient Pharmacy Manager Name Role Phone Izzy Pantoja MD Primary Care Provider [phone] Ilana Gaming Unavailable Encounter Details Date Type Department Care Team (Latest Contact Info) Description 11/22/2024 Travel Social History Tobacco Use Types Packs/Day [...] Description 12/13/2024 3:30 PM EDT Clinical Support [facility]INE [address] [place] [address] documented as of this encounter Visit Diagnoses Not on filedocumented in this encounter Additional Health Concerns Assessment Noted Time PHQ-9 Depression Total Score: 1 07/26/19 25 4:08 PM EST documented as of this encounter Care Teams Outpatient Pharmacy Manager Relationship Specialty Start Date End Date Izzy Pantoja MD [address] [place] [address] PCP - General Family Medicine 03/17/22 Ilana Gaming Community Health Worker 10/26/23 documented as of this encounter
--- OUTSIDE RECORDS SUMMARY | 2024-11-23 16:22 | XMS_ITS | Encounter Summary ---
Author Organization [employer] Address [address] [facility] [address] [place] [address] Care Team Providers Care Printed Circuit Board Designer Name Role Phone Izzy Pantoja MD Primary Care Provider [phone] Ilana Gaming Unavailable Encounter Details Date Type Department Care Team ([facility] st Contact Info) Description 11/04/2024 Orders Only [facility] [address] [place], [place] [phone] Filipe Coburn MD [address] [place], [place] [phone] Social History Tobacco Use Types Packs/Day Years [...] Description 12/13/2024 3:30 PM EDT Clinical Support [facility] [address] [place] [address] documented as of this encounter Visit Diagnoses Not on filedocumented in this encounter Additional Health Concerns Assessment Noted Time PHQ-9 Depression Total Score: 1 07/26/19 25 4:08 PM EST documented as of this encounter Care Teams Printed Circuit Board Designer Relationship Specialty Start Date End Date Izzy Pantoja MD [address] [place] [address] PCP - General Family Medicine 03/17/22 Ilana Gaming Community Health Worker 10/26/23 documented as of this encounter
--- OUTSIDE RECORDS SUMMARY | 2024-11-23 16:22 | XMS_ITS | Data Portability ---
Author Organization [place] - [facility], Allergy Address [address] [address] Care Team Providers Care Underground Drill Operator Name Role Phone [facility] Primary Care Provider [phone] Assessment Encounter Date Assessment Date Assessment LastModified [...] sided amplification and he will consider this. [email or web address] Not available 04/08/2024 15:17:00 08/09/2024 08/09/2024 Patient [...] of his current blood pressure medication regimen. [email or web address] Not available 08/09/2024 15:01:02 Plan of Treatment [...] - next available ....IAC protocol 2023 024 [facility] ([facility]), [address], [place], [address], 04/20/2024 15:14:22 Medication Orders None recorded. Patient TargetsNo targets recorded. Patient InstructionsNo instructions recorded. Reason for Referral None Reported. Results Created Date Observation Date Name Description Value Unit Range Abnormal Flag Note LastModifiedBy Organization Detail LastModifiedTime 04/12/20 24 audio gram No observ ation record ed. [email or web address] Not Available 03/21 12:02:44 04/20/2004/18/2024 MRI, brain + brain stem, w/wo contr ast [facility] Access ion Number : [id number] Darion rodriguez Name: Brendan Ferrera Record Number : [id number] Date of : 1974 Date of Exam: 2023 Referr ing Physic clinton: Zina Nava [facility]re d [address], [address] [facility] [place] [address] Exam: MR Brain (C-/C+ ) CPT 81921 Room Descri ption: Mower GE Pion 3T INDICA TION: Sensor ineura [...] semici rcular canals . The bilate ral summer intern al audito ry canals are not [...] . IMPRES GIA: Unrema rkable bilate ral summer intern al audito ry canals . No mass or abnorm al enhanc ement. Parana rebecca sinus diseas e as descri bed. Electr onical ly Signed By: Mary [email or web address] [facility] ([facility]) [address] [place], [address], 04/20/2024 16:11:08 04/20/20 24 04/18/2024 MRI, brain + inter nal audit ory canal , w/wo contr ast No observ ation record ed. [email or web address] [facility] ([facility]) [address] [place], [address], 04/21/2024 09:28:36 08/10/19 25 audio gram No observ ation record ed. BARCODE Not Available 2024 13:53:07 Result Notes None recorded. Problems Name Problem SNOMED Code Status Onset Date Resolution Date Notes Provider Name and Address Organization Details Recorded Time Sensorineur al hearing loss of bilateral ears 992344773 Active 2023 HONORIO BENTON , AUD [address], [address], [facility] - [facility] 4 13:24:12 Tinnitus of left ear 7888670415776 Active 2023 ZINA BLAKE PA-C [address] [place] [address], [place], [address], [facility] - [facility] 4 14:43:22 Dizziness and giddiness 677368294 Active 2023 ZINA BLAKE PA-C [address] [place] [address], [place], [address], [facility] - [facility] 4 14:43:26 Meniere's disease of left inner ear 5823059041968 107 Active 2024 TAYLOR DONOVAN MD [address], [address], [facility] - [facility] 5 14:58:02 Problem Notes None recorded. Procedures Surgical History Date Name Laterality Status Provider Name and Address Organization Details Recorded Time 08/09/2024 Comp Audio with Tymps - 62172 & 05452 completed DANI SANCHEZ, AUD 100 [facility],[address], [address], [facility] - [facility] 08/09/2024 14:14:08 04/08/2024 Comp Audio with Tymps - 91383 & 31600 completed HONORIO BENTON, AUD 100 [facility],[address], [address], [facility] - [facility] 04/08/2024 13:24:03 Imaging Results Imaging Date Name Status LastModified by Organiz ation Details LastModified Time 04/12/2024 audiogram completed [email or web address] Information n ot available 04/12/2024 12:02:44 04/18/2024 MRI, brain + brain stem, w/wo contrast completed [email or web address] [facility] ([facility]) [address], [place], [address], 04/20/2024 16:11:08 04/18/2024 MRI, brain + internal auditory canal, w/wo contrast completed [email or web address] [facility] ([facility]) [address], [place], [address], 04/21/2024 09:28:36 08/10/2024 audiogram completed BARCODE Information [...] Updated DateTime 04/08/2024 168.91 cm 35.8 kg/m2 207640.28 g Janell Oracio [place] - [facility] 04/08/2024 13:37:32 Date Recorded Body height Body weight Provider Name and Address Organization Details Last Updated DateTime 08/09/2024 168.91 cm 975946.28 g Shelly Armendarizues [place] [facility] 08/09/2024 14:31:33 Social History None recorded. Functional Status None recorded. Mental Status None recorded. Family History Nothing Reported. Medical History Condition Response Anxiety Y Depression Y Arthritis Y Cancer Y Asthma Y Past Encounters Encounter ID Performer Location Encounter Start Date Encounter Closed Date Diagnosis/Indication Diagnosis SNOMED-CT Code Diagnosis ICD10 Code Diagnosis Note [id number] ZINA BLAKE PA-C [facility] [address] [address] 04/08/2024 12:27:29 04/08/2024 14:25:45 Sensorineural hearing loss of bilateral ears 904937318 H90.3 Audiologic al evaluation results: Right ear: [...] a hermetic seal}} Tinnitus of left ear 624 2212597 106 H93.12 Dizziness and giddiness 831141936 R42 [id number] TAYLOR DONOVAN MD [facility] [address] [place] [address] 08/09/2024 13:47:00 08/09/2024 15:01:35 Sensorineural hearing loss of bilateral ears 781671785 H90.3 Audiologic al evaluation results: 08/09/2024 Right [...] a hermetic seal}} Tinnitus of left ear 016 3445476 106 H93.12 Meniere's disease of left inner ear 9300135670 780532 H81.02 Health Concerns Section Related Observation LastModified by Organization Detai ls LastModified Time None Recorded Concern Status LastModified by Organization Details LastModified Time None Recorded Advance Directives Directive None Recorded Payers Insurance Date Sequence Insurance Name Policy Number Policy Chirinos Covered Member ID Chirinos Member ID Guarantor Name 08/05/2024 1 [place] [facility] Brendan Ferrera [id number] Brendan Ferrera 04/08/2024 2 [place] [facility] - [facility] PLAN Brendan Ferrera [id number] Brendan Ferrera Notes Date Note Type Note [...] surgery for hearing loss in her 40s. ZINA BLAKE PA-C [address] [place] [address], [address] 04/08/2024 15:19:07 08/09/2024 text/html 49-year-old male previously seen by Zina Blake PA-C patient has fluctuating left-sided tinnitus [...] as chronic lymphocytic leukemia. TAYLOR DONOVAN MD [address] [place] [address], [place], [address], [facility] - [facility] 08/09/2024 15:01:26
--- OUTSIDE RECORDS SUMMARY | 2024-11-23 16:22 | XMS_ITS | Encounter Summary ---
Author Organization [employer] Address [address] [facility] 7[address] [place] [address] Care Team Providers Care Microbiology Professor Name Role Phone Izzy Pantoja MD Primary Care Provider Ilana Gaming Unavailable Encounter Details Date Type Department Care Team ([facility] st Contact Info) Description 11/22/2024 3:15 PM EDT Office Visit [facility] [address] [place], [place] [phone] Izzy Pantoja MD [address] [place], [place] [phone] Moderate persistent asthma without complication (Primary Dx); Pulmonary sarcoidosis (CMS/HCC); Obstructive sleep apnea syndrome; Gastroesophageal reflux disease, unspecified whether esophagitis present; Tobacco use disorder; Mixed hyperlipidemia; Chronic lymphocytic leukemia (CMS/HCC); Pain; Elevated BP without diagnosis of hypertension Social History Tobacco Use Types Packs/Day Years [...] Sign Reading Time Taken Comments Blood Pressure 144/80 11/22/2024 3:33 PM EDT Pulse 82 11/22/2024 3:11 PM EDT Temperature 36.1 ??C (96.9 ??F) 11/22/2024 3:11 PM ED T Respiratory Rate 16 11/22/2024 3:11 PM EDT Oxygen Saturation 97% 11/22/2024 3:11 PM EDT Inhaled Oxygen Concentration - - Weight 102 kg (223 lb 12.8 oz) 11/22/2024 3:11 P M EDT Height 165.1 cm (5' 5 ) 11/22/2024 3:11 PM EDT Body Mass Index 37.24 11/22/2024 3:11 PM EDT documented in this encounter Miscellaneous Notes * Assessment & Plan Note - Mili Bonilla MA - 11/22/2024 4:59 PM EDTAssociated Problem(s): Elevated BP without diagnosis of hypertension -Goal BP < 140/90 per JNC-8 and < 130/80 per ACC/AHA guideline (Treatment threshold >=140/90) -BP borderline -Continue working on lifestyle modifications -Recommended self-monitoring BP. -Patient is taking terazosin for BPH with [facility] -Follow up in 3 weeks for BP check, sooner if any problem arises * Assessment & Plan Note - Mili Bonilla MA - 11/22/2024 3:46 PM EDTAssociated Problem(s): Tobacco use disorder Quit date 08/04/23 Continue smoking cessation effort and remain a non-smoker * Assessment & Plan Note - Mili Bonilla MA - 11/22/2024 3:46 PM EDTAssociated Problem(s): Chronic lymphocytic leukemia (CMS/HCC) -Dx October 2008 [place] [facility] Last seen by Dr. Lee in September 2024, annual follow up. -Tx 6 cycles of R-CVP, completed in Jul 2009 -No sign of recurrence * Assessment & Plan Note - Mili Bonilla MA - 11/22/2024 3:46 PM EDTAssociated Problem(s): Hyperlipidemia Current medication: atorvastatin 10 mg qhs Last Lipid Profile: October 31 2024 * Assessment & Plan Note - Mili Bonilal MA - 11/22/2024 3:45 PM EDTAssociated Problem(s): Gastroesophageal reflux disease Continue pantoprazole Continue sucralfate Upper GI series on 11/15/24 showed GERD otherwise normal Upcoming appt with GI for colonoscopy and possible EGD evaluation Avoid irritants, especially smoking * Assessment & Plan Note - Mili Bonilla MA - 11/22/2024 3:45 PM EDTAssociated Problem(s): Pulmonary sarcoidosis (CMS/HCC) - Previously following with [facility] pulmonology, currently asymptomatic - Most recent CT scan in January 2022 showed no mediastinal lymphadenopathy - Consider repeating chest CT * Assessment & Plan Note - Mili Bonilla MA - 11/22/2024 3:45 PM EDTAssociated Problem(s): Asthma - Continue Flovent 110 2 puffs BID, with Albuterol MDI 2 puffs every 4 hours as needed - Consider switching to ICS / LABA prn - Began smoking cessation on 08/04/2023, continue to work on smoking cessation * Assessment & Plan Note - Mili Bonilla MA - 11/22/2024 3:44 PM EDTAssociated Problem(s): Obstructive sleep apnea syndrome - last sleep study in Apr 2021, Sleep Medicine clinic in [place] - recommended auto-PAP 5-15 cm H2O - patient had a CPAP. - Pt returned machine because poor adherence. Pt reports burning in his nose with CPAP machine. Pt is not interested in trying newer CPAP machine. documented in this encounter Plan of Treatment Upcoming Encounters Date Type Department Care Team (Late st Contact Info) Description 12/13/2024 3:30 PM EDT Clinical Support [facility] [address] [place] [address] documented as of this encounter Visit Diagnoses Diagnosis Moderate persistent asthma without complication- Primary Pulmonary sarcoidosis (CMS/HCC) Sarcoidosis Obstructive sleep apnea syndrome Obstructive sleep apnea (adult) (pediatric) Gastroesophageal reflux disease, unspecified whether esophagitis present Tobacco use disorder Mixed hyperlipidemia Chronic lymphocytic leukemia (CMS/HCC) Chronic lymphoid leukemia, without mention of having achieved remission Pain Generalized pain Elevated BP without diagnosis of hypertension documented in this encounter Additional Health Concerns Assessment Noted Time PHQ-9 Depression Total Score: 1 07/26/19 25 4:08 PM EST documented as of this encounter Care Teams Microbiology Professor Relationship Specialty Start Date End Date Izzy Pantoja MD [address] [place] [address] PCP - General Family Medicine 03/17/22 Ilana Gaming Community Health Worker 10/26/23 documented as of this encounter
--- OUTSIDE RECORDS SUMMARY | 2024-11-23 16:22 | XMS_ITS | Encounter Summary ---
Author Organization [employer] Address [address] [place] [address] 7[address] [place] [address] Care Team Providers Care Tire Repair Mechanic Name Role Phone Izzy Pantoja MD Primary Care Provider [phone] Ilana Gaming Unavailable Tomeka Mclain RN Unavailable [phone] Encounter Details Date Type Department Care Team (Late st Contact Info) Description 06/03/2022 [facility] [employer] Information Management [address] [place], [place] [phone] Izzy Pantoja MD [address] [place], [place] [phone] Social History Tobacco Use Types Packs/Day Years [...] Description 12/13/2024 3:30 PM EDT Clinical Support [facility] [address] [place] [phone] documented as of this encounter Visit Diagnoses Not on filedocumented in this encounter Care Teams Tire Repair Mechanic Relationship Specialty Start Date End Date Izzy Pantoja MD [address] [place] [phone] PCP - General Family Medicine 03/17/22 Ilana Gaming Community Health Worker 10/26/23 Tomeka Mclain RN [address] [place] [id number] Sap Technical Developer 10/26/23 01/24/24 documented as of this encounter
--- OUTSIDE RECORDS SUMMARY | 2024-11-23 16:22 | XMS_ITS | Clinical Summary ---
Author Organization [employer] Address [address] [place] [address] 7[address] [place] [address] Care Team Providers Care Unit Control Worker Name Role Phone Izzy Pantoja MD Primary Care Provider [phone] Ilana Gaming Unavailable Allergies Active Allergy Reactions Criticality Noted Date Comments Cold Sore Products 10/30/2023 Ibuprofen 05/29/2014 Other reaction(s): Discomfort Low-Salt Diet 10/30/2023 Medications cholecalcifero l (Vitamin D-3) 50 MCG (1999 UT) capsule take 1 by oral route every day 11/26/19 22 Active clonazePAM (KlonoPIN) 1 MG tablet take 1 tab by mouth daily as needed for anxiety Active fluticasone (Flonase) 50 MCG/ACT nasal spray Administer 1 spray into each nostril 1 (one) time each day 05/15/20 22 Active fluticasone (Flovent) 110 MCG/ACT inhaler take 2 puffs by Inhalation route 2 times every day 03/06/20 22 Active gabapentin (Neurontin) 300 MG capsule take 3 capsule by oral route at bedtime Active nicotine polacrilex (Commit) 2 MG lozenge take 1 tablet by oral route every 8 hours dissolved slowly in the mouth as needed 11/27/19 22 Active famotidine (Pepcid) 20 MG tabletIndicati ons:Heartburn Take 1 tablet (20 mg) by mouth at bedtime. 90 tablet 3 08/11/19 23 Active albuterol (Ventolin HFA) 108 (90 Base) MCG/ACT inhaler INHALE 2 PUFFS BY INHALATION ROUTE EVERY 4 HOURS IF NEEDED 18 g 03/13/20 23 Active esomeprazole (NexIUM) [address] capsule take 1 capsule by oral route every day at least 1 hour before a meal swallowing whole. Do not crush or chew granules. 90 capsule 1 06/05/20 23 Active cyclobenzaprin e (Flexeril) 10 MG tabletIndicati ons:Chronic bilateral low back pain, unspecified whether sciatica present Take 1 tablet (10 mg) by mouth at bedtime for 10 days. 10 tablet 12/24/19 24 Active atorvastatin (Lipitor) 10 MG tablet Take 1 tablet (10 mg) by mouth at bedtime. 30 tablet 3 07/06/20 24 Active triamcinolone (Kenalog) 0.1 % cream Apply topically if needed in the morning and at bedtime (pain and swelling). 30 g 2 07/26/19 25 Active Blood Pressure Monitor [facility] [place] BP daily 1 each 07/26/19 25 Active pantoprazole (ProtoNix) 40 MG EC tablet Take 40 mg by mouth before breakfast. Do not crush, chew, or split. Active sucralfate (Carafate) 1 g tablet Take 1 g by mouth at bedtime. Active levocetirizine (Xyzal) 5 MG tablet take 1 tablet by oral route every day in the evening. May take twice a day when symptoms are severe 180 tablet 1 11/23/19 25 Active Acetaminophen 500 MG capsuleIndicat ions:Pain take 2 capsule by oral route every 6 hours as needed 60 capsule 3 11/23/19 25 Active levocetirizine (Xyzal) 5 MG tablet take 1 tablet by oral route every day in the evening 90 tablet 1 06/05/20 23 025 Discontinued(Re order (will not trigger notification to Pharmacy)) diclofenac (Cataflam) 50 MG tabletIndicati ons:Chronic bilateral low back pain, unspecified whether sciatica present Take 1 tablet (50 mg) by mouth 3 times daily. 30 tablet 10/30/19 24 025 Acetaminophen 500 MG capsuleIndicat ions:Pain take 2 capsule by oral route every 6 hours as needed 60 capsule 3 11/20/19 24 025 Discontinued(Re order (will not trigger notification to Pharmacy)) omeprazole (PriLOSEC) [address] capsule Take 40 mg by mouth 2 times daily. 02/11/20 025 Discontinued(Di scontinued by another clinician) Active Problems Patient Care Coordination No te Formatting of this note migh t be different from the original. C3/CM Isis Orona RN, TC Progress Note Problem Noted Date Diagnosed Date Elevated BP without diagnosis of hypertension Assessment & Plan (11/22/2024 4:59 PM EDT): -Goal BP < 140/90 per JNC-8 and < 130/80 per ACC/AHA guideline (Treatment threshold >=140/90) -BP borderline -Continue working on lifestyle modifications -Recommended self-monitoring BP. -Patient is taking terazosin for BPH with [facility] -Follow up in 3 weeks for BP check, sooner if any problem arises Assessment & Plan (08/05/2024 11:32 AM EST): [...] AM EST): - following with urologist at [facility]. Last seen in November 2023. 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 - consider trial of alpha loki Hyperlipidemia 07/03/2021 Assessment & Plan (11/22/2024 4:58 PM EDT): Current medication: atorvastatin 10 mg qhs Last Lipid Profile: October 31 2024 Assessment & Plan (07/29/2024 5:34 AM EST): Current medication: atorvastatin 10 mg qhs Check lipid profile Assessment & Plan (12/25/2023 3:35 PM EDT): Current medication: atorvastatin 10 mg qhs Check lipid profile Assessment & Plan (08/15/2022 6:42 PM EST): Current medication: atorvastatin 10 mg qhs Check lipid profile Pulmonary sarcoidosis 07/01/2021 Assessment & Plan (11/22/2024 4:55 PM EDT): - Previously following with [facility] pulmonology, currently asymptomatic - Most recent CT scan in January 2022 showed no mediastinal lymphadenopathy - Consider repeating chest CT Assessment & Plan (08/05/2024 11:26 AM EST): - Following with [facility] pulmonology, currently asymptomatic - Most recent CT scan in January 2022 showed no mediastinal lymphadenopathy Assessment & Plan (12/27/2023 5:27 PM EDT): - Following with [facility] pulmonology, currently asymptomatic - Most recent CT scan in January 2022 showed no mediastinal lymphadenopathy Assessment & Plan (08/15/2022 6:30 PM EST): - Most recent CT scan in January 2022 showed no mediastinal lymphadenopathy Obstructive sleep apnea syndrome 05/29/2021 Assessment & Plan (11/22/2024 4:54 PM EDT): - last sleep study in Apr 2021, Sleep Medicine clinic in [place] - recommended auto-PAP 5-15 cm H2O - patient had a CPAP. - Pt returned machine because poor adherence. Pt reports burning in his nose with CPAP machine. Pt is not interested in trying newer CPAP machine. Assessment & Plan (07/29/2024 5:33 AM EST): - last sleep study in Apr 2021, Sleep Medicine clinic in [place] - recommended auto-PAP 5-15 cm H2O - patient has a CPAP. Will check if patient can have a humidification device, especially during dry season. Assessment & Plan (12/27/2023 5:27 PM EDT): - last sleep study in Apr 2021, Sleep Medicine clinic in [place] - recommended auto-PAP 5-15 cm H2O - patient has a CPAP. Will check if patient can have a humidification device, especially during dry season. Assessment & Plan (08/15/2022 6:36 PM EST): - last sleep study in Apr 2021, Sleep Medicine clinic in [place] - recommended auto-PAP 5-15 cm H2O - pt is waiting for a new CPAP Tobacco use disorder 10/13/2012 Assessment & Plan (11/22/2024 3:46 PM EDT): Quit date 08/04/23 Continue smoking cessation effort and remain a non-smoker Assessment & Plan (07/29/2024 5:34 AM EST): Quit date 08/04/23 Continue smoking cessation effort and remain a non-smoker Assessment & Plan (12/27/2023 5:04 PM EDT): Quit date 08/04/23 Continue smoking cessation effort and remain a non-smoker Assessment & Plan (08/15/2022 6:41 PM EST): Continue working on smoking cessation Referred to smoking cessation group Consider referral to [facility] Obesity 04/19/2012 Assessment & Plan (08/15/2022 6:41 PM EST): - [facility] - Continue working on lifestyle modification Gastroesophageal reflux disease 04/19/2012 Assessment & Plan (11/22/2024 4:57 PM EDT): Continue pantoprazole Continue sucralfate Upper GI series on 11/15/24 showed GERD otherwise normal Upcoming appt with GI for colonoscopy and possible EGD evaluation Avoid irritants, especially smoking Assessment & Plan (07/29/2024 5:33 AM EST): [...] Chronic lymphocytic leukemia 04/19/2012 Assessment & Plan (11/22/2024 4:58 PM EDT): -Dx October 2008 -Oncology, [facility]. Last seen by Dr. Lee in September 2024, annual follow up. -Tx 6 cycles of R-CVP, completed in Jul 2009 -No sign of recurrence Assessment & Plan (07/29/2024 5:34 AM EST): -Dx October 2008 -Oncology, [facility]. Last seen by Dr. Lee in September 2023, annual follow up. -Tx 6 cycles of R-CVP, completed in Jul 2009 -No sign of recurrence Assessment & Plan (12/27/2023 5:33 PM EDT): -Dx October 2008 -Oncology, [facility]. Last seen by Dr. Lee in September [...] seen 09/2021 Asthma 01/16/2012 Assessment & Plan (11/22/2024 3:45 PM EDT): - Continue Flovent 110 2 puffs BID, with Albuterol MDI 2 puffs every 4 hours as needed - Consider switching to ICS / LABA prn - Began smoking cessation on 08/04/2023, continue to work on smoking cessation Assessment & Plan (08/05/2024 11:26 AM EST): [...] Plan (08/15/2022 6:38 PM EST): - current [facility] provider: [facility] - continue judicious and responsible use of gabapentin and clonazepam Encounters Date Type Department Care Team Description 11/23/2024 Orders Only [address] [address] Izzy Pantoja MD Immunity status testing (Primary Dx) 11/22/2024 3:15 PM EDT Office Visit [address] [address] Izzy Pantoja MD Moderate persistent asthma without complication (Primary Dx); Pulmonary sarcoidosis (CMS/HCC); Obstructive sleep apnea syndrome; Gastroesophageal reflux disease, unspecified whether esophagitis present; Tobacco use disorder; Mixed hyperlipidemia; Chronic lymphocytic leukemia (CMS/HCC); Pain; Elevated BP without diagnosis of hypertension 11/22/2024 Travel 11/18/[address] [address] Izzy Pantoja MD chartprep 11/15/2024 Orders Only [facility] External Provider, [facility] 11/04/2024 Orders Only [facility] [address] [place] [phone] Filipe Coburn MD 10/31/2024 Orders Only GENERIC EXTERNAL DATA DEPARTMENT Provider, Generic External Data 09/30/2024 Population Health Risk Score [facility] Department [address] [place] [phone] Provider, Population Health Generic 09/09/[address] [facility] [address] [place] [phone] Sirena Gaming MA may recall from Last [...] Mass Index 37.24 11/22/2024 3:11 PM EDT Plan of Treatment Upcoming Encounters Date Type Department Care Team (Late st Contact Info) Description 12/13/2024 3:30 PM EDT Clinical Support [facility] [address] [place] [phone] Health Maintenance Due Date Last Done Comments [...] Procedure Name Priority Date/Time Associated Diagnosis Comments FL UPPER GI W AIR W BARIUM SWALLOW Routine 11/15/2024 7:14 AM EDT TISSUE TRANSGLUTAMINASE AB, IGA Routine 10/31/2024 8:00 [...] Recently Relevant to Health Maintenance Results * FL Upper GI w/air w/Barium Swallow (11/15/2024 7:14 AM EDT) Anatomical Region Laterality Modality Body Radiographic Betty ging 11/15/2024 7:14 AM EDT Narrative 11/15/2024 2:05 PM EDT ? [facility] ?[address] ?[place] [address] ? Fluoroscopy Report ? Signed ? Patient: Iban,Shaw ?MR#: [id number] ?? 4 ? : 1975 ?Acct:[id number] ? Age/Sex: 49 / M ?ADM Date: 04/29/25 ? Loc: HO.XRAY ? Attending Dr: Carrie DONALD ? Ordering Physician: Carrie Minor ?? Date of Service: 11/15/24 ?? Procedure(s): FL upper GI w air w Ba Swallow ?? Accession Number(s): [id number] ? cc: Carrie Minor; Izzy Pantoja MD ? EXAMINATION: ?? XR UPPER GI SERIES WITH SMALL BOWEL ? CLINICAL INFORMATION: ?? Gastroesophageal reflux disease without esophagitis. ? COMPARISON: ?? None available. ? TECHNIQUE: ?? Routine upper GI air contrast study was performed in upright and lying ?? position. ? FINDINGS: ?? Following ??oral administration of thick barium and effervescent ?? granules and upright view there is normal propagation bolus from the ?? oral cavity through the pharynx, esophagus into stomach without any ?? evidence of obstruction, narrowing or stricture. There is no extrinsic ?? compression visualized. No laryngeal penetration or aspiration seen. No ?? retention of barium in the valleculae or piriform sinuses. ? On placing patient in supine and prone lying course there are increased ?? gastric secretions. The stomach is distended. No mucosal abnormality ?? seen. The course and caliber is normal. The duodenal bulb and sweep is ?? normal. Incidental finding of moderate gastroesophageal reflux without ?? hiatal hernia is noted. ? On oral administration of barium tablet in upright lateral view there ?? is spontaneous passage of tablet from the oral cavity through the ?? pharynx into stomach without any evidence of obstruction, narrowing or ?? stricture. ? FLUOROSCOPY TIME: ?? 2 minutes and 7 seconds ? DOSE AREA PRODUCT: ?? 2402 0 uGy-m2 (microgray-meter squared) ? FL/FL upper GI w air w Ba Swallow ?? IMPRESSION: ?? Moderate gastroesophageal reflux is unremarkable upper GI air contrast ?? study and barium swallow. ? Electronically signed by: ??Zachery Yoko MD ??11/15/2024 02:02 PM EDT RP ? Dictated By: ?Yoko,Zachery S MD ? Signed By: ?<Electronically signed by Zachery S Yoko, MD in OV> ?11/15/24 1402 ? DD/ 0714 ? TD/TT: 11/15/24 0745 ? Cotton Presser: MSM ? Procedure Note Donotuseinterpreter, Image - 11/15/[address] [address] Fluoroscopy Report Signed Patient: Brendan Ferrera AMR#: [id number] 4 : 1975Acct:[id number] Age/Sex: 49 / MADM Date: 11/15/24 Loc: HO.XRAY Attending Dr: Carrie Minor [facility] Ordering Physician: Carrie Minor Date of Service: 11/15/24 Procedure(s): FL upper GI w air w Ba Swallow Accession Number(s): [id number] cc: Carrie Minor; Izzy Pantoja MD EXAMINATION: XR UPPER GI SERIES WITH SMALL BOWEL CLINICAL INFORMATION: Gastroesophageal reflux disease without esophagitis. COMPARISON: None available. TECHNIQUE: Routine upper GI air contrast study was performed in upright and lying position. FINDINGS: Following oral administration of thick barium and effervescent granules and upright view there is normal propagation bolus from the oral cavity through the pharynx, esophagus into stomach without any evidence of obstruction, narrowing or stricture. There is no extrinsic compression visualized. No laryngeal penetration or aspiration seen. No retention of barium in the valleculae or piriform sinuses. On placing patient in supine and prone lying course there are increased gastric secretions. The stomach is distended. No mucosal abnormality seen. The course and caliber is normal. The duodenal bulb and sweep is normal. Incidental finding of moderate gastroesophageal reflux without hiatal hernia is noted. On oral administration of barium tablet in upright lateral view there is spontaneous passage of tablet from the oral cavity through the pharynx into stomach without any evidence of obstruction, narrowing or stricture. FLUOROSCOPY TIME: 2 minutes and 7 seconds DOSE AREA PRODUCT: 2402 0 uGy-m2 (microgray-meter squared) FL/FL upper GI w air w Ba Swallow IMPRESSION: Moderate gastroesophageal reflux is unremarkable upper GI air contrast study and barium swallow. Electronically signed by: Zachery Babcock MD 11/15/2024 02:02 PM EDT Dictated By: Zachery Babcock MD Signed By: <Electronically signed by Zachery Babcock MD in OV> 11/15/24 1402 DD/ 0714 TD/TT: 11/15/24 0745 Cotton Presser: SILVIO us [facility] External Provider IMG FLU OROSCOPY PROCEDURES Final Result * TSH with Reflex to Free T4 (10/31/2024 8:00 AM EDT) TSH reflex Free T4 2.07 0.32 - 4.0 uIU/mL [facility] 10/31/2024 8:00 AM EDT 10/31/2024 8:05 AM EDT Generic External Data Provider LAB BLOOD ORDERAB LES Final Result [facility] [address] [place] [phone] * Lipid Panel with Reflex to Direct LDL (10/31/2024 8:00 AM EDT) Triglycerides 59 <150 mg/dL [facility] Comment:Desirable Triglyceri de: less than 150 mg/dLBorderline High Triglyceride 150-199 mg/dLHigh Triglyceride: 200-499 mg/dLVery High Triglyceride: greater than or equal to 5OO mg/dL Cholesterol 133 <200 mg/dL [facility] Comment:Desirable Cholestero l: less than 200 mg/dLBorderline High Cholesterol: 200-239 mg/dLHigh Cholesterol: greater than 239 mg/dL LDL Cholesterol Calculated 73 <100 mg/dL [facility] Comment:Desirable LDL: less than 100 mg/dLNear Optimal/Above Optimal LDL: 110- 129 mg/dLBorderline High LDL: 130-159 mg/dLHigh LDL: 160-189 mg/dLVery High LDL: greater than or equal to 190 mg/dL HDL Cholesterol 49 >40 mg/dL [facility] Comment:Desirable HDL: great er than 40 mg/dL Note: This HDL assay may give artificially low results in patients with liver disease. 10/31/2024 8:00 AM EDT 10/31/2024 8:05 AM EDT us Generic External Data Provider LAB BLOOD ORDERAB LES Final Result Performing Organization Address [facility] de Phone Number [facility] [address] [place] [phone] * Tissue Transglutaminase Antibody, IgA (10/31/2024 8:00 AM EDT) Transglutaminase IgA <1.0 U/mL [facility] Comment:Value Interpretation ----- <15.0 Antibody not detected> or = 15.0 Antibody detectedTHIS TEST WAS PERFORMED AT:[employer] [place] [phone] GUILLAUME MD 10/31/2024 8:00 AM EDT 10/31/2024 8:05 AM EDT Generic External Data Provider LAB BLOOD ORDERAB LES Final Result Performing Organization Address [facility] de Phone Number [facility] [address] [place] [phone] * Lipase (10/31/2024 8:00 AM EDT) Lipase 21 8 - 78 U/L [facility] 10/31/2024 8:00 AM EDT 10/31/2024 8:05 AM EDT Generic External Data Provider LAB BLOOD ORDERAB LES Final Result Performing Organization Address [facility] de Phone Number [facility] [address] [place] [phone] * Hemoglobin A1c (10/31/2024 8:00 AM EDT) Hemoglobin A1c 5.7 <6.0 % [facility] Comment:Hemoglobin A1C Refer ence Range Adults: 4.8 - 6.0 % Non diabetic: < 6.0 % Goal: < 7.0 %Additional Action Suggested: > 8.0 %Note: Hemoglobin A1c results are invalid for patients with abnormal amounts of HbF. Blood transfusions may impact the HbA1c concentration in the patient sample. Estimated Average Glucose 117 mg/dL [facility] Comment:eAG = Estimated ave rage glucose which is %A1C expressed asaverage glucose, using the formula of the [id number]-[id number] Glucose study (ADAG), Diabetes Care, Vol.31,#8,2007 Blood Venous blood specimen / Unknown 10/31/2024 8:00 AM EDT 10/31/2024 8:05 AM EDT us Izzy Pantoja MD LAB BLOOD ORDERABLES Final Resul t Performing Organization Address [facility]/ZIP Co de Phone Number [facility] [address] [place] [phone] * Hepatic Function Panel (10/31/2024 8:00 AM EDT) Bilirubin, Direct 0.1 0.0 - 0.5 mg/dL [facility] 10/31/2024 8:00 AM EDT 10/31/2024 8:05 AM EDT us Generic External Data Provider LAB BLOOD ORDERAB LES Final Result Performing Organization Address [facility]/ZIP Co de Phone Number [facility] [address] [place] [phone] * (ABNORMAL) Comprehensive Metabolic Panel (10/31/2024 8:00 AM EDT) Sodium 142 135 - 145 mmol/L [facility] Potassium 3.8 3.3 - 5.1 mmol/L [facility] Chloride 110(H) 96 - 108 mmol/L [facility] Carbon Dioxide 26 22 - 29 mmol/L [facility] Anion Gap 10(L) 12 - 20 [facility] Urea Nitrogen (BUN) 13 9 - 16 mg/dL [facility] Creatinine, Serum 0.76 0.5 - 1.4 mg/dL [facility] Estimated Glomerular Filt Rate >60 [facility] Comment:Chronic Kidney Disea se: Estimated GFR < 60 mL/min/1.82p6Qmdhmu Kidney Disease: Estimated GFR < 15 mL/min/1.73m2 Glucose 112 60 - 115 mg/dL [facility] Calcium 8.8 8.4 - 10.2 mg/dL [facility] Bilirubin, Total 0.3 0.0 - 1.0 mg/dL [facility] Aspartate Amino Transferase 25 5 - 37 U/L [facility] Alanine Aminotransferase 51(H) 0 - 40 U/L [facility] Total Protein 6.6 6.5 - 8.0 g/dL [facility] Albumin Level 4.0 3.5 - 5.0 g/dL [facility] Alkaline Phosphatase 127(H) 39 - 117 U/L [facility] Blood Venous blood specimen / Unknown 10/31/2024 8:00 AM EDT 10/31/2024 8:05 AM EDT us Izzy Pantoja MD LAB BLOOD ORDERABLES Final Resul t [facility] [address] [place] [phone] * HEPATITIS C AB W/REFL TO HCV RNA, QN, PCR (07/01/2021 3:34 PM EST) HEPATITIS C ANTIBODY NON-REACT JIMENEZ NON-REACT JIMENEZ [facility] INDEX 0.02 <1.00 [facility] Comment: ?? HCV antibody was non-reactive. There is no laboratory ?? evidence of HCV infection. ?? In most cases, no further action is required. However, if recent HCV exposure is suspected, a test for HCV RNA (test code 91566) is suggested. ?? For additional information please refer to http://education.TechTurn/faq/PAZ94z4 (This link is being provided for informational/ educational purposes only.) ?? 07/01/2021 3:34 PM EST Louloulam Cruz CASEWORK SUPERVISOR HISTORICAL/NON ORDERABLE LABS Final Result Performing Organization Address [facility] Phone Number [facility] [address] * HIV 1/2 ANTIGEN/ANTIBODY,FOURTH GENERATION W/RFL (07/01/2021 3:34 PM EST) HIV-1/2 ANTIGEN AND ANTIBODIES, 4TH GENERATION W/ REFLEX NON-REACT JIMENEZ NON-REACT JIMENEZ [facility] Comment: HIV-1 antigen and HIV-1/HIV-2 [...] ? For additional information please refer to http://education.Wedding Reality.LetGive/faq/OGJ020 (This link is being provided for informational/ educational purposes only.) ? The performance of this assay has not been clinically validated in patients less than 2 years old. ?? 07/01/2021 3:34 PM EST Loulou [facility] LAB BLOOD ORDERABLES Final Res ult Performing Organization Address [facility] de Phone Number [facility] [address] from Last 3 Months or Most Recently Relevant to Health Maintenance Insurance C3 Care Teams Unit Control Worker Relationship Specialty Start Date End Date Izzy Pantoja MD [address] [place] [phone] PCP - General Family Medicine 03/17/22 Ilana Gaming Community Health Worker 10/26/23
--- OUTSIDE RECORDS SUMMARY | 2024-11-23 16:22 | XMS_ITS | Clinical Summary ---
Author Organization [facility], Address [address] [place] [address] [place] [phone] Phone Care Team Providers Care Senior Sous Chef Name Role Phone Izzy Pantoja MD Primary Care Provider [phone] Allergies Active Allergy Reactions Criticality Noted Date [...] history exists Insurance Medicaid [place] Care Teams Senior Sous Chef Relationship Specialty Start Date End Date Izzy Pantoja MD [address] [place] [phone] PCP - General Family Medicine 07/06/24
--- OUTSIDE RECORDS SUMMARY | 2024-11-23 16:22 | XMS_ITS | Encounter Summary ---
Author Organization [employer] Address [address] [facility] 7t [place] [address] Care Team Providers Care Product Operations Associate Name Role Phone Izzy Pantoja MD Primary Care Provider [phone] Ilana Gaming Unavailable Reason for Visit * Reason Onset Date Comments chartprep 11/18/2024 Encounter Details Date Type Department Care Team ([facility] st Contact Info) Description 11/18/2024 Telephone [facility] MEDICINE [address] [place], [place] [phone] Izzy Pantoja MD [address] [place], [place] [phone] chartprep Social History Tobacco Use Types Packs/Day Years [...] AM EDT documented as of this encounter Miscellaneous Notes * Telephone Encounter - Cornelia Mccrary [place] - 11/18/2024 1:53 PM EDT ..Chart Prep Labs: done Images: done Vaccines due: Covid Due and Shingles in pharmacy Due Referrals: Not Applicable Screenings: Colonoscopy Overdue care gaps: Glucose, Sbirt, Disability , and Oral Health documented in this encounter Plan of Treatment Upcoming Encounters Date Type Department Care Team (Late st Contact Info) Description 12/13/2024 3:30 PM EDT Clinical Support [facility] MEDICINE [address] [place] [address] documented as of this encounter Visit Diagnoses Not on filedocumented in this encounter Additional Health Concerns Assessment Noted Time PHQ-9 Depression Total Score: 1 07/26/19 25 4:08 PM EST documented as of this encounter Care Teams Product Operations Associate Relationship Specialty Start Date End Date Izzy Pantoja MD [address] [place] [address] PCP - General Family Medicine 03/17/22 Ilana Gaming Community Health Worker 10/26/23 documented as of this encounter
--- OUTSIDE RECORDS SUMMARY | 2024-11-23 16:22 | XMS_ITS | Encounter Summary ---
Author Organization [employer] Address [address] [facility] 7t [place] [address] Care Team Providers Care Consumer Credit Counselor Name Role Phone Izzy Pantoja MD Primary Care Provider [phone] Ilana Gaming Unavailable Encounter Details Date Type Department Care Team ([facility] st Contact Info) Description 11/23/2024 Orders Only [facility] MEDICINE [address] [place], [place] [phone] Izzy Pantoja MD [address] [place], [place] [phone] Immunity status testing (Primary Dx) Social History Tobacco Use Types Packs/Day Years [...] PM EDT Clinical Support [facility] MEDICINE [address] [place] [phone] Scheduled Orders Name Type Priority Associated Diagnoses Orde r Schedule Measles, Mumps, and Rubella (MMR) Antibodies??(IgG) Panel, Immune Status Lab Routine Immunity status testing Expected: 11/23/2024 (Approximate), Expires: 11/23/2025 documented as of this encounter Visit Diagnoses Diagnosis Immunity status testing- Primary Antibody response examination documented in this encounter Additional Health Concerns Assessment Noted Time PHQ-9 Depression Total Score: 1 07/26/19 25 4:08 PM EST documented as of this encounter Care Teams Consumer Credit Counselor Relationship Specialty Start Date End Date Izzy Pantoja MD [address] [place] [address] PCP - General Family Medicine 03/17/22 Ilana Gaming Community Health Worker 10/26/23 documented as of this encounter
[2024-11-24 14:53] LABS: Rubella IgG Antibody 1.47 Index
== END 2024-11-23 15:30 | disposition home or self-care (01) ==
LOC: HO.HHCL 15:29
PROVIDERS: Visit Provider Family Medicine
DX: Z01.84 Encounter for antibody response examination (principal)
CPT/HCPCS: 36415; 86735; 86762; 86765

== ENCOUNTER 2025-02-01 14:52 | Outpatient (AMB) | payer MEDICAID, SELFPAY ==
--- OUTSIDE RECORDS SUMMARY | 2025-02-01 15:24 | XMS_ITS | Clinical Summary ---
Author Organization [facility], Address [address] [place] [address] [place] [address] Phone Care Team Providers Care Hospital Food Service Worker Name Role Phone Izzy Pantoja MD Primary Care Provider [phone] Allergies Active Allergy Reactions Criticality Noted Date [...] 19+ 3-dose series) 01/05/1995 02/10/2019, 03/07/2009, 01/10/2009 Colorectal Cancer Screening: Annual FOBT 01/05/2025 Colorectal Cancer Screening: Colonoscopy 01/05/2025 Colorectal Cancer Screening: Sigmoidoscopy 01/05/2025 Influenza Vaccine (#1) 2025 2, 04/15/2021, 04/18/2020, Additional history exists Pneumococcal Vaccine: 50+ Years Discontinued 08/11/2022, 05/20/2018, 07/08/2012, Additional history exists Pneumococcal Vaccine: Peds ( 0 to 5 Years) and At-Risk Patients (6 to 49 Years) Completed 08/11/2022, 05/20/2018, 07/08/2012, Additional history exists Insurance Medicaid [place] Care Teams Hospital Food Service Worker Relationship Specialty Start Date End Date Izzy Pantoja MD [address] [place] [address] PCP - General Family Medicine 07/06/24
--- OUTSIDE RECORDS SUMMARY | 2025-02-01 15:24 | XMS_ITS | Encounter Summary ---
Author Organization [employer] Address [address] [facility] [address] 7t [place] [address] Care Team Providers Care Tableau Administrator Name Role Phone Izzy Pantoja MD Primary Care Provider [phone] Ilana Gaming Unavailable Tomeka Mclain RN Unavailable [phone] Reason for Visit * Reason Onset Date Comments Referral 08/20/2022 Encounter Details Date Type Department Care Team (Late st Contact Info) Description 08/20/2022 Telephone [facility] MEDICINE [address] [place], [place] [phone] Izzy Pantoja MD [address] [place], [place] [phone] Referral Social History Tobacco Use Types Packs/Day [...] Care Team (Late st Contact Info) Description 02/27/2025 3:15 PM EDT Office Visit [facility] MEDICINE [address] [place] [address] Izzy Pantoja MD [address] [place] [address] documented as of this encounter Visit Diagnoses Not on filedocumented in this encounter Care Teams Tableau Administrator Relationship Specialty Start Date End Date Izzy Pantoja MD [address] [place], [place] [phone] PCP - General Family Medicine 03/17/22 Ilana Gaming Community Health Worker 10/26/23 Tomeka Mclain RN [address] [place] [address] Time Clock Inspector 10/26/23 01/24/24 documented as of this encounter
--- OUTSIDE RECORDS SUMMARY | 2025-02-01 15:24 | XMS_ITS | Data Portability ---
Author Organization [place] [facility], Allergy Address [address] [place] [address] Care Team Providers Care Certified Flex Endoscope Reprocessor Name Role Phone [facility] Primary Care Provider [phone] Assessment Encounter Date Assessment Date Assessment LastModified [...] sided amplification and he will consider this. [email or web address] Not available 04/08/2024 15:17:00 08/09/2024 08/09/2024 Patient with apparent left-sided M ni re's type phenomenon associated with fluctuating tinnitus, fluctuating low-frequency hearing loss and episodic vertigo. Fortunately his vertigo spells are quite short-lived. There is also the possibility that this could be an underlying cochlear migraine phenomenon. Audiometric testing today shows significant improvement in the low-frequency sensorineural hearing loss in comparison to his last audiogram back in March. Today we went over the M ni re's disease brochure in detail. We discussed the [...] of his current blood pressure medication regimen. [email or web address] Not available 08/09/2024 15:01:02 Plan of Treatment [...] - next available ....IAC protocol 2023 024 [facility] ([facility]), [address], [place], [address], 04/20/2024 15:14:22 Medication Orders None recorded. Patient TargetsNo targets recorded. Patient InstructionsNo instructions recorded. Reason for Referral None Reported. Results Created Date Observation Date Name Description Value Unit Range Abnormal Flag Note LastModifiedBy Organization Detail LastModifiedTime 04/12/20 24 audio gram No observ ation record ed. [email or web address] Not Available 03/21 12:02:44 04/20/2004/18/2024 MRI, brain + brain stem, w/wo contr ast [facility] Access ion Number : [id number] Darion rodriguez Name: Brendan Ferrera rodri Record Number : [id number] Date of : 1974 Date of Exam: 2023 Referr ing Physic clinton: Elida Nava [facility] d [address], [address] [facility], [place] [address] Exam: MR Brain (C-/C+ ) CPT 00711 Room Descri ption: [place] GE Pion 3T INDICA TION: Sensor ineura [...] semici rcular canals . The bilate ral international tax manager al audito ry canals are not enlarg [...] . IMPRES GIA: Unrema rkable bilate ral international tax manager al audito ry canals . No mass or abnorm al enhanc ement. Parana rebecca sinus diseas e as descri bed. Electr onical ly Signed By: Mary [email or web address] [facility] ([facility]) [address], [place], [address], 04/20/2024 16:11:08 04/20/20 24 04/18/2024 MRI, brain + inter nal audit ory canal , w/wo contr ast No observ ation record ed. [email or web address] [facility] ([facility]) [address] [place], [address], 04/21/2024 09:28:36 08/10/19 25 audio gram No observ ation record ed. [email or web address] Not Available 2024 13:53:07 Result Notes Documentation Provider Name and Address Organization Details Recorded Time Mri, Brain + Brain Stem, W/wo Contrast : [facility] Accession Number: [id number] Patient Name: Brendan Ferrera Date of : 1975 Date of Exam: 04-18-2024 Referring Physician: Elida Blake [facility] [address], [address] [place], [place] [address] Exam: MR Brain (C-/C+) CPT 87366 Room Description: [facility] 3T INDICATION: Sensorineural hearing loss, worse on the left. TECHNIQUE: Multiplanar multisequence MRI of the brain using an IAC protocol was performed before and after the administration of 20 mL of Dotarem. COMPARISON: No prior FINDINGS: The bilateral cranial nerves VII and VIII complexes are symmetric. There is normal T2 signal in the bilateral cochlea and semicircular canals. The bilateral internal auditory canals are not enlarged. The cisternal segments of the trigeminal nerves are symmetric. The bilateral Meckel caves are normal. There is no evidence of mass or abnormal enhancement. The cerebellopontine angle cisterns are normal. The visualized brain is unremarkable. The midline the structures, main vascular flow voids, and basal cisterns are normal. There are low-lying cerebellar tonsils. The orbits and globes are unremarkable. There is patchy mucosal thickening of the paranasal sinuses. A small amount of fluid in inferior right and trace of fluid in inferior left mastoid air cells is noted. The extracranial soft tissues, calvarium, and skull base are normal. IMPRESSION: Unremarkable bilateral internal auditory canals. No mass or abnormal enhancement. Paranasal sinus disease as described. Electronically Signed By: Mary BLAKE PA-C [address] [facility] [address], [place], [address], [place] - [facility] 04/20/2024 16:11:08 Problems Name Problem SNOMED Code Status Onset Date Resolution Date Notes Provider Name and Address Organization Details Recorded Time Sensorineur al hearing loss of bilateral ears 774046206 Active 2023 HONORIO BENTON , AUD [address] [facility],[place] [address], [place], [address], [facility] 4 13:24:12 Tinnitus of left ear 9792114790204 Active 2023 ELIDA BLAKE PA-C [address] [facility],[place] [address], [place], [address], [facility] 4 14:43:22 Dizziness and giddiness 171301390 Active 2023 ELIDA BLAKE PA-C [address] [facility],[place] [address], [place], [address], [facility] 4 14:43:26 Meniere's disease of left inner ear 3070510180251 107 Active 2024 TAYLOR DONOVAN MD [address] [facility],[place] [address], [place], [address], [facility] 5 14:58:02 Problem Notes None recorded. Procedures Surgical History Date Name Laterality Status Provider Name and Address Organization Details Recorded Time 08/09/2024 Comp Audio with Tymps - 88342 & 71549 completed DANI SANCHEZ, AUD [address] [facility],[address], [address], [facility] - [facility] 08/09/2024 14:14:08 04/08/2024 Comp Audio with Tymps - 61706 & 30959 completed HONORIO BENTON, AUD [address] [facility],[address], [address], [facility] 04/08/2024 13:24:03 Imaging Results None recorded. Procedure Notes None recorded. Medical Equipment None [...] Available Vitals Date Recorded Body height Body weight Provider Name and Address Organization Details Last Updated DateTime 08/09/2024 168.91 cm 528747.28 g Shelly Jack [place] [facility] 08/09/2024 14:31:33 Date Recorded Body height Body mass index (BMI) Body weight Provider Name and Address Organization Details Last Updated DateTime 04/08/2024 168.91 cm 35.8 kg/m2 305096.28 g Janell Narayanan [place] [facility] 04/08/2024 13:37:32 Social History None recorded. Functional Status None recorded. Mental Status None recorded. Family History Nothing Reported. Medical History Condition Response Cancer Y Arthritis Y Anxiety Y Depression Y Asthma Y Past Encounters Encounter ID Performer Location Encounter Start Date Encounter Closed Date Diagnosis/Indication Diagnosis SNOMED-CT Code Diagnosis ICD10 Code Diagnosis Note [id number] ELIDA BLAKE PA-C [facility] [address] [address] 04/08/2024 12:27:29 04/08/2024 14:25:45 Sensorineural hearing loss of bilateral ears 555689129 H90.3 Audiologic al evaluation results: Right ear: Normal sloping to a mild sensorineu ral hearing loss with excellent word recognitio n. Left ear: Moderately -severe low frequency SNHL rising to mild sloping to severe sensorineu ral hearing loss with excellent word recognitio n. Tympanomet ry: Right Ear:Type A Left Ear:Type A Tinnitus of left ear 677 9400207 106 H93.12 Dizziness and giddiness 043893937 R42 [id number] TAYLOR DONOVAN MD [facility] [address] [address] 08/09/2024 13:47:00 08/09/2024 15:01:35 Sensorineural hearing loss of bilateral ears 504886901 H90.3 Audiologic al evaluation results: 08/09/2024 Right ear: Normal sloping to a mild sensorineu ral hearing loss with excellent word recognitio n. Left ear: Borderline normal sloping to a moderate sensorineu ral hearing loss with excellent word recognitio n. Tympanomet ry: Right Ear:Type Ad Left Ear:Type Ad Tinnitus of left ear 479 6660053 106 H93.12 Meniere's disease of left inner ear 5296946063 149840 H81.02 Health Concerns Section Related Observation LastModified by Organization Detai ls LastModified Time None Recorded Concern Status LastModified by Organization Details LastModified Time None Recorded Advance Directives Directive None Recorded Payers Insurance Date Sequence Insurance Name Policy Number Policy Chirinos Covered Member ID Chirinos Member ID Guarantor Name 08/05/2024 1 [place] [facility] Brendan Ferrera [id number] Brendan Ferrera 04/08/2024 2 [place] [facility] PLAN Brendan Ferrera [id number] Brendan Ferrera Notes Date Note Type Note [...] loss in her 40s. ELIDA BLAKE PA-C [address] [place] [address], [phone], [facility] 04/08/2024 15:19:07 08/09/2024 text/html 49-year-old male previously seen by Elida Blake PA-C patient has fluctuating left-sided tinnitus hearing loss and episodic dizziness with some concern for left-sided M ni re's disease. MRI scan of the brain and [...] as chronic lymphocytic leukemia. TAYLOR DONOVAN MD [address] [place] [address], [phone], [facility] 08/09/2024 15:01:26
--- NOTE | 2025-02-01 15:34 | A.OFFVIS_ITS ---
Vital Signs 02/01/25 15:35 Height 5 ft 6 in Weight 225 lb BMI 36.3 BP 123/68 Blood Pressure Location Lt brachial Position Sitting Pulse 72 Pulse Oximetry (%) 96 Oxygen Delivery Method Room Air Intake Visit Reasons: 3 mos FUV. GERD mgmt. Intake Note: Patient 3 month follow up for GERD. Patient cc: GERD with burning sensation on and off, medication for constipation is working well. Denies any other GI issues. Iron Piler Required: No Accompanied by: Self / Same As Patient Allergies allantoin (From BLISTEX) Allergy (Unknown, Verified 02/01/25 15:34) LIP SWELLING homosalate (From BLISTEX) Allergy (Unknown, Verified 02/01/25 15:34) LIP SWELLING menthol (From BLISTEX) Allergy (Unknown, Verified 02/01/25 15:34) LIP SWELLING octinoxate (From BLISTEX) Allergy (Unknown, Verified 02/01/25 15:34) LIP SWELLING octyl salicylate (From BLISTEX) Allergy (Unknown, Verified 02/01/25 15:34) LIP SWELLING oxybenzone (From BLISTEX) Allergy (Unknown, Verified 02/01/25 15:34) LIP SWELLING padimate O (From BLISTEX) Allergy (Unknown, Verified 02/01/25 15:34) LIP SWELLING sodium chloride Allergy (Unknown, Verified 02/01/25 15:34) GUM SWELLING TO TABLE SALT ibuprofen (IBUPROFEN) Adverse Reaction (Unknown, Verified 02/01/25 15:34) STOMACH UPSET HPI HPI 3 mos FUV. GERD mgmt.: Details: LAST VISIT: Acid reflux Screen for colon cancer Postprandial epigastric pain Abdominal bloating Constipation Plan Patient will start taking pantoprazole in the morning and stop omeprazole. Patient will take sucralfate at bedtime. Avoid dietary triggers and late night snacking. Staying upright for minimum 3 hours after meals discussed with patient. Continue taking Senokot daily. Increase fluid intake and activity to promote better bowel motility. Patient reports postprandial abdominal bloating. Patient will try to follow low FODMAP diet. List of food recommended as well as list of food to avoid given to patient. Patient will return in 3 months we will recheck liver enzymes. Patient was encouraged to try to lose weight, try to exercise. Follow low fat, low carb low-salt and high-protein diet. Patient is agreeable to current plan of care and verbalizes understanding of instructions. He was given the opportunity to ask questions and all questions answered. ? Thank you for allowing me to participate in his care ? ? (patient has upper GI series November 11 at 09:30). New pantoprazole take one tablet half an hour before breakfast 40 mg PO DAILY 30 tabs 3RF K21.9 sucralfate 1 g PO BEDTIME 30 tabs 4RF R19.7 TODAY'S VISIT Patient is here today for follow-up. Patient reports that he is feeling better since last visit. He is taking Nexium in the morning and sucralfate eyes at bedtime and his symptoms of acid reflux are suppressed for the most part. Patient does admit occasionally he will have reflux or epigastric pain depending on what he eats. He is moving his bowels better now that he is taking senna, however he feels like he does not empty his bowels completely. Patient denies melena, hematochezia, unintentional weight loss or ribbon like stools. No issues with anesthesia in the past. No history of sleep apnea. Not on any anticoagulation medication. No known family history of CRC. [facility] Medical History BPH (benign prostatic hyperplasia) Hyperlipidemia Sleep apnea Thrombosis Acid reflux Anxiety History of asthma B-cell chronic lymphocytic leukemia Surgical History History of prostate surgery (~11/2023) History of bronchoscopy Family History Mother Liver cirrhosis Family/Other Thyroid cancer Breast cancer Social History Household Members: Family Household Members Other:: father Housing: Apartment Do you presently have visiting nurse or other home services: No Alcohol intake: current Alcohol intake frequency: holidays/special occasions only Patient Tobacco Use Status: Former Tobacco user Tobacco use type: Cigarette Years Smoked: 19 Second Hand Smoke Exposure: No service: No Current occupational status: employed Review of Systems Const Denies weight gain and Denies weight loss ENT Reports no additional complaints, Denies dysphagia and Denies odynophagia Card Reports no additional complaints Resp Reports no additional complaints GI Denies abdominal pain, Denies belching, Denies melena, Denies bloating, Denies change in bowel habits, Denies dysphagia, Denies excessive flatus, Denies dyspepsia, Reports heartburn (Occasional), Denies diarrhea, Denies loose stools, Denies nausea, Denies odynophagia and Denies vomiting Reports no additional complaints Musc Reports no additional complaints Neuro Reports no additional complaints Psych Reports no additional complaints Endo Reports no additional complaints Physical Exam Vital Signs: Last Vital Signs Pulse 72 02/01/25 15:35 BP 123/68 02/01/25 15:35 Pulse Ox 96 02/01/25 15:35 Oxygen Delivery Method Room Air 02/01/25 15:35 BMI result Body Mass Index 36.3 Const General: healthy appearing and no acute distress Nutritional Appearance: obese Orientation/consciousness: patient oriented x3 Resp Effort & Inspection: normal respiratory effort, able to speak in complete sentences, no tracheal deviation and symmetric chest movement Auscultation: clear to auscultation bilaterally Cardio Rate: regular rate GI Inspection: Yes normal to inspection, No distended and Yes obesity Palpation (GI): Soft to palpation, not firm, nontender and No hepatosplenomegaly present Auscultation: normal bowel sounds General: Yes no CVA tenderness Back/Spine/Pelvis Back: no CVA tenderness Skin General skin exam: elasticity normal, turgor normal and dry skin Neuro General: patient oriented x3 Psych Appearance: grossly normal Mental Status: mental status grossly normal Results Reviewed Results Reviewed: UPPER GI SERIES WITH BARIUM SWALLOW 11/15/2024 IMPRESSION: Moderate gastroesophageal reflux is unremarkable upper GI air contrast study and barium swallow. Assessment & Plan Assessment & Plan (1) Acid reflux: Code(s): K21.9 - Gastro-esophageal reflux disease without esophagitis Category: Medical Qualifiers: Esophagitis presence: esophagitis presence not specified Qualified Code(s): K21.9 - Gastro-esophageal reflux disease without esophagitis (2) Encounter for screening for malignant neoplasm of colon: Code(s): Z12.11 - Encounter for screening for malignant neoplasm of colon (3) Postprandial epigastric pain: Code(s): R10.13 - Epigastric pain (4) Abdominal bloating: Code(s): R14.0 - Abdominal distension (gaseous) (5) Constipation: Code(s): K59.00 - Constipation, unspecified Qualifiers: Constipation type: slow transit constipation Qualified Code(s): K59.01 - Slow transit constipation Plan Continue current regimen with PPI and sucralfate. Avoid dietary triggers in late night snacking. Staying upright luminal 3 hours after meals discussed with patient. Patient will be sent for upper endoscopy to rule out gastritis, duodenitis, esophagitis, Roberto's, H pylori. Patient will be sent for colonoscopy. Denies any issues with anesthesia in the past. No history of sleep apnea. He is not moving his bowels well. Will start him on Dulcolax. Message sent to surgical schedulers to call patient to book procedure via [employer] text. What to expect before during and after procedure discussed with patient. Stressed the importance of good bowel prep and clear liquid diet day before procedure. Patient is agreeable to current plan of care and verbalizes understanding of instructions. He was given the opportunity to ask questions and all questions answered. Thank you for allowing me to participate in his care Medications: New bisacodyl (Dulcolax (bisacodyl)) take 4 tabs at noon the day before your colonoscopy 20 mg (4 x 5 mg) PO ONCE 4 tabs 0RF constipation 1 day Z12.11 - Encounter for screening for malignant neoplasm of colon polyethylene glycol 3350 (Miralax) As directed by gastroenterology department at [facility] 238 grams PO ONCE 238 grams 0RF Z12.11 - Encounter for screening for malignant neoplasm of colon Coding Level of Care Code Est Pt Level 4 (94967) Complex EM visit Add On G2211 Diagnoses Gastroesophageal reflux disease, unspecified whether esophagitis present K21.9 Esophagitis presence: esophagitis presence not specified Encounter for screening for malignant neoplasm of colon Z12.11 Postprandial epigastric pain R10.13 Abdominal bloating R14.0 Slow transit constipation K59.01 Constipation type: slow transit constipation Time Spent (min) 40 Comment 25 minutes spent with patient and additional 15 minutes spent reviewing his records
[2025-02-01 15:35] VITALS: BP 123/68; PULSE 72; O2SAT 96; BMI 36.3
== END 2025-02-01 16:35 | disposition home or self-care (01) ==
LOC: HO.HGI 14:53
PROVIDERS: PCP Family Medicine; Visit Provider Nurse Practitioner Family
DX: Z01.818 Encounter for other preprocedural examination (principal); Z12.11 Encounter for screening for malignant neoplasm of colon; K21.9 Gastro-esophageal reflux disease without esophagitis; R10.13 Epigastric pain; R14.0 Abdominal distension (gaseous); K59.01 Slow transit constipation
CPT/HCPCS: 99214

== ENCOUNTER → 2025-02-01 14:52 | Outpatient (BNVA) | payer MEDICAID, SELFPAY | PROVIDERS: PCP Family Medicine; Visit Provider Nurse Practitioner Family | DX: Z12.11 Encounter for screening for malignant neoplasm of colon (principal); K21.9 Gastro-esophageal reflux disease without esophagitis; K59.01 Slow transit constipation; R10.13 Epigastric pain; R14.0 Abdominal distension (gaseous); Z79.899 Other long term (current) drug therapy | CPT/HCPCS: 99212 ==

== ENCOUNTER → 2025-04-03 14:58 | Outpatient (REF) | payer MEDICAID, SELFPAY ==
--- NOTE | 2025-04-03 15:03 | HM_ITS ---
* Total monitoring time one day. * Underlying rhythm is sinus with an average rate of 73/Min. * Supraventricular ectopy noted with a burden of 1.4%. * Rare ventricular ectopy. * No significant pauses or high-grade AV blocks. * No patient markers or diary events. MTDD
--- OUTSIDE RECORDS SUMMARY | 2025-04-03 20:23 | XMS_ITS | Encounter Summary ---
Author Organization [employer] Address [address] [facility] [address] 7[address] [place] [address] Care Team Providers Care Cognos Administrator Name Role Phone Izzy Pantoja MD Primary Care Provider [phone] Ilana Gaming Unavailable Encounter Details Date Type Department Care Team (Late st Contact Info) Description 11/23/2024 Orders Only [facility] [address] [place], [place] [phone] Izzy Pantoja MD [address] [place], [place] [phone] Immunity status testing (Primary Dx) Social History [...] Description 05/30/2025 3:15 PM EST Office Visit [facility] [address] [place] [address] Izzy Pantoja MD [address] [place] [address] 06/21/2025 3:00 PM EST Office Visit [facility] OPTOMETRY [address] [place] [address] Lee, Kristen, OD 230 [place] [address] documented as of this encounter Procedures Procedure Name Priority Date/Time Associated Diagnosis Comments MEASLES, MUMPS, AND RUBELLA (MMR) AB (IGG) PANEL, IMMUNE STATUS Routine 11/23/2024 3:32 PM EDT Immunity status testing documented in this encounter Results * Measles, Mumps, and Rubella (MMR) Antibodies??(IgG) Panel, Immune Status (11/23/2024 3:32 PM EDT) Mumps Virus IgG Antibody 87.70 AU/mL [facility] Comment:AU/mL Interpretatio n------- <9.00 Not consistent with immunity9.00-10.99 Equivocal>10.99 Consistent with immunityThe presence of mumps IgG antibody suggests immunizationor past or current infection with mumps virus. Rubella IgG Antibody 1.47 Index [facility] Comment:Index Interpretation ----- <0.90 Not consistent with immunity 0.90-0.99 Equivocal > or = 1.00 Consistent with immunityThe presence of rubella IgG antibody suggestsimmunization or past or current infection withrubella virus.THIS TEST WAS PERFORMED AT:[facility] [place] [id number] GUILLAUME MD Rubeola IgG (Measles) 62.60 AU/mL [facility] Comment:AU/mL Interpretation ----- <13.50 Not consistent with rgilxysr70.50-16.49 Equivocal>16.49 Consistent with immunityThe presence of measles IgG suggests immunization orpast or current infection with measles virus.For additional information, please refer tohttp://education.Lionical/faq/GBD463(This link is being provided for informational/educational purposes only.) Blood 11/23/2024 3:32 PM EDT 11/23/2024 4:09 PM EDT Izzy Pantoja MD LAB BLOOD ORDERABLES Final Resul t [facility] [address] [place] [address] [phone] documented in this encounter Visit Diagnoses Diagnosis Immunity status testing- Primary Antibody response examination documented in this encounter Additional Health Concerns Assessment Noted Time PHQ-9 Depression Total Score: 1 07/26/19 25 4:08 PM EST documented as of this encounter Care Teams Cognos Administrator Relationship Specialty Start Date End Date Izzy Pantoja MD [address] [place] [address] PCP - General Family Medicine 03/17/22 Ilana Gaming Community Health Worker 10/26/23 documented as of this encounter
--- OUTSIDE RECORDS SUMMARY | 2025-04-03 20:23 | XMS_ITS | Encounter Summary ---
Author Organization [employer] Address [address] [address] 7[address] [place] [address] Care Team Providers Care Hand Stoner Name Role Phone Izzy Pantoja MD Primary Care Provider [phone] Ilana Gaming Unavailable Encounter Details Date Type Department Care Team (Late st Contact Info) Description 11/04/2024 Orders Only [facility] [address] [place], [place] [phone] Filipe Coburn MD [address] [place], [place] [phone] Social History Tobacco Use Types Packs/Day Years [...] Description 05/30/2025 3:15 PM EST Office Visit [facility] [address] [place] [address] Izzy Pantoja MD [address] [place] [address] 06/21/2025 3:00 PM EST Office Visit [facility] [address] [place] [address] Lee, Kristen, OD [address] [place] [address] documented as of this encounter Visit Diagnoses Not on filedocumented in this encounter Additional Health Concerns Assessment Noted Time PHQ-9 Depression Total Score: 1 07/26/19 25 4:08 PM EST documented as of this encounter Care Teams Hand Stoner Relationship Specialty Start Date End Date Izzy Pantoja MD [address] [place], [place] [phone] PCP - General Family Medicine 03/17/22 Ilana Gaming Community Health Worker 10/26/23 documented as of this encounter
--- OUTSIDE RECORDS SUMMARY | 2025-04-03 20:23 | XMS_ITS | Clinical Summary ---
Author Organization [facility], Address [address] [place] [address] [place] [address] Phone Care Team Providers Care Fixed Assets Accountant Name Role Phone Izzy Pantoja MD Primary Care Provider [phone] Allergies Active Allergy Reactions Criticality Noted Date [...] 05/20/2018, 07/08/2012, Additional history exists Insurance Medicaid MD Care Teams Fixed Assets Accountant Relationship Specialty Start Date End Date Izzy Pantoja MD [address] [place] [address] PCP - General Family Medicine 07/06/24
--- OUTSIDE RECORDS SUMMARY | 2025-04-03 20:23 | XMS_ITS | Encounter Summary ---
Author Organization [facility], Address [address] [place] [address] Phone Care Team Providers Care Ext Js Developer Name Role Phone Izzy Pantoja MD Primary Care Provider Encounter Details Date Type Department Care Team (Late st Contact Info) Description 05/20/2022 Documentation Only [facility], [address] [place] [address] Tessa Alejandra PA [address] [place] [address] Social History Tobacco Use Types [...] on filedocumented in this encounter Care Teams Ext Js Developer Relationship Specialty Start Date End Date Izzy Pantoja MD [address] [place] [address] PCP - General Family Medicine 07/06/24 documented as of this encounter
--- OUTSIDE RECORDS SUMMARY | 2025-04-03 20:23 | XMS_ITS | Encounter Summary ---
Author Organization [employer] Address [address] [facility] [address]t [place] [address] Care Team Providers Care Precision Crop Manager Name Role Phone Izzy Pantoja MD Primary Care Provider [phone] Ilana Gaming Unavailable Reason for Visit * Reason Onset Date Comments november recall 03/29/2025 Encounter Details Date Type Department Care Team (Late st Contact Info) Description 03/29/2025 Telephone [facility] [address] [place], [place] [phone] Izzy Pantoja MD [address] [place], [place] [phone] may recall Social History Tobacco Use Types [...] Description 05/30/2025 3:15 PM EST Office Visit [facility] [address] [place] [address] Izzy Pantoja MD [address] [place] [address] 06/21/2025 3:00 PM EST Office Visit [facility] [address] [place] [address] Kristen [place], OD [address] [place] [address] documented as of this encounter Visit Diagnoses Not on filedocumented in this encounter Additional Health Concerns Assessment Noted Time PHQ-9 Depression Total Score: 1 07/26/19 25 4:08 PM EST documented as of this encounter Care Teams Precision Crop Manager Relationship Specialty Start Date End Date Izzy Pantoja MD [address] [place] [address] PCP - General Family Medicine 03/17/22 Ilana Gaming Community Health Worker 10/26/23 documented as of this encounter
--- OUTSIDE RECORDS SUMMARY | 2025-04-03 20:23 | XMS_ITS | Encounter Summary ---
Author Organization [employer] Address [address] [facility] [address] 7[address] [place] [address] Care Team Providers Care Yard Assistant Name Role Phone Izzy Pantoja MD Primary Care Provider [phone] Ilana Gaming Unavailable Tomeka Mclain RN Unavailable [phone] Reason for Visit * Reason Onset Date Comments Referral 08/20/2022 Encounter Details Date Type Department Care Team (Late st Contact Info) Description 08/20/2022 Telephone [facility] [address] [place], [place] [phone] Izzy Pantoja MD 230 [place], [place] [phone] Referral Social History Tobacco Use Types Packs/Day [...] Description 05/30/2025 3:15 PM EST Office Visit [facility] [address] [place] [address] Izzy Pantoja MD [address] [place] [address] 06/21/2025 3:00 PM EST Office Visit [facility] [address] [place] [address] Lee, Kristen, OD [address] [place] [address] documented as of this encounter Visit Diagnoses Not on filedocumented in this encounter Care Teams Yard Assistant Relationship Specialty Start Date End Date Izzy Pantoja MD [address] [place] [address] PCP - General Family Medicine 03/17/22 Ilana Gaming Community Health Worker 10/26/23 Tomeka Mclain RN [address] [place] [phone] Chemical Supervisor 10/26/23 01/24/24 documented as of this encounter
--- OUTSIDE RECORDS SUMMARY | 2025-04-03 20:23 | XMS_ITS | Encounter Summary ---
Author Organization [employer] Address [address] [facility] 7t [place] [address] Care Team Providers Care Water Treatment Plant Mechanic Name Role Phone Izzy Pantoja MD Primary Care Provider Ilana Gaming Unavailable Tomeka Mclain RN Unavailable [phone] Encounter Details Date Type Department Care Team (Late st Contact Info) Description 06/03/2022 [facility] [employer]ible Information Management [address] [place], [place] [phone] Izzy Pantoja MD [address] [place] [address] [phone] Social History Tobacco Use Types Packs/Day Years [...] Description 05/30/2025 3:15 PM EST Office Visit [facility] MEDIC[facility] [address] [place] [address] [phone] Izzy Pantoja MD 230 [place], [place] [phone] 06/21/2025 3:00 PM EST Office Visit [facility] OPTOMETRY [address] [place], [place] [phone] Lee, Kristen, OD 230 [place] [address] documented as of this encounter Visit Diagnoses Not on filedocumented in this encounter Care Teams Water Treatment Plant Mechanic Relationship Specialty Start Date End Date Izzy Pantoja MD [address] [place], [place] [phone] PCP - General Family Medicine 03/17/22 Ilana Gaming Community Health Worker 10/26/23 Tomeka Mclain RN [address] [place] [phone] Digital Ad Trafficker 10/26/23 01/24/24 documented as of this encounter
--- OUTSIDE RECORDS SUMMARY | 2025-04-03 20:24 | XMS_ITS | Clinical Summary ---
Author Organization [employer] Address [address] [place] [address] Care Team Providers Care Industrial Trainer Name Role Phone Izzy Pantoja MD Primary Care Provider [phone] Ilana Gaming Unavailable Allergies Active Allergy Reactions [...] AM EST): - following with urologist at [facility]. Last seen in November 2023. [place] Upcoming [...] 8:48 AM EDT): - Previously following with [facility], currently asymptomatic - Most recent CT scan in January 2022 showed no mediastinal lymphadenopathy - No indication for repeat imaging at this time Assessment & Plan (11/22/2024 4:55 PM EDT): - Previously following [facility], currently asymptomatic - Most recent CT scan in January 2022 showed no mediastinal lymphadenopathy - Consider repeating chest CT Assessment & Plan (08/05/2024 11:26 AM EST): - Following with [facility], currently asymptomatic - Most recent CT scan in January 2022 showed no mediastinal lymphadenopathy Assessment & Plan (12/27/2023 5:27 PM EDT): - Following [facility], currently asymptomatic - Most recent CT scan in January 2022 showed no mediastinal lymphadenopathy Assessment & Plan (08/15/2022 6:30 PM EST): - Most recent CT scan in January 2022 showed no mediastinal lymphadenopathy Obstructive sleep apnea syndrome 05/29/2021 Assessment & Plan (03/06/2025 8:48 AM EDT): - last sleep study in Apr 2021, Sleep Medicine clinic in [place] - recommended auto-PAP 5-15 cm H2O - patient had a CPAP. - Pt returned machine because poor adherence. Pt reports burning in his nose with CPAP machine. Pt is not interested in trying newer CPAP machine. Assessment & Plan (11/22/2024 4:54 PM EDT): - last sleep study in Apr 2021, Sleep Medicine clinic in [place] - recommended auto-PAP 5-15 cm H2O - patient had a CPAP. - Pt returned machine because poor adherence. Pt reports burning in his nose with CPAP machine. Pt is not interested in trying newer CPAP machine. Assessment & Plan (07/29/2024 5:33 AM EST): - last sleep study in Apr 2021, Sleep Medicine clinic in [place] - recommended auto-PAP 5-15 cm H2O - patient has a CPAP. Will check if patient can have a humidification device, especially during dry season. Assessment & Plan (12/27/2023 5:27 PM EDT): - last sleep study in Apr 2021, Sleep Medicine clinic in [place] - recommended auto-PAP 5-15 cm H2O - patient has a CPAP. Will check if patient can have a humidification device, especially during dry season. Assessment & Plan (08/15/2022 6:36 PM EST): - last sleep study in Apr 2021, Sleep Medicine clinic in [place] - recommended auto-PAP 5-15 cm H2O - [...] to smoking cessation group Consider referral to [facility] Obesity 04/19/2012 Assessment & Plan (08/15/2022 6:41 [...] 4:58 PM EDT): -Dx October 2008 -Oncology, [facility]. Last seen by Dr. Lee in September 2024, annual follow up. -Tx 6 cycles of R-CVP, completed in Jul 2009 -No sign of recurrence Assessment & Plan (07/29/2024 5:34 AM EST): -Dx October 2008 -Oncology, [facility]. Last seen by Dr. Lee in September 2023, annual follow up. -Tx 6 cycles of R-CVP, completed in Jul 2009 -No sign of recurrence Assessment & Plan (12/27/2023 5:33 PM EDT): -Dx October 2008 -Oncology, [facility]. Last seen by Dr. Lee in September [...] Plan (08/15/2022 6:38 PM EST): - current [facility] provider: [facility] - continue judicious and responsible use of gabapentin and clonazepam Encounters Date Type Department Care Team Description 03/29/2025 Telephone [facility] [address] [place] [id number] Izzy Pantoja MD may recall 02/27/2025 3:15 PM EDT Office Visit [address] [address] Izzy Pantoja MD Elevated BP without diagnosis of hypertension (Primary Dx); Meniere's disease of left ear; Gastroesophageal reflux disease, unspecified whether esophagitis present; Heartburn; Palpitation; Transaminitis; Obstructive sleep apnea syndrome; Pulmonary sarcoidosis ([facility]/HCC); Moderate persistent asthma without complication 02/27/2025 Travel 02/24/[address] [address] Izzy Pantoja MD chart prep 02/17/2025 Patient Outreach [address] [address] Izzy Pantoja MD Pre-visit Planning (SDOH screening was completed on 11/25/2024) 01/12/2025 Refill [facility] [address] [place] [address] Izzy Pantoja MD from Last 3 Months [...] Description 05/30/2025 3:15 PM EST Office Visit [facility] [address] [place] [address] Izzy Pantoja MD [address] [place] [address] 06/21/2025 3:00 PM EST Office Visit [facility] [address] [place] [address] Kristen Howard, OD [address] [place] [address] Health Maintenance Due Date Last Done Comments [...] 8:00 AM EDT) Triglycerides 59 <150 mg/dL [facility] Comment:Desirable Triglyceri de: less than 150 mg/dLBorderline High Triglyceride 150-199 mg/dLHigh Triglyceride: 200-499 mg/dLVery High Triglyceride: greater than or equal to 5OO mg/dL Cholesterol 133 <200 mg/dL [facility] Comment:Desirable Cholestero l: less than 200 mg/dLBorderline High Cholesterol: 200-239 mg/dLHigh Cholesterol: greater than 239 mg/dL LDL Cholesterol Calculated 73 <100 mg/dL [facility] Comment:Desirable LDL: less than 100 mg/dLNear Optimal/Above Optimal LDL: 110- 129 mg/dLBorderline High LDL: 130-159 mg/dLHigh LDL: 160-189 mg/dLVery High LDL: greater than or equal to 190 mg/dL HDL Cholesterol 49 >40 mg/dL [facility] Comment:Desirable HDL: great er than 40 mg/dL Note: This HDL assay may give artificially low results in patients with liver disease. 10/31/2024 8:00 AM EDT 10/31/2024 8:05 AM EDT us Generic External Data Provider LAB BLOOD ORDERAB LES Final Result [facility] [address] [place] [address] [phone] * Hemoglobin A1c (10/31/2024 8:00 AM EDT) Hemoglobin A1c 5.7 <6.0 % [facility] Comment:Hemoglobin A1C Refer ence Range Adults: 4.8 - 6.0 % Non diabetic: < 6.0 % Goal: < 7.0 %Additional Action Suggested: > 8.0 %Note: Hemoglobin A1c results are invalid for patients with abnormal amounts of HbF. Blood transfusions may impact the HbA1c concentration in the patient sample. Estimated Average Glucose 117 mg/dL [facility] Comment:eAG = Estimated ave rage glucose which is %A1C expressed asaverage glucose, using the formula of the [id number] Glucose study (ADAG), Diabetes Care, Vol.31,#8,Feb. 2007 Blood Venous blood specimen / Unknown 10/31/2024 8:00 AM EDT 10/31/2024 8:05 AM EDT Izzy Pantoja MD LAB BLOOD ORDERABLES Final Resul t Performing Organization Address [facility]/ZIP Co de Phone Number [facility] [address] [place] [address] [phone] * HEPATITIS C AB W/REFL TO HCV RNA, QN, PCR (07/01/2021 3:34 PM EST) Pathologist [facility] HEPATITIS C ANTIBODY NON-REACT JIMENEZ NON-REACT JIMENEZ [facility] INDEX 0.02 <1.00 [facility] Comment: HCV antibody was non-reactive. There is no laboratory evidence of HCV infection. In most cases, no further action is required. However, if recent HCV exposure is suspected, a test for HCV RNA (test code 18778) is suggested. For additional information please refer to http://education.[employer]/faq/BTB09f9 (This link is being provided for informational/ educational purposes only.) 07/01/2021 3:34 PM EST L[facility] HISTORICAL/NON ORDERABLE LABS Final Result Performing Organization Address City/[facility]/ZIP Co de Phone Number [facility] [address] * HIV 1/2 ANTIGEN/ANTIBODY,FOURTH GENERATION W/RFL (07/01/2021 3:34 PM EST) HIV-1/2 ANTIGEN AND ANTIBODIES, 4TH GENERATION W/ REFLEX NON-REACT JIMENEZ NON-REACT JIMENEZ [facility] Comment: HIV-1 antigen and HIV-1/HIV-2 [...] purpose. For additional information please refer to http://education.blogfoster/faq/DSM113 (This link is being provided for informational/ educational purposes only.) The performance of this assay has not been clinically validated in patients less than 2 years old. 07/01/2021 3:34 PM EST us Loulou Cruz [facility] LAB BLOOD ORDERABLES Final Res ult [facility] [address] from Last 3 Months or Most Recently Relevant to Health Maintenance Insurance C3 Care Teams Industrial Trainer Relationship Specialty Start Date End Date Izzy Pantoja MD [address] [place] [phone] PCP - General Family Medicine 03/17/22 Ilana Gaming Community Health Worker 10/26/23
== END ==
LOC: HO.CARD 14:58
PROVIDERS: PCP Family Medicine; Visit Provider Family Medicine
DX: R00.2 Palpitations (principal)
CPT/HCPCS: 93225

== ENCOUNTER → 2025-04-03 15:03 | Outpatient (BNV) | payer MEDICAID, SELFPAY | PROVIDERS: PCP Family Medicine; Visit Provider Internal Medicine | DX: I49.3 Ventricular premature depolarization (principal); I49.49 Other premature depolarization | CPT/HCPCS: 93227 ==

== ENCOUNTER 2025-04-07 11:02 | Day surgery (SDC) | payer MEDICAID, SELFPAY ==
--- OUTSIDE RECORDS SUMMARY | 2025-03-30 18:04 | XMS_ITS | Clinical Summary ---
Author Organization [facility] Address [address] [place] [address] Care Team Providers Care Physiatrist Name Role Phone Izzy Pantoja MD Primary Care Provider [phone] Ilana Gaming Unavailable Allergies Active Allergy Reactions [...] capsule by oral route at bedtime Active albuterol (Ventolin HFA) 108 (90 Base) MCG/ACT inhaler INHALE 2 PUFFS BY INHALATION ROUTE EVERY 4 HOURS IF NEEDED 18 g 03/13/20 23 Active esomeprazole (NexIUM) [address] capsule take 1 capsule by oral route every day at least 1 hour before a meal swallowing whole. Do not crush or chew granules. 90 capsule 1 06/05/20 23 Active triamcinolone (Kenalog) 0.1 % cream Apply topically if needed in the morning and at bedtime (pain and swelling). 30 g 2 07/26/19 25 Active Blood Pressure Monitor misc Check BP daily 1 each 07/26/19 25 [...] needed 60 capsule 3 11/23/19 25 Active atorvastatin (Lipitor) 10 MG tablet Take 1 tablet (10 mg) by mouth at bedtime. 30 tablet 3 01/13/20 25 025 Active famotidine (Pepcid) 20 MG tabletIndicati ons:Heartburn Take 1 tablet (20 mg) by mouth at bedtime. 90 tablet 3 08/11/19 23 025 Discontinued(Me d list cleanup (will not trigger notification to Pharmacy)) Active Problems Patient Care Coordination No te Formatting of this note migh t be different from the original. C3/CM Isis Orona RN, TC Progress Note Problem Noted Date Diagnosed Date Palpitation 03/06/2025 Transaminitis 03/06/2025 Assessment & Plan (03/06/2025 8:46 AM EDT): - ALT 51 on 10/31/24 - Likely MASLD or transient - recheck lab - continue working on lifestyle modifications Elevated BP without diagnosis of hypertension Assessment & Plan (02/27/2025 6:11 AM EDT): -Goal BP < 130/80 per ACC/AHA guideline (Treatment threshold >=140/90) -BP borderline -Continue working on lifestyle modifications -Recommended self-monitoring BP. -Patient is taking terazosin for BPH with KING -Follow up in 3 weeks for BP check, sooner if any problem arises -If his SBP is > 140 at next BP check or home SBP is persistently > 135, will start telmisartan 20 mg daily (or other ARB). Assessment & Plan (11/25/2024 6:19 PM EDT): -Goal BP < 140/90 per JNC-8 and < 130/80 per ACC/AHA guideline (Treatment threshold >=140/90) -BP borderline -Continue working on lifestyle modifications -Recommended self-monitoring BP. -Patient is taking terazosin for BPH with KING -Follow up in 3 weeks for BP check, sooner if any problem arises -If his SBP is > 140 at next BP check or home SBP is persistently > 135, will start telmisartan 20 mg daily (or other ARB). Assessment & Plan (08/05/2024 11:32 AM EST): -Goal BP < 140/90 per JNC-8 and < 130/80 per ACC/AHA guideline (Treatment threshold >=140/90) -BP borderline -Continue working on lifestyle modifications -Recommended self-monitoring BP. 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 Last seen in November 2023. KING Upcoming [...] profile Pulmonary sarcoidosis 07/01/2021 Assessment & Plan (03/06/2025 8:48 AM EDT): - Previously [facility], currently asymptomatic - Most recent CT scan in January 2022 showed no mediastinal lymphadenopathy - No indication for repeat imaging at this time Assessment & Plan (11/22/2024 4:55 PM EDT): - Previously following [facility], currently asymptomatic - Most recent CT scan in January 2022 showed no mediastinal lymphadenopathy - Consider repeating chest CT Assessment & Plan (08/05/2024 11:26 AM EST): - Following with [facility], currently asymptomatic - Most recent CT scan in January 2022 showed no mediastinal lymphadenopathy Assessment & Plan (12/27/2023 5:27 PM EDT): - Following with [facility], currently asymptomatic - Most recent CT scan in January 2022 showed no mediastinal lymphadenopathy Assessment & Plan (08/15/2022 6:30 PM EST): - Most recent CT scan in January 2022 showed no mediastinal lymphadenopathy Obstructive sleep apnea syndrome 05/29/2021 Assessment & Plan (03/06/2025 8:48 AM EDT): - last sleep study in Apr 2021, Sleep Medicine clinic in [place] - recommended auto-PAP 5-15 cm H2O - patient had a CPAP. - Pt returned machine because poor adherence. Pt reports burning in his nose with CPAP machine. Pt is not interested in trying newer CPAP machine. Assessment & Plan (11/22/2024 4:54 PM EDT): - last sleep study in Apr 2021, Sleep Medicine clinic in [place] - recommended auto-PAP 5-15 cm H2O - patient had a CPAP. - Pt returned machine because poor adherence. Pt reports burning in his nose with CPAP machine. Pt is not interested in trying newer CPAP machine. Assessment & Plan (07/29/2024 5:33 AM EST): - last sleep study in Apr 2021, Sleep Medicine clinic in [place] - recommended auto-PAP 5-15 cm H2O - patient has a CPAP. Will check if patient can have a humidification device, especially during dry season. Assessment & Plan (12/27/2023 5:27 PM EDT): - last sleep study in Apr 2021, Sleep Medicine clinic in [place] - recommended auto-PAP 5-15 cm H2O - patient has a CPAP. Will check if patient can have a humidification device, especially during dry season. Assessment & Plan (08/15/2022 6:36 PM EST): - last sleep study in Apr 2021, Sleep Medicine clinic in [place] - recommended auto-PAP 5-15 cm H2O - [...] to smoking cessation group Consider referral to [facility] Obesity 04/19/2012 Assessment & Plan (08/15/2022 6:41 PM EST): - LEANDRA - Continue working on lifestyle modification Gastroesophageal reflux disease 04/19/2012 Assessment & Plan (02/27/2025 6:12 AM EDT): Continue pantoprazole Continue sucralfate Upper GI series on 11/15/24 showed GERD otherwise normal Upcoming appt with GI for colonoscopy and EGD evaluation Avoid irritants, especially smoking Assessment & Plan (11/22/2024 4:57 PM EDT): [...] 4:58 PM EDT): -Dx October 2008 -Oncology, [facility]. Last seen by Dr. Lee in September 2024, annual follow up. -Tx 6 cycles of R-CVP, completed in Jul 2009 -No sign of recurrence Assessment & Plan (07/29/2024 5:34 AM EST): -Dx October 2008 -Oncology, [facility]. Last seen by Dr. Lee in September 2023, annual follow up. -Tx 6 cycles of R-CVP, completed in Jul 2009 -No sign of recurrence Assessment & Plan (12/27/2023 5:33 PM EDT): -Dx October 2008 -Oncology, [facility]. Last seen by Dr. Lee in September [...] seen 09/2021 Asthma 01/16/2012 Assessment & Plan (03/06/2025 8:48 AM EDT): - Continue Flovent 110 2 puffs BID, with Albuterol MDI 2 puffs every 4 hours as needed - Consider switching to ICS / LABA prn - Began smoking cessation on 08/04/2023, continue to work on smoking cessation Assessment & Plan (11/22/2024 3:45 PM EDT): [...] Plan (08/15/2022 6:38 PM EST): - current [facility] provider: [facility] - continue judicious and responsible use of gabapentin and clonazepam Encounters Date Type Department Care Team Description 03/29/2025 Telephone [facility] [address] [place] [phone] Izzy Pantoja MD may recall 02/27/2025 3:15 PM EDT Office Visit [address] [address] Izzy Pantoja MD Elevated BP without diagnosis of hypertension (Primary Dx); Meniere's disease of left ear; Gastroesophageal reflux disease, unspecified whether esophagitis present; Heartburn; Palpitation; Transaminitis; Obstructive sleep apnea syndrome; Pulmonary sarcoidosis ([facility]/HCC); Moderate persistent asthma without complication 02/27/2025 Travel 02/24/[address] [address] Izzy Pantoja MD chart prep 02/17/2025 Patient Outreach [address] [address] Izzy Pantoja MD Pre-visit Planning (SDOH screening was completed on 11/25/2024) 01/12/2025 Refill [facility] [address] [place] [address] Izzy Pantoja MD from Last 3 Months Immunizations Immunization Administration Dates Next Due Hep B, adult [...] is your housing situation today? I have brooksandrine mcgovern 11/25/[address] you li ve. Do you have problems with any of the following? None of the above 11/25/2024 Food Insecurity Answer Date Recorded Within the past 12 months, y ou worried that your food would run out before you got money to buy more: Never True 11/25/2024 Within the past 12 months,th e food you bought just didn't last and you didn't have enough money to get more: Never True 03/2025 Transportation Answer Date Recorded In the past 12 months, has l ack of transportation kept you from medical appts, meetings, work or from getting things needed for daily living? No 11/25/2024 Utilities Answer Date Recorded In the past 12 months, has t he electric, gas, oil or water company threatened to shut off services in your home? No 11/25/2024 Depression Answer Date Recorded Patient Health Questionnaire-2 Score 1 07/26/2024 Internet Access Answer Date Recorded Internet Access Q1 Yes 11/25/2024 Internet Access Q2 Not on file 11/25/2024 Sex and Gender Information Value Date Recorded Sex Assigned at Male 05/19/2022 10:14 AM EDT Legal Sex Male 10:14 AM EDT Gender Identity Male 05/19/2022 10:14 AM EDT Sexual Orientation Straight 05/19/2022 10 :14 AM EDT Last Filed Vital Signs Vital Sign Reading Time Taken Comments Blood Pressure 140/82 02/27/2025 3:08 PM EDT Pulse 94 02/27/2025 2:52 PM EDT Temperature 36.1 C (96.9 F) 02/27/2025 2:52 PM EDT Respiratory Rate 16 02/27/2025 2:52 PM EDT Oxygen Saturation 98% 02/27/2025 2:52 PM EDT Inhaled Oxygen Concentration - - Weight 102 kg (224 lb) 02/27/2025 2:52 PM EDT Height 165.1 cm (5' 5 ) 02/27/2025 2:52 PM EDT Body Mass Index 37.28 02/27/2025 2:52 PM EDT Plan of Treatment Upcoming Encounters Date Type Department Care Team (Late st Contact Info) Description 05/30/2025 3:15 PM EST Office Visit [facility] [address] [place] [address] Izzy Pantoja MD [address] [place] [address] 06/21/2025 3:00 PM EST Office Visit [facility] [address] [place] [address] Kristen Howard, OD [address] [place] [address] Health Maintenance Due Date Last Done Comments CT Colonography 1976 Colonoscopy 1976 Colorectal Cancer Screening 1976 FIT DNA/Cologuard 1976 FIT 1976 FOBT 1976 Sigmoidoscopy 1976 Family Planning (PISQ) 01/05/1991 Zoster Vaccines (1 of 2) 01/05/1995 COVID-19 Vaccine (7 - Moderna risk 2023- season) 2025 07/26/2024, 12/24/2023, 08/11/2022, Additional history exists Influenza Vaccine (#1) 2025 , 05/12/2022, 04/15/2021, Additional history exists Depression Screening 07/26/2025 07/26/2024, 07/26/19 Diabetes: Hemoglobin A1C 10/31/2025 04/2 025, 12/31/2023, 08/11/2022, Additional history exists Alcohol/Substance Use Screening 11/25/2025 11/25/2024 Disability Screening 11/25/2025 11/25/2024 SDOH Screening 11/25/2025 11/25/2024 Tobacco Screening 02/27/2026 02/27/2025 Lipid Panel 10/31/2029 10/31/2024, 12/18, 08/11/2022, Additional [...] Years) and At-Risk Patients (6 to 49) Years Completed 08/11/2022, 05/20/2018, 07/08/2012, Additional history exists HIB Vaccines Aged Out [...] patient's age to complete this topic Meningococcal B Vaccine Aged Out No l onger eligible based on patient's age to complete [...] Procedure Name Priority Date/Time Associated Diagnosis Comments HEMOGLOBIN A1C Routine 10/31/2024 8:00 AM EDT Mixed hyperlipidemia Class 2 obesity due to excess calories with body mass index (BMI) of 39.0 to 39.9 in adult, unspecified whether serious comorbidity present LIPID PANEL WITH REFLEX TO DIRECT LDL Routine 10/31/2024 8:00 AM EDT ZZZ HISTORICAL HEPATITIS C AB W/REFL TO HCV RNA, QN, PCR Routine 07/01/2021 3:34 PM EST HIV 1/2 ANTIGEN/ANTIBODY, FOURTH GENERATION W/RFL Routine 07/01/2021 3:34 PM EST from Last 3 Months or Most Recently Relevant to Health Maintenance Results * Lipid Panel with Reflex to Direct LDL (10/31/2024 8:00 AM EDT) Triglycerides 59 <150 mg/dL [facility] Comment:Desirable Triglyceri de: less than 150 mg/dLBorderline High Triglyceride 150-199 mg/dLHigh Triglyceride: 200-499 mg/dLVery High Triglyceride: greater than or equal to 5OO mg/dL Cholesterol 133 <200 mg/dL [facility] Comment:Desirable Cholestero l: less than 200 mg/dLBorderline High Cholesterol: 200-239 mg/dLHigh Cholesterol: greater than 239 mg/dL LDL Cholesterol Calculated 73 <100 mg/dL [facility] Comment:Desirable LDL: less than 100 mg/dLNear Optimal/Above Optimal LDL: 110- 129 mg/dLBorderline High LDL: 130-159 mg/dLHigh LDL: 160-189 mg/dLVery High LDL: greater than or equal to 190 mg/dL HDL Cholesterol 49 >40 mg/dL [facility] Comment:Desirable HDL: great er than 40 mg/dL Note: This HDL assay may give artificially low results in patients with liver disease. 10/31/2024 8:00 AM EDT 10/31/2024 8:05 AM EDT us Generic External Data Provider LAB BLOOD ORDERAB LES Final Result [facility] [address] [place] [address] [phone] * Hemoglobin A1c (10/31/2024 8:00 AM EDT) Hemoglobin A1c 5.7 <6.0 % [facility] Comment:Hemoglobin A1C Refer ence Range Adults: 4.8 - 6.0 % Non diabetic: < 6.0 % Goal: < 7.0 %Additional Action Suggested: > 8.0 %Note: Hemoglobin A1c results are invalid for patients with abnormal amounts of HbF. Blood transfusions may impact the HbA1c concentration in the patient sample. Estimated Average Glucose 117 mg/dL [facility] Comment:eAG = Estimated ave rage glucose which is %A1C expressed asaverage glucose, using the formula of the M9T-OshcobtQcyecae Glucose study (ADAG), Diabetes Care, Vol.31,#8,Feb. 2007 Blood Venous blood specimen / Unknown 10/31/2024 8:00 AM EDT 10/31/2024 8:05 AM EDT Izzy Pantoja MD LAB BLOOD ORDERABLES Final Resul t Performing Organization Address [facility]/ZIP Co de Phone Number [facility] [address] [place] [address] [phone] * HEPATITIS C AB W/REFL TO HCV RNA, QN, PCR (07/01/2021 3:34 PM EST) Pathologist [facility] HEPATITIS C ANTIBODY NON-REACT JIMENEZ NON-REACT JIMENEZ [facility] INDEX 0.02 <1.00 [facility] Comment: HCV antibody was non-reactive. There is no laboratory evidence of HCV infection. In most cases, no further action is required. However, if recent HCV exposure is suspected, a test for HCV RNA (test code 03481) is suggested. For additional information please refer to http://education.Rockmelt.BookBag/faq/EFM73a7 (This link is being provided for informational/ educational purposes only.) 07/01/2021 3:34 PM EST L[facility] HISTORICAL/NON ORDERABLE LABS Final Result Performing Organization Address City/[facility]/ZIP Co de Phone Number [facility] [address] * HIV 1/2 ANTIGEN/ANTIBODY,FOURTH GENERATION W/RFL (07/01/2021 3:34 PM EST) HIV-1/2 ANTIGEN AND ANTIBODIES, 4TH GENERATION W/ REFLEX NON-REACT JIMENEZ NON-REACT JIMENEZ [facility] Comment: HIV-1 antigen and HIV-1/HIV-2 antibodies were not detected. There is no laboratory evidence of HIV infection. PLEASE NOTE: This information has been disclosed to you from records whose confidentiality may be protected by state law. If your state requires such protection, then the state law prohibits you from making any further disclosure of the information without the specific written consent of the person to whom it pertains, or as otherwise permitted by law. A general authorization for the release of medical or other information is NOT sufficient for this purpose. For additional information please refer to http://education.Pu[employer] Finanzas/faq/ORR808 (This link is being provided for informational/ educational purposes only.) The performance of this assay has not been clinically validated in patients less than 2 years old. 07/01/2021 3:34 PM EST us Loulou Cruz [facility] LAB BLOOD ORDERABLES Final Res ult [facility] [address] from Last 3 Months or Most Recently Relevant to Health Maintenance Insurance C3 Care Teams Physiatrist Relationship Specialty Start Date End Date Izzy Pantoja MD [address] [place] [phone] PCP - General Family Medicine 03/17/22 Ilana Gaming Community Health Worker 10/26/23
--- OUTSIDE RECORDS SUMMARY | 2025-03-30 18:04 | XMS_ITS | Encounter Summary ---
Author Organization [employer] Address [address] [facility] [address] [place] [address] Care Team Providers Care Vegetable Thinner Name Role Phone Izzy Pantoja MD Primary Care Provider Ilana Gaming Unavailable Tomeka Mclain RN Unavailable [phone] Encounter Details Date Type Department Care Team (Late st Contact Info) Description 06/03/2022 [facility] [employer] [address] [place], [place] [phone] Izzy Pantoja MD [address] [place] [phone] Social History Tobacco Use Types Packs/Day Years [...] Description 05/30/2025 3:15 PM EST Office Visit [facility] [address] [place], [place] [phone] Izzy Pantoja MD [address] [place], [place] [phone] 06/21/2025 3:00 PM EST Office Visit [facility] [address] [place], [place] [phone] Lee, Kristen, OD [address] [place] [address] documented as of this encounter Visit Diagnoses Not on filedocumented in this encounter Care Teams Vegetable Thinner Relationship Specialty Start Date End Date Izzy Pantoja MD [address] [place], [place] [phone] PCP - General Family Medicine 03/17/22 Ilana Gaming Community Health Worker 10/26/23 Tomeka Mclain RN [address] [place] [address] Cupola Charger 10/26/23 01/24/24 documented as of this encounter
--- OUTSIDE RECORDS SUMMARY | 2025-03-30 18:04 | XMS_ITS | Encounter Summary ---
Author Organization [employer] Address [address] [place] [address] Care Team Providers Care Dynamite Shooter Name Role Phone Izzy Pantoja MD Primary Care Provider [phone] Ilana Gaming Unavailable Encounter Details Date Type Department Care Team (Late st Contact Info) Description 11/04/2024 Orders Only [facility] [address] [place], [place] [phone] Filipe Coburn MD [address] [place], [place] [phone] Social History Tobacco Use Types Packs/Day Years [...] Description 05/30/2025 3:15 PM EST Office Visit [facility] [address] [place] [address] Izzy Pantoja MD [address] [place] [address] 06/21/2025 3:00 PM EST Office Visit [facility] [address] [place] [address] Lee, Kristen, OD [address] [place] [address] documented as of this encounter Visit Diagnoses Not on filedocumented in this encounter Additional Health Concerns Assessment Noted Time PHQ-9 Depression Total Score: 1 07/26/19 25 4:08 PM EST documented as of this encounter Care Teams Dynamite Shooter Relationship Specialty Start Date End Date Izzy Pantoja MD [address] [place], [place] [phone] PCP - General Family Medicine 03/17/22 Ilana Gaming Community Health Worker 10/26/23 documented as of this encounter
--- OUTSIDE RECORDS SUMMARY | 2025-03-30 18:04 | XMS_ITS | Encounter Summary ---
Author Organization [employer] Address [address] [place] [address] Care Team Providers Care Hydraulic Chair Assembler Name Role Phone Izzy Pantoja MD Primary Care Provider [phone] Ilana Gaming Unavailable Tomeka Mclain RN Unavailable [phone] Reason for Visit * Reason Onset Date Comments Referral 08/20/2022 Encounter Details Date Type Department Care Team (Late st Contact Info) Description 08/20/2022 Telephone [facility] [address] [place], [place] [phone] Izzy Pantoja MD [address] [place], [place] [phone] Referral Social History Tobacco Use Types Packs/Day [...] Description 05/30/2025 3:15 PM EST Office Visit [facility] [address] [place] [address] Izzy Pantoja MD [address] [place] [address] 06/21/2025 3:00 PM EST Office Visit [facility] [address] [place] [address] Lee, Kristen, OD [address] [place] [address] documented as of this encounter Visit Diagnoses Not on filedocumented in this encounter Care Teams Hydraulic Chair Assembler Relationship Specialty Start Date End Date Izzy Pantoja MD [address] [place] [address] PCP - General Family Medicine 03/17/22 Ilana Gaming Community Health Worker 10/26/23 Tomeka Mclain RN [address] [place] [address] Refrigeration Operator 10/26/23 01/24/24 documented as of this encounter
--- OUTSIDE RECORDS SUMMARY | 2025-03-30 18:04 | XMS_ITS | Clinical Summary ---
Author Organization [facility], Address [address] [place] [address] [place] [address] Phone Care Team Providers Care Engine Cowling Installer Name Role Phone Izzy Pantoja MD Primary Care Provider [phone] Allergies Active Allergy Reactions Criticality Noted Date [...] 05/20/2018, 07/08/2012, Additional history exists Insurance Medicaid [place] Care Teams Engine Cowling Installer Relationship Specialty Start Date End Date Izzy Pantoja MD [address] [place] [address] PCP - General Family Medicine 07/06/24
--- OUTSIDE RECORDS SUMMARY | 2025-03-30 18:04 | XMS_ITS | Encounter Summary ---
Author Organization [employer] Address [address] [facility] [address] 7t [place] [address] Care Team Providers Care Licensed Mass Real Estate Appraiser Name Role Phone Izzy Pantoja MD Primary Care Provider [phone] Ilana Gaming Unavailable Encounter Details Date Type Department Care Team (Late st Contact Info) Description 11/23/2024 Orders Only [facility] [address] [place], [place] [phone] Izzy Pantoja MD [address] [place], [place] [phone] Immunity status testing (Primary Dx) Social History [...] housing situation today? I have [facility] 11/25/[address] you [...] Description 05/30/2025 3:15 PM EST Office Visit [facility] [address] [place] [address] Izzy Pantoja MD [address] [place] [address] 06/21/2025 3:00 PM EST Office Visit [facility] [address] [place] [address] Lee, Kristen, OD [address] [place] [address] documented as of this encounter Procedures Procedure Name Priority Date/Time Associated Diagnosis Comments MEASLES, MUMPS, AND RUBELLA (MMR) AB (IGG) PANEL, IMMUNE STATUS Routine 11/23/2024 3:32 PM EDT Immunity status testing documented in this encounter Results * Measles, Mumps, and Rubella (MMR) Antibodies??(IgG) Panel, Immune Status (11/23/2024 3:32 PM EDT) Mumps Virus IgG Antibody 87.70 AU/mL [facility] Comment:AU/mL Interpretatio n------- <9.00 Not consistent with immunity9.00-10.99 Equivocal>10.99 Consistent with immunityThe presence of mumps IgG antibody suggests immunizationor past or current infection with mumps virus. Rubella IgG Antibody 1.47 Index [facility] Comment:Index Interpretation ----- <0.90 Not consistent with immunity 0.90-0.99 Equivocal > or = 1.00 Consistent with immunityThe presence of rubella IgG antibody suggestsimmunization or past or current infection withrubella virus.THIS TEST WAS PERFORMED AT:[facility] [place] [id number] GUILLAUME MD Rubeola IgG (Measles) 62.60 AU/mL [facility] Comment:AU/mL Interpretation ----- <13.50 Not consistent with ymnbxxws86.50-16.49 Equivocal>16.49 Consistent with immunityThe presence of measles IgG suggests immunization orpast or current infection with measles virus.For additional information, please refer tohttp://education.Donews/faq/YLL807(This link is being provided for informational/educational purposes only.) Blood 11/23/2024 3:32 PM EDT 11/23/2024 4:09 PM EDT Izzy Pantoja MD LAB BLOOD ORDERABLES Final Resul t [facility] [address] [place] [address] [phone] documented in this encounter Visit Diagnoses Diagnosis Immunity status testing- Primary Antibody response examination documented in this encounter Additional Health Concerns Assessment Noted Time PHQ-9 Depression Total Score: 1 07/26/19 25 4:08 PM EST documented as of this encounter Care Teams Licensed Mass Real Estate Appraiser Relationship Specialty Start Date End Date Izzy Pantoja MD [address] [place] [address] PCP - General Family Medicine 03/17/22 Ilana Gaming Community Health Worker 10/26/23 documented as of this encounter
--- OUTSIDE RECORDS SUMMARY | 2025-03-30 18:04 | XMS_ITS | Encounter Summary ---
Author Organization [facility], Address [address] [place] [address] Phone Care Team Providers Care Stone Lathe Operator Name Role Phone Izzy Pantoja MD Primary Care Provider [phone] Encounter Details Date Type Department Care Team (Late st Contact Info) Description 05/20/2022 Documentation Only [facility], [address] [place] [address] Tessa Alejandra PA [address] [place] [address] Social History Tobacco Use Types Packs/Day Years [...] on filedocumented in this encounter Care Teams Stone Lathe Operator Relationship Specialty Start Date End Date Izzy Pantoja MD [address] [place] [address] PCP - General Family Medicine 07/06/24 documented as of this encounter
--- OUTSIDE RECORDS SUMMARY | 2025-03-30 18:04 | XMS_ITS | Encounter Summary ---
Author Organization [employer] Address [address] [facility] 7t [place] [address] Care Team Providers Care Or First Assist Registered Nurse Name Role Phone Izzy Pantoja MD Primary Care Provider [phone] Ilana Gaming Unavailable Reason for Visit * Reason Onset Date Comments november recall 03/29/2025 Encounter Details Date Type Department Care Team (Late st Contact Info) Description 03/29/2025 Telephone [facility] [address] [place], [place] [phone] Izzy Pantoja MD [address] [place], [place] [phone] may recall Social History Tobacco Use Types Packs/Day Years [...] encounter Miscellaneous Notes * Telephone Encounter - Sirena Gaming [place] - 03/29/2025 7:05 PM EDT ...Telephone call to patient to schedule the following recall: Visit type: RV asthma (PFT) / palpitation (Holter) / BP Appointment notes: RV asthma (PFT) / palpitation (Holter) / BP Patient agree to appointment on 05/30/25 at 315 PM with Kit. documented in this encounter Plan of Treatment Upcoming Encounters Date Type Department Care Team (Late st Contact Info) Description 05/30/2025 3:15 PM EST Office Visit [facility] [address] [place] [address] Izzy Pantoja MD [address] [place] [address] 06/21/2025 3:00 PM EST Office Visit [facility]ET[facility] [address] [place] [address] Kristen [place], OD 230 [place] [address] documented as of this encounter Visit Diagnoses Not on filedocumented in this encounter Additional Health Concerns Assessment Noted Time PHQ-9 Depression Total Score: 1 07/26/19 25 4:08 PM EST documented as of this encounter Care Teams Or First Assist Registered Nurse Relationship Specialty Start Date End Date Izzy Pantoja MD [address] [place] [address] PCP - General Family Medicine 03/17/22 Ilana Gaming Community Health Worker 10/26/23 documented as of this encounter
--- NOTE | 2025-04-05 13:39 | HO.ANESPROP2 ---
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: No evidence of disease recurrence per oncology note 10/2024 [facility] Active Problems Active Problems: All Active Problems Bladder outlet obstruction (Acute) Weak urinary stream (Acute) Elevated PSA (Acute) Enlarged prostate (Acute) Obesity (BMI 30-39.9) (Acute) Back pain (Acute) Sarcoidosis (Acute) Urinary frequency (Acute) Nocturia (Acute) Acute hypoxemic respiratory failure (Acute) URI (upper respiratory infection) (Acute) Acute viral syndrome (Acute) Asthma exacerbation (Acute) Bronchitis (Acute) B-cell lymphoma (Chronic) Thrombosis (Acute) History of asthma (Acute) B-cell chronic lymphocytic leukemia (Acute) Anxiety (Acute) Acid reflux (Acute) Past Medical History Medical History (Updated 04/07/25 @ 11:32 by Beverly Gabriel RN) Sarcoidosis BPH (benign prostatic hyperplasia) Hyperlipidemia Sleep apnea Thrombosis Acid reflux Anxiety History of asthma B-cell chronic lymphocytic leukemia Family History Family History Mother Liver cirrhosis Family/Other Thyroid cancer Breast cancer Family history of problems with anesthesia: No Surgical History Surgical History History of prostate surgery (~11/2023) History of bronchoscopy History of Problems with Anesthesia: No Social History Social History Household Members: Family Household Members Other:: father Housing: Apartment Do you presently have visiting nurse or other home services: No Alcohol intake: current Alcohol intake frequency: holidays/special occasions only Patient Tobacco Use Status: Former Tobacco user Tobacco use type: Cigarette Years Smoked: 18 Second Hand Smoke Exposure: No Advance Directives: No Advance Directives Information Provided: Yes service: No Current occupational status: employed Meds Allergies Allergy/AdvReac Type Severity Reaction Status Date / Time allantoin (From BLISTEX) Allergy Unknown LIP Verified 04/07/25 11:45 SWELLING homosalate (From BLISTEX) Allergy Unknown LIP Verified 04/07/25 11:45 SWELLING menthol (From BLISTEX) Allergy Unknown LIP Verified 04/07/25 11:45 SWELLING octinoxate (From BLISTEX) Allergy Unknown LIP Verified 04/07/25 11:45 SWELLING octyl salicylate (From Allergy Unknown LIP Verified 04/07/25 11:45 BLISTEX) SWELLING oxybenzone (From BLISTEX) Allergy Unknown LIP Verified 04/07/25 11:45 SWELLING padimate O (From BLISTEX) Allergy Unknown LIP Verified 04/07/25 11:45 SWELLING sodium chloride Allergy Unknown GUM Verified 04/07/25 11:45 SWELLING TO TABLE SALT ibuprofen (IBUPROFEN) AdvReac Unknown STOMACH Verified 04/07/25 11:45 UPSET Home Medications ?Medication ?Instructions ?Recorded ?Confirmed ?Last Taken ?Type clonazepam 1 mg tablet 1 tab PO DAILY PRN Allergy Symptoms 03/05/21 04/07/25 Unknown History fluticasone propionate 110 2 puff inhalation BID 03/05/21 04/07/25 Unknown History mcg/actuation HFA aerosol inhaler (Flovent HFA) fluticasone propionate 50 1 spray intranasal BID 03/05/21 04/07/25 Unknown History mcg/actuation nasal spray,suspension gabapentin 300 mg capsule 3 cap PO BEDTIME 03/05/21 04/07/25 Unknown History levocetirizine 5 mg tablet (24HR 1 tab PO QPM 03/05/21 04/07/25 Unknown History Allergy Relief) atorvastatin 10 mg tablet 10 mg PO BEDTIME 08/23/24 04/07/25 Unknown History blood pressure test kit-large #1 ea 11/01/24 04/07/25 Unknown History Assessment and Plan Final Anesthetic Review Family History of Problems with Anesthesia: No History of Problems with Anesthesia: No Documented by User: Joselin Gooden MD 04/07/25 11:47 [facility] Past Medical History Medical History (Updated 04/07/25 @ 11:32 by Beverly Gabriel RN) Sarcoidosis BPH (benign prostatic hyperplasia) Hyperlipidemia Sleep apnea Thrombosis Acid reflux Anxiety History of asthma B-cell chronic lymphocytic leukemia Family History Family History Mother Liver cirrhosis Family/Other Thyroid cancer Breast cancer Surgical History Surgical History History of prostate surgery (~11/2023) History of bronchoscopy Social History Social History Household Members: Family Household Members Other:: father Housing: Apartment Do you presently have visiting nurse or other home services: No Alcohol intake: current Alcohol intake frequency: holidays/special occasions only Patient Tobacco Use Status: Former Tobacco user Tobacco use type: Cigarette Years Smoked: 18 Second Hand Smoke Exposure: No Advance Directives: No Advance Directives Information Provided: Yes service: No Current occupational status: employed Meds Allergies Allergy/AdvReac Type Severity Reaction Status Date / Time allantoin (From BLISTEX) Allergy Unknown LIP Verified 04/07/25 11:45 SWELLING homosalate (From BLISTEX) Allergy Unknown LIP Verified 04/07/25 11:45 SWELLING menthol (From BLISTEX) Allergy Unknown LIP Verified 04/07/25 11:45 SWELLING octinoxate (From BLISTEX) Allergy Unknown LIP Verified 04/07/25 11:45 SWELLING octyl salicylate (From Allergy Unknown LIP Verified 04/07/25 11:45 BLISTEX) SWELLING oxybenzone (From BLISTEX) Allergy Unknown LIP Verified 04/07/25 11:45 SWELLING padimate O (From BLISTEX) Allergy Unknown LIP Verified 04/07/25 11:45 SWELLING sodium chloride Allergy Unknown GUM Verified 04/07/25 11:45 SWELLING TO TABLE SALT ibuprofen (IBUPROFEN) AdvReac Unknown STOMACH Verified 04/07/25 11:45 UPSET Home Medications ?Medication ?Instructions ?Recorded ?Confirmed ?Last Taken ?Type clonazepam 1 mg tablet 1 tab PO DAILY PRN Allergy Symptoms 03/05/21 04/07/25 Unknown History fluticasone propionate 110 2 puff inhalation BID 03/05/21 04/07/25 Unknown History mcg/actuation HFA aerosol inhaler (Flovent HFA) fluticasone propionate 50 1 spray intranasal BID 03/05/21 04/07/25 Unknown History mcg/actuation nasal spray,suspension gabapentin 300 mg capsule 3 cap PO BEDTIME 03/05/21 04/07/25 Unknown History levocetirizine 5 mg tablet (24HR 1 tab PO QPM 03/05/21 04/07/25 Unknown History Allergy Relief) atorvastatin 10 mg tablet 10 mg PO BEDTIME 08/23/24 04/07/25 Unknown History blood pressure test kit-large #1 ea 11/01/24 04/07/25 Unknown History Exam Airway Mallampati Class: III (thick neck) TM Dist: >3cm Neck ROM: Full Heart: rrr Lungs: cta Assessment and Plan Assessment Anesthesia Assessment: Anesthesia Plan Discussed and Chart Reviewed Final Anesthetic Review NPO: Yes ASA Class: III Final Preanesthetic Review: No Changes in Pt Med Stat, Meds/Allgs Chart Reviewed and Consent Obtained/Reviewed Patient Risk: Intermediate Procedure Risk: Intermediate Anesthetic Plan Anesthetic Plan: MAC: Disposition: Standard PACU
[2025-04-07 11:46] VITALS: BP 139/77; PULSE 72; RESP 16; TEMP 36.5; O2SAT 97; BMI 34.0
--- NOTE | 2025-04-07 11:55 | P.HPSUR_ITS ---
Pre-Procedural Eval Section A - 24 Hr Update-Section A only Date of Service: 04/07/25 Section B - Complete if H&P > 30 days Chief Complaint: screening, GERD Relevant Family History (Specify if Yes): No Relevant Social History: Tobacco Use (Former smoker) Present Medications: see Short Stay Collaborative assessment Medical History: Significant History (BPH (benign prostatic hyperplasia) Hyperlipidemia Sleep apnea Thrombosis Acid reflux Anxiety History of asthma B- cell chronic lymphocytic leukemia) History of Previous Operations: Relevant previous surgery/procedure and date(s) (History of prostate surgery (~11/2023) History of bronchoscopy) Allergies: Allergies Allergy/AdvReac Type Severity Reaction Status Date / Time allantoin (From BLISTEX) Allergy Unknown LIP Verified 04/07/25 11:45 SWELLING homosalate (From BLISTEX) Allergy Unknown LIP Verified 04/07/25 11:45 SWELLING menthol (From BLISTEX) Allergy Unknown LIP Verified 04/07/25 11:45 SWELLING octinoxate (From BLISTEX) Allergy Unknown LIP Verified 04/07/25 11:45 SWELLING octyl salicylate (From Allergy Unknown LIP Verified 04/07/25 11:45 BLISTEX) SWELLING oxybenzone (From BLISTEX) Allergy Unknown LIP Verified 04/07/25 11:45 SWELLING padimate O (From BLISTEX) Allergy Unknown LIP Verified 04/07/25 11:45 SWELLING sodium chloride Allergy Unknown GUM Verified 04/07/25 11:45 SWELLING TO TABLE SALT ibuprofen (IBUPROFEN) AdvReac Unknown STOMACH Verified 04/07/25 11:45 UPSET Review of Systems Sugical H&P ROS: Negative: Constitution, Cardiovascular and Respiratory and Yes, Specify: Gastrointestinal (Heartburn) Exam Surgical H&P Exam: Normal: Heart, Normal: Lungs, Normal: Extremities and Normal: Abdomen Plan Diagnosis/Plan: Unchanged I have reviewed the history and physical and performed a pertinent physical examination on my patient. No changes have occurred unless specified. Time Spent With Patient Time: Total time managing care of this patient today ____ minutes.
[2025-04-07] MEDS: Lactated Ringers 1,000 ML 100 ML IVCONT (11:56)
--- NOTE | 2025-04-07 12:52 | P.OPN-COLO_ITS ---
Colonoscopy Operative Note Operative Note Date of Service: 04/07/25 Narrative: FLEXIBLE TRANSORAL UPPER GASTROINTESTINAL ENDOSCOPY WITH BIOPSIES AND COLONOSCOPY TILL CECUM WITH SNARE POLYPECTOMY, SUBMUCOSAL INJECTION AND HEMOCLIP PLACEMENT Pre-op diagnosis: Colon cancer screening, GERD Post-op diagnosis: GERD, Gastritis, gastric polyps, duodenal ulcer, Colon Polyps, Diverticulosis, hemorrhoids Endoscopist:? Tova Perera MD Anesthesia:?MAC UPPER ENDOSCOPY Consent: Indications for the procedure and potential complications of bleeding, perforation, reaction to medications and missed diagnosis were discussed with the patient and informed consent was obtained. Instrument: Olympus GIF H 190 mid size upper endoscope Monitoring: Vital signs and clinical assessment, continuous EKG monitoring, Pulse oximetry, Carbon Dioxide monitoring and blood pressure monitoring were done throughout the procedure. Procedure: The patient was placed in the left lateral decubitis position and pre-procedure medications were administered and a bite block was placed. The endoscope was inserted into the mouth and advanced under direct vision to the third part of duodenum. A careful inspection was made as the upper endoscope was withdrawn including a retroflexed examination of the proximal stomach; Findings and interventions are described below. Findings: Larynx: Edema of arytenoid cartilages Esophagus: GE junction at 36 cms. No esophagitis or Roberto's. Stomach: A few 3-4 mm benign appearing polyps in the gastric body and fundus - biopsied. Mild diffuse gastric erythema - biopsies were obtained from the antrum. Grade 2 flap valve on retroflexed examination of the cardia. Duodenum: A 2-3 mm non-bleeding ulcer in the apex of the bulb and normal descending duodenum Intervention: Biopsies as noted above COLONOSCOPY PROCEDURE NOTE Instrument: Olympus CF H 190 L variable stiffness adult colonoscope Monitoring: Vital signs and clinical assessment, intermittent blood pressure monitoring, continuous EKG monitoring, Pulse oximetry and Carbon Dioxide monitoring were done throughout the procedure. Please see anesthesia flowsheet. Colon withdrawl time was 25 minutes. Procedure: The patient was placed in the left lateral decubitis position and pre-procedure medications were administered. After a digital rectal examination of the ano-rectum, the video colonoscope was inserted into the rectum and advanced through the colon to the cecum. The colonoscope was slowly withdrawn in a retrograde panoramic fashion and the colon mucosa was carefully examined including a retroflexed view of the rectum. Findings and interventions are described below. Procedure Difficulty: There was luminal narrowing in the sigmoid colon due to severe diverticulosis which was navigated with some difficulty Findings: Terminal Ileum: Not evaluated Cecum: Normal Ascending Colon: Normal Transverse Colon: A 5-6 mm sessile polyp in the proximal transverse colon - removed with a cold snare. Descending Colon: A 2-3 mm sessile polyp - removed with a cold snare Moderate diverticulosis. Sigmoid Colon: A 2.5 cms pedunculated polyp at 30 cm - removed with a hot snare. Polypectomy site was closed with 1 hemoclip and marked by Ellie ink. Severe diverticulosis with luminal narrowing. Rectum: Normal Ano-rectum: Moderate internal hemorrhoids Colon preparation: Good after copious irrigation. Tutwiler Bowel Preparation Scale Right colon; 2 Transverse colon: 2 Left colon; 2 (0 = Unprepared colon segment with mucosa not seen due to solid stool that cannot be cleared. 1 = Portion of mucosa of the colon segment seen, but other areas of the colon segment not well seen due to staining, residual stool and/or opaque liquid. 2 = Minor amount of residual staining, small fragments of stool and/or opaque liquid, but mucosa of colon segment seen well. 3 = Entire mucosa of colon segment seen well with no residual staining, small fragments of stool or opaque liquid) Impression and Post Procedure Diagnosis: Endoscopy Findings: ESOPHAGUS: No esophagitis or Roberto's. STOMACH: Diffuse gastritis and benign-appearing gastric polyps. DUODENUM: A 2-3 mm non-bleeding ulcer in the apex of the bulb and normal descending duodenum Colonoscopy Findings: Three small to nediun sized polyps were removed Moderate to severe diverticulosis seen in the left colon Moderate hemorrhoids on retroflexed exam. Plan: Pt has a FU appointment on 06/19/25 with Shereen Minor NP Repeat Colonoscopy in 3 years if polyps are adenomatous and 10 year if polyps are hyperplastic. FU flexible sigmoidoscopy in 6 months sigmoid polyp shows advanced histology. A summary of above findings and relevant handouts were given to the patient. BIOPSIES SHOWED: A. Stomach, antrum, biopsy: Antral-type mucosa with mild chronic inactive inflammation; no Helicobacter organisms seen. B. Stomach, polypectomy: Clinically polypoid oxyntic mucosa with mild chronic inactive inflammation; no Helicobacter organisms seen. C. Colon, transverse, polypectomy: Colonic mucosa with mild surface hyperplastic changes. D. Colon, descending, polypectomy: Colonic mucosa with mild surface hyperplastic changes. E. Colon, sigmoid at 30 cm, polypectomy: Tubular adenoma; negative for high- grade dysplasia or carcinoma Letter sent to the patient with biopsy results. Patient was placed on the colonoscopy recall list for repeat colonoscopy in 3 years.
[2025-04-07 13:35] VITALS: BP 118/82; PULSE 81; RESP 16; TEMP 36.4; O2SAT 95
[2025-04-07 13:50] VITALS: BP 120/96; PULSE 73; RESP 16; TEMP 36.1; O2SAT 96
[2025-04-07 14:05] VITALS: BP 124/87; PULSE 73; RESP 16; TEMP 36.1; O2SAT 96
== END 2025-04-07 14:47 | disposition home or self-care (01) ==
PROVIDERS: PCP Family Medicine; Visit Provider Internal Medicine Gastroenterology
PROC: (CPT 45385; principal; 2025-04-07 13:50)
DX: Z12.11 Encounter for screening for malignant neoplasm of colon (principal); D12.5 Benign neoplasm of sigmoid colon; K63.5 Polyp of colon; K57.30 Diverticulosis of large intestine without perforation or abscess without bleeding; K64.8 Other hemorrhoids; K59.01 Slow transit constipation; K21.9 Gastro-esophageal reflux disease without esophagitis; K21.01 Gastro-esophageal reflux disease with esophagitis, with bleeding; K29.50 Unspecified chronic gastritis without bleeding; K26.9 Duodenal ulcer, unspecified as acute or chronic, without hemorrhage or perforation; K31.7 Polyp of stomach and duodenum; R10.13 Epigastric pain; R14.0 Abdominal distension (gaseous); C91.10 Chronic lymphocytic leukemia of B-cell type not having achieved remission; E78.5 Hyperlipidemia, unspecified; J45.909 Unspecified asthma, uncomplicated; N40.0 Benign prostatic hyperplasia without lower urinary tract symptoms; I82.90 Acute embolism and thrombosis of unspecified vein; G47.30 Sleep apnea, unspecified; Z79.899 Other long term (current) drug therapy; Z99.89 Dependence on other enabling machines and devices; Z88.6 Allergy status to analgesic agent; Z88.8 Allergy status to other drugs, medicaments and biological substances; Z98.890 Other specified postprocedural states; Z87.891 Personal history of nicotine dependence
CPT/HCPCS: 45385; 45381; 43239; 88305; 88313; 88342; J2704

== ENCOUNTER → 2025-04-07 11:02 | Outpatient (BNV) | payer MEDICAID, SELFPAY | PROVIDERS: PCP Family Medicine; Visit Provider Internal Medicine Gastroenterology | DX: K21.9 Gastro-esophageal reflux disease without esophagitis (principal); K29.70 Gastritis, unspecified, without bleeding; K31.7 Polyp of stomach and duodenum; Z12.11 Encounter for screening for malignant neoplasm of colon; K63.5 Polyp of colon; K57.90 Diverticulosis of intestine, part unspecified, without perforation or abscess without bleeding; K64.8 Other hemorrhoids | CPT/HCPCS: 43239; 45381; 45385 ==

== ENCOUNTER 2025-05-25 07:53 | Outpatient (REF) | payer MEDICAID, SELFPAY ==
--- OUTSIDE RECORDS SUMMARY | 2025-05-25 07:57 | XMS_ITS | Encounter Summary ---
Author Organization [employer] Address [address] [place] [address] Care Team Providers Care Painting Contractor Name Role Phone Izzy Pantoja MD Primary Care Provider [phone] Ilana [employer] Unavailable Encounter Details Date Type Department Care Team (Late st Contact Info) Description 11/04/2024 Orders Only [facility] [address] [place], [place] [phone] Filipe Coburn MD [address] [place], [place] [phone] Social History Tobacco Use Types Packs/Day Years [...] Description 05/30/2025 3:15 PM EST Office Visit [facility] [address] [place] [address] Izzy Pantoja MD [address] [place] [address] 06/21/2025 3:00 PM EST Office Visit [facility] [address] [place] [address] Lee, Kristen, OD [address] [place] [address] documented as of this encounter Visit Diagnoses Not on filedocumented in this encounter Additional Health Concerns Assessment Noted Time PHQ-9 Depression Total Score: 1 07/26/19 25 4:08 PM EST documented as of this encounter Care Teams Painting Contractor Relationship Specialty Start Date End Date Izzy Pantoja MD [address] [place], [place] [phone] PCP - General Family Medicine 03/17/22 Ilana Gaming Community Health Worker 10/26/23 documented as of this encounter
--- OUTSIDE RECORDS SUMMARY | 2025-05-25 07:57 | XMS_ITS | Clinical Summary ---
Author Organization [facility], Address [address] [place] [address] [place] [address] Phone Care Team Providers Care Drum Barker Operator Name Role Phone Izzy Pantoja MD Primary Care Provider [phone] Allergies Active Allergy Reactions Criticality Noted Date [...] 05/20/2018, 07/08/2012, Additional history exists Insurance Medicaid [place] Care Teams Drum Barker Operator Relationship Specialty Start Date End Date Izzy Pantoja MD [address] [place] [address] PCP - General Family Medicine 07/06/24
--- OUTSIDE RECORDS SUMMARY | 2025-05-25 07:57 | XMS_ITS | Data Portability ---
Author Organization [place] [facility], [facility] Address [address] [place] [address] Care Team Providers Care Funeral Service Manager Name Role Phone Unavailable Primary Care Provider Assessment Encounter Date Assessment [...] pathology. We will arrange consult with Dr. Fontaine with repeat audiometric testing at that time. Patient would benefit from left sided amplification and he will consider this. [email or web address] Not available 04/08/2024 15:17:00 08/09/2024 08/09/2024 Patient [...] of his current blood pressure medication regimen. [email or web address] Not available 08/09/2024 15:01:02 Plan of Treatment Reminders Order Date Submit Date Provider Last Modified By Organization Details Last Modified Time Details Appointments None recorded. Lab None recorded. Referral None recorded. Procedures None recorded. Surgeries None recorded. Imaging MRI, brain + internal auditory canal, w/wo contrast - next available. ...IAC protocol 2023 024 [facility] ([facility]), [address], [place], [address], 15:14:22 Medication Orders None recorded. Patient TargetsNo targets recorded. Patient InstructionsNo instructions recorded. Reason for Referral None Reported. Results Created Date Observation Date Name Description Value Unit Range Abnormal Flag Note LastModifiedBy Organization Detail LastModifiedTime 04/12/20 24 audio gram No observ ation record ed. [email or web address] Not Available 03/21 12:02:44 04/20/20 24 04/18/2024 MRI, brain + brain stem, w/wo contr ast [facility] Access ion Number : [id number] Darion rodriguez Name: Brendan Ferrera Record Number : [id number] Date of : 1974 Date of Exam: 2023 Referr ing Physic clinton: Zina Nava [facility] [facility] [address], [address] [facility], [place] [address] Exam: MR Brain (C-/C+ ) CPT 86967 Room Descri ption: [place] GE Pion 3T INDICA TION: Sensor ineura [...] semici rcular canals . The bilate ral education intern al audito ry canals are not [...] . IMPRES GIA: Unrema rkable bilate ral education intern al audito ry canals . No mass or abnorm al enhanc ement. Parana rebecca sinus diseas e as descri bed. Electr onical ly Signed By: Mary Hamilton MD [email or web address] [facility] ([facility] [address], [place], [address], 04/20/2024 16:11:08 04/20/2004/18/2024 MRI, brain + inter nal audit ory canal , w/wo contr ast No observ ation record ed. [facility] ([facility]) [address] [place], [address], 04/21/2024 09:28:36 08/10/19 25 audio gram No observ ation record ed. BARCODE Not Available 2024 13:53:07 02/10/20 25 audio gram No observ ation record ed. BARCODE Not Available 2024 15:57:24 Result Notes Documentation Provider Name and Address Organization Details Recorded Time Mri, Brain + Brain Stem, W/wo Contrast : [facility] [place] Accession Number: [id number] Patient Name: Brendan Ferrera Date of : 1975 Date of Exam: 04-18-2024 Referring Physician: Zina Blake [facility] [address], [address] [place], [place] [address] Exam: MR Brain (C-/C+) CPT 06134 Room Description: [facility] Pion 3T INDICATION: Sensorineural hearing loss, worse on [...] Electronically Signed By: Mary BLAKE PA-C [address] [facility],[address], [address], [facility] 04/20/2024 16:11:08 Problems Name Problem SNOMED Code Status Onset Date Resolution Date Notes Provider Name and Address Organization Details Recorded Time Sensorineur al hearing loss of bilateral ears 853532557 Active 2023 HONORIO BENTON , [facility] [address] [facility],[address], [address], [place] - [facility] 4 13:24:12 Tinnitus of left ear 6604174142083 Active 2023 ZINA BLAKE PA-C [address] [address], [place], [address], [place] - [facility] 4 14:43:22 Dizziness and giddiness 076239223 Active 2023 ZINA BLAKE PA-C [address] [address], [place], [address], [place] - [facility] 4 14:43:26 Meniere's disease of left inner ear 6529323876624 107 Active 2024 TAYLOR FONTAINE MD [address] [address], [place], [address], [place] - [facility] 5 14:58:02 Benign paroxysmal positional vertigo 767653052 Active 2024 TAYLOR FONTAINE MD [address] [address], [place], [address], [place] - [facility] 5 15:39:34 Diplopia 24390867 Active 2024 TAYLOR FONTAINE MD [address] [address], [place], [address], [place] - [facility] 5 15:41:36 Problem Notes None recorded. Procedures Surgical History Date Name Laterality Status Provider Name and Address Organization Details Recorded Time 02/09/2025 Air & Speech Audio with Tymps - 82009, 55491 & 49966 completed ELISEO COX, AUD [address] [facility],[address], [address], [place] - [facility] 02/09/2025 15:18:52 08/09/2024 Comp Audio with Tymps - 53719 & 69514 completed DANI SANCHEZ, AUD 100 [facility],[address], [address], [place] - [facility] 08/09/2024 14:14:08 04/08/2024 Comp Audio with Tymps - 31270 & 41695 completed HONORIO BETNON, AUD [address] [facility],[address] [address], [place], [address], [place] - [facility] 04/08/2024 13:24:03 Imaging Results None recorded. Procedure Notes None recorded. Medical Equipment None Reported. Allergies No known drug allergies Medications Name Sig Start Date Stop Date Status Note LastModified by Organization Details LastModified Time atorvastati n 10 mg tablet Take 1 tablet every day by oral route. active Not Available Not Available No t Available clonazepam 1 mg tablet Take 1 tablet 3 times a day by oral route. active Not Available Not Available No t Available omeprazole 40 mg capsule,del ayed release TAKE 1 CAPSULE (40 MG TOTAL) BY MOUTH IN THE MORNING AND 1 CAPSULE (40 MG TOTAL) IN THE EVENING. active Not Available Not Available No t Available Mapap (acetaminop hen) 500 mg capsule Take 2 capsules every 6 hours by oral route. 02/09 completed Not Available Not Available Not Available Flovent 110 mcg/actuati on aerosol inhaler Inhale 1 puff twice a day by inhalatio n route. active Not Available Not Available No t Available gabapentin 300 mg capsule Take 1 capsule 3 times a day by oral route. active Not Available Not Available No t Available albuterol sulfate active Not Available Not Available Not Available multivitami n active Not Available Not Available Not Available blood pressure test kit-large cuff USE TO CHECK BLOOD PRESSURE DAILY 02/09 completed Not Available Not Available Not Available Vitals Date Recorded Body height Body weight Provider Name and Address Organization Details Last Updated DateTime 08/09/2024 168.91 cm 420976.28 g Shelly Jack [place] - [facility] 08/09/2024 14:31:33 Date Recorded Body height Provider Name an d Address Organization Details Last Updated DateTime 02/09/2025 168.91 cm KRISTINA MITCHELL [place] [facility] 02/09/2025 15:21:48 Date Recorded Body height Body mass index (BMI) Body weight Provider Name and Address Organization Details Last Updated DateTime 04/08/2024 168.91 cm 35.8 kg/m2 192974.28 g Janell Narayanan [place] - [facility] 04/08/2024 13:37:32 Social History None recorded. Functional Status None recorded. Mental Status None recorded. Family History Nothing Reported. Medical History Condition Response Cancer Y Arthritis Y Anxiety Y Depression Y Asthma Y Past Encounters Encounter ID Performer Location Encounter Start Date Encounter Closed Date Diagnosis/Indication Diagnosis SNOMED-CT Code Diagnosis ICD10 Code Diagnosis IMO Codes Diagnosis Note [id number] ZINA BLAKE PA-C [facility] [address] [address] 04/08/2024 12:27:29 04/08/2024 14:25:45 Sensorineural hearing loss of bilateral ears 107395519 H90.3 Audiologic al evaluation results: Right ear: Normal sloping to a mild sensorineu ral hearing loss with excellent word recognitio n. Left ear: Moderately -severe low frequency SNHL rising to mild sloping to severe sensorineu ral hearing loss with excellent word recognitio n. Tympanomet ry: Right Ear:Type A Left Ear:Type A Tinnitus of left ear 788 9443077 106 H93.12 Dizziness and giddiness 202204431 R42 [id number] TAYLOR FONTAINE MD [facility] [address] [address] 08/09/2024 13:47:00 08/09/2024 15:01:35 Sensorineural hearing loss of bilateral ears 315936106 H90.3 Audiologic al evaluation results: 08/09/2024 Right ear: Normal sloping to a mild sensorineu ral hearing loss with excellent word recognitio n. Left ear: Borderline normal sloping to a moderate sensorineu ral hearing loss with excellent word recognitio n. Tympanomet ry: Right Ear:Type Ad Left Ear:Type Ad Tinnitus of left ear 256 1376476 106 H93.12 Meniere's disease of left inner ear 3667061813 324610 H81.02 [id number] TAYLOR FONTAINE MD [facility] [address] [address] 02/09/2025 14:52:10 02/09/2025 15:57:24 Meniere's disease of left inner ear 4964108940 345755 H81.02 Patient with left-sided M ni re's disease. Today we discussed the importance of maintainin g low-sodium diet between 1500 and 2000 mg/day. I suspect that his flareups of tinnitus are related to increased sodium intake. Sensorineu ral hearing loss of bilateral ears 847780071 H90.3 Audiologic al evaluation results: 08/09/2024R ight ear:Normal sloping to a mild sensorineu ral hearing loss with excellent word recognitio n.Left ear:Normal sloping to moderately severe sensorineu ral hearing loss with excellent word recognitio n. Tympanomet ry:Right Ear:Type AdLeft Ear:Type AAudiometr ic testing is overall unchanged in comparison to his last audiogram. Benign par oxysmal positional vertigo 887814544 H81.11 [id number] Patient with episodic positional ly induced vertigo. [place] was positive for vertigo and rotary nystagmus with the head to the right. We discussed that the patient s pattern of symptoms and physical exam findings are most consistent with benign paroxysmal positional vertigo (BPPV). The pathophysi ology of BPPV was discussed in detail. Patient was provided with a referral to [facility] for Ewa maneuvers and vestibular therapy. We discussed the fact that treatment of BPPV can require anywhere from 1 to 6 treatments for successful results, and has approximat laquita 95% success rate in eliminatin g symptoms. BPPV can recur and if the classic positional ly induced symptoms do recur, patient can call for further referrals. Diplopia 83713916 H53.2 [id number] It is not clear that the underlying BPPV or M ni re's disease is the cause of his intermitte nt diplopia. If he continues to have persistent symptoms in this regard, he will contact me and we can refer him for neuro-opht halmologic al evaluation . Health Concerns Section Related Observation LastModified by Organization Detai ls LastModified Time None Recorded Concern Status LastModified by Organization Details LastModified Time None Recorded Advance Directives Directive None Recorded Payers Insurance Date Sequence Insurance Name Policy Number Policy Chirinos Covered Member ID Chirinos Member ID Guarantor Name 02/09/2025 1 [place] [facility] [id number] Brendan Ferrera 02/09/2025 2 [place] [facility] Brendan Ferrera [id number] Brendan Ferrera Notes Date Note Type Note Provider Name and Address Organization Details Recorded Time 04/08/2024 text/html ROS as noted in the HPI 49-year-old male presents for evaluation of hearing [...] loss in her 40s. ZINA BLAKE PA-C [address] [place] [address], [phone], [facility] 04/08/2024 15:19:07 08/09/2024 text/html 49-year-old male [...] as well as chronic lymphocytic leukemia. TAYLOR FONTAINE MD [address] [place] [address],[address], [address], [facility] 08/09/2024 15:01:26 02/09/2025 text/html Patient with left-sided M ni re's disease manifested by fluctuating left-sided tinnitus and episodic dizziness which are short-lived. We discussed the differential diagnosis includes cochlear migraine. At his last visit I recommended low-sodium diet, elimination of caffeine and alcohol and 6-month follow-up. We discussed the pros and cons of initiation of triamterene/hydrochlo rothiazide for treatment in the context of his current blood pressure medication regimenPatient reports that recently he has been getting positionally induced vertigo brought on by laying down in bed, getting out of bed. This only lasts for a few seconds at a time.Patient also reports that occasionally he will be watching television and suddenly he will get diplopia which will last for about 2 seconds, then subside.Patient continues to get intermittent flareups of tinnitus in the left ear. He has not really been following a low-sodium diet as I recommended. TAYLOR FONTAINE MD [address] [place] [address], [phone], [facility] 02/09/2025 15:44:19
--- OUTSIDE RECORDS SUMMARY | 2025-05-25 07:57 | XMS_ITS | Clinical Summary ---
Author Organization [employer] Address [address] [place] [address] Care Team Providers Care Internal Grinding Machine Operator Name Role Phone Izzy Pantoja MD Primary Care Provider [phone] Ilana Gaming Unavailable Allergies Active Allergy Reactions [...] tablet (10 mg) by mouth at bedtime. 90 tablet 3 05/19/20 25 Active atorvastatin (Lipitor) 10 MG tablet Take 1 tablet (10 mg) by mouth at bedtime. 30 tablet 3 01/13/20 25 025 Discontinued(Re order (will not trigger notification to Pharmacy)) Active [...] - following with ENT - Referred to [facility] for Ewa maneuver and vestibular therapy Assessment [...] AM EST): - following with urologist at [facility]. Last seen in November 2023. [place] Upcoming [...] AM EDT): - Previously following with [facility] pulmonology, currently asymptomatic - Most recent CT scan in January 2022 showed no mediastinal lymphadenopathy - No indication for repeat imaging at this time Assessment & Plan (11/22/2024 4:55 PM EDT): - Previously following [facility] currently asymptomatic - Most recent CT scan in January 2022 showed no mediastinal lymphadenopathy - Consider repeating chest CT Assessment & Plan (08/05/2024 11:26 AM EST): - [facility] currently [facility] - Most recent CT scan in January 2022 showed no mediastinal lymphadenopathy Assessment & Plan (12/27/2023 5:27 PM EDT): - Following with [facility], currently asymptomatic - Most recent CT scan in January 2022 showed no mediastinal lymphadenopathy Assessment & Plan (08/15/2022 6:30 PM EST): - Most recent CT scan in January 2022 showed no mediastinal lymphadenopathy Obstructive sleep apnea syndrome 05/29/2021 Assessment & Plan (03/06/2025 8:48 AM EDT): - last sleep study in Apr 2021, Sleep Medicine clinic in [place] - recommended auto-PAP 5-15 cm H2O - patient had a CPAP. - Pt returned machine because poor adherence. Pt reports burning in his nose with CPAP machine. Pt is not interested in trying newer CPAP machine. Assessment & Plan (11/22/2024 4:54 PM EDT): - last sleep study in Apr 2021, Sleep Medicine clinic in [place] - recommended auto-PAP 5-15 cm H2O - patient had a CPAP. - Pt returned machine because poor adherence. Pt reports burning in his nose with CPAP machine. Pt is not interested in trying newer CPAP machine. Assessment & Plan (07/29/2024 5:33 AM EST): - last sleep study in Apr 2021, Sleep Medicine clinic in [place] - recommended auto-PAP 5-15 cm H2O - patient has a CPAP. Will check if patient can have a humidification device, especially during dry season. Assessment & Plan (12/27/2023 5:27 PM EDT): - last sleep study in Apr 2021, Sleep Medicine clinic in [place] - recommended auto-PAP 5-15 cm H2O - patient has a CPAP. Will check if patient can have a humidification device, especially during dry season. Assessment & Plan (08/15/2022 6:36 PM EST): - last sleep study in Apr 2021, Sleep Medicine clinic in [place] - recommended auto-PAP 5-15 cm H2O - [...] to smoking cessation group Consider referral to [facility] Obesity 04/19/2012 Assessment & Plan (08/15/2022 6:41 [...] Avoid irritants, especially smoking Chronic lymphocytic leukemia (CMS/HCC) 2 Assessment & Plan (11/22/2024 4:58 PM EDT): -Dx October 2008 -Oncology, [facility]. Last seen by Dr. Lee in September 2024, annual follow up. -Tx 6 cycles of R-CVP, completed in Jul 2009 -No sign of recurrence Assessment & Plan (07/29/2024 5:34 AM EST): -Dx October 2008 -Oncology, [facility]. Last seen by Dr. Lee in September 2023, annual follow up. -Tx 6 cycles of R-CVP, completed in Jul 2009 -No sign of recurrence Assessment & Plan (12/27/2023 5:33 PM EDT): -Dx October 2008 -Oncology, [facility]. Last seen by Dr. Lee in September [...] Plan (08/15/2022 6:38 PM EST): - current S provider: JEREMIAS - continue judicious and responsible use of gabapentin and clonazepam Encounters Date Type Department Care Team Description 05/23/2025 Travel 05/19/2025 Refill [facility] [address] [place] [address] Izzy Pantoja MD 04/07/2025 Orders Only GENERIC EXTERNAL DATA DEPARTMENT Provider, Generic External Data 03/29/2025 Telephone [facility] [address] [place] [address] Izzy Pantoja MD may recall 02/27/2025 3:15 PM EDT Office Visit [facility] [address] [place] [address] Izzy Pantoja MD Elevated BP without diagnosis of hypertension (Primary Dx); Meniere's disease of left ear; Gastroesophageal reflux disease, unspecified whether esophagitis present; Heartburn; Palpitation; Transaminitis; Obstructive sleep apnea syndrome; Pulmonary sarcoidosis ([facility]/HCC); Moderate persistent asthma without complication 02/27/2025 Travel 02/24/2025 Telephone [facility] [address] [place] [address] Izzy Pantoja MD chart prep from Last 3 Months Immunizations Immunization Administration [...] Description 05/30/2025 3:15 PM EST Office Visit [facility] [address] [place] [address] Izzy Pantoja MD [address] [place] [address] 06/21/2025 3:00 PM EST Office Visit [facility] OPTOMETRY [address] [place] [address] LeeKristen simpson, OD [address] [place] [address] Health Maintenance Due Date Last Done Comments [...] 07/26/2025 07/26/2024, 07/26/19 Diabetes: Hemoglobin A1C 10/31/2025 025, 12/31/2023, 08/11/2022, Additional history exists Alcohol/Substance Use Screening 11/25/2025 11/25/2024 SDOH Screening 11/25/2025 11/25/2024 Tobacco Screening 02/27/2026 02/27/2025 Disability Screening 05/23/2026 05/23/2025 Lipid Panel 10/31/2029 10/31/2024, 12/18, 08/11/2022, Additional [...] Procedure Name Priority Date/Time Associated Diagnosis Comments HEMATOXYLIN AND EOSIN STAIN Routine 04/07/2025 12:55 PM EDT HEMOGLOBIN A1C Routine 10/31/2024 8:00 AM EDT [...] Recently Relevant to Health Maintenance Results * Hematoxylin and Eosin Stain (04/07/2025 12:55 PM EDT) 04/07/2025 12:5 5 PM EDT 04/07/2025 2:31 PM EDT [facility] - 04/10/2025 3:45 PM EDT ----- ------- Name: Brendan Ferrera Age/Sex: 50/M : 1975 Unit#: [id number] Attend Dr: Tova Perera MD Re04/07/25 Status: [facility] Location: [facility] Disch: ----- ------- SPEC : [id number] RECD: 04/07/25-3028 STATUS: LOUISE PINA NUM: [id number] JEFRY: 04/07/25-[address] [facility] [address]: Tova Perera MD ENTERED: 04/07/25-0100 SP TYPE: Surgical OTHR DR: Izzy Pantoja MD ORDERED: HE Stain/15, Gross Micro L4/5, IHC/2, Special st. 2/2, H. pylori/2, AB/PAS/2 Diagnosis A. Stomach, antrum, biopsy: Antral-type mucosa with mild chronic inactive inflammation; no Helicobacter organisms seen. B. Stomach, polypectomy: Clinically polypoid oxyntic mucosa with mild chronic inactive inflammation; no Helicobacter organisms seen. C. Colon, transverse, polypectomy: Colonic mucosa with mild surface hyperplastic changes. D. Colon, descending, polypectomy: Colonic mucosa with mild surface hyperplastic changes. E. Colon, sigmoid at 30 cm, polypectomy: Tubular adenoma; negative for high-grade dysplasia or carcinoma. Clinical History Pre-Op Dx: GERD, screening Post-Op Dx: Gastritis, gastric polyp, colon polyps, diverticulosis, hemorrhoids Microscopic Description A-E. Microscopic sections examined. No metaplastic changes are seen, supported by AB/PAS stains (A and B); no Helicobacter organisms are seen, supported by H. pylori immunostain (A and B). Material Received A. Gastric antrum bx - r/o H. pylori B. Gastric polyp C. Transverse colon polyp D. Descending colon polyp E. Sigmoid colon polyp at 30 cm Gross Description Received in 5 parts. A. Received in formalin labeled gastric antrum biopsy R/0 H pylori are 2 fragments of pink white soft tissue measuring 0.3 and 0.4 cm in greatest dimension which are wrapped in lens paper and entirely submitted for microscopic examination, 2 pieces in cassette A. CONTINUED ON NEXT PAGE ----- ------- Name: Brendan Ferrera Age/Sex: 50/M : 1975 Unit#: [id number] Attend Dr: Tova Perera MD Re04/07/25 Status: [facility] Location: [facility] Disch: ----- ------- SPEC : [id number] RECD: 04/07/25 STATUS: LOUISE PINA NUM: [id number] JEFRY: 04/07/25-[address] [facility] [address]: Tova Perera MD ENTERED: 04/07/25 SP TYPE: Surgical OTHR DR: Izzy Pantoja MD ORDERED: HE Stain/15, Gross Micro L4/5, IHC/2, Special st. 2/2, H. pylori/2, AB/PAS/2 Gross Description (Continued) B. Received in formalin labeled gastric polyp is a fragment of pink white soft tissue measuring 0.3 cm in greatest dimension which is wrapped in lens paper and entirely submitted for microscopic examination, 1 piece in cassette B. C. Received in formalin labeled transverse colon polyp is a fragment of ibarra-white soft tissue measuring 0.3 cm in greatest dimension which is wrapped in lens paper and entirely submitted for microscopic examination, 1 piece in cassette C. D. Received in formalin labeled descending colon polyp is a flattened portion of translucent, ibarra-white soft tissue measuring 0.8 x 0.4 x 0.1 cm which is wrapped in lens paper and entirely submitted for microscopic examination, 1 piece in cassette D. E. Received in formalin labeled sigmoid colon polyp at 30 cm is a pedunculated, polypoid portion of red-pink soft tissue measuring 1.2 x 0.7 x 0.6 cm. The outer surface is smooth and glistening. The base shows an attached stalk measuring 0.3 cm in diameter with a length of 0.2 cm. The base of the stalk is inked blue. The specimen is bisected, wrapped in lens paper, and entirely submitted for microscopic examination, 2 pieces in cassette E. ([facility]) Special studies ordered and performed: Immunostain for H. pylori on A and B; AB/PAS stains on A and B IHC S/NG Disclaimer NOTE: Unless otherwise stated, all tissue is formalin-fixed and paraffin-embedded. Some or all of the immunohistochemical tests reported herein may have been developed and their performance characteristics determined by [facility]. They have not been cleared or approved by the U.S. Food and Drug Administration (FDA). However, the FDA has determined that such clearance or approval is not necessary. This laboratory is certified under the Clinical Laboratory Improvement Amendments of 1988 (CLIA) as qualified to perform high complexity clinical laboratory testing. Copies To: Tova Perera MD [facility] G[facility] Services [address] [place] [phone] Izzy Pantoja MD [address] [address] CONTINUED ON NEXT PAGE ----- ------- Name: Brendan Ferrera Age/Sex: 50/M : 1975 Unit#: [id number] Attend Dr: Tova Perera MD Re04/07/25 Status: [facility] Location: [facility] Disch: ----- ------- SPEC : [id number] RECD: 04/07/25-143 STATUS: LOUISE PINA NUM: [id number] JEFRY: 04/07/25-[address] [facility] [address]: Tova Perera MD ENTERED: 04/07/25-6391 SP TYPE: Surgical OTHR DR: Izzy Pantoja MD ORDERED: HE Stain/15, Gross Micro L4/5, IHC/2, Special st. 2/2, H. pylori/2, AB/PAS/2 ----- ------- Signed (signature on file) Dario Gillette MD 04/10/25 1545 ----- ------- END OF REPORT us Generic External Data Provider LAB BLOOD ORDERAB LES Final Result [facility] [address] [place] [phone] * Lipid Panel with Reflex to Direct LDL (10/31/2024 8:00 AM EDT) Triglycerides 59 <150 mg/dL [facility] Comment:Desirable Triglyceri de: less than 150 mg/dLBorderline High Triglyceride 150-199 mg/dLHigh Triglyceride: 200-499 mg/dLVery High Triglyceride: greater than or equal to 5OO mg/dL Cholesterol 133 <200 mg/dL [facility] Comment:Desirable Cholestero l: less than 200 mg/dLBorderline High Cholesterol: 200-239 mg/dLHigh Cholesterol: greater than 239 mg/dL LDL Cholesterol Calculated 73 <100 mg/dL [facility] Comment:Desirable LDL: less than 100 mg/dLNear Optimal/Above Optimal LDL: 110- 129 mg/dLBorderline High LDL: 130-159 mg/dLHigh LDL: 160-189 mg/dLVery High LDL: greater than or equal to 190 mg/dL HDL Cholesterol 49 >40 mg/dL [facility] Comment:Desirable HDL: great er than 40 mg/dL Note: This HDL assay may give artificially low results in patients with liver disease. 10/31/2024 8:00 AM EDT 10/31/2024 8:05 AM EDT us Generic External Data Provider LAB BLOOD ORDERAB LES Final Result Performing Organization Address [facility]/ZIP Co de Phone Number [facility] [address] [place] [phone] * Hemoglobin A1c (10/31/2024 8:00 AM EDT) Hemoglobin A1c 5.7 <6.0 % [facility] Comment:Hemoglobin A1C Refer ence Range Adults: 4.8 - 6.0 % Non diabetic: < 6.0 % Goal: < 7.0 %Additional Action Suggested: > 8.0 %Note: Hemoglobin A1c results are invalid for patients with abnormal amounts of HbF. Blood transfusions may impact the HbA1c concentration in the patient sample. Estimated Average Glucose 117 mg/dL [facility] Comment:eAG = Estimated ave rage glucose which is %A1C expressed asaverage glucose, using the formula of the O4T-TrulowsFgnirhs Glucose study (ADAG), Diabetes Care, Vol.31,#8,Feb. 2007 Blood Venous blood specimen / Unknown 10/31/2024 8:00 AM EDT 10/31/2024 8:05 AM EDT us Izzy Pantoja MD LAB BLOOD ORDERABLES Final Resul t Performing Organization Address [facility]/ZIP Co de Phone Number [facility] [address] [place] [phone] * HEPATITIS C AB W/REFL TO HCV RNA, QN, PCR (07/01/2021 3:34 PM EST) HEPATITIS C ANTIBODY NON-REACT JIMENEZ NON-REACT JIMENEZ [facility] INDEX 0.02 <1.00 [facility] Comment: HCV antibody was non-reactive. There is no laboratory evidence of HCV infection. In most cases, no further action is required. However, if recent HCV exposure is suspected, a test for HCV RNA (test code 99767) is suggested. For additional information please refer to http://EDUonGo.[employer]/faq/DZK22n7 (This link is being provided for informational/ educational purposes only.) 07/01/2021 3:34 PM EST us Loulou Anthony MOLDED GOODS CONTROLS OPERATOR HISTORICAL/NON ORDERABLE LABS Final Result Performing Organization Address [facility] Phone Number [facility] [address] * HIV 1/2 ANTIGEN/ANTIBODY,FOURTH GENERATION W/RFL (07/01/2021 3:34 PM EST) Pathologist [facility] HIV-1/2 ANTIGEN AND ANTIBODIES, 4TH GENERATION W/ REFLEX NON-REACT JIMENEZ NON-REACT JIMENEZ [facility] Comment: HIV-1 antigen [...] purpose. For additional information please refer to http://EDUonGo.[employer].LiveMinutes/faq/YMI744 (This link is being provided for informational/ educational purposes only.) The performance of this assay has not been clinically validated in patients less than 2 years old. 07/01/2021 3:34 PM EST Loulou Anthony MOLDED GOODS CONTROLS OPERATOR LAB BLOOD ORDERABLES Final Res ult Performing Organization Address [facility] Phone Number [facility] [address] from Last 3 Months or Most Recently Relevant to Health Maintenance Insurance * Guarantor: Brendan Ferrera Account Type Relation to Patient Date of Phone Billing Address Personal/Family Self [address] [place] [phone] [facility] C3 * Guarantor: Brendan Ferrera Account Type Relation to Patient Date of Phone Billing Address Personal/Family Self [address] [place] [phone] * Guarantor: Brendan Ferrera Account Type Relation to Patient Date of Phone Billing Address Personal/Family Self [address] [place] [phone] Care Teams Internal Grinding Machine Operator Relationship Specialty Start Date End Date Izzy Pantoja MD [address] [place] [phone] PCP - General Family Medicine 03/17/22 Ilana Gaming Community Health Worker 10/26/23
--- OUTSIDE RECORDS SUMMARY | 2025-05-25 07:57 | XMS_ITS | Encounter Summary ---
Author Organization [employer] Address [address] [place] [address] Care Team Providers Care Director Of Medical Services Name Role Phone Izzy Pantoja MD Primary Care Provider [phone] Ilana Gaming Unavailable Encounter Details Date Type Department Care Team (Latest Contact Info) Description 05/23/2025 Travel Social History Tobacco Use Types Packs/Day [...] Description 05/30/2025 3:15 PM EST Office Visit [facility] [address] [place] [address] Izzy Pantoja MD [address] [place] [address] 06/21/2025 3:00 PM EST Office Visit [facility] OPTOMETRY [address] [place] [address] Lee, Kristen, OD [address] [place] [address] documented as of this encounter Visit Diagnoses Not on filedocumented in this encounter Additional Health Concerns Assessment Noted Time PHQ-9 Depression Total Score: 1 07/26/19 25 4:08 PM EST documented as of this encounter Care Teams Director Of Medical Services Relationship Specialty Start Date End Date Izzy Pantoja MD [address] [place] [address] PCP - General Family Medicine 03/17/22 Ilana Gaming Community Health Worker 10/26/23 documented as of this encounter
--- OUTSIDE RECORDS SUMMARY | 2025-05-25 07:57 | XMS_ITS | Encounter Summary ---
Author Organization [employer] Address [address] [place] [address] Care Team Providers Care Windows Support Engineer Name Role Phone Izzy Pantoja MD Primary Care Provider [phone] Ilana Gaming Unavailable Tomeka Mclain RN Unavailable Unavailable Encounter Details Date Type Department Care Team (Late st Contact Info) Description 06/03/2022 [facility] [employer] Management [address] [place] [address] Izzy Pantoja MD [address] [place] [address] [phone] Social History Tobacco Use Types Packs/Day Years [...] Description 05/30/2025 3:15 PM EST Office Visit [facility] [address] [place], [place] [phone] Izzy Pantoja MD [address] [place] [address] 06/21/2025 3:00 PM EST Office Visit [facility] [address] [place] [address] [phone] Lee, Kristen, OD [address] [place], [place] [phone] documented as of this encounter Visit Diagnoses Not on filedocumented in this encounter Care Teams Windows Support Engineer Relationship Specialty Start Date End Date Izzy Pantoja MD [address] [place], [place] [phone] PCP - General Family Medicine 03/17/22 Ilana Gaming Community Health Worker 10/26/23 Tomeka Mclain RN Yacht Builder 10/26/23 01/24/24 documented as of this encounter
--- OUTSIDE RECORDS SUMMARY | 2025-05-25 07:57 | XMS_ITS | Encounter Summary ---
Author Organization [employer] Address [address] [place] [address] Care Team Providers Care Thread Weaver Name Role Phone Izzy Pantoja MD Primary Care Provider [phone] Ilana Gaming Unavailable Tomeka Mclain RN Unavailable Unavailable Reason for Visit * Reason Onset Date Comments Referral 08/20/2022 Encounter Details Date Type Department Care Team (Late st Contact Info) Description 08/20/2022 Telephone [facility] [address] [place], [place] [phone] Izzy Pantoja MD [address] [place], [place] [phone] Referral Social History Tobacco Use Types Packs/Day [...] Description 05/30/2025 3:15 PM EST Office Visit [facility] [address] [place] [address] Izzy Pantoja MD [address] [place] [address] 06/21/2025 3:00 PM EST Office Visit [facility] OPTOMETRY [address] [place], [place] [phone] Kristen Howard, OD [address] [place] [address] documented as of this encounter Visit Diagnoses Not on filedocumented in this encounter Care Teams Thread Weaver Relationship Specialty Start Date End Date Izzy Pantoja MD [address] [place] [address] PCP - General Family Medicine 03/17/22 Ilana Gaming Community Health Worker 10/26/23 Tomeka Mclain, MAURIZIO Information Technology Coordinator 10/26/23 01/24/24 documented as of this encounter
--- OUTSIDE RECORDS SUMMARY | 2025-05-25 07:57 | XMS_ITS | Encounter Summary ---
Author Organization [facility], Address [address] [place] [address] Phone Care Team Providers Care Pharmacy Laboratory Technician Name Role Phone Izzy Pantoja MD Primary Care Provider [phone] Encounter Details Date Type Department Care Team (Late st Contact Info) Description 05/20/2022 Documentation Only [facility], [address] [place] [address] Tessa Alejandra PA [address] [place] [address] Social History Tobacco Use Types [...] on filedocumented in this encounter Care Teams Pharmacy Laboratory Technician Relationship Specialty Start Date End Date Izzy Pantoja MD [address] [place] [phone] PCP - General Family Medicine 07/06/24 documented as of this encounter
--- OUTSIDE RECORDS SUMMARY | 2025-05-25 07:57 | XMS_ITS | Encounter Summary ---
Author Organization [employer] Address [address] [place] [address] Care Team Providers Care Vice President Of Advertising Name Role Phone Izzy Pantoja MD Primary Care Provider [phone] Ilana Gaming Unavailable Encounter Details Date Type Department Care Team (Late st Contact Info) Description 11/23/2024 Orders Only [facility] [address] [place], [place] [phone] Izzy Pantoja MD [address] [place], [place] [phone] Immunity status testing (Primary Dx) Social History [...] Description 05/30/2025 3:15 PM EST Office Visit [facility] [address] [place] [address] Izzy Pantoja MD [address] [place] [address] 06/21/2025 3:00 PM EST Office Visit [facility] [address] [place] [address] Lee, Kristen, OD 230 [place] [address] documented as of this encounter Procedures Procedure Name Priority Date/Time Associated Diagnosis Comments MEASLES, MUMPS, AND RUBELLA (MMR) AB (IGG) PANEL, IMMUNE STATUS Routine 11/23/2024 3:32 PM EDT Immunity status testing documented in this encounter Results * Measles, Mumps, and Rubella (MMR) Antibodies??(IgG) Panel, Immune Status (11/23/2024 3:32 PM EDT) Mumps Virus IgG Antibody 87.70 AU/mL [facility] Comment:AU/mL Interpretation ------- <9.00 Not consistent with immunity9.00-10.99 Equivocal>10.99 Consistent with immunityThe presence of mumps IgG antibody suggests immunizationor past or current infection with mumps virus. Rubella IgG Antibody 1.47 Index [facility] Comment:Index Interpretation ----- <0.90 Not consistent with immunity 0.90-0.99 Equivocal > or = 1.00 Consistent with immunityThe presence of rubella IgG antibody suggestsimmunization or past or current infection withrubella virus.THIS TEST WAS PERFORMED AT:[facility] [place] [id number] GUILLAUME MD Rubeola IgG (Measles) 62.60 AU/mL [facility] Comment:AU/mL Interpretation ----- <13.50 Not consistent with upbbrlau59.50-16.49 Equivocal>16.49 Consistent with immunityThe presence of measles IgG suggests immunization orpast or current infection with measles virus.For additional information, please refer tohttp://education.Dynamics/faq/BEW969(This link is being provided for informational/educational purposes only.) Blood 11/23/2024 3:32 PM EDT 11/23/2024 4:09 PM EDT Izzy Pantoja MD LAB BLOOD ORDERABLES Final Resul t [facility] [address] [place] [address] [phone] documented in this encounter Visit Diagnoses Diagnosis Immunity status testing- Primary Antibody response examination documented in this encounter Additional Health Concerns Assessment Noted Time PHQ-9 Depression Total Score: 1 07/26/19 25 4:08 PM EST documented as of this encounter Care Teams Vice President Of Advertising Relationship Specialty Start Date End Date Izzy Pantoja MD [address] [place] [phone] PCP - General Family Medicine 03/17/22 Ilana Gaming Community Health Worker 10/26/23 documented as of this encounter
[2025-05-25 09:00] LABS: Prostate Specific Antigen 1.27 ng/mL (<0.05-4.0)
== END 2025-05-25 07:54 | disposition home or self-care (01) ==
LOC: HO.LAB 07:53
PROVIDERS: PCP Family Medicine; Visit Provider Nurse Practitioner Family
DX: Z12.5 Encounter for screening for malignant neoplasm of prostate (principal)
CPT/HCPCS: 36415; 84153

== ENCOUNTER 2025-05-30 16:11 | Outpatient (REF) | payer MEDICAID, SELFPAY ==
--- OUTSIDE RECORDS SUMMARY | 2025-05-30 15:15 | XMS_ITS | Encounter Summary ---
Author Organization [employer] Address [address] [facility] [place] [address] Care Team Providers Care Director Of Restaurant Operations Name Role Phone Izzy Pantoja MD Primary Care Provider [phone] Ilana Gaming Unavailable Reason for Visit * Reason Comments Follow-up Encounter Details Date Type Department Care Team (Late st Contact Info) Description 05/30/2025 3:15 PM EST Office Visit [facility] [address] [place], [place] [phone] Izzy Pantoja MD [address] [place], [place] [phone] Rash (Primary Dx); Encounter for vaccination; Encounter for immunization; Hypertension, unspecified type Social History Tobacco Use Types Packs/Day Years [...] Sign Reading Time Taken Comments Blood Pressure 138/76 05/30/2025 3:20 PM EST Pulse 97 05/30/2025 3:20 PM EST Temperature 36.2 C (97.2 F) 05/30/2025 3:20 PM EST Respiratory Rate 21 05/30/2025 3:20 PM EST Oxygen Saturation 98% 05/30/2025 3:20 PM EST Inhaled Oxygen Concentration - - Weight 103 kg (226 lb 9.6 oz) 05/30/2025 3:20 PM EST Height 167.6 cm (5' 6 ) 05/30/2025 3:20 PM EST Body Mass Index 36.57 05/30/2025 3:20 PM EST documented in this encounter Plan of Treatment Upcoming Encounters Date Type Department Care Team (Late st Contact Info) Description 06/21/2025 3:00 PM EST Office Visit [facility] OPTOMETRY [address] [place] [address] Kristen Howard, OD [address] [place] [address] Scheduled Orders Name Type Priority Associated Diagnoses Orde r Schedule TSH with Reflex to Free T4 Lab Routine Rash Expected: 05/30/2025 (Approximate), Expires: 05/30/2026 Basic Metabolic Panel Lab Routine Hypertension, unspecified type Expected: 05/30/2025 (Approximate), Expires: 05/30/2026 documented as of this encounter Visit Diagnoses Diagnosis Rash- Primary Rash and other nonspecific skin eruption Encounter for vaccination Encounter for immunization Hypertension, unspecified type documented in this encounter Additional Health Concerns Assessment Noted Time PHQ-9 Depression Total Score: 1 07/26/19 25 4:08 PM EST documented as of this encounter Care Teams Director Of Restaurant Operations Relationship Specialty Start Date End Date Izzy Pantoja MD [address] [place] [id number] PCP - General Family Medicine 03/17/22 Ilana Gaming Community Health Worker 10/26/23 documented as of this encounter
--- OUTSIDE RECORDS SUMMARY | 2025-05-30 17:25 | XMS_ITS | Encounter Summary ---
Author Organization [employer] Address [address] [place] [address] Care Team Providers Care Wedding Coordinator Name Role Phone Izzy Pantoja MD Primary Care Provider [phone] Ilana Gaming Unavailable Encounter Details Date Type Department Care Team (Late st Contact Info) Description 11/04/2024 Orders Only [facility] [address] [place], [place] [phone] Filipe Coburn MD [address] [place], [place] [phone] Social History Tobacco Use Types Packs/Day Years [...] Description 06/21/2025 3:00 PM EST Office Visit [facility] OPTOMETRY [address] [place] [address] Lee, Kristen, OD [address] [place] [address] documented as of this encounter Visit Diagnoses Not on filedocumented in this encounter Additional Health Concerns Assessment Noted Time PHQ-9 Depression Total Score: 1 07/26/19 25 4:08 PM EST documented as of this encounter Care Teams Wedding Coordinator Relationship Specialty Start Date End Date Izzy Pantoja MD [address] [place] [address] PCP - General Family Medicine 03/17/22 Ilana Gaming Community Health Worker 10/26/23 documented as of this encounter
--- OUTSIDE RECORDS SUMMARY | 2025-05-30 17:25 | XMS_ITS | Encounter Summary ---
Author Organization [employer] Address [address] [place] [address] Care Team Providers Care Master Planner Name Role Phone Izzy Pantoja MD Primary Care Provider [phone] Ilana Gaming Unavailable Encounter Details Date Type Department Care Team (Late st Contact Info) Description 05/25/2025 Orders Only GENERIC EXTERNAL DATA DEPARTMENT Provider, [...] Description 06/21/2025 3:00 PM EST Office Visit [facility] [address] [place], [place] [phone] Lee, Kristen, OD [address] [place] [address] documented as of this encounter Procedures Procedure Name Priority Date/Time Associated Diagnosis Comments PSA, TOTAL Routine 05/25/2025 8:05 AM EST documented in this encounter Results * PSA,Total (05/25/2025 8:05 AM EST) Prostate Specific Antigen 1.27 <0.05 - 4.0 ng/mL [facility] Comment:PSA methodology: Saima Crandall i ChemiluminescentMicroparticle Immunoassay (CMIA) 05/25/2025 8:05 AM EST 05/25/2025 8:05 AM EST us Generic External Data Provider LAB BLOOD ORDERAB LES Final Result [facility] [address] [place] [address] [phone] documented in this encounter Visit Diagnoses Not on filedocumented in this encounter Additional Health Concerns Assessment Noted Time PHQ-9 Depression Total Score: 1 07/26/19 25 4:08 PM EST documented as of this encounter Care Teams Master Planner Relationship Specialty Start Date End Date Izzy Pantoja MD [address] [place] [address] PCP - General Family Medicine 03/17/22 Ilana Gaming Community Health Worker 10/26/23 documented as of this encounter
--- OUTSIDE RECORDS SUMMARY | 2025-05-30 17:25 | XMS_ITS | Encounter Summary ---
Author Organization [employer] Address [address] [place] [address] Care Team Providers Care Aerobics Instructor Name Role Phone Izzy Pantoja MD Primary Care Provider [phone] Ilana Gaming Unavailable Tomeka Mclain RN Unavailable Unavailable Reason for Visit * Reason Onset Date Comments Referral 08/20/2022 Encounter Details Date Type Department Care Team (Late st Contact Info) Description 08/20/2022 Telephone [facility] [address] [place], [place] [phone] Izzy Pantoja MD [address] [place], [place] [phone] Referral Social History Tobacco Use Types Packs/Day [...] Description 06/21/2025 3:00 PM EST Office Visit [facility] OPTOMETRY [address] [place], [place] [phone] Kristen Howard, OD [address] [place] [address] documented as of this encounter Visit Diagnoses Not on filedocumented in this encounter Care Teams Aerobics Instructor Relationship Specialty Start Date End Date Izzy Pantoja MD [address] [place], [place] [phone] PCP - General Family Medicine 03/17/22 Ilana Gaming Community Health Worker 10/26/23 Tomeka Mclain, MAURIZIO Milled Lumber Grader 10/26/23 01/24/24 documented as of this encounter
--- OUTSIDE RECORDS SUMMARY | 2025-05-30 17:25 | XMS_ITS | Encounter Summary ---
Author Organization [employer] Address [address] [place] [address] Care Team Providers Care Data Officer Name Role Phone Izzy Pantoja MD Primary Care Provider [phone] Ilana Gaming Unavailable Encounter Details Date Type Department Care Team (Late st Contact Info) Description 11/23/2024 Orders Only [facility] [address] [place], [place] [phone] Izzy Pantoja MD [address] [place], [place] [phone] Immunity status testing (Primary Dx) Social History [...] Description 06/21/2025 3:00 PM EST Office Visit [facility] OPTOMET[facility] [address] [place] [address] Lee, Kristen, OD [address] [place] [address] documented as of this encounter Procedures Procedure Name Priority Date/Time Associated Diagnosis Comments MEASLES, MUMPS, AND RUBELLA (MMR) AB (IGG) PANEL, IMMUNE STATUS Routine 11/23/2024 3:32 PM EDT Immunity status testing documented in this encounter Results * Measles, Mumps, and Rubella (MMR) Antibodies??(IgG) Panel, Immune Status (11/23/2024 3:32 PM EDT) Mumps Virus IgG Antibody 87.70 AU/mL [facility] Comment:AU/mL Interpretation ------- <9.00 Not consistent with immunity9.00-10.99 Equivocal>10.99 Consistent with immunityThe presence of mumps IgG antibody suggests immunizationor past or current infection with mumps virus. Rubella IgG Antibody 1.47 Index [facility] Comment:Index Interpretation ----- <0.90 Not consistent with immunity 0.90-0.99 Equivocal > or = 1.00 Consistent with immunityThe presence of rubella IgG antibody suggestsimmunization or past or current infection withrubella virus.THIS TEST WAS PERFORMED AT:[employer] [place] [id number] GUILLAUME MD Rubeola IgG (Measles) 62.60 AU/mL [facility] Comment:AU/mL Interpretatio n----- <13.50 Not consistent with ixtrhndc29.50-16.49 Equivocal>16.49 Consistent with immunityThe presence of measles IgG suggests immunization orpast or current infection with measles virus.For additional information, please refer tohttp://education.Asthmatracker/faq/LFU269(This link is being provided for informational/educational purposes only.) Blood 11/23/2024 3:32 PM EDT 11/23/2024 4:09 PM EDT us Izzy Pantoja MD LAB BLOOD ORDERABLES Final Resul t [facility] [address] [place] [address] [phone] documented in this encounter Visit Diagnoses Diagnosis Immunity status testing- Primary Antibody response examination documented in this encounter Additional Health Concerns Assessment Noted Time PHQ-9 Depression Total Score: 1 07/26/19 25 4:08 PM EST documented as of this encounter Care Teams Data Officer Relationship Specialty Start Date End Date Izzy Pantoja MD [address] [place] [phone] PCP - General Family Medicine 03/17/22 Ilana Gaming Community Health Worker 10/26/23 documented as of this encounter
--- OUTSIDE RECORDS SUMMARY | 2025-05-30 17:25 | XMS_ITS | Data Portability ---
Author Organization [place] - [facility], Allergy Address [address] [place] [address] Care Team Providers Care Chemical Test Engineer Name Role Phone Unavailable Primary Care Provider [phone] Assessment Encounter Date Assessment Date Assessment LastModified [...] sided amplification and he will consider this. [email or web address] Not available 04/08/2024 15:17:00 08/09/2024 08/09/2024 Patient [...] - next available. ...IAC protocol 2023 024 [facility] ([facility]), [address], [place], [address], 15:14:22 Medication Orders None recorded. Patient TargetsNo targets recorded. Patient InstructionsNo instructions recorded. Reason for Referral None Reported. Results Created Date Observation Date Name Description Value Unit Range Abnormal Flag Note LastModifiedBy Organization Detail LastModifiedTime 04/12/20 24 audio gram No observ ation record ed. [email or web address] Not Available 03/21 12:02:44 04/20/20 24 04/18/2024 MRI, brain + brain stem, w/wo contr ast [facility] Access ion Number : [id number] Darion rodriguez Name: Brendan Ferrera Record Number : [id number] Date of : 1974 Date of Exam: 2023 Referr ing Physic cl[place]: Zina Nava [facility] [place] [facility] [address], [address] [facility] [address] Exam: MR Brain (C-/C+ ) CPT 92120 Room Descri ption: [place] GE Pion 3T INDICA TION: Sensor ineura [...] semici rcular canals . The bilate ral analysis intern al audito ry canals are not [...] . IMPRES GIA: Unrema rkable bilate ral analysis intern al audito ry canals . No mass or abnorm al enhanc ement. Parana rebecca sinus diseas e as descri bed. Electr onical ly Signed By: Mary Hamilton MD [email or web address] [facility] ([facility]) [address], [place], [address], 04/20/2024 16:11:08 04/20/2004/18/2024 MRI, brain + inter nal audit ory canal , w/wo contr ast No observ ation record ed. [email or web address] [facility] ([facility]) [address] [place], [address], 04/21/2024 09:28:36 08/10/19 25 audio gram No observ ation record ed. BARCODE Not Available 2024 13:53:07 02/10/20 25 audio gram No observ ation record ed. BARCODE Not Available 2024 15:57:24 Result Notes Documentation Provider Name and Address Organization Details Recorded Time Mri, Brain + Brain Stem, W/wo Contrast : [facility] [place] Accession Number: [id number] Patient Name: Brendan Ferrera Date of : 1975 Date of Exam: 04-18-2024 Referring Physician: Zina Blake [facility] [address] [facility], [address] [place], [place] [address] Exam: MR Brain (C-/C+) CPT 17517 Room Description: [facility] Pion 3T INDICATION: Sensorineural hearing [...] Electronically Signed By: Mary BLAKE PA-C 100 [facility],[address], [address], [facility] - [facility] 04/20/2024 16:11:08 Problems Name Problem SNOMED Code Status Onset Date Resolution Date Notes Provider Name and Address Organization Details Recorded Time Sensorineur al hearing loss of bilateral ears 753526083 Active 2023 HONORIO BENTON , [facility] 100 [facility],[address], [address], [place] - [facility] [place] 4 13:24:12 Tinnitus of left ear 0931115864051 Active 2023 ZINA BLAKE PA-C [address] [address], [place], [address], [place] - [facility] [place] 4 14:43:22 Dizziness and giddiness 184182904 Active 2023 ZINA BLAKE PA-C [address] [address], [place], [address], [place] - [facility] [place] 4 14:43:26 Meniere's disease of left inner ear 1336021261792 107 Active 2024 TAYLOR FONTAINE MD [address] [address], [place], [address], [place] - [facility] [place] 5 14:58:02 Benign paroxysmal positional vertigo 962378465 Active 2024 TAYLOR FONTAINE MD [address] [address], [place], [address], [place] - [facility] [place] 5 15:39:34 Diplopia 00509299 Active 2024 TAYLOR FONTAINE MD [address] [address], [place], [address], [place] - [facility] [place] 5 15:41:36 Problem Notes None recorded. Procedures Surgical History Date Name Laterality Status Provider Name and Address Organization Details Recorded Time 02/09/2025 Air & Speech Audio with Tymps - 31137, 38251 & 02171 completed ELISEO COX, AUD 100 [facility],[address], [address], [place] - [facility] [place] 02/09/2025 15:18:52 08/09/2024 Comp Audio with Tymps - 28078 & 06277 completed DANI SANCHEZ, AUD 100 [facility],[address], [address], [place] - [facility] [place] 08/09/2024 14:14:08 04/08/2024 Comp Audio with Tymps - 14715 & 47644 completed HONORIO BENTON, AUD 100 [facility],[address] [address], [place], [address], [place] - [facility] 04/08/2024 13:24:03 Imaging Results None recorded. Procedure [...] Details Last Updated DateTime 08/09/2024 168.91 cm 148406.28 g Shelly Jack [place] - [facility] [place] 08/09/2024 14:31:33 Date Recorded Body height Provider Name an d Address Organization Details Last Updated DateTime 02/09/2025 168.91 cm KRISTINA MITCHELL [place] [facility] [place] 02/09/2025 15:21:48 Date Recorded Body height Body mass index (BMI) Body weight Provider Name and Address Organization Details Last Updated DateTime 04/08/2024 168.91 cm 35.8 kg/m2 256460.28 g Janell Narayanan [place] - [facility] 04/08/2024 13:37:32 Social History None recorded. Functional Status None recorded. Mental Status None recorded. Family History Nothing Reported. Medical History Condition Response Cancer Y Arthritis Y Anxiety Y Depression Y Asthma Y Past Encounters Encounter ID Performer Location Encounter Start Date Encounter Closed Date Diagnosis/Indication Diagnosis SNOMED-CT Code Diagnosis ICD10 Code Diagnosis IMO Codes Diagnosis Note [id number] ZINA BLAKE PA-C [facility] [address] [address] 04/08/2024 12:27:29 04/08/2024 14:25:45 Sensorineural hearing loss of bilateral ears 196613892 H90.3 Audiologic al evaluation results: Right ear: Normal sloping to a mild sensorineu ral hearing loss with excellent word recognitio n. Left ear: Moderately -severe low frequency SNHL rising to mild sloping to severe sensorineu ral hearing loss with excellent word recognitio n. Tympanomet ry: Right Ear:Type A Left Ear:Type A Tinnitus of left ear 807 5136635 106 H93.12 Dizziness and giddiness 512217192 R42 [id number] TAYLOR FONTAINE MD [facility] [address] [address] 08/09/2024 13:47:00 08/09/2024 15:01:35 Sensorineural hearing loss of bilateral ears 298560280 H90.3 Audiologic al evaluation results: 08/09/2024 Right ear: Normal sloping to a mild sensorineu ral hearing loss with excellent word recognitio n. Left ear: Borderline normal sloping to a moderate sensorineu ral hearing loss with excellent word recognitio n. Tympanomet ry: Right Ear:Type Ad Left Ear:Type Ad Tinnitus of left ear 160 1725128 106 H93.12 Meniere's disease of left inner ear 6039424273 296658 H81.02 [id number] TAYLOR FONTAINE MD [facility] [address] [address] 02/09/2025 14:52:10 02/09/2025 15:57:24 Meniere's disease of left inner ear 3108291083 611248 H81.02 Patient with left-sided M ni re's disease. Today we discussed the importance of maintainin g low-sodium diet between 1500 and 2000 mg/day. I suspect that his flareups of tinnitus are related to increased sodium intake. Sensorineu ral hearing loss of bilateral ears 559795261 H90.3 Audiologic al evaluation results: 08/09/2024R ight ear:Normal sloping to a mild sensorineu ral hearing loss with excellent word recognitio n.Left ear:Normal sloping to moderately severe sensorineu ral hearing loss with excellent word recognitio n. Tympanomet ry:Right Ear:Type AdLeft Ear:Type AAudiometr ic testing is overall unchanged in comparison to his last audiogram. Benign par oxysmal positional vertigo 574211480 H81.11 [id number] Patient with episodic positional ly induced vertigo. [place] was positive for vertigo and rotary [...] patient can call for further referrals. Diplopia 95098674 H53.2 [id number] It is not clear that the underlying [...] Chirinos Member ID Guarantor Name 02/09/2025 1 [place] [facility] Brendan Ferrera [id number] Brendan Ferrera 02/09/2025 2 [place] [facility] PLAN Brendan Ferrera [id number] Brendan Ferrera Notes Date Note Type Note [...] loss in her 40s. ZINA BLAKE PA-C [address] [place] [address], [address], [facility] - [facility] 04/08/2024 15:19:07 08/09/2024 text/html 49-year-old male [...] as chronic lymphocytic leukemia. TAYLOR FONTAINE MD [address] [place] [address],[address], [address], [facility] - [facility] 08/09/2024 15:01:26 02/09/2025 text/html Patient with left-sided [...] diet as I recommended. TAYLOR FONTAINE MD [address] [place] [address], [address], [facility] - [facility] 02/09/2025 15:44:19
--- OUTSIDE RECORDS SUMMARY | 2025-05-30 17:25 | XMS_ITS | Encounter Summary ---
Author Organization [employer] Address [address] [place] [address] Care Team Providers Care Research Chemist Name Role Phone Izzy Pantoja MD Primary Care Provider [phone] Ilana Gaming Unavailable Encounter Details Date Type Department Care Team (Latest Contact Info) Description 05/30/2025 Travel Social History Tobacco Use Types Packs/Day [...] Description 06/21/2025 3:00 PM EST Office Visit [facility] [address] [place], [place] [phone] Kristen Howard, OD [address] [place] [address] documented as of this encounter Visit Diagnoses Not on filedocumented in this encounter Additional Health Concerns Assessment Noted Time PHQ-9 Depression Total Score: 1 07/26/19 25 4:08 PM EST documented as of this encounter Care Teams Research Chemist Relationship Specialty Start Date End Date Izzy Pantoja MD [address] [place], [place] [phone] PCP - General Family Medicine 03/17/22 Ilana Gaming Community Health Worker 10/26/23 documented as of this encounter
--- OUTSIDE RECORDS SUMMARY | 2025-05-30 17:25 | XMS_ITS | Clinical Summary ---
Author Organization [employer] Address [address] [place] [address] Care Team Providers Care Mint Wafer Depositor Name Role Phone Izzy Pantoja MD Primary Care Provider [phone] Ilana Gaming Unavailable Allergies Active Allergy Reactions [...] bedtime. 90 tablet 3 05/19/20 25 Active clobetasol (Temovate) 0.05 % ointment Apply topically 2 times daily. 45 g 1 05/30/20 25 Active predniSONE (Deltasone) 20 MG tablet Take 1 tablet (20 mg) by mouth Once per day for 5 days. 5 tablet 05/30/20 25 025 Active olmesartan (Benicar) 20 MG tablet Take 1/2 tablet by mouth once daily 45 tablet 3 05/30/20 25 Active atorvastatin (Lipitor) 10 MG tablet [...] AM EST): - following with urologist at [facility]. Last seen in November 2023. [place] Upcoming [...] 8:48 AM EDT): - Previously following with [facility] pulmonology, currently asymptomatic - Most recent CT scan in January 2022 showed no mediastinal lymphadenopathy - No indication for repeat imaging at this time Assessment & Plan (11/22/2024 4:55 PM EDT): - Previously following with [facility] pulmonology, currently asymptomatic - Most recent CT scan in January 2022 showed no mediastinal lymphadenopathy - Consider repeating chest CT Assessment & Plan (08/05/2024 11:26 AM EST): - Following with [facility] pulmonology, currently asymptomatic - Most recent CT scan in January 2022 showed no mediastinal lymphadenopathy Assessment & Plan (12/27/2023 5:27 PM EDT): - Following with [facility] pulmonology, currently asymptomatic - Most recent CT scan in January 2022 showed no mediastinal lymphadenopathy Assessment & Plan (08/15/2022 6:30 PM EST): - Most recent CT scan in January 2022 showed no mediastinal lymphadenopathy Obstructive sleep apnea syndrome 05/29/2021 Assessment & Plan (03/06/2025 8:48 AM EDT): - last sleep study in Apr 2021, Sleep Medicine clinic in [place] - recommended auto-PAP 5-15 cm H2O - patient had a CPAP. - Pt returned machine because poor adherence. Pt reports burning in his nose with CPAP machine. Pt is not interested in trying newer CPAP machine. Assessment & Plan (11/22/2024 4:54 PM EDT): - last sleep study in Apr 2021, Sleep Medicine clinic in [place] - recommended auto-PAP 5-15 cm H2O - patient had a CPAP. - Pt returned machine because poor adherence. Pt reports burning in his nose with CPAP machine. Pt is not interested in trying newer CPAP machine. Assessment & Plan (07/29/2024 5:33 AM EST): - last sleep study in Apr 2021, Sleep Medicine clinic in [place] - recommended auto-PAP 5-15 cm H2O - patient has a CPAP. Will check if patient can have a humidification device, especially during dry season. Assessment & Plan (12/27/2023 5:27 PM EDT): - last sleep study in Apr 2021, Sleep Medicine clinic in [place] - recommended auto-PAP 5-15 cm H2O - patient has a CPAP. Will check if patient can have a humidification device, especially during dry season. Assessment & Plan (08/15/2022 6:36 PM EST): - last sleep study in Apr 2021, Sleep Medicine clinic in [place] - recommended auto-PAP 5-15 cm H2O - [...] 4:58 PM EDT): -Dx October 2008 -Oncology, [facility]. Last seen by Dr. Lee in September 2024, annual follow up. 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 Last seen by Dr. Lee in September 2023, annual follow up. 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 Last seen by Dr. Lee in September [...] Plan (08/15/2022 6:38 PM EST): - current [facility] provider: [facility] - continue judicious and responsible use of gabapentin and clonazepam Encounters Date Type Department Care Team Description 05/30/2025 3:15 PM EST Office Visit [facility] MEDICINE [address] [place] [phone] Izzy Pantoja MD Rash (Primary Dx); Encounter for vaccination; Encounter for immunization; Hypertension, unspecified type 05/30/2025 Travel 05/29/[address] [address] Izzy Pantoja MD chartprep 05/25/2025 Orders Only GENERIC EXTERNAL DATA DEPARTMENT Provider, Generic External Data 05/23/2025 Travel 05/19/2025 Refill [facility] PED[facility] [address] [place], [place] [phone] Izzy Pantoja MD 04/07/2025 Orders Only GENERIC EXTERNAL DATA DEPARTMENT Provider, Generic External Data 03/29/2025 Telephone [facility] MEDICINE [address] [place] [address] Izzy Pantoja MD november 02/27/2025 3:15 PM EDT Office Visit [address] [address] Izzy Pantoja MD Elevated BP without diagnosis of hypertension (Primary Dx); Meniere's disease of left ear; Gastroesophageal reflux disease, unspecified whether esophagitis present; Heartburn; Palpitation; Transaminitis; Obstructive sleep apnea syndrome; Pulmonary sarcoidosis ([facility]); Moderate persistent asthma without complication 02/27/2025 Travel from Last 3 Months Immunizations Immunization Administration Dates Next Due Hep B, adult 02/10/2019,03/07/2009,01/10/2009 Influenza injectable quadriv alent IIV4 with preservative 08/27/2017,05/07/2016 Influenza injectable quadriv alent preservative free 05/12/2022,04/15/2021,04/18/2020,06/01,04/02/2015 Influenza, IIV3, injectable 06/05/2011 Influenza, Split (incl. alex fied surface antigen) 04/19/2012 Influenza, seasonal, injecta ble, preservative free 05/30/2025,07/26/2024 Moderna Covid-19 Vaccine 6+ Bivalent 08/11/2022 Pfizer Covid-19 Vaccine 12+ 05/30/2025, 5,12/24/2023 Pneumococcal Conjugate PCV 20 08/11/2022 Pneumococcal Polysaccharide [...] Mass Index 36.57 05/30/2025 3:20 PM EST Plan of Treatment Upcoming Encounters Date Type Department Care Team (Late st Contact Info) Description 06/21/2025 3:00 PM EST Office Visit [facility] OPTOMETRY [address] [place] [address] Lee, Kristen, OD [address] [place] [address] Health Maintenance Due Date Last Done Comments CT Colonography 1975 Colonoscopy 1975 Colorectal Cancer Screening 1975 FIT DNA/Cologuard 1975 FIT 1975 FOBT 1975 Sigmoidoscopy 1975 Family Planning (PISQ) 01/05/1991 Zoster Vaccines (1 of 2) 01/05/1995 COVID-19 Vaccine ( season) 2025 05/30/2025, 07/26/2024, 12/24/2023, Additional history exists Depression Screening 07/26/2025 07/26/2024, 01/07/20 25 Diabetes: Hemoglobin A1C 10/31/2025 025, 12/31/2023, 08/11/2022, [...] 07/08/2012, Additional history exists Influenza Vaccine Completed 05/30/2025, , 05/12/2022, Additional history exists HIB Vaccines Aged Out [...] PSA, TOTAL Routine 05/25/2025 8:05 AM EST HEMATOXYLIN AND EOSIN STAIN Routine 04/07/2025 12:55 [...] Recently Relevant to Health Maintenance Results * PSA,Total (05/25/2025 8:05 AM EST) Prostate Specific Antigen 1.27 <0.05 - 4.0 ng/mL [facility] Comment:PSA methodology: Abb clementine Crandall i ChemiluminescentMicroparticle Immunoassay (CMIA) 05/25/2025 8:05 AM EST 05/25/2025 8:05 AM EST us Generic External Data Provider LAB BLOOD ORDERAB LES Final Result [facility] [address] [place] [phone] * Hematoxylin and Eosin Stain (04/07/2025 12:55 PM EDT) 04/07/2025 12:5 5 PM EDT 04/07/2025 2:31 PM EDT Narrative [facility] - 04/10/2025 3:45 PM EDT ----- ------- Name: Brendan Ferrera Age/Sex: 50/M [facility] 1975 [id number] [id number] Attend Dr: Tova Perera MD Re04/07/25 Status: [facility] Location: [facility] Disch: ----- ------- SPEC : [id number] RECD: 04/07/25-143 STATUS: LOUISE PINA NUM: [id number] JEFRY: 04/07/25-1255 [facility] DR: Tova Perera MD ENTERED: 04/07/25-1446 SP TYPE: Surgical OTHR DR: Izzy Pantoja [...] CONTINUED ON NEXT PAGE ----- ------- Name: IbanShaw Age/Sex: 50/M : 1975 Unit#: [id number] Attend Dr: Tova Perera MD Re04/07/25 Status: [facility] Location: [facility] Disch: ----- ------- SPEC : [id number] RECD: 04/07/25 STATUS: LOUISE PINA NUM: [id number] JEFRY: 04/07/25-1255 [facility] DR: Tova Perera MD ENTERED: 04/07/255112 SP TYPE: Surgical OTHR DR: Izzy Pantoja [...] microscopic examination, 2 pieces in cassette E. ([facility]) Special studies ordered and performed: Immunostain for H. pylori on A and B; AB/PAS stains on A and B IHC S/NG Disclaimer NOTE: Unless otherwise stated, all tissue is formalin-fixed and paraffin-embedded. Some or all of the immunohistochemical tests reported herein may have been developed and their performance characteristics determined by [facility]. They have not been cleared or approved by the U.S. Food and Drug Administration (FDA). However, the FDA has determined that such clearance or approval is not necessary. This laboratory is certified under the Clinical Laboratory Improvement Amendments of 1988 (CLIA) as qualified to perform high complexity clinical laboratory testing. Copies To: Tova Perera MD [facility] [address] [place] [phone] Izzy Pantoja MD [address] [phone] CONTINUED ON NEXT PAGE ----- ------- Name: Brendan Ferrera Age/Sex: 50/M : 1975 Unit#: [id number] Attend Dr: Tova Perera MD Re04/07/25 Status: [facility] Location: [facility] Disch: ----- ------- SPEC : [id number] RECD: 04/07/25-143 STATUS: LOUISE PINA NUM: [id number] JEFRY: 04/07/25-1255 [facility] DR: Tova Perera MD ENTERED: 04/07/25-3071 SP TYPE: Surgical OTHR DR: Izzy Pantoja MD ORDERED: HE Stain/15, Gross Micro L4/5, IHC/2, Special st. 2/2, H. pylori/2, AB/PAS/2 ----- ------- Signed (signature on file) Dario Gillette MD 04/10/25 [id number] ----- ------- END OF REPORT Generic External Data Provider LAB BLOOD ORDERAB LES Final Result Performing Organization Address [facility]/ZIP Co de Phone Number [facility] [address] [place] [address] [phone] * Lipid Panel with Reflex to Direct LDL (10/31/2024 8:00 AM EDT) Triglycerides 59 <150 mg/dL [facility] Comment:Desirable Triglyceri de: less than 150 mg/dLBorderline High Triglyceride 150-199 mg/dLHigh Triglyceride: 200-499 mg/dLVery High Triglyceride: greater than or equal to 5OO mg/dL Cholesterol 133 <200 mg/dL [facility] Comment:Desirable Cholestero l: less than 200 mg/dLBorderline High Cholesterol: 200-239 mg/dLHigh Cholesterol: greater than 239 mg/dL LDL Cholesterol Calculated 73 <100 mg/dL [facility] Comment:Desirable LDL: less than 100 mg/dLNear Optimal/Above Optimal LDL: 110- 129 mg/dLBorderline High LDL: 130-159 mg/dLHigh LDL: 160-189 mg/dLVery High LDL: greater than or equal to 190 mg/dL HDL Cholesterol 49 >40 mg/dL [facility] Comment:Desirable HDL: great er than 40 mg/dL Note: This HDL assay may give artificially low results in patients with liver disease. 10/31/2024 8:00 AM EDT 10/31/2024 8:05 AM EDT us Generic External Data Provider LAB BLOOD ORDERAB LES Final Result Performing Organization Address City/[facility]/ZIP Co de Phone Number [facility] [address] [place] [address] [phone] * Hemoglobin A1c (10/31/2024 8:00 AM EDT) Hemoglobin A1c 5.7 <6.0 % [facility] Comment:Hemoglobin A1C Refer ence Range Adults: 4.8 - 6.0 % Non diabetic: < 6.0 % Goal: < 7.0 %Additional Action Suggested: > 8.0 %Note: Hemoglobin A1c results are invalid for patients with abnormal amounts of HbF. Blood transfusions may impact the HbA1c concentration in the patient sample. Estimated Average Glucose 117 mg/dL [facility] Comment:eAG = Estimated ave rage glucose which is %A1C expressed asaverage glucose, using the formula of the N9M-LnebmzxVbojend Glucose study (ADAG), Diabetes Care, Vol.31,#8,Feb. 2007 Blood Venous blood specimen / Unknown 10/31/2024 8:00 AM EDT 10/31/2024 8:05 AM EDT Izzy Pantoja MD LAB BLOOD ORDERABLES Final Resul t Performing Organization Address [facility]/ZIP Co de Phone Number [facility] [address] [place] [address] [phone] * HEPATITIS C AB W/REFL TO HCV RNA, QN, PCR (07/01/2021 3:34 PM EST) Pathologist [facility] HEPATITIS C ANTIBODY NON-REACT JIMENEZ NON-REACT JIMENEZ [facility] INDEX 0.02 <1.00 [facility] Comment: HCV antibody was non-reactive. There is no laboratory evidence of HCV infection. In most cases, no further action is required. However, if recent HCV exposure is suspected, a test for HCV RNA (test code 50027) is suggested. For additional information please refer to http://education.Cannonball.M[employer] Media/faq/OTO73u0 (This link is being provided for informational/ educational purposes only.) 07/01/2021 3:34 PM EST Loulou [facility] HISTORICAL/NON ORDERABLE LABS Final Result Performing Organization Address City/[facility]/ZIP Co de Phone Number [facility] [address] * HIV 1/2 ANTIGEN/ANTIBODY,FOURTH GENERATION W/RFL (07/01/2021 3:34 PM EST) HIV-1/2 ANTIGEN AND ANTIBODIES, 4TH GENERATION W/ REFLEX NON-REACT JIMENEZ NON-REACT JIMENEZ [facility] Comment: HIV-1 antigen and HIV-1/HIV-2 [...] purpose. For additional information please refer to http://education.Real Intent/faq/WLE333 (This link is being provided for informational/ educational purposes only.) The performance of this assay has not been clinically validated in patients less than 2 years old. 07/01/2021 3:34 PM EST us Loulou Cruz [facility] LAB BLOOD ORDERABLES Final Res ult [facility] [address] from Last 3 Months or Most Recently Relevant to Health Maintenance Insurance C3 Care Teams Mint Wafer Depositor Relationship Specialty Start Date End Date Izzy Pantoja MD [address] [place] [phone] PCP - General Family Medicine 03/17/22 Ilana Gaming Community Health Worker 10/26/23
--- OUTSIDE RECORDS SUMMARY | 2025-05-30 17:25 | XMS_ITS | Encounter Summary ---
Author Organization [employer] Address [address] [facility] [address] [address] Care Team Providers Care Grain Buyer Name Role Phone Izzy Pantoja MD Primary Care Provider [phone] Ilana Gaming Unavailable Tomeka Mclain RN Unavailable Unavailable Encounter Details Date Type Department Care Team (Late Contact Info) Description 06/03/2022 [facility] [employer] [address] [place] [address] Izzy Pantoja MD [address] [place] [address] Social History Tobacco Use Types Packs/Day Years [...] Encounters Date Type Department Care Team (Late Contact Info) Description 06/21/2025 3:00 PM EST Office Visit [facility] OPTOMETRY [address] [place] [address] Kristen Howard, OD [address] [place] [address] documented as of this encounter Visit Diagnoses Not on filedocumented in this encounter Care Teams Grain Buyer Relationship Specialty Start Date End Date Izzy Pantoja MD [address] [place] [address] PCP - General Family Medicine 03/17/22 Ilana Gaming Community Health Worker 10/26/23 Tomeka Mclain RN [facility] 10/26/23 01/24/24 documented as of this encounter
--- OUTSIDE RECORDS SUMMARY | 2025-05-30 17:25 | XMS_ITS | Encounter Summary ---
Author Organization [employer] Address [address] [place] [address] Care Team Providers Care Structures Assembler Name Role Phone Izzy Pantoja MD Primary Care Provider [phone] Ilana Gaming Unavailable Reason for Visit * Reason Onset Date Comments chartprep 05/29/2025 Encounter Details Date Type Department Care Team (Late st Contact Info) Description 05/29/2025 Telephone [facility] MEDICINE [address] [place], [place] [phone] Izzy Pantoja MD [address] [place], [place] [phone] chartprep Social History Tobacco Use Types Packs/Day [...] Telephone Encounter - Cornelia Mccrary [place] - 05/29/2025 2:35 PM EST ..Chart Prep Labs: not done Images: not done XR chest Vaccines due: Covid Due, Flu Due, and Shingles in pharmacy Due Referrals: Pulmonology appointment pending Screenings: Colonoscopy Overdue care gaps: None documented in this encounter Plan of Treatment Upcoming Encounters Date Type Department Care Team (Late st Contact Info) Description 06/21/2025 3:00 PM EST Office Visit [facility] OPTOMETRY [address] [place] [address] Lee, Kristen, OD [address] [place] [address] documented as of this encounter Visit Diagnoses Not on filedocumented in this encounter Additional Health Concerns Assessment Noted Time PHQ-9 Depression Total Score: 1 07/26/19 25 4:08 PM EST documented as of this encounter Care Teams Structures Assembler Relationship Specialty Start Date End Date Izzy Pantoja MD [address] [place] [address] PCP - General Family Medicine 03/17/22 Ilana Gaming Community Health Worker 10/26/23 documented as of this encounter
[2025-05-30 17:31] LABS: MANUAL DIFF FLAG NO
[2025-05-30 17:48] LABS: Hematocrit 47.6 % (42.0-52.0); Hemoglobin 15.9 g/dl (14.0-18.0); Imm Gran Abs Auto 0.04 X10*3/uL (0.00-0.03); Imm Gran Pct Auto 0.5 % (0.0-0.4); Lymphocytes Absolute Auto 1.5 X10*3/uL (1.2-4.9); Mean Corpuscular HGB Conc 33.4 g/dl (31.0-36.0); Mean Corpuscular Hemoglobin 28.6 pg (27.0-33.0); Mean Corpuscular Volume 85.6 fL (80.0-98.0); NRBC Abs Auto 0.000 X10*3/uL (0.0-0.012); NRBC Pct Auto 0.0 /100WBC (0.0-0.2); Platelet Count 263 X10*3/uL (160-400); Red Blood Count 5.56 X10*6/uL (4.60-5.80); White Blood Count 8.5 X10*3/uL (4.8-10.8)
[2025-05-30 18:20] LABS: Alanine Aminotransferase 61 U/L (0-40); Albumin Level 4.6 g/dL (3.5-5.0); Alkaline Phosphatase 133 U/L (39-117); Anion Gap 11 (12-20); Aspartate Amino Transferase 35 U/L (5-37); Blood Urea Nitrogen 10 mg/dL (9-16); Calcium 9.0 mg/dL (8.4-10.2); Carbon Dioxide 28 mmol/L (22-29); Chloride 107 mmol/L (96-108); Estimated Glomerular Filt Rate > 60; Potassium 4.3 mmol/L (3.3-5.1); Sodium 142 mmol/L (135-145); Total Protein 7.4 g/dL (6.5-8.0)
== END 2025-05-30 16:12 | disposition home or self-care (01) ==
LOC: HO.HHCL 16:11
PROVIDERS: PCP Family Medicine; Visit Provider Family Medicine
DX: R74.01 Elevation of levels of liver transaminase levels (principal); R21 Rash and other nonspecific skin eruption; I10 Essential (primary) hypertension
CPT/HCPCS: 36415; 80048; 80076; 84443; 85025

== ENCOUNTER 2025-06-01 15:30 | Outpatient (AMB) | payer MEDICAID, SELFPAY ==
--- OUTSIDE RECORDS SUMMARY | 2025-05-30 15:15 | XMS_ITS | Encounter Summary ---
Author Organization [employer] Address [address] [place] [address] Care Team Providers Care Family Medicine Physician Name Role Phone Izzy Pantoja MD Primary Care Provider [phone] Ilana Gaming Unavailable Reason for Visit * Reason Comments Follow-up Encounter Details Date Type Department Care Team (Late st Contact Info) Description 05/30/2025 3:15 PM EST Office Visit [facility] [address] [place], [place] [phone] Izzy Pantoja MD [address] [place], [place] [phone] Rash (Primary Dx); Encounter for vaccination; Encounter [...] Description 06/21/2025 3:00 PM EST Office Visit [facility] OPTOMETRY [address] [place] [address] Kristen Howard, OD [address] [place] [address] documented as of this encounter Procedures Procedure Name Priority Date/Time Associated Diagnosis Comments TSH W/REFLEX TO FT4 Routine 05/30/2025 4 :16 PM EST Rash BASIC METABOLIC PANEL Routine 05/30/2025 4:16 PM EST Hypertension, unspecified type documented in this encounter Results * (ABNORMAL) Basic Metabolic Panel (05/30/2025 4:16 PM EST) Sodium 142 135 - 145 mmol/L [facility] Potassium 4.3 3.3 - 5.1 mmol/L [facility] Chloride 107 96 - 108 mmol/L [facility] Carbon Dioxide 28 22 - 29 mmol/L [facility] Anion Gap 11(L) 12 - 20 [facility] Urea Nitrogen (BUN) 10 9 - 16 mg/dL [facility] Creatinine, Serum 0.77 0.5 - 1.4 mg/dL [facility] Estimated Glomerular Filt Rate >60 [facility] Comment:Chronic Kidney Disea se: Estimated GFR < 60 mL/min/1.32n3Uqqanf Kidney Disease: Estimated GFR < 15 mL/min/1.73m2 Glucose 95 60 - 115 mg/dL [facility] Calcium 9.0 8.4 - 10.2 mg/dL [facility] Blood Venous blood specimen / Unknown 05/30/2025 4:16 PM EST 05/30/2025 5:28 PM EST Izzy Pantoja MD LAB BLOOD ORDERABLES Final Resul t [facility] [address] [place] [phone] * TSH with Reflex to Free T4 (05/30/2025 4:16 PM EST) TSH reflex Free T4 1.43 0.32 - 4.0 uIU/mL [facility] Blood 05/30/2025 4:16 PM EST 05/30/2025 5:28 PM EST Izzy Pantoja MD LAB BLOOD ORDERABLES Final Resul t [facility] [address] [place] [address] [phone] documented in this encounter Visit Diagnoses Diagnosis Rash- Primary Rash and other nonspecific skin eruption Encounter for vaccination Encounter for immunization Hypertension, unspecified type documented in this encounter Additional Health Concerns Assessment Noted Time PHQ-9 Depression Total Score: 1 07/26/19 25 4:08 PM EST documented as of this encounter Care Teams Family Medicine Physician Relationship Specialty Start Date End Date Izzy Pantoja MD [address] [place] [address] PCP - General Family Medicine 03/17/22 Ilana Gaming Community Health Worker 10/26/23 documented as of this encounter
--- NOTE | 2025-06-01 15:32 | A.OFFVIS_ITS ---
Intake Visit Reasons: 6M follow up Intake Note: Patient is present for 6M F/U Urology Medication:NONE Antibiotic Allergy:NONE Blood Thinner:NONE Back Tender Paper Machine Required: No Allergies allantoin (From BLISTEX) Allergy (Unknown, Verified 06/01/25 21:23) LIP SWELLING homosalate (From BLISTEX) Allergy (Unknown, Verified 06/01/25 21:23) LIP SWELLING menthol (From BLISTEX) Allergy (Unknown, Verified 06/01/25 21:23) LIP SWELLING octinoxate (From BLISTEX) Allergy (Unknown, Verified 06/01/25 21:23) LIP SWELLING octyl salicylate (From BLISTEX) Allergy (Unknown, Verified 06/01/25 21:23) LIP SWELLING oxybenzone (From BLISTEX) Allergy (Unknown, Verified 06/01/25 21:23) LIP SWELLING padimate O (From BLISTEX) Allergy (Unknown, Verified 06/01/25 21:23) LIP SWELLING sodium chloride Allergy (Unknown, Verified 06/01/25 21:23) GUM SWELLING TO TABLE SALT ibuprofen (IBUPROFEN) Adverse Reaction (Unknown, Verified 06/01/25 21:23) STOMACH UPSET Medication List - Last Reconciled 06/01/25 by VIJI De La Cruz- atorvastatin 10 mg PO BEDTIME blood pressure test kit-large As directed clonazepam 1 tab PO DAILY PRN esomeprazole magnesium 40 mg PO DAILY fluticasone propionate 110 mcg/actuation (Flovent HFA) 2 puffs inhalation BID fluticasone propionate 50 mcg/actuation 1 spray intranasal BID gabapentin 3 caps PO BEDTIME levocetirizine (24HR Allergy Relief) 1 tab PO QPM sennosides (senna) 17.2 mg (2 x 8.6 mg) PO BEDTIME sucralfate 1 g PO BEDTIME HPI Comments Details: Brendan is a very pleasant 50-year-old male patient of Dr. Pantoja. He has a past medical history of BPH, hyperlipidemia, sleep apnea, acid reflux, anxiety, asthma, and B-cell chronic lymphatic leukemia. He presents to the [facility] today for follow-up. Of note, patient underwent GreenLight laser procedure with Dr. Lopez 12/10. In discussion with the patient today he reports he has been doing and feeling well. He does report noting episodes of nocturia up to 3 times per night. When asked he does report a history of sleep apnea and is noncompliant with his CPAP. We did discussed correlation of sleep apnea and nocturia. In office urinalysis results reviewed with the patient today. PSAs are as follows: 11/09 2.9, 09/12 2.0, 08/12 0.8, 06/13 1.3 When asked he denies urinary urgency, urinary frequency, incontinence, jacquelyn turia, dysuria, foul smelling urine, changes to urinary stream, flank pain, fever, and or chills. He does discuss having recently followed up with his PCP for bilateral upper extremity pruritus he has been experiencing. He otherwise offers no other issues or concerns at this time. [facility] Medical History Sarcoidosis BPH (benign prostatic hyperplasia) Hyperlipidemia Sleep apnea Thrombosis Acid reflux Anxiety History of asthma B-cell chronic lymphocytic leukemia Surgical History History of prostate surgery (~11/2023) History of bronchoscopy Family History Mother Liver cirrhosis Family/Other Thyroid cancer Breast cancer Social History Household Members: Family Household Members Other:: father Housing: Apartment Do you presently have visiting nurse or other home services: No Alcohol intake: current Alcohol intake frequency: holidays/special occasions only Patient Tobacco Use Status: Former Tobacco user Tobacco use type: Cigarette Years Smoked: 18 Second Hand Smoke Exposure: No service: No Current occupational status: employed Review of Systems Const All systems reviewed & are unremarkable except as noted in HPI and below Reports as per HPI Eyes Reports no additional complaints ENT Reports no additional complaints Card Reports no additional complaints Resp Reports no additional complaints GI Reports no additional complaints Reports as per HPI Musc Reports no additional complaints Neuro Reports no additional complaints Psych Reports no additional complaints Endo Reports no additional complaints Jacquelyn/Lymph Reports as per HPI Aller/Immun Reports no additional complaints Physical Exam Const General: cooperative, healthy appearing, comfortable, no acute distress, well developed, alert and awake Orientation/consciousness: patient oriented x3 Limitations: no limitations HEENT Head: Yes normal to inspection, Yes normocephalic and Yes atraumatic Ears: hearing grossly normal bilaterally Eyes General: appearance normal, both eyes and all related structures Neck Neck: Yes normal visual inspection and Yes trachea midline Chest Chest palpation & inspection: normal inspection of the chest Resp Effort & Inspection: normal respiratory effort and able to speak in complete sentences Cardio Rate: regular rate GI Inspection: Yes normal to inspection Rectal Exam - Male: Yes deferred General: Yes no CVA tenderness Back/Spine/Pelvis Back: no CVA tenderness Skin General skin exam: no rashes or lesions noted Neuro General: patient oriented x3 Extrem General: Yes normal to inspection Psych Appearance: grossly normal and well kempt Mental Status: mental status grossly normal Speech and movement: Normal speech and movement present and Clear speech present Affect: normal affect Attitude: cooperative Thought process: Normal thought process present Thought content: Normal thought content present Insight: Fair insight present (Psych) Judgement: Fair judgement present (Psych) Results AMB Urinalysis, Automated UA Leukoctes 0 Ciara/uL Last Edit by Madelaine Lopez [facility] on 06/01/25 15:51 UA Nitrite Negative Last Edit by Madelaine Lopez [facility] on 06/01/25 15:51 UA Urobilinogen 0.2 mg/dL Last Edit by Madelaine Lopez [facility] on 06/01/25 15:5 1 UA Protein 0 mg/dL Last Edit by Madelaine Lopez [facility] on 06/01/25 15:51 UA pH 7.0 Last Edit by Madelaine Lopez [facility] on 06/01/25 15:51 UA Blood 0 Phuc/uL Last Edit by Madelaine Lopez [facility] on 06/01/25 15:51 UA Specific [place] 1.010 Last Edit by Madelaine Lopez [facility] on 06/01/25 15: 51 UA Ketone Negative Last Edit by Madelaine Lopez [facility] on 06/01/25 15:51 UA Bilirubin 0 mg/dL Last Edit by Madelaine Lopez [facility] on 06/01/25 15:51 UA Glucose 0 mg/dL Last Edit by Madelaine Lopez [facility] on 06/01/25 15:51 Results Reviewed Results Reviewed: Laboratory Last Values Urine pH (Auto) 7.0 06/01/25 15:51 Specific [place] (Auto) 1.010 06/01/25 15:51 Urine Protein (Auto) 0 mg/dL 06/01/25 15:51 Glucose (UA)(Auto) 0 mg/dL 06/01/25 15:51 Urine Ketones (Auto) Negative 06/01/25 15:51 Urine Blood (Auto) 0 Phuc/uL 06/01/25 15:51 Urine Nitrite (Auto) Negative 06/01/25 15:51 Urine Bilirubin (Auto) 0 mg/dL 06/01/25 15:51 Urine Urobilinogen (Auto) 0.2 mg/dL 06/01/25 15:51 Leukocyte Esterase (Auto) 0 Ciara/uL 06/01/25 15:51 Assessment & Plan Assessment & Plan (1) Nocturia: Code(s): R35.1 - Nocturia Category: Medical (2) Weak urinary stream: Code(s): R39.12 - Poor urinary stream Category: Medical (3) Bladder outlet obstruction: Code(s): N32.0 - Bladder-neck obstruction Category: Medical (4) Enlarged prostate: Code(s): N40.0 - Benign prostatic hyperplasia without lower urinary tract symptoms Category: Medical (5) Elevated PSA: Code(s): R97.20 - Elevated prostate specific antigen [PSA] Category: Medical Plan In office urinalysis results with the patient today; as noted above. Most recent PSA results reviewed with the patient today; as noted above. We discussed the importance of limiting fluids 2-3 hours prior to bed to decrease episodes of nocturia. We discussed the importance of compliance with CPAP in relation to sleep apnea as well as nocturia. All questions were answered. Follow-up in 6 months with [facility]; or sooner with any issues, concerns, and or questions. Orders: Orders Prostate Specific Antigen 05/25/25 Z12.5 - Encounter for screening for dolly gnant neoplasm of prostate AMB Urinalysis Automated Today Z13.9 - Encounter for screening, unspecified Patient Instructions: The patient had an opportunity to ask questions regarding the treatment plan. All questions were answered. Physical exam, labs, and imaging were discussed and reviewed in detail. As well as risks, benefits, and discussion of treatment choices. No major barriers to understanding were identified. The patient expressed understanding and agreement with the above treatment plan. The patient was made aware they should contact our office by phone for worsening of their current condition, the appearance of new symptoms, or with any questions or concerns. Compliance is encouraged with any medications and follow up testing that is ordered. It is a privilege to be allowed the opportunity to participate in? your urological care.? Again, if you have any questions or concerns If you have any questions or concerns please do not hesitate to contact me. The office is [phone]. This note is constructed using voice recognition software. While every effort has been made to ensure accuracy guest services lead errors may have been included. Yours sincerely, MIKE De La Cruz Coding Level of Care Code Est Pt Level 3 (06889) Complex EM visit Add On G2211 Diagnoses Nocturia R35.1 Weak urinary stream R39.12 Bladder outlet obstruction N32.0 Enlarged prostate N40.0 Elevated PSA R97.20
--- OUTSIDE RECORDS SUMMARY | 2025-06-01 18:31 | XMS_ITS | Encounter Summary ---
Author Organization [employer] Address [address], [place] [address] Care Team Providers Care Stereo Equipment Installer Name Role Phone Izzy Pantoja MD Primary Care Provider [phone] Ilana Gaming Unavailable Tomeka Mclain RN Unavailable Unavailable Encounter Details Date Type Department Care Team (Late Contact Info) Description 06/03/2022 [facility] Surgical Information Management [address] [place] [address] Izzy Pantoja MD [address] [place] [address] Social History Tobacco Use Types Packs/Day Years [...] 06/21/2025 3:00 PM EST Office Visit [facility] [address] [place] [address] Kristen Howard, OD [address] [place] [address] documented as of this encounter Visit Diagnoses Not on filedocumented in this encounter Care Teams Stereo Equipment Installer Relationship Specialty Start Date End Date Izzy Pantoja MD [address] [place] [address] PCP - General Family Medicine 03/17/22 Ilana Gaming Community Health Worker 10/26/23 Tomeka Mclain RN Chalk Cutter 10/26/23 01/24/24 documented as of this encounter
--- OUTSIDE RECORDS SUMMARY | 2025-06-01 18:31 | XMS_ITS | Encounter Summary ---
Author Organization [employer] Address [address] [place] [address] Care Team Providers Care Egg Factory Worker Name Role Phone Izzy Pantoja MD Primary Care Provider [phone] Ilana Gaming Unavailable Encounter Details Date Type Department Care Team (Late st Contact Info) Description 11/04/2024 Orders Only [facility] [address] [place], [place] [phone] Filipe Coburn MD [address] [place], [place] [phone] Social History Tobacco Use Types Packs/Day Years [...] Description 06/21/2025 3:00 PM EST Office Visit [facility] [address] [place] [address] Lee, Kristen, OD [address] [place] [address] documented as of this encounter Visit Diagnoses Not on filedocumented in this encounter Additional Health Concerns Assessment Noted Time PHQ-9 Depression Total Score: 1 07/26/19 25 4:08 PM EST documented as of this encounter Care Teams Egg Factory Worker Relationship Specialty Start Date End Date Izzy Pantoja MD [address] [place] [address] PCP - General Family Medicine 03/17/22 Ilana Gaming Community Health Worker 10/26/23 documented as of this encounter
--- OUTSIDE RECORDS SUMMARY | 2025-06-01 18:31 | XMS_ITS | Encounter Summary ---
Author Organization [employer] Address [address] [place] [address] Care Team Providers Care Quill Machine Tender Name Role Phone Izzy Pantoja MD Primary Care Provider [phone] Ilana Gaming Unavailable Encounter Details Date Type [...] Description 06/21/2025 3:00 PM EST Office Visit [facility] [address] [place], [place] [phone] Kristen Howard, OD [address] [place] [address] documented as of this encounter Visit Diagnoses Not on filedocumented in this encounter Additional Health Concerns Assessment Noted Time PHQ-9 Depression Total Score: 1 07/26/19 25 4:08 PM EST documented as of this encounter Care Teams Quill Machine Tender Relationship Specialty Start Date End Date Izzy Pantoja MD [address] [place], [place] [phone] PCP - General Family Medicine 03/17/22 Ilana Gaming Community Health Worker 10/26/23 documented as of this encounter
--- OUTSIDE RECORDS SUMMARY | 2025-06-01 18:31 | XMS_ITS | Encounter Summary ---
Author Organization [employer] Address [address] [place] [address] Care Team Providers Care Apn Name Role Phone Izzy Pantoja MD Primary Care Provider [phone] Ilana Gaming Unavailable Tomeka Mclain RN Unavailable Unavailable Reason for Visit * Reason Onset Date Comments Referral 08/20/2022 Encounter Details Date Type Department Care Team (Late st Contact Info) Description 08/20/2022 Telephone [facility] [address] [place], [place] [phone] Izzy Pantoja MD [address] [place], [place] [phone] Referral Social History Tobacco Use Types Packs/Day [...] Description 06/21/2025 3:00 PM EST Office Visit [facility] OPTOMETRY [address] [place], [place] [phone] Kristen Howard, OD [address] [place] [address] documented as of this encounter Visit Diagnoses Not on filedocumented in this encounter Care Teams Apn Relationship Specialty Start Date End Date Izzy Pantoja MD [address] [place], [place] [phone] PCP - General Family Medicine 03/17/22 Ilana Gaming Community Health Worker 10/26/23 Tomeka Mclain, MAURIZIO Automatic Developer 10/26/23 01/24/24 documented as of this encounter
--- OUTSIDE RECORDS SUMMARY | 2025-06-01 18:31 | XMS_ITS | Encounter Summary ---
Author Organization [employer] Address [address] [place] [address] Care Team Providers Care Data Analytics Chief Scientist Name Role Phone Izzy Pantoja MD Primary Care Provider [phone] Ilana Gaming Unavailable Encounter Details Date Type Department Care Team ([facility] st Contact Info) Description 05/31/2025 Results Follow-Up [facility] [address] [place], [place] [phone] Izzy Pantoja MD [address] [place], [place] [phone] CBC auto differential, Hepatic Function Panel Social History Tobacco Use Types Packs/Day Years [...] 3:00 PM EST Office Visit [facility] OPTOMETRY [address] [place], [place] [phone] Lee, Kristen, OD [address] [place] [address] documented as of this encounter Visit Diagnoses Not on filedocumented in this encounter Additional Health Concerns Assessment Noted Time PHQ-9 Depression Total Score: 1 07/26/19 25 4:08 PM EST documented as of this encounter Care Teams Data Analytics Chief Scientist Relationship Specialty Start Date End Date Izzy Pantoja MD [address] [place] [address] PCP - General Family Medicine 03/17/22 Ilana Gaming Community Health Worker 10/26/23 documented as of this encounter
--- OUTSIDE RECORDS SUMMARY | 2025-06-01 18:32 | XMS_ITS | Data Portability ---
Author Organization [place] [facility], Allergy Address [address] [place] [address] Care Team Providers Care Chief Deputy Name Role Phone Unavailable Primary Care Provider [...] sided amplification and he will consider this. [email or web address] Not available 04/08/2024 15:17:00 08/09/2024 08/09/2024 Patient [...] of his current blood pressure medication regimen. [email or web address] Not available 08/09/2024 15:01:02 Plan of Treatment Reminders Order Date Submit Date Provider Last Modified By Organization Details Last Modified Time Details Appointments None recorded. Lab None recorded. Referral None recorded. Procedures None recorded. Surgeries None recorded. Imaging MRI, brain + internal auditory canal, w/wo contrast - next available. ...IAC protocol 2023 024 [facility] ([facility]), [address], [place], [address], 15:14:22 Medication Orders None recorded. Patient TargetsNo targets recorded. Patient InstructionsNo instructions recorded. Reason for Referral None Reported. Results Created Date Observation Date Name Description Value Unit Range Abnormal Flag Note LastModifiedBy Organization Detail LastModifiedTime 04/12/20 24 audio gram No observ ation record ed. [email or web address] Not Available 03/21 12:02:44 04/20/20 24 04/18/2024 MRI, brain + brain stem, w/wo contr ast [facility] Access ion Number : [id number] Darion rodriguez Name: Brendan Ferrera Record Number : [id number] Date of : 1974 Date of Exam: 2023 Referr ing Physic clinton: Zina Nava [facility] [place] [facility] [address], [address] [facility], [place] [address] Exam: MR Brain (C-/C+ ) CPT 15030 Room Descri ption: [facility] GE Pion 3T INDICA TION: Sensor ineura [...] canals . The bilate ral internet sales manager al audito ry canals are not [...] GIA: Unrema rkable bilate ral internet sales manager al audito ry canals . No mass or abnorm al enhanc ement. Parana rebecca sinus diseas e as descri bed. Electr onical ly Signed By: Mary Hamilton MD [email or web address] [facility] ([facility]) [address], [place], [address], 04/20/2024 16:11:08 04/20/2004/18/2024 MRI, brain + inter nal audit ory canal , w/wo contr ast No observ ation record ed. [email or web address] [facility] ([facility]) [address] [place], [address], 04/21/2024 09:28:36 08/10/19 25 audio gram No observ ation record ed. BARCODE Not Available 2024 13:53:07 02/10/20 25 audio gram No observ ation record ed. BARCODE Not Available 2024 15:57:24 Result Notes Documentation Provider Name and Address Organization Details Recorded Time Mri, Brain + Brain Stem, W/wo Contrast : [facility] [place] Accession Number: [id number] Patient Name: Brendan Ferrera Date of : 1975 Date of Exam: 04-18-2024 Referring Physician: Zina Blake [facility] [address] [address], [address] [place], [place] [address] Exam: MR Brain (C-/C+) CPT 14902 Room Description: [facility] Pion 3T INDICATION: Sensorineural hearing loss, worse [...] Electronically Signed By: Mary BLAKE PA-C [address] [facility],[address], [address], [facility] - [facility] 04/20/2024 16:11:08 Problems Name Problem SNOMED Code Status Onset Date Resolution Date Notes Provider Name and Address Organization Details Recorded Time Sensorineur al hearing loss of bilateral ears 790681004 Active 2023 HONORIO BENTON , [facility] [address] [facility],[address], [address], [place] - [facility] [place] 4 13:24:12 Tinnitus of left ear 3107783036477 Active 2023 ZINA BLAKE PA-C [address] [address], [place], [address], [place] - [facility] [place] 4 14:43:22 Dizziness and giddiness 068443188 Active 2023 ZINA BLAKE PA-C [address] [address], [place], [address], [place] - [facility] [place] 4 14:43:26 Meniere's disease of left inner ear 4628068633568 107 Active 2024 TAYLOR FONTAINE MD [address] [address], [place], [address], [place] - [facility] [place] 5 14:58:02 Benign paroxysmal positional vertigo 739289926 Active 2024 TAYLOR FONTAINE MD [address] [address], [place], [address], [place] - [facility] [place] 5 15:39:34 Diplopia 88594698 Active 2024 TAYLOR FONTAINE MD [address] [address], [place], [address], [place] [facility] [place] 5 15:41:36 Problem Notes None recorded. Procedures Surgical History Date Name Laterality Status Provider Name and Address Organization Details Recorded Time 02/09/2025 Air & Speech Audio with Tymps - 58997, 97997 & 76784 completed ELISEO COX, AUD [address] [facility],[address], [address], [place] - [facility] [place] 02/09/2025 15:18:52 08/09/2024 Comp Audio with Tymps - 02543 & 41294 completed DANI SANCHEZ, AUD [address] [facility],[address], [address], [place] - [facility] [place] [place] 08/09/2024 14:14:08 04/08/2024 Comp Audio with Tymps - 46535 & 06308 completed HONORIO BENTON, AUD [address] [facility],[address] [address], [place], [address], [place] - [facility] [place] [place] 04/08/2024 13:24:03 Imaging Results None recorded. Procedure [...] Details Last Updated DateTime 08/09/2024 168.91 cm 027816.28 g Shelly Jack [place] - [facility] [place] 08/09/2024 14:31:33 Date Recorded Body height Provider Name an d Address Organization Details Last Updated DateTime 02/09/2025 168.91 cm KRISTINA MITCHELL [place] [facility] [place] 02/09/2025 15:21:48 Date Recorded Body height Body mass index (BMI) Body weight Provider Name and Address Organization Details Last Updated DateTime 04/08/2024 168.91 cm 35.8 kg/m2 268646.28 g Janell Narayanan [place] - [facility] 04/08/2024 13:37:32 Social History None recorded. Functional Status None recorded. Mental Status None recorded. Family History Nothing Reported. Medical History Condition Response Cancer Y Arthritis Y Anxiety Y Depression Y Asthma Y Past Encounters Encounter ID Performer Location Encounter Start Date Encounter Closed Date Diagnosis/Indication Diagnosis SNOMED-CT Code Diagnosis ICD10 Code Diagnosis IMO Codes Diagnosis Note [id number] ZINA BLAKE PA-C [facility] [address] [address] 04/08/2024 12:27:29 04/08/2024 14:25:45 Sensorineural hearing loss of bilateral ears 878045429 H90.3 Audiologic al evaluation results: Right ear: Normal sloping to a mild sensorineu ral hearing loss with excellent word recognitio n. Left ear: Moderately -severe low frequency SNHL rising to mild sloping to severe sensorineu ral hearing loss with excellent word recognitio n. Tympanomet ry: Right Ear:Type A Left Ear:Type A Tinnitus of left ear 227 1638760 106 H93.12 Dizziness and giddiness 258083560 R42 [id number] TAYLOR FONTAINE MD [facility] [address] [address] 08/09/2024 13:47:00 08/09/2024 15:01:35 Sensorineural hearing loss of bilateral ears 741682741 H90.3 Audiologic al evaluation results: 08/09/2024 Right ear: Normal sloping to a mild sensorineu ral hearing loss with excellent word recognitio n. Left ear: Borderline normal sloping to a moderate sensorineu ral hearing loss with excellent word recognitio n. Tympanomet ry: Right Ear:Type Ad Left Ear:Type Ad Tinnitus of left ear 833 6000292 106 H93.12 Meniere's disease of left inner ear 0246634101 326494 H81.02 [id number] TAYLOR FONTAINE MD [facility] [address] [address] 02/09/2025 14:52:10 02/09/2025 15:57:24 Meniere's disease of left inner ear 5039427959 675890 H81.02 Patient with left-sided M ni re's disease. Today we discussed the importance of maintainin g low-sodium diet between 1500 and 2000 mg/day. I suspect that his flareups of tinnitus are related to increased sodium intake. Sensorineu ral hearing loss of bilateral ears 266562793 H90.3 Audiologic al evaluation results: 08/09/2024R ight ear:Normal sloping to a mild sensorineu ral hearing loss with excellent word recognitio n.Left ear:Normal sloping to moderately severe sensorineu ral hearing loss with excellent word recognitio n. Tympanomet ry:Right Ear:Type AdLeft Ear:Type AAudiometr ic testing is overall unchanged in comparison to his last audiogram. Benign par oxysmal positional vertigo 436170425 H81.11 [id number] Patient with episodic positional ly induced vertigo. Supai-Hallpi ke was positive for vertigo and rotary [...] patient can call for further referrals. Diplopia 84166233 H53.2 [id number] It is not clear that the underlying [...] Chirinos Member ID Guarantor Name 02/09/2025 1 [place]: [facility] Brendan Ferrera [id number] Brendan Ferrera 02/09/2025 2 [place]: [facility] PLAN Brendan Ferrera [id number] Brendan Ferrera Notes Date Note Type Note [...] loss in her 40s. ZINA BLAKE PA-C [address] [place] [address], [address], [facility] - [facility] 04/08/2024 15:19:07 08/09/2024 text/html 49-year-old male [...] as chronic lymphocytic leukemia. TAYLOR FONTAINE MD [address] [place] [address],[address], [address], [facility] - [facility] 08/09/2024 15:01:26 02/09/2025 text/html Patient with [...] diet as I recommended. TAYLOR FONTAINE MD [address] [place] [address], [address], [facility] - [facility] 02/09/2025 15:44:19
--- OUTSIDE RECORDS SUMMARY | 2025-06-01 18:32 | XMS_ITS | Encounter Summary ---
Author Organization [employer] Address [address] [place] [address] Care Team Providers Care [employer] Capture Power Plant Engineer Name Role Phone Izzy Pantoja MD Primary Care Provider [phone] [employer] Unavailable Reason for Visit * Reason Onset Date Comments chartprep 05/29/2025 Encounter Details Date Type Department Care Team (Late st Contact Info) Description 05/29/2025 Telephone [facility] [address] [place], [place] [phone] Izzy Pantoja MD [address] [place], [place] [phone] chartprep Social History Tobacco Use Types Packs/Day [...] Description 06/21/2025 3:00 PM EST Office Visit [facility] OPTOMETRY [address] [place] [address] Lee, Kristen, OD [address] [place] [address] documented as of this encounter Visit Diagnoses Not on filedocumented in this encounter Additional Health Concerns Assessment Noted Time PHQ-9 Depression Total Score: 1 07/26/19 25 4:08 PM EST documented as of this encounter Care Teams [employer] Engineer Relationship Specialty Start Date End Date Izzy Pantoja MD [address] [place] [address] PCP - General Family Medicine 03/17/22 Ilana [employer] Community Health Worker 10/26/23 documented as of this encounter
--- OUTSIDE RECORDS SUMMARY | 2025-06-01 18:32 | XMS_ITS | Clinical Summary ---
Author Organization [employer] Address [address] [place] [address] Care Team Providers Care Operations Welder Name Role Phone Izzy Pantoja MD Primary Care Provider [phone] Ilana Gaming Unavailable Allergies Active Allergy Reactions [...] AM EST): - following with urologist at [facility]. Last seen in November 2023. [place] Upcoming [...] 8:48 AM EDT): - Previously following with [facility] pulmonology, currently asymptomatic - Most recent CT scan in January 2022 showed no mediastinal lymphadenopathy - No indication for repeat imaging at this time Assessment & Plan (11/22/2024 4:55 PM EDT): - Previously following with [facility] pulmonology, currently asymptomatic - Most recent CT scan in January 2022 showed no mediastinal lymphadenopathy - Consider repeating chest CT Assessment & Plan (08/05/2024 11:26 AM EST): - Following with [facility] pulmonology, currently asymptomatic - Most recent CT scan in January 2022 showed no mediastinal lymphadenopathy Assessment & Plan (12/27/2023 5:27 PM EDT): - Following with [facility] pulmonology, currently asymptomatic - Most recent CT scan in January 2022 showed no mediastinal lymphadenopathy Assessment & Plan (08/15/2022 6:30 PM EST): - Most recent CT scan in January 2022 showed no mediastinal lymphadenopathy Obstructive sleep apnea syndrome 05/29/2021 Assessment & Plan (03/06/2025 8:48 AM EDT): - last sleep study in Apr 2021, Sleep Medicine clinic in [place] - recommended auto-PAP 5-15 cm H2O - patient had a CPAP. - Pt returned machine because poor adherence. Pt reports burning in his nose with CPAP machine. Pt is not interested in trying newer CPAP machine. Assessment & Plan (11/22/2024 4:54 PM EDT): - last sleep study in Apr 2021, Sleep Medicine clinic in [place] - recommended auto-PAP 5-15 cm H2O - patient had a CPAP. - Pt returned machine because poor adherence. Pt reports burning in his nose with CPAP machine. Pt is not interested in trying newer CPAP machine. Assessment & Plan (07/29/2024 5:33 AM EST): - last sleep study in Apr 2021, Sleep Medicine clinic in [place] - recommended auto-PAP 5-15 cm H2O - patient has a CPAP. Will check if patient can have a humidification device, especially during dry season. Assessment & Plan (12/27/2023 5:27 PM EDT): - last sleep study in Apr 2021, Sleep Medicine clinic in [place] - recommended auto-PAP 5-15 cm H2O - patient has a CPAP. Will check if patient can have a humidification device, especially during dry season. Assessment & Plan (08/15/2022 6:36 PM EST): - last sleep study in Apr 2021, Sleep Medicine clinic in [place] - recommended auto-PAP 5-15 cm H2O - [...] 4:58 PM EDT): -Dx October 2008 -Oncology, [facility]. Last seen by Dr. Lee in September 2024, annual follow up. 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 Last seen by Dr. Lee in September 2023, annual follow up. 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 Last seen by Dr. Lee in September [...] Plan (08/15/2022 6:38 PM EST): - current [facility] provider: [facility] - continue judicious and responsible use of gabapentin and clonazepam Encounters Date Type Department Care Team Description 05/31/2025 Results Follow-Up [facility] [address] [place] [phone] Izzy Pantoja MD CBC auto differential, Hepatic Function Panel 05/30/2025 3:15 PM EST Office Visit [address] [phone] Izzy Pantoja MD Rash (Primary Dx); Encounter for vaccination; Encounter for immunization; Hypertension, unspecified type 05/30/2025 Travel 05/29/2025 Telephone [facility] [address] [place] [phone] Izzy Pantoja MD chartprep 05/25/2025 Orders Only GENERIC EXTERNAL DATA DEPARTMENT Provider, Generic External Data 05/23/2025 Travel 05/19/2025 Refill [facility] [address] [place], [place] [phone] Izzy Pantoja MD 04/07/2025 Orders Only GENERIC EXTERNAL DATA DEPARTMENT Provider, Generic External Data 03/29/2025 Telephone [facility] [address] [place] [phone] Izzy Pantoja MD may recall from Last 3 Months Immunizations Immunization Administration [...] Description 06/21/2025 3:00 PM EST Office Visit [facility] OPTOMETRY [address] [place] [address] Lee, Kristen, OD [address] [place] [address] Health Maintenance Due Date Last Done Comments CT Colonography 1975 FIT DNA/Cologuard 1975 FIT 1975 FOBT 1975 Sigmoidoscopy 1975 Family Planning (PISQ) 01/05/1991 Zoster Vaccines (1 of 2) 01/05/1995 Depression Screening 07/26/2025 07/26/2024, 07/26/19 25 Diabetes: Hemoglobin A1C 10/31/202510/31/2 025, 12/31/2023, 08/11/2022, Additional history exists Alcohol/Substance Use Screening 11/25/2025 11/25/2024 SDOH Screening 11/25/2025 11/25/2024 COVID-19 Vaccine (8 - Moderna risk season) 2025 05/30/2025, 07/26/2024, 12/24/2023, Additional history exists Tobacco Screening 02/27/2026 02/27/2025 Disability Screening 05/23/2026 05/23/2025 Lipid Panel 10/31/2029 10/31/2024, 12/18, 08/11/2022, Additional history exists Colonoscopy 04/07/2030 Colorectal Cancer Screening 04/07/2030 DTaP/Tdap/Td Vaccines (3 - Td or Tdap) [...] Procedure Name Priority Date/Time Associated Diagnosis Comments BASIC METABOLIC PANEL Routine 05/30/2025 4:16 PM EST Hypertension, unspecified type TSH W/REFLEX TO FT4 Routine 05/30/2025 4 :16 PM EST Rash HEPATIC FUNCTION PANEL Routine 05/30/2025 4:16 PM EST Transaminitis CBC WITH AUTO DIFFERENTIAL Routine 05/30/2025 4:16 PM EST Transaminitis PSA, TOTAL Routine 05/25/2025 8:05 AM EST [...] Free T4 1.43 0.32 - 4.0 uIU/mL [facility] Blood 05/30/2025 4:16 PM EST 05/30/2025 5:28 PM EST us Izzy Pantoja MD LAB BLOOD ORDERABLES Final Resul t [facility] [address] [place] [phone] * (ABNORMAL) CBC auto differential (05/30/2025 4:16 PM EST) White Blood Count 8.5 4.8 - 10.8 X10*3/uL [facility] Red Blood Count 5.56 4.60 - 5.80 X10*6/uL [facility] Hemoglobin 15.9 14.0 - 18.0 g/dl [facility] Hematocrit 47.6 42.0 - 52.0 % [facility] Mean Corpuscular Volume 85.6 80.0 - 98.0 fL [facility] Mean Corpuscular Hemoglobin 28.6 27.0 - 33.0 pg [facility] Mean Corpuscular HGB Conc 33.4 31.0 - 36.0 g/dl [facility] Red Cell Distribution Width 13.7 11.0 - 16.0 % [facility] Platelet Count 263 160 - 400 X10*3/uL [facility] Mean Platelet Volume 10.1 9.4 - 12.4 fL [facility] Neutrophils Percent Auto 72.1 45 - 73 % [facility] Imm Gran Pct Auto 0.5(H) 0.0 - 0.4 % [facility] Lymphocytes Percent Auto 18.0(L) 20 - 40 % [facility] Monocytes Percent Auto 7.8 2 - 11 % [facility] Eosinophils Percent Auto 1.1 0 - 4 % [facility] Basophils Percent Auto 0.5 0 - 2 % [facility] NRBC Pct Auto 0.0 0.0 - 0.2 /100WBC [facility] Neutrophils Absolute Auto 6.1 2.0 - 8.3 x10*3/uL [facility] Imm Gran Abs Auto 0.04(H) 0.00 - 0.03 X10*3/uL [facility] Lymphocytes Absolute Auto 1.5 1.2 - 4.9 X10*3/uL [facility] Monocytes Absolute Auto 0.7 0.1 - 1.2 X10*3/uL [facility] Eosinophils Absolute Auto 0.1 0.0 - 0.4 X10*3/uL [facility] Basophils Absolute Auto 0.0 0.0 - 0.2 X10*3/uL [facility] NRBC Abs Auto 0.000 0.0 - 0.012 X10*3/uL [facility] Blood Venous blood specimen / Unknown 05/30/2025 4:16 PM EST 05/30/2025 5:28 PM EST Izzy Pantoja MD LAB BLOOD ORDERABLES Final Resul t Performing Organization Address [facility]/ZIP Co de Phone Number [facility] [address] [place] [phone] * (ABNORMAL) Hepatic Function Panel (05/30/2025 4:16 PM EST) Bilirubin, Total 0.5 0.0 - 1.0 mg/dL [facility] Bilirubin, Direct 0.2 0.0 - 0.5 mg/dL [facility] Aspartate Amino Transferase 35 5 - 37 U/L [facility] Alanine Aminotransferase 61(H) 0 - 40 U/L [facility] Total Protein 7.4 6.5 - 8.0 g/dL [facility] Albumin Level 4.6 3.5 - 5.0 g/dL [facility] Alkaline Phosphatase 133(H) 39 - 117 U/L [facility] Blood Venous blood specimen / Unknown 05/30/2025 4:16 PM EST 05/30/2025 5:28 PM EST us Izzy Pantoja MD LAB BLOOD ORDERABLES Final Resul t Performing Organization Address City/[facility]/ZIP Co de Phone Number [facility] [address] [place] [phone] * (ABNORMAL) Basic Metabolic Panel (05/30/2025 4:16 PM EST) Sodium 142 135 - 145 mmol/L [facility] Potassium 4.3 3.3 - 5.1 mmol/L [facility] Chloride 107 96 - 108 mmol/L [facility] Carbon Dioxide 28 22 - 29 mmol/L [facility] Anion Gap 11(L) 12 - 20 [facility] Urea Nitrogen (BUN) 10 9 - 16 mg/dL [facility] Creatinine, Serum 0.77 0.5 - 1.4 mg/dL [facility] Estimated Glomerular Filt Rate >60 [facility] Comment:Chronic Kidney Disea se: Estimated GFR < 60 mL/min/1.85u2Xtgyhb Kidney Disease: Estimated GFR < 15 mL/min/1.73m2 Glucose 95 60 - 115 mg/dL [facility] Calcium 9.0 8.4 - 10.2 mg/dL [facility] Blood Venous blood specimen / Unknown 05/30/2025 4:16 PM EST 05/30/2025 5:28 PM EST us Izzy Pantoja MD LAB BLOOD ORDERABLES Final Resul t Performing Organization Address City/[facility]/ZIP Co de Phone Number [facility] [address] [place] [phone] * PSA,Total (05/25/2025 8:05 AM EST) Prostate Specific Antigen 1.27 <0.05 - 4.0 ng/mL [facility] Comment:PSA methodology: Saima Crandall i ChemiluminescentMicroparticle Immunoassay (CMIA) 05/25/2025 8:05 AM EST 05/25/2025 8:05 AM EST us Generic External Data Provider LAB BLOOD ORDERAB LES Final Result Performing Organization Address City/[facility]/ZIP Co de Phone Number [facility] [address] [place] [phone] * Hematoxylin and Eosin Stain (04/07/2025 12:55 PM EDT) 04/07/2025 12:5 5 PM EDT 04/07/2025 2:31 PM EDT Narrative [facility] - 04/10/2025 3:45 PM EDT ----- ------- Name: Brendan Ferrera Age/Sex: 50/M : 1975 [id number] Unit#: [id number] Attend Dr: Tova Perera MD Re04/07/25 Status: [facility] Location: [facility] Disch: ----- ------- SPEC : [id number] RECD: 04/07/25-1431 STATUS: LOUISE PINA NUM: [id number] JEFRY: 04/07/25-[address] [facility] [address]: Tova Perera MD ENTERED: 04/07/25-1446 SP [...] Name: IbanShaw Age/Sex: 50/M : 1975 Unit#: [id number] Attend Dr: Tova Perera MD Re04/07/25 Status: [facility] Location: [facility] Disch: ----- ------- SPEC : [id number] RECD: 04/07/25143 STATUS: LOUISE PINA NUM: [id number] JEFRY: 04/07/25-[address] [facility] [address]: Tova Perera MD ENTERED: 04/07/252979 SP TYPE: Surgical OTHR DR: Izzy Pantoja [...] microscopic examination, 2 pieces in cassette E. ([facility]) Special studies ordered and performed: Immunostain for H. pylori on A and B; AB/PAS stains on A and B IHC S/NG Disclaimer NOTE: Unless otherwise stated, all tissue is formalin-fixed and paraffin-embedded. Some or all of the immunohistochemical tests reported herein may have been developed and their performance characteristics determined by [facility]. They have not been cleared or approved by the U.S. Food and Drug Administration (FDA). However, the FDA has determined that such clearance or approval is not necessary. This laboratory is certified under the Clinical Laboratory Improvement Amendments of 1988 (CLIA) as qualified to perform high complexity clinical laboratory testing. Copies To: Tova Perera MD [facility] [address] [place] [phone] Izzy Pantoja MD [address] [phone] CONTINUED ON NEXT PAGE ----- ------- Name: Brendan Ferrera Age/Sex: 50/M : 1975 Unit#: [id number] Attend Dr: Tova Perera MD Re04/07/25 Status: [facility] Location: [facility] Disch: ----- ------- SPEC : [id number] RECD: 04/07/25-143 STATUS: LOUISE PINA NUM: [id number] JEFRY: 04/07/25-125[facility] DR: Tova Perera MD ENTERED: 04/07/25-4137 SP TYPE: Surgical OTHR DR: Izzy Pantoja MD ORDERED: HE Stain/15, Gross Micro L4/5, IHC/2, Special st. 2/2, H. pylori/2, AB/PAS/2 ----- ------- Signed (signature on file) Dario Gillette MD 04/10/25 9027 ----- ------- END OF REPORT Generic External Data Provider LAB BLOOD ORDERAB LES Final Result Performing Organization Address [facility]/ZIP Co de Phone Number [facility] [address] [place] [phone] * Lipid Panel with Reflex to Direct LDL (10/31/2024 8:00 AM EDT) Triglycerides 59 <150 mg/dL [facility] Comment:Desirable Triglyceri de: less than 150 mg/dLBorderline High Triglyceride 150-199 mg/dLHigh Triglyceride: 200-499 mg/dLVery High Triglyceride: greater than or equal to 5OO mg/dL Cholesterol 133 <200 mg/dL [facility] Comment:Desirable Cholestero l: less than 200 mg/dLBorderline High Cholesterol: 200-239 mg/dLHigh Cholesterol: greater than 239 mg/dL LDL Cholesterol Calculated 73 <100 mg/dL [facility] Comment:Desirable LDL: less than 100 mg/dLNear Optimal/Above Optimal LDL: 110- 129 mg/dLBorderline High LDL: 130-159 mg/dLHigh LDL: 160-189 mg/dLVery High LDL: greater than or equal to 190 mg/dL HDL Cholesterol 49 >40 mg/dL [facility] Comment:Desirable HDL: great er than 40 mg/dL Note: This HDL assay may give artificially low results in patients with liver disease. 10/31/2024 8:00 AM EDT 10/31/2024 8:05 AM EDT Generic External Data Provider LAB BLOOD ORDERAB LES Final Result Performing Organization Address City/[facility]/ZIP Co de Phone Number [facility] [address] [place] [address] [phone] * Hemoglobin A1c (10/31/2024 8:00 AM EDT) Hemoglobin A1c 5.7 <6.0 % [facility] Comment:Hemoglobin A1C Refer ence Range Adults: 4.8 - 6.0 % Non diabetic: < 6.0 % Goal: < 7.0 %Additional Action Suggested: > 8.0 %Note: Hemoglobin A1c results are invalid for patients with abnormal amounts of HbF. Blood transfusions may impact the HbA1c concentration in the patient sample. Estimated Average Glucose 117 mg/dL [facility] Comment:eAG = Estimated ave rage glucose which is %A1C expressed asaverage glucose, using the formula of the G1R-RmdcvxiObvlgfo Glucose study (ADAG), Diabetes Care, Vol.31,#8,2007 Blood Venous blood specimen / Unknown 10/31/2024 8:00 AM EDT 10/31/2024 8:05 AM EDT Izzy Pantoja MD LAB BLOOD ORDERABLES Final Resul t Performing Organization Address [facility]/ZIP Co de Phone Number [facility] [address] [place] [phone] * HEPATITIS C AB W/REFL TO HCV RNA, QN, PCR (07/01/2021 3:34 PM EST) Pathologist [facility] HEPATITIS C ANTIBODY NON-REACT JIMENEZ NON-REACT JIMENEZ [facility] INDEX 0.02 <1.00 [facility] Comment: HCV antibody was non-reactive. There is no laboratory evidence of HCV infection. In most cases, no further action is required. However, if recent HCV exposure is suspected, a test for HCV RNA (test code 07364) is suggested. For additional information please refer to http://education.[employer]/faq/HSZ48c8 (This link is being provided for informational/ educational purposes only.) 07/01/2021 3:34 PM EST [facility]ISTORICAL/NON ORDERABLE LABS Final Result Performing Organization Address [facility]/ZIP Co de Phone Number [facility] [address] * HIV 1/2 ANTIGEN/ANTIBODY,FOURTH GENERATION W/RFL (07/01/2021 3:34 PM EST) HIV-1/2 ANTIGEN AND ANTIBODIES, 4TH GENERATION W/ REFLEX NON-REACT JIMENEZ NON-REACT JIMENEZ [facility] Comment: HIV-1 antigen and HIV-1/HIV-2 [...] purpose. For additional information please refer to http://education.evOLED/faq/MPP811 (This link is being provided for informational/ educational purposes only.) The performance of this assay has not been clinically validated in patients less than 2 years old. 07/01/2021 3:34 PM EST us Loulou Cruz [facility] LAB BLOOD ORDERABLES Final Res ult [facility] [address] from Last 3 Months or Most Recently Relevant to Health Maintenance Insurance C3 Care Teams Operations Welder Relationship Specialty Start Date End Date Izzy Pantoja MD [address] [place] [phone] PCP - General Family Medicine 03/17/22 Ilana Gaming Community Health Worker 10/26/23
--- OUTSIDE RECORDS SUMMARY | 2025-06-01 18:32 | XMS_ITS | Encounter Summary ---
Author Organization [facility] Address [address] [place] [address] Care Team Providers Care Chestnut Tanner Name Role Phone Izzy Pantoja MD Primary Care Provider [phone] Ilana Gaming Unavailable Encounter Details Date Type Department Care Team (Late st Contact Info) Description 11/23/2024 Orders Only [facility] [address] [place], [place] [phone] Izzy Pantoja MD [address] [place], [place] [phone] Immunity status testing (Primary Dx) Social History [...] 06/21/2025 3:00 PM EST Office Visit [facility] OPTOMETRY [address] [place] [address] Lee, Kristen, OD [address] [place] [address] documented as of this encounter Procedures Procedure Name Priority Date/Time Associated Diagnosis Comments MEASLES, MUMPS, AND RUBELLA (MMR) AB (IGG) PANEL, IMMUNE STATUS Routine 11/23/2024 3:32 PM EDT Immunity status testing documented in this encounter Results * Measles, Mumps, and Rubella (MMR) Antibodies??(IgG) Panel, Immune Status (11/23/2024 3:32 PM EDT) Mumps Virus IgG Antibody 87.70 AU/mL [facility] Comment:AU/mL Interpretation ------- <9.00 Not consistent with immunity9.00-10.99 Equivocal>10.99 Consistent with immunityThe presence of mumps IgG antibody suggests immunizationor past or current infection with mumps virus. Rubella IgG Antibody 1.47 Index [facility] Comment:Index Interpretation ----- <0.90 Not consistent with immunity 0.90-0.99 Equivocal > or = 1.00 Consistent with immunityThe presence of rubella IgG antibody suggestsimmunization or past or current infection withrubella virus.THIS TEST WAS PERFORMED AT:[facility] [place] [phone] GUILLAUME MD Rubeola IgG (Measles) 62.60 AU/mL [facility] Comment:AU/mL Interpretation ----- <13.50 Not consistent with urfcbokm80.50-16.49 Equivocal>16.49 Consistent with immunityThe presence of measles IgG suggests immunization orpast or current infection with measles virus.For additional information, please refer tohttp://education.[employer]/faq/JVF813(This link is being provided for informational/educational purposes only.) Blood 11/23/2024 3:32 PM EDT 11/23/2024 4:09 PM EDT us Izzy Pantoja MD LAB BLOOD ORDERABLES Final Resul t [facility] [address] [place] [address] [phone] documented in this encounter Visit Diagnoses Diagnosis Immunity status testing- Primary Antibody response examination documented in this encounter Additional Health Concerns Assessment Noted Time PHQ-9 Depression Total Score: 1 07/26/19 25 4:08 PM EST documented as of this encounter Care Teams Chestnut Tanner Relationship Specialty Start Date End Date Izzy Pantoja MD [address] [place] [address] PCP - General Family Medicine 03/17/22 Ilana Gaming Community Health Worker 10/26/23 documented as of this encounter
== END 2025-06-01 16:10 | disposition home or self-care (01) ==
LOC: HO.HUSH 15:30
PROVIDERS: PCP Family Medicine; Visit Provider Nurse Practitioner Family
DX: R35.1 Nocturia (principal); R39.12 Poor urinary stream; N32.0 Bladder-neck obstruction; N40.0 Benign prostatic hyperplasia without lower urinary tract symptoms; R97.20 Elevated prostate specific antigen [PSA]; Z13.9 Encounter for screening, unspecified
CPT/HCPCS: 99213

== ENCOUNTER → 2025-06-01 15:30 | Outpatient (BNVA) | payer MEDICAID, SELFPAY | PROVIDERS: PCP Family Medicine; Visit Provider Nurse Practitioner Family | DX: R35.1 Nocturia (principal); R97.20 Elevated prostate specific antigen [PSA]; R39.12 Poor urinary stream; N32.0 Bladder-neck obstruction; N40.0 Benign prostatic hyperplasia without lower urinary tract symptoms; Z13.9 Encounter for screening, unspecified | CPT/HCPCS: 81003; 99212 ==

== ENCOUNTER 2025-06-19 15:21 | Outpatient (AMB) | payer MEDICAID, SELFPAY ==
--- NOTE | 2025-06-19 15:23 | A.OFFVIS_ITS ---
Vital Signs 06/19/25 15:28 Height 5 ft 7 in Weight 226 lb BMI 35.4 BP 130/66 Blood Pressure Location Rt brachial Position Sitting Pulse 86 Pulse Source Pulse Oximeter Pulse Oximetry (%) 96 Oxygen Delivery Method Room Air Intake Visit Reasons: S/P double; Dr. Perera Intake Note: Est pt for mgmt of GERD. S/P FUV. CC; Pt denies any new GI sx or concerns at this time. Confirms he is taking current therapies w/o complication. Only new concern per pt is recent weight gain. Manager Search Required: No Accompanied by: Self / Same As Patient Allergies allantoin (From BLISTEX) Allergy (Unknown, Verified 06/19/25 15:24) LIP SWELLING homosalate (From BLISTEX) Allergy (Unknown, Verified 06/19/25 15:24) LIP SWELLING menthol (From BLISTEX) Allergy (Unknown, Verified 06/19/25 15:24) LIP SWELLING octinoxate (From BLISTEX) Allergy (Unknown, Verified 06/19/25 15:24) LIP SWELLING octyl salicylate (From BLISTEX) Allergy (Unknown, Verified 06/19/25 15:24) LIP SWELLING oxybenzone (From BLISTEX) Allergy (Unknown, Verified 06/19/25 15:24) LIP SWELLING padimate O (From BLISTEX) Allergy (Unknown, Verified 06/19/25 15:24) LIP SWELLING sodium chloride Allergy (Unknown, Verified 06/19/25 15:24) GUM SWELLING TO TABLE SALT ibuprofen (IBUPROFEN) Adverse Reaction (Unknown, Verified 06/19/25 15:24) STOMACH UPSET HPI HPI S/P double; Dr. Perera: Details: LAST VISIT: Acid reflux Encounter for screening for malignant neoplasm of colon Postprandial epigastric pain Abdominal bloating Constipation Plan Continue current regimen with PPI and sucralfate. Avoid dietary triggers in late night snacking. Staying upright luminal 3 hours after meals discussed with patient. Patient will be sent for upper endoscopy to rule out gastritis, duodenitis, esophagitis, Roberto's, H pylori. Patient will be sent for colonoscopy. Denies any issues with anesthesia in the past. No history of sleep apnea. He is not moving his bowels well. Will start him on Dulcolax. Message sent to surgical schedulers to call patient to book procedure via tiger text. What to expect before during and after procedure discussed with patient. Stressed the importance of good bowel prep and clear liquid diet day before procedure. Patient is agreeable to current plan of care and verbalizes understanding of instructions. He was given the opportunity to ask questions and all questions answered. ? Thank you for allowing me to participate in his care New bisacodyl (Dulcolax (bisacodyl)) take 4 tabs at noon the day before your colonoscopy 20 mg (4 x 5 mg) PO ONCE 4 tabs 0RF constipation 1 day Z12.11 polyethylene glycol 3350 (Miralax) As directed by gastroenterology department at [facility] 238 grams PO ONCE 238 grams 0RF Z12.11 UPPER ENDOSCOPY AND COLONOSCOPY Findings: Larynx: Edema of arytenoid cartilages Esophagus: GE junction at 36 cms. No esophagitis or Roberto's. Stomach: A few 3-4 mm benign appearing polyps in the gastric body and fundus - biopsied. Mild diffuse gastric erythema - biopsies were obtained from the antrum. Grade 2 flap valve on retroflexed examination of the cardia. Duodenum: A 2-3 mm non-bleeding ulcer in the apex of the bulb and normal descending duodenum Intervention: Biopsies as noted above COLONOSCOPY PROCEDURE NOTE Instrument: Olympus CF H 190 L variable stiffness adult colonoscope Monitoring: Vital signs and clinical assessment, intermittent blood pressure monitoring, continuous EKG monitoring, Pulse oximetry and Carbon Dioxide monitoring were done throughout the procedure. Please see anesthesia flowsheet. Colon withdrawl time was 25 minutes. Procedure: The patient was placed in the left lateral decubitis position and pre-procedure medications were administered. After a digital rectal examination of the ano-rectum, the video colonoscope was inserted into the rectum and advanced through the colon to the cecum. The colonoscope was slowly withdrawn in a retrograde panoramic fashion and the colon mucosa was carefully examined including a retroflexed view of the rectum. Findings and interventions are described below. Procedure Difficulty: There was luminal narrowing in the sigmoid colon due to severe diverticulosis which was navigated with some difficulty Findings: Terminal Ileum: Not evaluated Cecum: Normal Ascending Colon: Normal Transverse Colon: A 5-6 mm sessile polyp in the proximal transverse colon - removed with a cold snare. Descending Colon: A 2-3 mm sessile polyp - removed with a cold snare Moderate diverticulosis. Sigmoid Colon: A 2.5 cms pedunculated polyp at 30 cm - removed with a hot snare. Polypectomy site was closed with 1 hemoclip and marked by Ellie ink. Severe diverticulosis with luminal narrowing. Rectum: Normal Ano-rectum: Moderate internal hemorrhoids Colon preparation: Good after copious irrigation. Drummonds Bowel Preparation Scale Right colon; 2 Transverse colon: 2 Left colon; 2 (0 = Unprepared colon segment with mucosa not seen due to solid stool that c annot be cleared. 1 = Portion of mucosa of the colon segment seen, but other areas of the colon segment not well seen due to staining, residual stool and/or opaque liquid. 2 = Minor amount of residual staining, small fragments of stool and/or opaque liquid, but mucosa of colon segment seen well. 3 = Entire mucosa of colon segment seen well with no residual staining, small fragments of stool or opaque liquid) Impression and Post Procedure Diagnosis: Endoscopy Findings: ESOPHAGUS: No esophagitis or Roberto's. STOMACH: Diffuse gastritis and benign-appearing gastric polyps. DUODENUM: A 2-3 mm non-bleeding ulcer in the apex of the bulb and normal descending duodenum Colonoscopy Findings: Three small to nediun sized polyps were removed Moderate to severe diverticulosis seen in the left colon Moderate hemorrhoids on retroflexed exam. Plan: Repeat Colonoscopy in 3 years if polyps are adenomatous and 10 year if polyps are hyperplastic. FU flexible sigmoidoscopy in 6 months sigmoid polyp shows advanced histology. A summary of above findings and relevant handouts were given to the patient. BIOPSIES SHOWED: A. Stomach, antrum, biopsy: Antral-type mucosa with mild chronic inactive inflammation; no Helicobacter organisms seen. B. Stomach, polypectomy: Clinically polypoid oxyntic mucosa with mild chronic in active inflammation; no Helicobacter organisms seen. C. Colon, transverse, polypectomy: Colonic mucosa with mild surface hyperplastic changes. D. Colon, descending, polypectomy: Colonic mucosa with mild surface hyperplastic changes. E. Colon, sigmoid at 30 cm, polypectomy: Tubular adenoma; negative for high- grade dysplasia or carcinoma Letter sent to the patient with biopsy results. Patient was placed on the colonoscopy recall list for repeat colonoscopy in 3 years. TODAY'S VISIT Patient is here today for follow-up and to discuss colonoscopy and upper endoscopy results. Patient denies any ill effects from the prep, anesthesia or procedure itself. Patient reports to be feeling fairly well. Denies any melena, hematochezia, unintentional weight loss or ribbon like stools. Patient denies any dyspepsia, dysphagia or odynophagia. Patient reports that he is taking Nexium in the morning and simethicone at bedtime. Patient reports that symptoms of acid reflux are suppressed currently and he is feeling well. Patient does admit that he is having better appetite and that is why he is probably gaining more weight. Patient is taking senna daily and is moving his bowels well. Denies any GI concerning symptoms at this time. Colonoscopy and endoscopy results discussed with patient. Large tubular adenoma without high- grade dysplasia or carcinoma found in sigmoid colon, follow-up in 3 years with colonoscopy. Upper endoscopy showed normal esophagus, chronic inactive inflammation in the stomach without any dysplasia, no H pylori found. [facility] Medical History (Updated 07/02/25 @ 16:38 by Carrie Minor, [facility]) Diverticulosis Tubular adenoma of colon Sarcoidosis BPH (benign prostatic hyperplasia) Hyperlipidemia Sleep apnea Thrombosis Acid reflux Anxiety History of asthma B-cell chronic lymphocytic leukemia Surgical History History of prostate surgery (~11/2023) History of bronchoscopy Family History Mother Liver cirrhosis Family/Other Thyroid cancer Breast cancer Social History Household Members: Family Household Members Other:: father Housing: Apartment Do you presently have visiting nurse or other home services: No Alcohol intake: current Alcohol intake frequency: holidays/special occasions only Patient Tobacco Use Status: Former Tobacco user Tobacco use type: Cigarette Years Smoked: 18 Second Hand Smoke Exposure: No service: No Current occupational status: employed Physical Exam Vital Signs: Last Vital Signs Pulse 86 06/19/25 15:28 BP 130/66 06/19/25 15:28 Pulse Ox 96 06/19/25 15:28 Oxygen Delivery Method Room Air 06/19/25 15:28 BMI result Body Mass Index 35.4 Assessment & Plan Assessment & Plan (1) Acid reflux: Code(s): K21.9 - Gastro-esophageal reflux disease without esophagitis Category: Medical Qualifiers: Esophagitis presence: esophagitis presence not specified Qualified Code(s): K21.9 - Gastro-esophageal reflux disease without esophagitis (2) Postprandial epigastric pain: Code(s): R10.13 - Epigastric pain (3) Abdominal bloating: Code(s): R14.0 - Abdominal distension (gaseous) (4) Constipation: Code(s): K59.00 - Constipation, unspecified Qualifiers: Constipation type: slow transit constipation Qualified Code(s): K59.01 - Slow transit constipation (5) Tubular adenoma of colon: Code(s): D12.6 - Benign neoplasm of colon, unspecified Category: Medical (6) Diverticulosis: Code(s): K57.90 - Diverticulosis of intestine, part unspecified, without perforation or abscess without bleeding Category: Medical Plan Patient will continue taking Nexium and sucralfate. Avoid dietary triggers and late night snacking. Staying upright for minimum 3 hours after meals discussed with patient. Patient will return in 4 months and will send him for sigmoidoscopy to evaluate polypectomy site. Continue senna daily. Patient was also encouraged to start taking fiber with pre and probiotic. Encouraged patient to eat smaller meals and to lose weight. Patient is agreeable to current plan of care and verbalizes understanding of instructions. He was given the opportunity to ask questions and all questions answered. Thank you for allowing me to participate in his care Coding Level of Care Code Est Pt Level 4 (12715) Add On Problem Visit Only Diagnoses Gastroesophageal reflux disease, unspecified whether esophagitis present K21.9 Esophagitis presence: esophagitis presence not specified Postprandial epigastric pain R10.13 Abdominal bloating R14.0 Slow transit constipation K59.01 Constipation type: slow transit constipation Tubular adenoma of colon D12.6 Diverticulosis K57.90 Time Spent (min) 35 Comment 25 minutes spent with patient and additional 10 minutes spent reviewing his records
[2025-06-19 15:28] VITALS: BP 130/66; PULSE 86; O2SAT 96; BMI 35.4
--- OUTSIDE RECORDS SUMMARY | 2025-06-19 18:23 | XMS_ITS | Encounter Summary ---
Author Organization [employer] Address [address] [place] [address] Care Team Providers Care Retread Mold Operator Name Role Phone Izzy Pantoja MD Primary Care Provider [phone] Ilana Gaming Unavailable Encounter Details Date Type Department Care Team ([facility] st Contact Info) Description 06/06/2025 Results Follow-Up [facility] [address] [place], [place] [phone] Izzy Pantoja MD [address] [place], [place] [phone] TSH with Reflex to Free T4, Basic Metabolic Panel Social History Tobacco Use Types Packs/Day [...] Description 06/21/2025 3:00 PM EST Office Visit [facility] OPT[facility]RY [address] [place] [address] Lee, Kristen, OD [address] [place] [address] documented as of this encounter Visit Diagnoses Not on filedocumented in this encounter Additional Health Concerns Assessment Noted Time PHQ-9 Depression Total Score: 1 07/26/19 25 4:08 PM EST documented as of this encounter Care Teams Retread Mold Operator Relationship Specialty Start Date End Date Izzy Pantoja MD [address] [place] [address] PCP - General Family Medicine 03/17/22 Ilana Gaming Community Health Worker 10/26/23 documented as of this encounter
--- OUTSIDE RECORDS SUMMARY | 2025-06-19 18:23 | XMS_ITS | Encounter Summary ---
Author Organization [employer] Address [address] [place] [address] Care Team Providers Care Benzene Still Utility Operator Name Role Phone Izzy Pantoja MD Primary Care Provider [phone] Ilana Gaming Unavailable Tomeka Mclain RN Unavailable Unavailable Reason for Visit * Reason Onset Date Comments Referral 08/20/2022 Encounter Details Date Type Department Care Team (Late st Contact Info) Description 08/20/2022 Telephone [facility] MEDICINE [address] [place], [place] [phone] Izzy Pantoja MD [address] [place], [place] [phone] Referral Social History Tobacco Use Types Packs/Day [...] Description 06/21/2025 3:00 PM EST Office Visit [facility] OPTOMETRY [address] [place], [place] [phone] Kristen Howard, OD [address] [place] [address] documented as of this encounter Visit Diagnoses Not on filedocumented in this encounter Care Teams Benzene Still Utility Operator Relationship Specialty Start Date End Date Izzy Pantoja MD [address] [place], [place] [phone] PCP - General Family Medicine 03/17/22 Ilana Gaming Community Health Worker 10/26/23 Tomeka Mclain, MAURIZIO Explosive Operator 10/26/23 01/24/24 documented as of this encounter
--- OUTSIDE RECORDS SUMMARY | 2025-06-19 18:23 | XMS_ITS | Encounter Summary ---
Author Organization [employer] Address [address] [facility] [address], [place] [address] Care Team Providers Care Needle Valve Operator Name Role Phone Izzy Pantoja MD Primary Care Provider [phone] Ilana Gaming Unavailable Tomeka Mclain RN Unavailable Unavailable Encounter Details Date Type Department Care Team (Late Contact Info) Description 06/03/2022 [facility] [email or web address] Management [address] [place] [address] Izzy Pantoja MD [address] [place] [address] Social History Tobacco Use Types Packs/Day Years [...] Visit [facility] OPTOMETRY [address] [place] [address] Kristen Howard, OD [address] [place] [address] documented as of this encounter Visit Diagnoses Not on filedocumented in this encounter Care Teams Needle Valve Operator Relationship Specialty Start Date End Date Izzy Pantoja MD [address] [place] [address] PCP - General Family Medicine 03/17/22 Ilana Gaming Community Health Worker 10/26/23 Tomeka Mclain RN Second Miller 10/26/23 01/24/24 documented as of this encounter
--- OUTSIDE RECORDS SUMMARY | 2025-06-19 18:23 | XMS_ITS | Encounter Summary ---
Author Organization [employer] Address [address] [place] [address] Care Team Providers Care Beef Specialist Name Role Phone Izzy Pantoja MD Primary Care Provider [phone] Ilana Gaming Unavailable Encounter Details Date Type Department Care Team (Latest Contact Info) Description 06/14/2025 Travel Social History Tobacco Use Types Packs/Day [...] Description 06/21/2025 3:00 PM EST Office Visit [facility] OPTOMETRY [address] [place], [place] [phone] Kristen Howard, OD [address] [place] [address] documented as of this encounter Visit Diagnoses Not on filedocumented in this encounter Additional Health Concerns Assessment Noted Time PHQ-9 Depression Total Score: 1 07/26/19 25 4:08 PM EST documented as of this encounter Care Teams Beef Specialist Relationship Specialty Start Date End Date Izzy Pantoja MD [address] [place], [place] [phone] PCP - General Family Medicine 03/17/22 Ilana Gaming Community Health Worker 10/26/23 documented as of this encounter
--- OUTSIDE RECORDS SUMMARY | 2025-06-19 18:23 | XMS_ITS | Encounter Summary ---
Author Organization [employer] Address [address] [place] [address] Care Team Providers Care Industrial Chemistry Teacher Name Role Phone Izzy Pantoja MD Primary Care Provider [phone] Ilana Gaming Unavailable Encounter Details Date Type Department Care Team (Late st Contact Info) Description 11/23/2024 Orders Only [facility] MEDICINE [address] [place], [place] [phone] Izzy Pantoja MD [address] [place], [place] [phone] Immunity status testing (Primary Dx) Social History [...] Description 06/21/2025 3:00 PM EST Office Visit [facility] OPTOMETRY [address] [place] [address] Lee, Kristen, OD [address] [place] [address] documented as of this encounter Procedures Procedure Name Priority Date/Time Associated Diagnosis Comments MEASLES, MUMPS, AND RUBELLA (MMR) AB (IGG) PANEL, IMMUNE STATUS Routine 11/23/2024 3:32 PM EDT Immunity status testing documented in this encounter Results * Measles, Mumps, and Rubella (MMR) Antibodies??(IgG) Panel, Immune Status (11/23/2024 3:32 PM EDT) Mumps Virus IgG Antibody 87.70 AU/mL [facility] Comment:AU/mL Interpretation ------- <9.00 Not consistent with immunity9.00-10.99 Equivocal>10.99 Consistent with immunityThe presence of mumps IgG antibody suggests immunizationor past or current infection with mumps virus. Rubella IgG Antibody 1.47 Index [facility] Comment:Index Interpretation ----- <0.90 Not consistent with immunity 0.90-0.99 Equivocal > or = 1.00 Consistent with immunityThe presence of rubella IgG antibody suggestsimmunization or past or current infection withrubella virus.THIS TEST WAS PERFORMED AT:[employer] [place] [phone] GUILLAUME MD Rubeola IgG (Measles) 62.60 AU/mL [facility] Comment:AU/mL Interpretation ----- <13.50 Not consistent with kbbsfohg49.50-16.49 Equivocal>16.49 Consistent with immunityThe presence of measles IgG suggests immunization orpast or current infection with measles virus.For additional information, please refer tohttp://education.[employer]/faq/JYD641(This link is being provided for informational/educational purposes only.) Blood 11/23/2024 3:32 PM EDT 11/23/2024 4:09 PM EDT us Izzy Pantoja MD LAB BLOOD ORDERABLES Final Resul t [facility] [address] [place] [address] [phone] documented in this encounter Visit Diagnoses Diagnosis Immunity status testing- Primary Antibody response examination documented in this encounter Additional Health Concerns Assessment Noted Time PHQ-9 Depression Total Score: 1 07/26/19 25 4:08 PM EST documented as of this encounter Care Teams Industrial Chemistry Teacher Relationship Specialty Start Date End Date Izzy Pantoja MD [address] [place] [address] PCP - General Family Medicine 03/17/22 Ilana Gaming Community Health Worker 10/26/23 documented as of this encounter
--- OUTSIDE RECORDS SUMMARY | 2025-06-19 18:23 | XMS_ITS | Encounter Summary ---
Author Organization [employer] Address [address] [place] [address] Care Team Providers Care Brick Burner Head Name Role Phone Izzy Pantoja MD Primary Care Provider [phone] Ilana Gaming Unavailable Encounter Details Date Type Department Care Team ([facility] st Contact Info) Description 05/31/2025 Results Follow-Up [facility] MED[facility]INE [address] [place], [place] [phone] Izzy Pantoja MD [address] [place], [place] [phone] CBC auto differential, Hepatic Function Panel Social [...] Description 06/21/2025 3:00 PM EST Office Visit [facility] OPTOMETRY [address] [place], [place] [phone] Lee, Kristen, OD [address] [place] [address] documented as of this encounter Visit Diagnoses Not on filedocumented in this encounter Additional Health Concerns Assessment Noted Time PHQ-9 Depression Total Score: 1 07/26/19 25 4:08 PM EST documented as of this encounter Care Teams Brick Burner Head Relationship Specialty Start Date End Date Izzy Pantoja MD [address] [place] [address] PCP - General Family Medicine 03/17/22 Ilana Gaming Community Health Worker 10/26/23 documented as of this encounter
--- OUTSIDE RECORDS SUMMARY | 2025-06-19 18:23 | XMS_ITS | Encounter Summary ---
Author Organization [employer] Address [address] [facility] [address] [place] [address] Care Team Providers Care Pickling Grader Name Role Phone Izzy Pantoja MD Primary Care Provider [phone] Mekhi Jerrilaquita Unavailable Reason for Referral * Imaging (Routine) - Authorized Specialty Diagnoses / Procedures Referred By Contac jennifer Referred To Contact Radiology Diagnoses Transaminitis Upper abdominal pain Procedures US Abdomen Comp w elastography Izzy Pantoja MD [address] [place] [address] Phone: tel: fax: [address] [address] Phone: tel: fax: Referral ID Status Reason Start Date Expiration Date V isits Requested Visits Authorized [id number] Authorized 06/06/2025 06/06/2026 1 1 Encounter Details Date Type Department Care Team (Late st Contact Info) Description 06/06/2025 Orders Only [facility] MED[facility]INE [address] [place], [place] [phone] Izzy Pantoja MD [address] [place], [place] [phone] Transaminitis (Primary Dx); Upper abdominal pain Social History Tobacco Use Types Packs/Day Years [...] Description 06/21/2025 3:00 PM EST Office Visit [facility] OPTOMETRY [address] [place] [address] Kristen Howadr, OD [address] [place] [address] Scheduled Orders Name Type Priority Associated Diagnoses Orde r Schedule US Abdomen Comp w elastography Imaging Routine Transaminitis Upper abdominal pain Expected: 06/06/2025, Expires: 06/06/2026 documented as of this encounter Visit Diagnoses Diagnosis Transaminitis- Primary Nonspecific elevation of levels of transaminase or lactic acid dehydrogenase (LDH) Upper abdominal pain documented in this encounter Additional Health Concerns Assessment Noted Time PHQ-9 Depression Total Score: 1 07/26/19 25 4:08 PM EST documented as of this encounter Care Teams Pickling Grader Relationship Specialty Start Date End Date Izzy Pantoja MD [address] [place] [address] PCP - General Family Medicine 03/17/22 Ilana Gaming Community Health Worker 10/26/23 documented as of this encounter
--- OUTSIDE RECORDS SUMMARY | 2025-06-19 18:23 | XMS_ITS | Encounter Summary ---
Author Organization [employer] Address [address] [place] [address] Care Team Providers Care Correctional Manager Name Role Phone Izzy Pantoja MD Primary Care Provider [phone] Ilana Gaming Unavailable Encounter Details Date Type Department Care Team (Late st Contact Info) Description 11/04/2024 Orders Only [facility] [address] [place], [place] [phone] Filipe Coburn MD [address] [place], [place] [phone] Social History Tobacco Use Types Packs/Day Years [...] Office Visit [facility] OPTOMETRY [address] [place] [address] Lee, Kristen, OD [address] [place] [address] documented as of this encounter Visit Diagnoses Not on filedocumented in this encounter Additional Health Concerns Assessment Noted Time PHQ-9 Depression Total Score: 1 07/26/19 25 4:08 PM EST documented as of this encounter Care Teams Correctional Manager Relationship Specialty Start Date End Date Izzy Pantoja MD [address] [place] [address] PCP - General Family Medicine 03/17/22 Ilana Gaming Community Health Worker 10/26/23 documented as of this encounter
--- OUTSIDE RECORDS SUMMARY | 2025-06-19 18:23 | XMS_ITS | Data Portability ---
Author Organization [place] - [facility], Allergy Address [address] [place] [address] Care Team Providers Care [employer] Tutor Name Role Phone Unavailable Primary Care Provider [...] sided amplification and he will consider this. [email or web address] Not available 04/08/2024 15:17:00 08/09/2024 08/09/2024 Patient [...] of his current blood pressure medication regimen. [email or web address] Not available 08/09/2024 15:01:02 Plan of Treatment Reminders Order Date Submit Date Provider Last Modified By Organization Details Last Modified Time Details Appointments None recorded. Lab None recorded. Referral None recorded. Procedures None recorded. Surgeries None recorded. Imaging MRI, brain + internal auditory canal, w/wo contrast - next available. ...IAC protocol 2023 024 [facility] ([facility]), [address], [place], [address], 15:14:22 Medication Orders None recorded. Patient TargetsNo targets recorded. Patient InstructionsNo instructions recorded. Reason for Referral None Reported. Results Created Date Observation Date Name Description Value Unit Range Abnormal Flag Note LastModifiedBy Organization Detail LastModifiedTime 04/12/20 24 audio gram No observ ation record ed. Not Available 03/21 12:02:44 04/20/20 24 04/18/2024 MRI, brain + brain stem, w/wo contr ast [facility] Access ion Number : [id number] Darion rodriguez Name: Brendan Ferrera Record Number : [id number] Date of : 1974 Date of Exam: 2023 Referr ing Physic clinton: Zina Nava [facility] [place] [facility] [address], [address] [facility], [place] [address] Exam: MR Brain (C-/C+ ) CPT 40172 Room Descri ption: [place] GE Pion 3T INDICA TION: Sensor ineura [...] semici rcular canals . The bilate ral cisco certified internetwork expert al audito ry canals are not enlarg [...] . IMPRES GIA: Unrema rkable bilate ral cisco certified internetwork expert al audito ry canals . No mass or abnorm al enhanc ement. Parana rebecca sinus diseas e as descri bed. Electr onical ly Signed By: Mary Hamilton MD [email or web address] [facility] ([facility] [address], [place], [address], 04/20/2024 16:11:08 04/20/2004/18/2024 MRI, brain + inter nal audit ory canal , w/wo contr ast No observ ation record ed. [email or web address] [facility] ([facility]) [address] [place], [address], 04/21/2024 09:28:36 08/10/19 25 audio gram No observ ation record ed. BARCODE Not Available 2024 13:53:07 02/10/20 25 audio gram No observ ation record ed. BARCODE Not Available 2024 15:57:24 Result Notes Documentation Provider Name and Address Organization Details Recorded Time Mri, Brain + Brain Stem, W/wo Contrast : [facility] [place] Accession Number: [id number] Patient Name: Brendan Ferrera Date of : 1975 Date of Exam: 04-18-2024 Referring Physician: Zina Blake [facility] [address] [facility], [address] [place], [place] [address] Exam: MR Brain (C-/C+) CPT 03350 Room Description: [facility] Pion 3T INDICATION: Sensorineural hearing [...] Electronically Signed By: Mary BLAKE PA-C 100 [facility],[address], [address], [facility] - [facility] 04/20/2024 16:11:08 Problems Name Problem SNOMED Code Status Onset Date Resolution Date Notes Provider Name and Address Organization Details Recorded Time Sensorineur al hearing loss of bilateral ears 755641635 Active 2023 HONORIO BENTON , [facility] 100 [facility],[address], [address], [place] - [facility] [place] 4 13:24:12 Tinnitus of left ear 4495032921710 Active 2023 ZINA BLAKE PA-C [address] [address], [place], [address], [place] - [facility] [place] 4 14:43:22 Dizziness and giddiness 657883908 Active 2023 ZINA BLAKE PA-C [address] [address], [place], [address], [place] - [facility] [place] 4 14:43:26 Meniere's disease of left inner ear 5707404527022 107 Active 2024 TAYLOR FONTAINE MD [address] [address], [place], [address], [place] - [facility] [place] 5 14:58:02 Benign paroxysmal positional vertigo 380324213 Active 2024 TAYLOR FONTAINE MD [address] [address], [place], [address], [place] - [facility] [place] 5 15:39:34 Diplopia 83451695 Active 2024 TAYLOR FONTAINE MD [address] [address], [place], [address], [place] - [facility] [place] 5 15:41:36 Problem Notes None recorded. Procedures Surgical History Date Name Laterality Status Provider Name and Address Organization Details Recorded Time 02/09/2025 Air & Speech Audio with Tymps - 78216, 61829 & 66698 completed ELISEO COX, AUD 100 [facility],[address], [address], [place] - [facility] [place] 02/09/2025 15:18:52 08/09/2024 Comp Audio with Tymps - 36643 & 61969 completed DANI SANCHEZ, AUD 100 [facility],[address], [address], [place] - [facility] [place] 08/09/2024 14:14:08 04/08/2024 Comp Audio with Tymps - 76271 & 05329 completed HONORIO BENTON, AUD 100 [facility],[address] [address], [place], [address], [place] [facility] 04/08/2024 13:24:03 Imaging Results None recorded. Procedure Notes None recorded. Medical Equipment None Reported. Allergies Allergen ID Allergen Name Allergen Category Reaction Reaction Severity Criticality Documentation Date Start Date Code Code System Note Provider Name and Address Organization Details Recorded Time 002234 ibuprofen medicatio n Not available Not available Not available 06/08/20252013 5640 RxNorm Other react ion(s ): Disco mfort Not Available tiff - External Data Service - prod 08:40:21 Medications Name Sig Start Date Stop Date [...] Details Last Updated DateTime 08/09/2024 168.91 cm 673911.28 g Shelly Jack [place] - [facility] 08/09/2024 14:31:33 Date Recorded Body height Provider Name an d Address Organization Details Last Updated DateTime 02/09/2025 168.91 cm KRISTINA MITCHELL [place] - [facility] [place] 02/09/2025 15:21:48 Date Recorded Body height Body mass index (BMI) Body weight Provider Name and Address Organization Details Last Updated DateTime 04/08/2024 168.91 cm 35.8 kg/m2 821720.28 g Janell Narayanan [place] - [facility] [place] 04/08/2024 13:37:32 Social History None recorded. Functional Status None recorded. Mental Status None recorded. Family History Nothing Reported. Medical History Condition Response Cancer Y Arthritis Y Anxiety Y Depression Y Asthma Y Past Encounters Encounter ID Performer Location Encounter Start Date Encounter Closed Date Diagnosis/Indication Diagnosis SNOMED-CT Code Diagnosis ICD10 Code Diagnosis IMO Codes Diagnosis Note [id number] ZINA BLAKE PA-C [facility] [address] [address] 04/08/2024 12:27:29 04/08/2024 14:25:45 Sensorineural hearing loss of bilateral ears 222797458 H90.3 Audiologic al evaluation results: Right ear: Normal sloping to a mild sensorineu ral hearing loss with excellent word recognitio n. Left ear: Moderately -severe low frequency SNHL rising to mild sloping to severe sensorineu ral hearing loss with excellent word recognitio n. Tympanomet ry: Right Ear:Type A Left Ear:Type A Tinnitus of left ear 264 6288664 106 H93.12 Dizziness and giddiness 738015252 R42 [id number] TAYLOR FONTAINE MD [facility] [address] [address] 08/09/2024 13:47:00 08/09/2024 15:01:35 Sensorineural hearing loss of bilateral ears 231074562 H90.3 Audiologic al evaluation results: 08/09/2024 Right ear: Normal sloping to a mild sensorineu ral hearing loss with excellent word recognitio n. Left ear: Borderline normal sloping to a moderate sensorineu ral hearing loss with excellent word recognitio n. Tympanomet ry: Right Ear:Type Ad Left Ear:Type Ad Tinnitus of left ear 491 8360611 106 H93.12 Meniere's disease of left inner ear 5847079268 108087 H81.02 [id number] TAYLOR FONTAINE MD [facility] [address] [place] [address] 02/09/2025 14:52:10 02/09/2025 15:57:24 Meniere's disease of left inner ear 1009041600 936221 H81.02 Patient with left-sided M ni re's disease. Today we discussed the importance of maintainin g low-sodium diet between 1500 and 2000 mg/day. I suspect that his flareups of tinnitus are related to increased sodium intake. Sensorineu ral hearing loss of bilateral ears 984946133 H90.3 Audiologic al evaluation results: 08/09/2024R ight ear:Normal sloping to a mild sensorineu ral hearing loss with excellent word recognitio n.Left ear:Normal sloping to moderately severe sensorineu ral hearing loss with excellent word recognitio n. Tympanomet ry:Right Ear:Type AdLeft Ear:Type AAudiometr ic testing is overall unchanged in comparison to his last audiogram. Benign par oxysmal positional vertigo 164338965 H81.11 [id number] Patient with episodic positional ly induced vertigo. Alan-Hallpi ke was positive for vertigo and rotary [...] patient can call for further referrals. Diplopia 76590771 H53.2 [id number] It is not clear that the underlying [...] Chirinos Member ID Guarantor Name 02/09/2025 1 [place] [facility] Brendan Ferrera [id number] Brendan Ferrera 02/09/2025 2 [place] [facility] Brendan Ferrera [id number] Brendan Ferrera Notes Date Note Type Note [...] loss in her 40s. ZINA BLAKE PA-C [address] [place] [address], [address], [facility] [...] as well as chronic lymphocytic leukemia. TAYLOR VENUS, MD 100 [facility] [address], [place], [address], [place] - [facility] [place] 08/09/2024 15:01:26 02/09/2025 text/html Patient with left-sided [...] diet as I recommended. TAYLOR FONTAINE MD 100 [facility] [address], [place], [address], [place] [facility] 02/09/2025 15:44:19
--- OUTSIDE RECORDS SUMMARY | 2025-06-19 18:24 | XMS_ITS | Clinical Summary ---
Author Organization [employer] Address [address] [place] [address] Care Team Providers Care Cementer Hand Name Role Phone Izzy Pantoja MD Primary Care Provider [phone] Ilana Gaming Unavailable Allergies Active Allergy Reactions [...] HOURS IF NEEDED 18 g 3 Active esomeprazole (NexIUM) [address] capsule take 1 capsule by oral route every day at least 1 hour before a meal swallowing whole. Do not crush or chew granules. 90 capsule 1 3 Active triamcinolone (Kenalog) 0.1 % cream Apply [...] when symptoms are severe 180 tablet 1 5 Active Acetaminophen 500 MG capsuleIndicati ons:Pain take 2 capsule by oral route every 6 hours as needed 60 capsule 3 5 Active atorvastatin (Lipitor) 10 MG tablet Take 1 tablet (10 mg) by mouth at bedtime. 90 tablet 3 5 Active clobetasol (Temovate) 0.05 % ointment Apply topically 2 times daily. 45 g 1 5 Active olmesartan (Benicar) 20 MG tablet Take 1/2 tablet by mouth once daily 45 tablet 3 5 Active predniSONE (Deltasone) 20 MG tablet Take 1 tablet (20 mg) by mouth Once per day for 5 days. 5 tablet 5 06/04/20 25 Active Problems Patient Care Coordination No te Formatting of this note migh t be different from the original. C3/CM Isis Orona RN, TC Progress Note Problem Noted Date Diagnosed Date Tubular adenoma of colon 06/10/2025 Assessment & Plan (06/10/2025 6:22 AM EST): - Colonoscopy on 04/07/[address] Perera - 2 polyps were hyperplastic changes. 1 polyp from sigmoid colon was a tubular adenoma. Negative for high-grade dysplasia or carcinoma. Palpitation 03/06/2025 Assessment & Plan (06/10/2025 6:13 AM EST): - Holter monitor on 04/03/2025. Sinus rhythm with average rate of 73. Supraventricular ectopy with a burden of about 1.4%. Rare ventricular ectopy. No significant pauses or high-grade AV blocks. Transaminitis 03/06/2025 Assessment & Plan (03/06/2025 8:46 AM EDT): - ALT 51 on 10/31/24 - Likely MASLD or transient - recheck lab - continue working on lifestyle modifications Hypertension 08/05/2024 Assessment & Plan (06/10/2025 6:15 AM EST): -Goal BP < 130/80 per ACC/AHA guideline (Treatment threshold >=140/90) -BP borderline -Continue working on lifestyle modifications -Recommended self-monitoring BP. -Start olmesartan 20 mg daily -Patient is taking terazosin for BPH with KING Assessment & Plan (02/27/2025 6:11 AM EDT): [...] of left ear 08/05/2024 Assessment & Plan (06/10/2025 6:18 AM EST): - following with ENT - Referred to AT for Ewa maneuver and vestibular therapy Assessment & Plan (02/27/2025 6:12 AM EDT): - following with ENT - Referred to [facility] for Ewa maneuver and vestibular therapy Assessment & Plan (08/05/2024 11:33 AM EST): - following with ENT - possible Meniere's disease BPH (benign prostatic hyperplasia) 12/24/2023 Assessment & Plan (06/10/2025 6:26 AM EST): - Following with urologist - BPH with KING (bladder outlet obstruction) - currently on finasteride and terazosin Assessment & Plan (08/05/2024 11:30 AM EST): [...] pain management and PCP Bilateral tinnitus 10/30/2023 Assessment & Plan (06/10/2025 6:16 AM EST): Evaluated by ENT, diagnosed with M ni re's disease Positive QuantiFERON-TB Gold test 08/15/2022 Assessment & Plan (08/15/2022 6:32 PM EST): - Seen by TB clinic provider, last appt on 05/06/22 - CXR and CT in January 2022 were normal - 2nd IGRA was negative - No LTBI and no need for Tx. Allergic rhinitis 08/15/2022 Assessment & Plan (06/10/2025 6:17 AM EST): - continue levocetirizine and nasal steroid - Following with ENT for M ni re's disease and allergic rhinitis Assessment & Plan (08/15/2022 6:40 PM EST): [...] AM EST): - following with urologist at [facility]. Last seen in November 2023. 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 - consider trial of alpha loki Hyperlipidemia 07/03/2021 Assessment & Plan (06/10/2025 6:13 AM EST): Current medication: atorvastatin 10 mg qhs Last Lipid Profile: October 31 2024 Continue working on lifestyle modifications Assessment & Plan (11/22/2024 4:58 PM EDT): [...] 8:48 AM EDT): - Previously following with [facility] pulmonology, currently asymptomatic - Most recent CT scan in January 2022 showed no mediastinal lymphadenopathy - No indication for repeat imaging at this time Assessment & Plan (11/22/2024 4:55 PM EDT): - Previously following with [facility] pulmonology, currently asymptomatic - Most recent CT scan in January 2022 showed no mediastinal lymphadenopathy - Consider repeating chest CT Assessment & Plan (08/05/2024 11:26 AM EST): - Following with [facility] pulmonology, currently asymptomatic - Most recent CT scan in January 2022 showed no mediastinal lymphadenopathy Assessment & Plan (12/27/2023 5:27 PM EDT): - Following with [facility] pulmonology, currently asymptomatic - Most recent CT scan in January 2022 showed no mediastinal lymphadenopathy Assessment & Plan (08/15/2022 6:30 PM EST): - Most recent CT scan in January 2022 showed no mediastinal lymphadenopathy Obstructive sleep apnea syndrome 05/29/2021 Assessment & Plan (03/06/2025 8:48 AM EDT): - last sleep study in Apr 2021, Sleep Medicine clinic in [place] - recommended auto-PAP 5-15 cm H2O - patient had a CPAP. - Pt returned machine because poor adherence. Pt reports burning in his nose with CPAP machine. Pt is not interested in trying newer CPAP machine. Assessment & Plan (11/22/2024 4:54 PM EDT): - last sleep study in Apr 2021, Sleep Medicine clinic in [place] - recommended auto-PAP 5-15 cm H2O - patient had a CPAP. - Pt returned machine because poor adherence. Pt reports burning in his nose with CPAP machine. Pt is not interested in trying newer CPAP machine. Assessment & Plan (07/29/2024 5:33 AM EST): - last sleep study in Apr 2021, Sleep Medicine clinic in [place] - recommended auto-PAP 5-15 cm H2O - patient has a CPAP. Will check if patient can have a humidification device, especially during dry season. Assessment & Plan (12/27/2023 5:27 PM EDT): - last sleep study in Apr 2021, Sleep Medicine clinic in [place] - recommended auto-PAP 5-15 cm H2O - patient has a CPAP. Will check if patient can have a humidification device, especially during dry season. Assessment & Plan (08/15/2022 6:36 PM EST): - last sleep study in Apr 2021, Sleep Medicine clinic in [place] - recommended auto-PAP 5-15 cm H2O - [...] to smoking cessation group Consider referral to [facility] Obesity 04/19/2012 Assessment & Plan (06/10/2025 6:18 AM EST): - LEANDRA - Continue working on lifestyle modification Assessment & Plan (08/15/2022 6:41 PM EST): - LEANDRA - Continue working on lifestyle modification Gastroesophageal reflux disease 04/19/2012 Assessment & Plan (06/10/2025 6:20 AM EST): Continue pantoprazole Continue sucralfate Upper GI series on 11/15/24 showed GERD otherwise normal EGD on 04/07/2025 showed GERD, gastritis, gastric polyps, duodenal ulcer. Biopsy showed mild chronic active inflammation. Avoid irritants, especially smoking Assessment & Plan (02/27/2025 6:12 AM EDT): [...] lymphocytic leukemia (CMS/HCC) 2 Assessment & Plan (06/10/2025 6:26 AM EST): -Dx October 2008 -Oncology, [facility]. Last seen by Dr. Lee in September 2024, annual follow up. -Tx 6 cycles of R-CVP, completed in Jul 2009 -No sign of recurrence Assessment & Plan (11/22/2024 4:58 PM EDT): -Dx October 2008 -Oncology, [facility]. Last seen by Dr. Lee in September 2024, annual follow up. -Tx 6 cycles of R-CVP, completed in Jul 2009 -No sign of recurrence Assessment & Plan (07/29/2024 5:34 AM EST): -Dx October 2008 -Oncology, [facility]. Last seen by Dr. Lee in September 2023, annual follow up. -Tx 6 cycles of R-CVP, completed in Jul 2009 -No sign of recurrence Assessment & Plan (12/27/2023 5:33 PM EDT): -Dx October 2008 -Oncology, [facility]. Last seen by Dr. [...] LABA prn - work on smoking cessation Depression 01/16/2012 Assessment & Plan (06/10/2025 6:24 AM EST): - current [facility] provider: JEREMIAS - continue judicious and responsible use of gabapentin and clonazepam Assessment & Plan (08/15/2022 6:38 PM EST): - current [facility] provider: JEREMIAS - continue judicious and responsible use of gabapentin and clonazepam Encounters Date Type Department Care Team Description 06/14/2025 Travel 06/06/2025 [place] [address] Izzy Pantoja MD TSH with Reflex to Free T4, Basic Metabolic Panel 06/06/2025 Orders Only [address] [address] Izzy Pantoja MD Transaminitis (Primary Dx); Upper abdominal pain 05/31/2025 Results Follow-Up [address] [address] Izzy Pantoja MD CBC auto differential, Hepatic Function Panel 05/30/2025 3:15 PM EST Office Visit [address] [address] Izzy Pantoja MD Rash (Primary Dx); Encounter for vaccination; Encounter for immunization; Hypertension, unspecified type; Palpitation; Mixed hyperlipidemia; Elevated BP without diagnosis of hypertension; Bilateral tinnitus; Allergic rhinitis, unspecified seasonality, unspecified trigger; Meniere's disease of left ear; Class 2 severe obesity due to excess calories with serious comorbidity and body mass index (BMI) of 36.0 to 36.9 in adult; Gastroesophageal reflux disease, unspecified whether esophagitis present; Tubular adenoma of colon; Current moderate episode of major depressive disorder, unspecified whether recurrent (CMS/HCC) ([facility]); Benign prostatic hyperplasia with urinary obstruction; Chronic lymphocytic leukemia (CMS/HCC) ([facility]) 05/30/2025 Travel 05/29/2025 Telephone [facility] [address] [place], [place] [phone] Izzy Pantoja MD chartprep 05/25/2025 Orders Only GENERIC EXTERNAL DATA DEPARTMENT Provider, Generic External Data 05/23/2025 Travel 05/19/2025 Refill [facility] [address] [place], [place] [phone] Izzy Pantoja MD 04/07/2025 Orders Only GENERIC EXTERNAL DATA DEPARTMENT Provider, Generic External Data 03/29/2025 Telephone [facility] [address] [place], [place] [phone] Izzy Pantoja MD may recall from Last 3 Months Immunizations Immunization Administration Dates Next Due Hep B, adult 02/10/2019,03/07/2009,01/10/2009 Influenza injectable quadriv alent IIV4 with preservative 08/27/2017,05/07/2016 Influenza injectable quadriv alent preservative free 05/12/2022,04/15/2021,04/18/2020,06/01,04/02/2015 Influenza, IIV3, injectable 06/05/2011 Influenza, Split (incl. alex fied surface antigen) 04/19/2012 Influenza, seasonal, injecta ble, preservative free 05/30/2025,07/26/2024 Moderna Covid-19 Vaccine 6+ Bivalent 08/11/2022 Pfizer Covid-19 Vaccine 12+ 05/30/2025,,12/24/2023 Pneumococcal Conjugate PCV 20 08/11/2022 Pneumococcal Polysaccharide [...] Visit [facility] [address] [place] [address] Lee, Kristen, OD [address] [place] [address] Health Maintenance Due Date Last Done Comments CT Colonography 1975 FIT DNA/Cologuard 1975 FIT 1975 FOBT 1975 Sigmoidoscopy 1975 Family Planning (PISQ) 01/05/1991 Zoster Vaccines (1 of 2) 01/05/1995 Depression Screening 07/26/2025 07/26/2024, 07/26/19 25 Diabetes: Hemoglobin A1C 10/31/2025 025, 12/31/2023, [...] Free T4 1.43 0.32 - 4.0 uIU/mL [facility] Blood 05/30/2025 4:16 PM EST 05/30/2025 5:28 PM EST us Izzy Pantoja MD LAB BLOOD ORDERABLES Final Resul t [facility] [address] [place] [phone] * (ABNORMAL) CBC auto differential (05/30/2025 4:16 PM EST) White Blood Count 8.5 4.8 - 10.8 X10*3/uL [facility] Red Blood Count 5.56 4.60 - 5.80 X10*6/uL [facility] Hemoglobin 15.9 14.0 - 18.0 g/dl [facility] Hematocrit 47.6 42.0 - 52.0 % [facility] Mean Corpuscular Volume 85.6 80.0 - 98.0 fL [facility] Mean Corpuscular Hemoglobin 28.6 27.0 - 33.0 pg [facility] Mean Corpuscular HGB Conc 33.4 31.0 - 36.0 g/dl [facility] Red Cell Distribution Width 13.7 11.0 - 16.0 % [facility] Platelet Count 263 160 - 400 X10*3/uL [facility] Mean Platelet Volume 10.1 9.4 - 12.4 fL [facility] Neutrophils Percent Auto 72.1 45 - 73 % [facility] Imm Gran Pct Auto 0.5(H) 0.0 - 0.4 % [facility] Lymphocytes Percent Auto 18.0(L) 20 - 40 % [facility] Monocytes Percent Auto 7.8 2 - 11 % [facility] Eosinophils Percent Auto 1.1 0 - 4 % [facility] Basophils Percent Auto 0.5 0 - 2 % [facility] NRBC Pct Auto 0.0 0.0 - 0.2 /100WBC [facility] Neutrophils Absolute Auto 6.1 2.0 - 8.3 x10*3/uL [facility] Imm Gran Abs Auto 0.04(H) 0.00 - 0.03 X10*3/uL [facility] Lymphocytes Absolute Auto 1.5 1.2 - 4.9 X10*3/uL [facility] Monocytes Absolute Auto 0.7 0.1 - 1.2 X10*3/uL [facility] Eosinophils Absolute Auto 0.1 0.0 - 0.4 X10*3/uL [facility] Basophils Absolute Auto 0.0 0.0 - 0.2 X10*3/uL [facility] NRBC Abs Auto 0.000 0.0 - 0.012 X10*3/uL [facility] Blood Venous blood specimen / Unknown 05/30/2025 4:16 PM EST 05/30/2025 5:28 PM EST us Izzy Pantoja MD LAB BLOOD ORDERABLES Final Resul t [facility] [address] [place] [phone] * (ABNORMAL) Hepatic Function Panel (05/30/2025 4:16 PM EST) Pathologist [facility] Bilirubin, Total 0.5 0.0 - 1.0 mg/dL [facility] Bilirubin, Direct 0.2 0.0 - 0.5 mg/dL [facility] Aspartate Amino Transferase 35 5 - 37 U/L [facility] Alanine Aminotransferase 61(H) 0 - 40 U/L [facility] Total Protein 7.4 6.5 - 8.0 g/dL [facility] Albumin Level 4.6 3.5 - 5.0 g/dL [facility] Alkaline Phosphatase 133(H) 39 - 117 U/L [facility] Blood Venous blood specimen / Unknown 05/30/2025 4:16 PM EST 05/30/2025 5:28 PM EST Izzy Pantoja MD LAB BLOOD ORDERABLES Final Resul t [facility] [address] [place] [phone] * (ABNORMAL) Basic Metabolic Panel (05/30/2025 4:16 PM EST) Pathologist [facility] Sodium 142 135 - 145 mmol/L [facility] Potassium 4.3 3.3 - 5.1 mmol/L [facility] Chloride 107 96 - 108 mmol/L [facility] Carbon Dioxide 28 22 - 29 mmol/L [facility] Anion Gap 11(L) 12 - 20 [facility] Urea Nitrogen (BUN) 10 9 - 16 mg/dL [facility] Creatinine, Serum 0.77 0.5 - 1.4 mg/dL [facility] Estimated Glomerular Filt Rate >60 [facility] Comment:Chronic Kidney Disea se: Estimated GFR < 60 mL/min/1.82x9Fzyinh Kidney Disease: Estimated GFR < 15 mL/min/1.73m2 Glucose 95 60 - 115 mg/dL [facility] Calcium 9.0 8.4 - 10.2 mg/dL [facility] Blood Venous blood specimen / Unknown 05/30/2025 4:16 PM EST 05/30/2025 5:28 PM EST us Izzy Pantoja MD LAB BLOOD ORDERABLES Final Resul t Performing Organization Address [facility] Co de Phone Number [facility] [address] [place] [phone] * PSA,Total (05/25/2025 8:05 AM EST) Prostate Specific Antigen 1.27 <0.05 - 4.0 ng/mL [facility] Comment:PSA methodology: Saima Crandall i ChemiluminescentMicroparticle Immunoassay (CMIA) 05/25/2025 8:05 AM EST 05/25/2025 8:05 AM EST us Generic External Data Provider LAB BLOOD ORDERAB LES Final Result Performing Organization Address [facility] Co de Phone Number [facility] [address] [place] [phone] * Hematoxylin and Eosin Stain (04/07/2025 12:55 PM EDT) 04/07/2025 12:5 5 PM EDT 04/07/2025 2:31 PM EDT Narrative [facility] - 04/10/2025 3:45 PM EDT ----- ------- Name: Brendan Ferrera Age/Sex: 50/M : 1975 Unit#: [id number] Attend Dr: Tova Perera MD Re04/07/25 Status: [facility] Location: [facility] Disch: ----- ------- SPEC : [id number] RECD: 04/07/25-143 STATUS: LOUISE PINA NUM: [id number] JEFRY: 04/07/25-[address]: Tova Perera MD ENTERED: 04/07/25-144 SP TYPE: Surgical OTHR DR: Izzy Pantoja [...] Brendan Ferrera Age/Sex: 50/M : 1975 Unit#: [id number] Attend Dr: Tova Perera MD Re04/07/25 Status: [facility] Location: [facility] Disch: ----- ------- SPEC : [id number] RECD: 04/07/25-1431 STATUS: BARBARAKiya SILVANA NUM: [id number] JEFRY: 04/07/25-[address] [facility] [address]: Tova Perera MD ENTERED: 04/07/25-1446 [...] developed and their performance characteristics determined by [facility]. They have not been cleared or approved by the U.S. Food and Drug Administration (FDA). However, the FDA has determined that such clearance or approval is not necessary. This laboratory is certified under the Clinical Laboratory Improvement Amendments of 1988 (CLIA) as qualified to perform high complexity clinical laboratory testing. Copies To: Tova Perera MD [facility] [address] [place] [phone] Izzy Pantoja MD [address] [address] CONTINUED ON NEXT PAGE ----- ------- Name: Brendan Ferrera A Age/Sex: 50/M : 1975 Unit#: [id number] Attend Dr: Tova Perera MD Re04/07/25 Status: [facility] Location: [facility] Disch: ----- ------- SPEC : [id number] RECD: 04/07/25 STATUS: LOUISE PINA NUM: [id number] JEFRY: 04/07/[address] [facility] [address]: Tova Perera MD ENTERED: 04/07/25 SP TYPE: Surgical OTHR DR: Izzy Pantoja MD ORDERED: HE Stain/15, Gross Micro L4/5, IHC/2, Special st. 2/2, H. pylori/2, AB/PAS/2 ----- ------- Signed (signature on file) Dario Gillette MD 04/10/25 1545 ----- ------- END OF REPORT us Generic External Data Provider LAB BLOOD ORDERAB LES Final Result [facility] [address] [place] [phone] * Lipid Panel with Reflex to Direct LDL (10/31/2024 8:00 AM EDT) Triglycerides 59 <150 mg/dL [facility] Comment:Desirable Triglyceri de: less than 150 mg/dLBorderline High Triglyceride 150-199 mg/dLHigh Triglyceride: 200-499 mg/dLVery High Triglyceride: greater than or equal to 5OO mg/dL Cholesterol 133 <200 mg/dL [facility] Comment:Desirable Cholestero l: less than 200 mg/dLBorderline High Cholesterol: 200-239 mg/dLHigh Cholesterol: greater than 239 mg/dL LDL Cholesterol Calculated 73 <100 mg/dL [facility] Comment:Desirable LDL: less than 100 mg/dLNear Optimal/Above Optimal LDL: 110- 129 mg/dLBorderline High LDL: 130-159 mg/dLHigh LDL: 160-189 mg/dLVery High LDL: greater than or equal to 190 mg/dL HDL Cholesterol 49 >40 mg/dL [facility] Comment:Desirable HDL: great er than 40 mg/dL Note: This HDL assay may give artificially low results in patients with liver disease. 10/31/2024 8:00 AM EDT 10/31/2024 8:05 AM EDT us Generic External Data Provider LAB BLOOD ORDERAB LES Final Result [facility] [address] [place] [phone] * Hemoglobin A1c (10/31/2024 8:00 AM EDT) Hemoglobin A1c 5.7 <6.0 % [facility] Comment:Hemoglobin A1C Refer ence Range Adults: 4.8 - 6.0 % Non diabetic: < 6.0 % Goal: < 7.0 %Additional Action Suggested: > 8.0 %Note: Hemoglobin A1c results are invalid for patients with abnormal amounts of HbF. Blood transfusions may impact the HbA1c concentration in the patient sample. Estimated Average Glucose 117 mg/dL [facility] Comment:eAG = Estimated ave rage glucose which is %A1C expressed asaverage glucose, using the formula of the J2M-CyhhahhCjlekfd Glucose study (ADAG), Diabetes Care, Vol.31,#8,2007 Blood Venous blood specimen / Unknown 10/31/2024 8:00 AM EDT 10/31/2024 8:05 AM EDT Izzy Pantoja MD LAB BLOOD ORDERABLES Final Resul t [facility] [address] [place] [phone] * HEPATITIS C AB W/REFL TO HCV RNA, QN, PCR (07/01/2021 3:34 PM EST) HEPATITIS C ANTIBODY NON-REACT JIMENEZ NON-REACT JIMENEZ [facility] INDEX 0.02 <1.00 [facility] Comment: HCV antibody was non-reactive. There is no laboratory evidence of HCV infection. In most cases, no further action is required. However, if recent HCV exposure is suspected, a test for HCV RNA (test code 70530) is suggested. For additional information please refer to http://education.[employer]/faq/QOO51r3 (This link is being provided for informational/ educational purposes only.) 07/01/2021 3:34 PM EST L[facility] HISTORICAL/NON ORDERABLE LABS Final Result [facility] [address] * HIV 1/2 ANTIGEN/ANTIBODY,FOURTH GENERATION W/RFL (07/01/2021 3:34 PM EST) HIV-1/2 ANTIGEN AND ANTIBODIES, 4TH GENERATION W/ REFLEX NON-REACT JIMENEZ NON-REACT JIMENEZ [facility] Comment: HIV-1 antigen and HIV-1/HIV-2 [...] purpose. For additional information please refer to http://education.[employer]/faq/EBU481 (This link is being provided for informational/ educational purposes only.) The performance of this assay has not been clinically validated in patients less than 2 years old. 07/01/2021 3:34 PM EST us Loulou Cruz [employer] LAB BLOOD ORDERABLES Final Res ult [facility] [address] from Last 3 Months or Most Recently Relevant to Health Maintenance Insurance [facility] [place] [address] [place] [id number] Care Teams Cementer Hand Relationship Specialty Start Date End Date Izzy Pantoja MD [address] [place] [phone] PCP - General Family Medicine 03/17/22 Ilana Gaming Community Health Worker 10/26/23
== END 2025-06-19 16:01 | disposition home or self-care (01) ==
LOC: HO.HGI 15:21
PROVIDERS: PCP Family Medicine; Visit Provider Nurse Practitioner Family
DX: K21.9 Gastro-esophageal reflux disease without esophagitis (principal); R10.13 Epigastric pain; R14.0 Abdominal distension (gaseous); K59.01 Slow transit constipation; D12.6 Benign neoplasm of colon, unspecified; K57.90 Diverticulosis of intestine, part unspecified, without perforation or abscess without bleeding
CPT/HCPCS: 99214

== ENCOUNTER → 2025-06-19 15:21 | Outpatient (BNVA) | payer MEDICAID, SELFPAY | PROVIDERS: PCP Family Medicine; Visit Provider Nurse Practitioner Family | DX: K21.9 Gastro-esophageal reflux disease without esophagitis (principal); D12.6 Benign neoplasm of colon, unspecified; K57.90 Diverticulosis of intestine, part unspecified, without perforation or abscess without bleeding; K59.01 Slow transit constipation; R10.13 Epigastric pain; R14.0 Abdominal distension (gaseous); Z79.899 Other long term (current) drug therapy | CPT/HCPCS: 99212 ==